=== PATIENT | female | born 1970 | race Caucasian/White ===

== ENCOUNTER 2016-08-05 21:01 | Emergency (ER) | payer OTHER ==
[~2016-08-05] VITALS: Ht 167.6 cm; Wt 123.5 kg
[~2016-08-05 21:01] MED LIST: AMLO-110 PO; ASPI81TA28 PO; HYDR-5688 PO; LEVO112T4 PO; METO50TA16 PO; SALI1SPR3 NAE; SULF800T23 PO
[2016-08-05 21:11] VITALS: TEMP 36.7; Ht 167.6 cm; Wt 123.5 kg
--- NOTE | 2016-08-05 21:43 | EMERGENCY ROOM VISIT NOTE ---
ED Visit Note First contact with patient: 21:24 CHIEF COMPLAINT: Infection of the right inguinal fold HISTORY OF PRESENT ILLNESS: This 46-year-old female patient presents to the emergency department ambulatory after they noticed a hard, red, tender area to the right inguinal fold 3 days ago. It is slowly getting larger, more painful and tender. No fever, chills, or loss of appetite. There has been drainage from the area which started approximately one hour ago. There was no injury to the area preceding the infection. They rate the pain as sharp and 7/10. They have tried nothing. The patient is non-diabetic. The patient has no history of subcutaneous abscesses. REVIEW OF SYSTEMS: A 10 system review of systems was completed with positives and pertinent negatives listed in the HPI. ALLERGIES: No known drug allergies MEDICATIONS: See nursing notes PMH: Hypothyroidism, back pain, hypertension SOCIAL HISTORY: The patient lives locally with family. She does not smoke PHYSICAL EXAM: Vital Signs: Reviewed Nurse's notes, vital signs stable. GENERAL : This is a 46-year-old female, no acute distress, non toxic in appearance, well -developed well-nourished. SKIN: There is an erythematous indurated area to the right inguinal fold which measures about 2 cm in diameter. It is open and draining. There is approximately 0.5 cm hole in the center that is nicely draining. There is a zone of inflammation around it but no lymphangitis. Capillary refill less than 2 seconds. MUSCULOSKELETAL: There is no limitation of the range of motion of the right leg. EMERGENCY DEPARTMENT COURSE: I examined the patient. The patient appears to have an open and draining abscess to the right inguinal fold. There is no significant cellulitis. She is afebrile and nontoxic in appearance. A culture was obtained. The patient will be placed on Bactrim and Keflex and given a prescription for Percocet. She should return in 24-48 hours if she does not have any significant improvement. She should return to the ER with any worsening symptoms. The patient does have a history of hypertension and was noted to be hypertensive. The patient is quite embarrassed and is having pain. She does not have any chest pain, trouble breathing, headache, numbness, tingling. She was advised to monitor her blood pressure and follow with her family doctor. The patient was discharged home in stable condition. Problem List Medical Problems: (1) Anxiety Status: Chronic (2) Cervical disc displacement Status: Resolved (3) Cervicalgia Status: Resolved (4) Depression Status: Chronic (5) HTN (hypertension) Status: Chronic (6) Hypothyroidism Status: Chronic (7) Insomnia Status: Chronic (8) Kidney disease Status: Chronic (9) Kidney stones Status: Resolved (10) Migraines Status: Chronic Surgical Problems: (1) History of renal stent Status: Chronic (2) History of tubal ligation Status: Chronic (3) Previous section Status: Chronic (4) S/P cholecystectomy Status: Chronic (5) Status post spinal disc removal Permanent Comment: arthrodesis anterior cervical spine 02/07/2008, and C5-C7 discectomy, fusion Dr. Russo 07/18/14 Status: Chronic Current/Historical Medications Scheduled Amlodipine (Norvasc), 5 MG PO DAILY Aspirin (Aspirin Ec), 81 MG PO DAILY Cephalexin Monohydrate (Keflex), 500 MG PO QID Levothyroxine Sodium (Levothyroxine Sodium), 112 MCG PO DAILY Metoprolol Tartrate (Lopressor) (Lopressor), 75 MG PO BID Sulfa/Trimethoprim (Bactrim Ds 800MG/160MG), 1 TAB PO BID Scheduled PRN Oxycodone/Acetaminophen 5MG/325MG (Percocet 5MG/325MG), 1 TAB PO Q4H PRN for Pain Saline (Saline Nasal [place]), 2 SPRAYS CATRACHITA BID PRN for PRN Allergies Coded Allergies: No Known Allergies (Verified , 09/08/15) Vital Signs Date Time Temp Pulse Resp B/P Pulse Ox O2 Delivery O2 Flow Rate FiO2 08/05/16 22:27 83 15 173/112 98 08/05/16 21:11 36.7 84 18 186/117 98 Room Air Medications Administered Medications (Trade) Dose Ordered Sig/Ernesto Route Start Time Stop Time Status Last Admin Dose Admin Oxycodone/ Acetaminophen (Percocet 5/ 325MG Home Pack) 1 homepack UD ONCE PO 08/05/16 21:45 08/05/16 21:46 DC 08/05/16 22:22 1 HOMEPACK Cephalexin Monohydrate (Keflex 500MG Home Pack) 1 homepack NOW ONCE PO 08/05/16 21:45 08/05/16 21:46 DC 08/05/16 22:22 1 HOMEPACK Trimethoprim/ Sulfamethoxazole (Sulfameth/ Trimeth Ds 800/ 160MG Home Pack) 1 homepack UD ONCE PO 08/05/16 21:45 08/05/16 21:46 DC 08/05/16 22:22 1 HOMEPACK Departure Information Impression Primary Impression: Abscess Dispostion Home / Self-Care Condition GOOD Prescriptions Oxycodone/Acetaminophen 5MG/325MG (PERCOCET 5MG/325MG) Tab 1 TAB PO Q4H Y for Pain, #18 TAB For Initial Treatment Prov: Diane Mccloud PA-C 08/05/16 Cephalexin Monohydrate (Keflex) 500 Mg Cap 500 MG PO QID for 7 Days, #28 CAP Prov: Diane Mccloud PA-C 08/05/16 Sulfa/Trimethoprim (Bactrim Ds 800MG/160MG) Tab 1 TAB PO BID for 7 Days, #14 TAB Prov: Diane Mccloud PA-C 08/05/16 Referrals Mykel Bailey M.D. (PCP) Patient Instructions Drainage Abscess, [facility] Additional Instructions Bactrim and Keflex as prescribed, until finished Ibuprofen 600 mg every 6-8 hours or moderate pain Percocet 1-2 tablet every 4-6 hours as needed for worse pain. No driving or alcohol use with Percocet and do not take with Tylenol. Keep the area clean and dry. Warm soaks. The area will continue to drain. Return with any worsening swelling, redness, fevers. Return to the emergency department in 24-48 hours for a recheck unless there is significant improvement.
[2016-08-05] MEDS ORDERED: CEPHALEXIN 500MG HOME PACK 1 EA BTL PO ONE (21:45)
[2016-08-05] MEDS ORDERED: SEPTRA DS HOME PACK 1 EA VIAL PO ONE (21:45)
[2016-08-05] MEDS ORDERED: PERCOCET HOME PACK PO ONE (21:45)
[2016-08-05] MEDS ORDERED: SULF800T23 PO (21:47)
[2016-08-05] MEDS ORDERED: OXYC-57 PO (21:47)
[2016-08-05] MEDS ORDERED: CEPH500C PO (21:47)
[2016-08-05 22:27] VITALS: BP 173/112; PULSE 83; O2SAT 98
== END 2016-08-05 22:31 | disposition home or self-care (01) ==
LOC: C.EDB 21:03 → C.EDA 22:31
DX: L02.214 Cutaneous abscess of groin (principal); I12.9 Hypertensive chronic kidney disease with stage 1 through stage 4 chronic kidney disease, or unspecified chronic kidney disease; N18.9 Chronic kidney disease, unspecified; E03.9 Hypothyroidism, unspecified; F41.9 Anxiety disorder, unspecified; F32.9 Major depressive disorder, single episode, unspecified; M50.20 Other cervical disc displacement, unspecified cervical region; Z98.51 Tubal ligation status; Z90.49 Acquired absence of other specified parts of digestive tract; Z87.442 Personal history of urinary calculi; Z79.82 Long term (current) use of aspirin; Z79.899 Other long term (current) drug therapy

== ENCOUNTER 2017-02-27 20:04 | Emergency (ER) | payer OTHER ==
[~2017-02-27] VITALS: Ht 167.6 cm; Wt 121.0 kg
[~2017-02-27 20:04] MED LIST changes: -HYDR-5688 PO; -SULF800T23 PO
[2017-02-27 20:08] VITALS: TEMP 36.9; Ht 167.6 cm; Wt 121.0 kg
[2017-02-27] MEDS ORDERED: DiphenhydrAMINE HCL 50 MG/ML VIAL IV STA (20:33)
[2017-02-27] MEDS ORDERED: SODIUM CHLORIDE 0.9% 1000ML 1,000 ML IV STA (20:33)
[2017-02-27] MEDS ORDERED: PROCHLORPERAZINE 5 MG/ML 2 ML VIAL IV STA (20:33)
[2017-02-27 20:40] VITALS: O2SAT 97
[2017-02-27 20:46] LABS: BASO % 0.4 %; BASO ABS # 0.03 K/uL (0-0.2); COMPLETE YES; EOS % 4.3 %; HEMATOCRIT 43.2 % (37-47); IG% 0.2 %; LYMPH % 26.2 %; LYMPH ABS # 2.15 K/uL (1.2-3.4); MEAN CELL VOLUME 90.4 fL (80-100); MEAN CORPUSCULAR HEMOGLOBIN 28.9 pg (25-34); MEAN CORPUSCULAR HGB CONC 31.9 g/dl (32-36); MEAN PLATELET VOLUME 10.6 fL (7.4-10.4); MONO % 11.6 %; NEUT % 57.3 %; PLATELET COUNT 306 K/uL (130-400); RED BLOOD COUNT 4.78 M/uL (4.2-5.4); WHITE BLOOD COUNT 8.21 K/uL (4.8-10.8)
[2017-02-27 20:55] LABS: BUN/CREATININE RATIO 14.9 (10-20); CALCIUM 9.5 mg/dl (8.5-10.1); CREATININE 1.5 mg/dl (0.60-1.20); POTASSIUM 3.7 mmol/L (3.5-5.1)
[2017-02-27] MEDS ORDERED: ACET-1256 PO (21:03)
[2017-02-27] MEDS ORDERED: OPTIRAY 320 IV PRN (21:45)
--- NOTE | 2017-02-27 21:54 | DIAGNOSTIC IMAGING REPORT ---
ANGIOGRAPHY HEAD COMBO CLINICAL HISTORY: 46 years-old Female presents with acute headache. Concern for intracranial hemorrhage. COMPARISON STUDY: CT head 04/10/2014 TECHNIQUE: Unenhanced axial CT scan of the brain is performed. Subsequently, following the IV administration of 93 cc of Optiray 320, CT angiogram of the brain was performed from the skull base to the vertex. Images are reviewed in the axial, sagittal, and coronal planes. 3-D MIPS images are created and assessed. IV contrast was administered without complication. A dose lowering technique was utilized adhering to the principles of ALARA. CT DOSE: 651.86 mGy.cm FINDINGS: CT BRAIN: There is no acute intracranial hemorrhage, midline shift, hydrocephalus, intracranial mass, territorial ischemia or abnormal extra-axial collections. No abnormal intra-axial or extra-axial enhancement. Mastoid air cells and middle ear cavities are clear. No calvarial fracture. Paranasal sinuses are clear. No abnormal enhancement is identified. CT ANGIOGRAM OF THE BRAIN: The imaged bilateral internal carotid arteries are patent. The bilateral anterior and middle cerebral arteries are also patent. The vertebrobasilar system and posterior cerebral arteries are widely patent. There is no aneurysm, high-grade stenosis, or proximal branch occlusion identified. Dural sinuses appear patent. IMPRESSION: 1. No acute intracranial abnormality. 2. No high-grade stenosis, dissection, aneurysm or proximal branch occlusion. The above report was generated using voice recognition software. It may contain grammatical, syntax or spelling errors. Electronically signed by: Gilberto Diallo M.D. 02/27/2017 9:52 PM Dictated Date/Time: 02/27/2017 9:45 PM
[2017-02-27 22:18] VITALS: BP 163/96; PULSE 80; O2SAT 99
--- NOTE | 2017-02-27 22:55 | EMERGENCY ROOM VISIT NOTE ---
History Report prepared by Georgie: Blayne Ray Under the Supervision of: Dr. Cristian Cortes M.D. First contact with patient: 20:25 Chief Complaint: HEADACHE Stated Complaint: VERY BAD HEAD PAIN History of Present Illness The patient is a 46 year old female who presents to the Emergency Room with complaints of a worsening constant headache for four days. She states that the pain is behind her left eye and on the left side. The patient states that she used to get migraines, however this one feels different because of the long duration. The patient denies any fever, and she states that nothing makes the pain better or worse. She did have a low-grade temp previously but was placed on antibiotics for a kidney infection. She has not had any fever since and her urinary symptoms have resolved. She states that she was nauseous today. She denies any trauma. The patient states that she has a history of hypertension, and she has a Family history of aneurysms. She additionally states that she is on antibiotics for a recent kidney infection. The patient states that she has been taking Tylenol every 4 hours. The headache was gradual in onset. Source of History: patient Onset: four days ago Position: head Timing: constant, worsening Associated Symptoms: + nausea Review of Systems See HPI for pertinent positives & negatives. A total of 10 systems reviewed and were otherwise negative. Past Medical & Surgical Medical Problems: (1) Anxiety (2) Cervical disc displacement (3) Cervicalgia (4) Depression (5) HTN (hypertension) (6) Hypothyroidism (7) Insomnia (8) Kidney disease (9) Kidney stones (10) Migraines Surgical Problems: (1) History of renal stent (2) History of tubal ligation (3) Previous section (4) S/P cholecystectomy (5) Status post spinal disc removal Family History Cancer Diabetes mellitus Gallbladder disease Heart disease Hypertension Kidney disease Social History Smoking Status: Never Smoker Alcohol Use: occasionally Drug Use: none Marital Status: Housing Status: lives with family Occupation Status: disabled Current/Historical Medications Scheduled Amlodipine (Norvasc), 5 MG PO DAILY Aspirin (Aspirin Ec), 81 MG PO DAILY Levothyroxine Sodium (Levothyroxine Sodium), 112 MCG PO DAILY Metoprolol Tartrate (Lopressor) (Lopressor), 75 MG PO BID Scheduled PRN Acetaminophen (Tylenol), 1,000 MG PO DAILY PRN for Pain or Fever Saline (Saline Nasal [place]), 2 SPRAYS CATRACHITA BID PRN for PRN Allergies Coded Allergies: No Known Allergies (Verified , 02/27/17) Physical Exam Vital Signs Date Time Temp Pulse Resp B/P (MAP) Pulse Ox O2 Delivery O2 Flow Rate FiO2 02/27/17 22:18 80 18 163/96 99 02/27/17 21:27 89 18 153/87 95 Room Air 02/27/17 20:40 97 Room Air 02/27/17 20:32 94 02/27/17 20:28 88 16 188/100 98 02/27/17 20:08 36.9 87 18 165/113 99 Room Air Physical Exam Constitutional: Vital signs reviewed. Eyes: No papilledema. Pupils are equal round reactive to light. Conjunctiva are noninjected. ENT: Pharynx is clear without erythema or exudate. Mucous membranes are moist. Neck supple without meningeal signs. Respiratory: Clear to auscultation bilaterally. Breath sounds are equal bilaterally. Cardiovascular: Regular rate and rhythm. No rubs or gallops. GI: Soft, nondistended and nontender. Bowel sounds are present. Musculoskeletal: No peripheral edema. No lower extremity tenderness. Integumentary: No cyanosis. Neurologic: The patient is awake and alert. Cranial nerves II-XII are intact. Motor is 5 out of 5 all extremities. Sensation is intact to light touch all extremities. Normal speech. No pronator drift. Psychiatric: Normal affect. Medical Decision & Procedures ER Provider Diagnostic Interpretation: Radiology results as stated below per my review and the radiologist's interpretation: ANGIOGRAPHY HEAD COMBO CLINICAL HISTORY: 46 years-old Female presents with acute headache. Concern for intracranial hemorrhage. COMPARISON STUDY: CT head 04/10/2014 TECHNIQUE: Unenhanced axial CT scan of the brain is performed. Subsequently, following the IV administration of 93 cc of Optiray 320, CT angiogram of the brain was performed from the skull base to the vertex. Images are reviewed in the axial, sagittal, and coronal planes. 3-D MIPS images are created and assessed. IV contrast was administered without complication. A dose lowering technique was utilized adhering to the principles of ALARA. CT DOSE: 651.86 mGy.cm FINDINGS: CT BRAIN: There is no acute intracranial hemorrhage, midline shift, hydrocephalus, intracranial mass, territorial ischemia or abnormal extra-axial collections. No abnormal intra-axial or extra-axial enhancement. Mastoid air cells and middle ear cavities are clear. No calvarial fracture. Paranasal sinuses are clear. No abnormal enhancement is identified. CT ANGIOGRAM OF THE BRAIN: The imaged bilateral internal carotid arteries are patent. The bilateral anterior and middle cerebral arteries are also patent. The vertebrobasilar system and posterior cerebral arteries are widely patent. There is no aneurysm, high-grade stenosis, or proximal branch occlusion identified. Dural sinuses appear patent. IMPRESSION: 1. No acute intracranial abnormality. 2. No high-grade stenosis, dissection, aneurysm or proximal branch occlusion. The above report was generated using voice recognition software. It may contain grammatical, syntax or spelling errors. Electronically signed by: Gilberto Diallo M.D. 02/27/2017 9:52 PM Dictated Date/Time: 02/27/2017 9:45 PM Laboratory Results 02/27/17 20:25 Red Blood Count 4.78, Mean Corpuscular Volume 90.4, Mean Corpuscular Hemoglobin 28.9, Mean Corpuscular Hemoglobin Concent 31.9, Mean Platelet Volume 10.6, Neutrophils (%) (Auto) 57.3, Lymphocytes (%) (Auto) 26.2, Monocytes (%) (Auto) 11.6, Eosinophils (%) (Auto) 4.3, Basophils (%) (Auto) 0.4, Neutrophils # (Auto ) 4.71, Lymphocytes # (Auto) 2.15, Monocytes # (Auto) 0.95, Eosinophils # (Auto ) 0.35, Basophils # (Auto) 0.03 02/27/17 20:25 Test 02/27/17 20:25 White Blood Count 8.21 K/uL (4.8-10.8) Red Blood Count 4.78 M/uL (4.2-5.4) Hemoglobin 13.8 g/dL (12.0-16.0) Hematocrit 43.2 % (37-47) Mean Corpuscular Volume 90.4 fL (80-100) Mean Corpuscular Hemoglobin 28.9 pg (25-34) Mean Corpuscular Hemoglobin Concent 31.9 g/dl (32-36) Platelet Count 306 K/uL (130-400) Mean Platelet Volume 10.6 fL (7.4-10.4) Neutrophils (%) (Auto) 57.3 % Lymphocytes (%) (Auto) 26.2 % Monocytes (%) (Auto) 11.6 % Eosinophils (%) (Auto) 4.3 % Basophils (%) (Auto) 0.4 % Neutrophils # (Auto) 4.71 K/uL (1.4-6.5) Lymphocytes # (Auto) 2.15 K/uL (1.2-3.4) Monocytes # (Auto) 0.95 K/uL (0.11-0.59) Eosinophils # (Auto) 0.35 K/uL (0-0.5) Basophils # (Auto) 0.03 K/uL (0-0.2) RDW Standard Deviation 46.8 fL (36.4-46.3) RDW Coefficient of Variation 14.2 % (11.5-14.5) Immature Granulocyte % (Auto) 0.2 % Immature Granulocyte # (Auto) 0.02 K/uL (0.00-0.02) Anion Gap 6.0 mmol/L (3-11) Est Creatinine Clear Calc Drug Dose 60.8 ml/min Estimated GFR () 47.3 Estimated GFR (Non- 40.8 BUN/Creatinine Ratio 14.9 (10-20) Calcium Level 9.5 mg/dl (8.5-10.1) Laboratory results as reviewed by me. Medications Administered Medications (Trade) Dose Ordered Sig/Ernesto Route Start Time Stop Time Status Last Admin Dose Admin Sodium Chloride 1,000 ml @ 999 mls/hr Q1H1M STAT IV 02/27/17 20:33 02/27/17 21:33 DC 02/27/17 20:50 999 MLS/HR Prochlorperazine Edisylate (Compazine Inj) 10 mg NOW STAT IV 02/27/17 20:33 02/27/17 20:35 DC 02/27/17 20:49 10 MG Diphenhydramine HCl (Benadryl Inj) 50 mg NOW STAT IV 02/27/17 20:33 02/27/17 20:35 DC 02/27/17 20:48 50 MG ED Course 2024: The patient was evaluated in room A12. A complete history and physical exam was performed. 2032: Benadryl Inj 50mg IV, Compazine 10mg IV, Sodium Chloride 1000 ml @ 999 mls /hr IV 2037: I discussed the limitations for a workup for a subarachnoid hemorrhage, and I discussed the risks and benefits of a lumbar puncture. 2158: I reevaluated the patient, and she was feeling better, and she does not wish to have a lumbar puncture. The patient will be discharged home. Medical Decision This is a 46-year-old female presents with a headache. Differential diagnosis includes migraine headache, tension headache, intracranial mass, intracranial hemorrhage, meningitis. I did perform a limited focused review of portions of the patient's old chart on the electronic medical record. The patient had a brain MRI in 2014 which was normal. I did evaluate the patient as noted above. The patient is presenting with a headache for the past 4 days. She does have a grandparent who had a prior history of aneurysms. Her headache was gradual in onset. She does have a prior history of migraines. IV access was established. I did treat the patient with IV Compazine, Benadryl and normal saline. I did order and review the patient's blood work as noted in the electronic medical record. Her white blood cell count is not elevated. I did order a CT of the head and CT angiogram of the brain. I did review the images myself as well as the radiology report as described above. There is no evidence of intracranial hemorrhage or cerebral aneurysm. I did reassess the patient. She states she is feeling better. I had discussed the possibility of lumbar puncture with the patient prior to her receiving medication. She decided at this point that she would not like to undergo the lumbar puncture and understands the indications of doing so. She will follow closely with her doctor. She was told to return immediately for worse symptoms or any new concerning symptoms as outlined below. She was discharged in good condition. Medication Reconcilliation Current Medication List: was personally reviewed by me Blood Pressure Screening Patient's blood pressure: Elevated blood pressure Blood pressure disposition: Referred to PCP Impression Primary Impression: Acute headache Scribe Attestation The scribe's documentation has been prepared under my direct and personally reviewed by me in its entirety. I confirm that the note above accurately reflects all work, treatment, procedures, and medical decision making performed by me. Departure Information Dispostion Home / Self-Care Referrals Mykel Bailey M.D. (PCP) Forms HOME CARE DOCUMENTATION FORM, IMPORTANT VISIT INFORMATION Patient Instructions Headache Pain, My [facility] Additional Instructions You have been examined and treated today on an emergency basis only. This is not a substitute for, or an effort to provide, complete comprehensive medical care. It is impossible to recognize and treat all injuries or illnesses in a single emergency department visit. It is therefore important that you follow up closely with your physician. Call as soon as possible for an appointment. Return for worsening symptoms or if you develop fever, numbness or weakness on one side of your body, difficulties with your speech or walking, or any other concerning symptoms. Problem Qualifiers Primary Impression: Acute headache Headache type: unspecified Intractability: not intractable Qualified Codes : R51 - Headache
== END 2017-02-27 22:19 | disposition home or self-care (01) ==
LOC: C.EDB 20:06 → C.EDA 22:19
DX: R51 Headache (principal); F41.9 Anxiety disorder, unspecified; F32.9 Major depressive disorder, single episode, unspecified; I10 Essential (primary) hypertension; E03.9 Hypothyroidism, unspecified; G47.00 Insomnia, unspecified; Z87.442 Personal history of urinary calculi; N28.9 Disorder of kidney and ureter, unspecified; Z80.9 Family history of malignant neoplasm, unspecified; Z83.3 Family history of diabetes mellitus; Z83.79 Family history of other diseases of the digestive system; Z82.49 Family history of ischemic heart disease and other diseases of the circulatory system; Z84.1 Family history of disorders of kidney and ureter; Z79.82 Long term (current) use of aspirin; Z79.899 Other long term (current) drug therapy

== ENCOUNTER 2017-09-29 09:28 | Inpatient (IN) | payer OTHER ==
[~2017-09-29] VITALS: Ht 167.6 cm; Wt 118.9 kg
[2017-09-29] VITALS (18 sets, daily range): BP systolic 140–187; BP diastolic 83–105; PULSE 60–78; TEMP 36.8–36.9; O2SAT 92–100; Ht 167.6 cm; Wt 118.9 kg
[~2017-09-29 09:28] MED LIST changes: +ACET-1256 PO; -ASPI81TA28 PO; -LEVO112T4 PO
--- NOTE | 2017-09-29 10:09 | EMERGENCY ROOM VISIT NOTE ---
History First contact with patient: 09:48 Chief Complaint: HYPERTENSION Stated Complaint: HIGH BP, DIZZINESS, BLOODY NOSE, NAUSEA History of Present Illness The patient is a 47 year old female who presents to the Emergency Room with complaints of profound dizziness with room spinning since yesterday morning, she had sat down to use the bathroom and suddenly felt as if the room tipped upside down and then back upright. She sat for several minutes to try and calm down. Her checked her BP at this time and it was 187/107. The dizziness persisted all day, and then later when she was trying to go to sleep, had to get up to got to the bathroom, she was feeling dizzy again and asked for help, felt as if the room was spinning, so after the bathroom she went to sit on the couch. Laying down makes the dizziness worse. Slept in an upright position overnight. Pt had a cough 3 weeks ago, conjunctivitis that was treated with drops last week, and has had 2 loose stools this morning but is otherwise healthy. Pt's mother states she has a h/o vertigo. Denies weakness, chest pain, difficulty breathing, slurred speech, abdominal pain, constipation. Review of Systems ROS See HPI for pertinent positives and negatives. Past Medical/Surgical History Medical Problems: (1) Anxiety (2) Cervical disc displacement (3) Cervicalgia (4) Depression (5) HTN (hypertension) (6) Hypertensive emergency (7) Hypothyroidism (8) Insomnia (9) Kidney disease (10) Kidney stones (11) Migraines Surgical Problems: (1) History of renal stent (2) History of tubal ligation (3) Previous section (4) S/P cholecystectomy (5) Status post spinal disc removal Family History Cancer Diabetes mellitus Gallbladder disease Heart disease Hypertension Kidney disease Social History Smoking Status: Never Smoker Alcohol Use: occasionally Drug Use: none Marital Status: Housing Status: lives with family Occupation Status: disabled Current/Historical Medications Scheduled Allopurinol (Zyloprim), 100 MG PO DAILY Aspirin (Aspirin Ec), 81 MG PO DAILY Cholecalciferol (Vitamin D3), 2,000 UNITS PO DAILY Fluoxetine (Prozac), 10 MG PO DAILY Hydrochlorothiazide (Hctz), 25 MG PO DAILY Levothyroxine Sodium (Levothyroxine Sodium), 112 MCG PO DAILY Lisinopril (Prinivil), 20 MG PO DAILY Metoprolol Tartrate (Lopressor) (Lopressor), 75 MG PO BID Physical Exam Vital Signs Date Time Temp Pulse Resp B/P (MAP) Pulse Ox O2 Delivery O2 Flow Rate FiO2 09/29/17 13:22 98 Room Air 09/29/17 13:12 73 09/29/17 12:53 77 18 204/127 98 Room Air 09/29/17 11:40 82 18 190/98 98 Room Air 09/29/17 10:50 61 09/29/17 09:42 36.8 69 18 220/148 97 Room Air Physical Exam GENERAL: Awake, alert, in moderate distress. Obese HENT: Normocephalic, atraumatic. Poor dentition. EYES: Normal conjunctiva. Sclera non-icteric. NECK: Supple. FROM. No JVD. RESPIRATORY: Clear to auscultation. CARDIAC: Regular rate, normal rhythm. Extremities warm and well perfused. Pulses equal. ABDOMEN: Soft, non-distended. No tenderness to palpation. No rebound or guarding. No masses. LOWER EXTREMITIES: Calves are equal size bilaterally and non-tender. No edema. No discoloration. NEURO: No motor deficits noted. +Nystagmus LT sided after maria de jesus maneuver. SKIN: No rash or jaundice noted. Medical Decision & Procedures Laboratory Results 09/29/17 10:45 Red Blood Count 4.61, Mean Corpuscular Volume 91.1, Mean Corpuscular Hemoglobin 29.9, Mean Corpuscular Hemoglobin Concent 32.9, Mean Platelet Volume 10.0, Neutrophils (%) (Auto) 72.9, Lymphocytes (%) (Auto) 16.1, Monocytes (%) (Auto) 8.4, Eosinophils (%) (Auto) 2.0, Basophils (%) (Auto) 0.3, Neutrophils # (Auto) 5.78, Lymphocytes # (Auto) 1.28, Monocytes # (Auto) 0.67, Eosinophils # (Auto) 0.16, Basophils # (Auto) 0.02 09/29/17 10:45 Test 09/29/17 10:45 White Blood Count 7.93 K/uL (4.8-10.8) Red Blood Count 4.61 M/uL (4.2-5.4) Hemoglobin 13.8 g/dL (12.0-16.0) Hematocrit 42.0 % (37-47) Mean Corpuscular Volume 91.1 fL (80-100) Mean Corpuscular Hemoglobin 29.9 pg (25-34) Mean Corpuscular Hemoglobin Concent 32.9 g/dl (32-36) Platelet Count 301 K/uL (130-400) Mean Platelet Volume 10.0 fL (7.4-10.4) Neutrophils (%) (Auto) 72.9 % Lymphocytes (%) (Auto) 16.1 % Monocytes (%) (Auto) 8.4 % Eosinophils (%) (Auto) 2.0 % Basophils (%) (Auto) 0.3 % Neutrophils # (Auto) 5.78 K/uL (1.4-6.5) Lymphocytes # (Auto) 1.28 K/uL (1.2-3.4) Monocytes # (Auto) 0.67 K/uL (0.11-0.59) Eosinophils # (Auto) 0.16 K/uL (0-0.5) Basophils # (Auto) 0.02 K/uL (0-0.2) RDW Standard Deviation 48.6 fL (36.4-46.3) RDW Coefficient of Variation 14.5 % (11.5-14.5) Immature Granulocyte % (Auto) 0.3 % Immature Granulocyte # (Auto) 0.02 K/uL (0.00-0.02) Anion Gap 3.0 mmol/L (3-11) Est Creatinine Clear Calc Drug Dose 71.0 ml/min Estimated GFR () 60.8 Estimated GFR (Non- 52.5 BUN/Creatinine Ratio 12.2 (10-20) Calcium Level 9.3 mg/dl (8.5-10.1) Medications Administered Medications (Trade) Dose Ordered Sig/Ernesto Route Start Time Stop Time Status Last Admin Dose Admin Sodium Chloride 500 ml @ 150 mls/hr Q3H20M IV 09/29/17 10:30 10/29/17 10:09/29/17 11:33 150 MLS/HR Meclizine HCl (Antivert Tab) 25 mg NOW STAT PO 09/29/17 10:18 09/29/17 10:20 DC 09/29/17 11:33 25 MG Diazepam (Valium Inj) 2.5 mg NOW STAT IV 09/29/17 10:26 09/29/17 10:27 DC 09/29/17 11:33 2.5 MG Diphenhydramine HCl (Benadryl Inj) 25 mg NOW STAT IV 09/29/17 11:55 09/29/17 11:56 DC 09/29/17 12:34 25 MG Labetalol HCl (Normodyne IV) 10 mg NOW STAT IV 09/29/17 12:51 09/29/17 12:52 DC 09/29/17 13:19 10 MG Labetalol HCl (Normodyne IV) 10 mg NOW STAT IV 09/29/17 13:25 09/29/17 13:26 DC 09/29/17 14:[address] HEAD WITHOUT CONTRAST (CT) CLINICAL HISTORY: Dizziness COMPARISON STUDY: 02/27/2017 TECHNIQUE: Axial CT of the brain is performed from the vertex to the skull base. IV contrast was not administered for this examination. A dose lowering technique was utilized adhering to the principles of ALARA. CT DOSE: 638.56 mGycm FINDINGS: No intra or extra-axial mass lesions are visualized. There is no CT evidence of acute cortical infarction. There is no evidence of midline shift. There is no acute hemorrhage. No calvarial fractures are visualized. There is no evidence of pathologic ventricular dilatation. There is no evidence of acute sinusitis IMPRESSION: No acute intracranial findings Electronically signed by: Jaxon Espinoza M.D. 09/29/2017 11:14 AM Dictated Date/Time: 09/29/2017 11:13 AM ED Course 0948 reviewed records, resident saw and assessed pt 1020 labs ordered, CT head, fluids and meclizine tab 1026 IV valium ordered [address] with pt. Pt is resting comfortably. Needs work off till tuesday 2April. 1200 pt care assumed by attending, please see attending note for further details of care. Medical Decision The patient is a 47 year old female who presents to the Emergency Room with complaints of profound dizziness with room spinning since yesterday morning, she had sat down to use the bathroom and suddenly felt as if the room tipped upside down and then back upright. She sat for several minutes to try and calm down. Her checked her BP at this time and it was 187/107. The dizziness persisted all day, and then later when she was trying to go to sleep, had to get up to got to the bathroom, she was feeling dizzy again and asked for help, felt as if the room was spinning, so after the bathroom she went to sit on the couch. Laying down makes the dizziness worse. Slept in an upright position overnight. Pt had a cough 3 weeks ago, conjunctivitis that was treated with drops last week, and has had 2 loose stools this morning but is otherwise healthy. Denies weakness, chest pain, difficulty breathing, slurred speech, abdominal pain, constipation. Diff dx: BPPV, stroke, hypertensive end organ failure, hypertensive urgency Pt came in with elevated blood pressure and severe dizziness. CT of the head shows no acute abnormality. Labs are unremarkable. Pt's exam + for teresita martínez pike maneuver left sided nystagmus. Pt has h/o vertigo. Has used Maria De Jesus maneuvers in the past, understands and agrees to use these again now. Will send home with po meclizine. However, due to SBP remaining in 200s, decision made to admit to control blood pressure. Blood Pressure Screening Patient's blood pressure: Elevated blood pressure Blood pressure disposition: Referred to PCP Impression Primary Impression: Hypertensive emergency Additional Impression: Vertigo Departure Information Dispostion Admitted as an inpatient Condition FAIR Referrals Mykel Bailey M.D. (PCP) Patient Instructions My [email or web address] Work Instructions Specific Date: October, Resident Tracking Resident Involvement: Resident Care Provided Care Provided: Adult ED Problem Qualifiers
[2017-09-29] MEDS ORDERED: ASPI81TA28 PO (10:10)
[2017-09-29] MEDS ORDERED: MECLIZINE HCL 25 MG TAB PO STA (10:18)
[2017-09-29] MEDS ORDERED: LISI20TA3 PO (10:21)
[2017-09-29] MEDS ORDERED: ALLO100T PO (10:21)
[2017-09-29] MEDS ORDERED: HYDR25TA4 PO (10:21)
[2017-09-29] MEDS ORDERED: CHOL2000 PO (10:21)
[2017-09-29] MEDS ORDERED: FLUO10CA48 PO (10:21)
[2017-09-29] MEDS ORDERED: DIAZEPAM INJ 5 MG/ML 2 ML CARP IV STA (10:26)
[2017-09-29] MEDS ORDERED: SODIUM CHLORIDE 0.9% 500ML 500 ML IV SCH (10:30)
[2017-09-29 11:06] LABS: BASO % 0.3 %; BASO ABS # 0.02 K/uL (0-0.2); EOS ABS # 0.16 K/uL (0-0.5); HEMOGLOBIN 13.8 g/dL (12.0-16.0); IG# 0.02 K/uL (0.00-0.02); LYMPH % 16.1 %; LYMPH ABS # 1.28 K/uL (1.2-3.4); MEAN CELL VOLUME 91.1 fL (80-100); MEAN CORPUSCULAR HEMOGLOBIN 29.9 pg (25-34); MEAN CORPUSCULAR HGB CONC 32.9 g/dl (32-36); MONO % 8.4 %; MONO ABS # 0.67 K/uL (0.11-0.59); NEUT % 72.9 %; NEUT ABS # 5.78 K/uL (1.4-6.5); PLATELET COUNT 301 K/uL (130-400); RED CELL DISTRIBUTION WIDTH CV 14.5 % (11.5-14.5); RED CELL DISTRIBUTION WIDTH SD 48.6 fL (36.4-46.3); WHITE BLOOD COUNT 7.93 K/uL (4.8-10.8)
--- NOTE | 2017-09-29 11:16 | DIAGNOSTIC IMAGING REPORT ---
CT HEAD WITHOUT CONTRAST (CT) CLINICAL HISTORY: Dizziness COMPARISON STUDY: 02/27/2017 TECHNIQUE: Axial CT of the brain is performed from the vertex to the skull base. IV contrast was not administered for this examination. A dose lowering technique was utilized adhering to the principles of ALARA. CT DOSE: 638.56 mGycm FINDINGS: No intra or extra-axial mass lesions are visualized. There is no CT evidence of acute cortical infarction. There is no evidence of midline shift. There is no acute hemorrhage. No calvarial fractures are visualized. There is no evidence of pathologic ventricular dilatation. There is no evidence of acute sinusitis IMPRESSION: No acute intracranial findings Electronically signed by: Jaxon Espinoza M.D. 09/29/2017 11:14 AM Dictated Date/Time: 09/29/2017 11:13 AM
[2017-09-29 11:20] LABS: CALCIUM 9.3 mg/dl (8.5-10.1); CREATININE 1.21 mg/dl (0.60-1.20); POTASSIUM 3.6 mmol/L (3.5-5.1)
[2017-09-29] MEDS ORDERED: DiphenhydrAMINE HCL 50 MG/ML VIAL IV STA (11:55)
[2017-09-29] MEDS ORDERED: LABETALOL HCL IV 5 MG/ML 20ML IV STA ×2 (12:51→13:25)
[2017-09-29] MEDS ORDERED: ICU PROTOCOL FOR HYPERGLYCEMIA PRN (13:45)
[2017-09-29] MEDS ORDERED: ONDANSETRON INJ 2 MG/ML 2 ML VIAL IV PRN (13:45)
[2017-09-29] MEDS ORDERED: AMLODIPINE BESYLATE 5 MG TAB PO ONE ×2 (13:45→14:50)
[2017-09-29] MEDS ORDERED: METOPROLOL TARTRATE 50 MG TAB PO STA (14:48)
--- NOTE | 2017-09-29 14:57 | EMERGENCY ROOM VISIT NOTE ---
History Report prepared by Georgie: Kenrick Diaz Under the Supervision of: Dr. Jay Leos D.O. First contact with patient: 09:48 Chief Complaint: HYPERTENSION Stated Complaint: HIGH BP, DIZZINESS, BLOODY NOSE, NAUSEA History of Present Illness The patient is a 47 year old female who presents to the Emergency Room with complaints of constant dizziness that began yesterday morning as she was going to the restroom. She described her dizziness as the room tipping upside down. The dizziness now feels like the room is pinning. Yesterday the dizziness was intermittent throughout the day, but is now constant. Her symptoms are worsened with changing position, and turning her head to the left. She is also complaining of nausea, and a headache with pain behind her left eye. Today she is very unsteady on her feet, and her needed to help her to the restroom to keep her from falling. She denies any weakness, vision irregularities, vomiting, fevers, chest pain, shortness of breath, diarrhea, pain with urination, and melena. Source of History: patient Onset: Yesterday morning Position: head Quality: other (Dizziness, room spinning) Timing: constant Modifying Factors (Worsening): other (change in positions) Associated Symptoms: + nausea Note: Pain behind her left eye. Review of Systems See HPI for pertinent positives & negatives. A total of 10 systems reviewed and were otherwise negative. Past Medical & Surgical Medical Problems: (1) Anxiety (2) Cervical disc displacement (3) Cervicalgia (4) Depression (5) HTN (hypertension) (6) Hypertensive emergency (7) Hypothyroidism (8) Insomnia (9) Kidney disease (10) Kidney stones (11) Migraines Surgical Problems: (1) History of renal stent (2) History of tubal ligation (3) Previous section (4) S/P cholecystectomy (5) Status post spinal disc removal Family History Cancer Diabetes mellitus Gallbladder disease Heart disease Hypertension Kidney disease Social History Smoking Status: Never Smoker Alcohol Use: occasionally Drug Use: none Marital Status: Housing Status: lives with family Occupation Status: disabled Current/Historical Medications Scheduled Allopurinol (Zyloprim), 100 MG PO DAILY Aspirin (Aspirin Ec), 81 MG PO DAILY Cholecalciferol (Vitamin D3), 2,000 UNITS PO DAILY Fluoxetine (Prozac), 10 MG PO DAILY Hydrochlorothiazide (Hctz), 25 MG PO DAILY Levothyroxine Sodium (Levothyroxine Sodium), 112 MCG PO DAILY Lisinopril (Prinivil), 20 MG PO DAILY Metoprolol Tartrate (Lopressor) (Lopressor), 75 MG PO BID Allergies Coded Allergies: No Known Allergies (Verified , 09/29/17) Physical Exam Vital Signs Date Time Temp Pulse Resp B/P (MAP) Pulse Ox O2 Delivery O2 Flow Rate FiO2 09/29/17 13:22 98 Room Air 09/29/17 13:12 73 09/29/17 12:53 77 18 204/127 98 Room Air 09/29/17 11:40 82 18 190/98 98 Room Air 09/29/17 10:50 61 09/29/17 09:42 36.8 69 18 220/148 97 Room Air Physical Exam GENERAL: Sitting up in bed, alert, disheveled and uncomfortable, non-toxic EYE EXAM: normal conjunctiva. OROPHARYNX: no exudate, no erythema, lips, buccal mucosa, and tongue normal and mucous membranes are moist NECK: supple, no nuchal rigidity, no adenopathy, non-tender LUNGS: Clear to auscultation. Normal chest wall mechanics HEART: no murmurs, S1 normal and S2 normal ABDOMEN: abdomen soft, non-tender, normo-active bowel sounds, no masses, no rebound or guarding. BACK: Back is symmetrical on inspection and there is no deformity, no midline tenderness, no CVA tenderness. SKIN: no rashes and no bruising UPPER EXTREMITIES: upper extremities are grossly normal. LOWER EXTREMITIES: No pitting edema. NEURO EXAM: Normal sensorium, cranial nerves II-XII intact, normal speech, no weakness of arms, no weakness of legs. No drift. Finger to nose intact. Gross sensation intact. Dizziness is significantly worsened with axial rotation of the head and quick movements. Also worsened with laying flat. Medical Decision & Procedures ER Provider Diagnostic Interpretation: Radiology results as stated below per my review and the radiologist's interpretation: CT HEAD WITHOUT CONTRAST (CT) CLINICAL HISTORY: Dizziness COMPARISON STUDY: 02/27/2017 TECHNIQUE: Axial CT of the brain is performed from the vertex to the skull base. IV contrast was not administered for this examination. A dose lowering technique was utilized adhering to the principles of ALARA. CT DOSE: 638.56 mGycm FINDINGS: No intra or extra-axial mass lesions are visualized. There is no CT evidence of acute cortical infarction. There is no evidence of midline shift. There is no acute hemorrhage. No calvarial fractures are visualized. There is no evidence of pathologic ventricular dilatation. There is no evidence of acute sinusitis IMPRESSION: No acute intracranial findings Electronically signed by: Jaxon Espinoza M.D. 09/29/2017 11:14 AM Dictated Date/Time: 09/29/2017 11:13 AM Laboratory Results 09/29/17 10:45 Red Blood Count 4.61, Mean Corpuscular Volume 91.1, Mean Corpuscular Hemoglobin 29.9, Mean Corpuscular Hemoglobin Concent 32.9, Mean Platelet Volume 10.0, Neutrophils (%) (Auto) 72.9, Lymphocytes (%) (Auto) 16.1, Monocytes (%) (Auto) 8.4, Eosinophils (%) (Auto) 2.0, Basophils (%) (Auto) 0.3, Neutrophils # (Auto) 5.78, Lymphocytes # (Auto) 1.28, Monocytes # (Auto) 0.67, Eosinophils # (Auto) 0.16, Basophils # (Auto) 0.02 09/29/17 10:45 Test 09/29/17 10:45 White Blood Count 7.93 K/uL (4.8-10.8) Red Blood Count 4.61 M/uL (4.2-5.4) Hemoglobin 13.8 g/dL (12.0-16.0) Hematocrit 42.0 % (37-47) Mean Corpuscular Volume 91.1 fL (80-100) Mean Corpuscular Hemoglobin 29.9 pg (25-34) Mean Corpuscular Hemoglobin Concent 32.9 g/dl (32-36) Platelet Count 301 K/uL (130-400) Mean Platelet Volume 10.0 fL (7.4-10.4) Neutrophils (%) (Auto) 72.9 % Lymphocytes (%) (Auto) 16.1 % Monocytes (%) (Auto) 8.4 % Eosinophils (%) (Auto) 2.0 % Basophils (%) (Auto) 0.3 % Neutrophils # (Auto) 5.78 K/uL (1.4-6.5) Lymphocytes # (Auto) 1.28 K/uL (1.2-3.4) Monocytes # (Auto) 0.67 K/uL (0.11-0.59) Eosinophils # (Auto) 0.16 K/uL (0-0.5) Basophils # (Auto) 0.02 K/uL (0-0.2) RDW Standard Deviation 48.6 fL (36.4-46.3) RDW Coefficient of Variation 14.5 % (11.5-14.5) Immature Granulocyte % (Auto) 0.3 % Immature Granulocyte # (Auto) 0.02 K/uL (0.00-0.02) Anion Gap 3.0 mmol/L (3-11) Est Creatinine Clear Calc Drug Dose 71.0 ml/min Estimated GFR () 60.8 Estimated GFR (Non- 52.5 BUN/Creatinine Ratio 12.2 (10-20) Calcium Level 9.3 mg/dl (8.5-10.1) Laboratory results per my review. Medications Administered Medications (Trade) Dose Ordered Sig/Ernesto Route Start Time Stop Time Status Last Admin Dose Admin Sodium Chloride 500 ml @ 150 mls/hr Q3H20M IV 09/29/17 10:30 10/29/17 10:29 09/29/17 11:33 150 MLS/HR Meclizine HCl (Antivert Tab) 25 mg NOW STAT PO 09/29/17 10:18 09/29/17 10:20 DC 09/29/17 11:33 25 MG Diazepam (Valium Inj) 2.5 mg NOW STAT IV 09/29/17 10:26 09/29/17 10:27 DC 09/29/17 11:33 2.5 MG Diphenhydramine HCl (Benadryl Inj) 25 mg NOW STAT IV 09/29/17 11:55 09/29/17 11:56 DC 09/29/17 12:34 25 MG Labetalol HCl (Normodyne IV) 10 mg NOW STAT IV 09/29/17 12:51 09/29/17 12:52 DC 09/29/17 13:19 10 MG Labetalol HCl (Normodyne IV) 10 mg NOW STAT IV 09/29/17 13:25 09/29/17 13:26 DC 09/29/17 14:04 10 MG ECG Per My Interpretation Indication: other Rate (beats per minute): 65 Rhythm: sinus rhythm Findings: other (Normal [place], No PVCs) ED Course ED COURSE: Vital signs were reviewed and showed hypertensive vitals. The patients medical record was reviewed The above diagnostic studies were performed and reviewed. ED treatments and interventions as stated above. 1018: Ordered Meclizine HCl 25 mg PO. 1020: The patient was evaluated in room B2. A complete history and physical examination was performed. 1026: Ordered Diazepam 2.5 mg IV. 1030: Ordered Sodium Chloride 500 mL @ 150 mL/hr IV. 1153: I checked on the patient she is feeling better. Her dizziness is improved. It is still present with quick movements. she is in the 190s systolically. 1155: Ordered Benadryl 25 mg IV. 1231: The patient is feeling better. 1249: I checked on the patient she is in the 200s systolically. I will call for admission 1251: Ordered Labetalol HCl 10 mg IV. 1255: Upon reevaluation, the patient is resting in bed.I discussed my findings with the patient and she understands and agrees with the treatment plan. Based on the patients age, coexisting illnesses, exam and lab findings the decision to treat as an inpatient was made. The patient remained stable while under my care. The patient appeared well at the time of discharge. 1256: I discussed the case with Madelin HEADLEY. She will evaluate the patient for further treatment. Medical Decision Differential diagnosis includes etiologies such as benign positional vertigo, dehydration, hypovolemia, anemia, tumor, infection, hypoglycemia, electrolyte abnormalities, cardiac sources, intracerebral event, toxicologic, neurologic, as well as others were entertained. Patient is a 47-year-old female who presents the ER for feeling dizzy which is been intermittent yesterday. Today has been constant. She is completely neurologically intact. Symptoms are significantly worsened with rapid movement of the head and changing of positions. CBC along with BMP were unremarkable. She denies any chest pain. EKG was unremarkable. CT head was unremarkable as well. Patient was given IV fluids, Antivert, Valium and Benadryl. Her blood pressure initially upon presentation was in the 220s. This trended down following the Valium into the 180s. Systolics did trend back up and consequently she was given 2 doses of IV labetalol. Systolics to trend down to the 180s. With her dizziness and hypertensive urgency I did elect to discuss case with internal medicine for observation overnight. She was updated at bedside. Of note she did not miss any doses of her medications. Medication Reconcilliation Current Medication List: was personally reviewed by me Blood Pressure Screening Patient's blood pressure: Elevated blood pressure Referred to Hospitalist. Consults Time Called: 1251 Consulting Physician: Madelin HEADLEY Returned Call: [phone] I discussed the case with Madelin HEADLEY. She will evaluate the patient for further treatment. Impression Primary Impression: Hypertensive urgency Additional Impression: Vertigo Scribe Attestation The scribe's documentation has been prepared under my direction and personally reviewed by me in its entirety. I confirm that the note above accurately reflects all work, treatment, procedures, and medical decision making performed by me. Departure Information Dispostion Being Evaluated By Hospitalist Mykel Carrillo M.D. (PCP) Patient Instructions My [facility] Problem Qualifiers
[2017-09-29] MEDS ORDERED: PERFLUTREN LIPID MICROSPHERE (DEFINITY) IV ONE (15:12)
[2017-09-29] MEDS ORDERED: DIAZEPAM 5MG TAB PO PRN (15:15)
[2017-09-29] MEDS ORDERED: FURO40TA3 PO (15:27)
--- NOTE | 2017-09-29 16:15 | History and Physical ---
History & Physical Date & Time of Service: Sep 29, 2017 ~ 13:00 Chief Complaint: Dizziness, high blood pressure Primary Care Physician: Mykel Bailey M.D. History of Present Illness 47-year-old female who presents to the ER with a chief complaint of dizziness and high blood pressure. Patient reports that when she woke up yesterday morning and had gone to the bathroom she reports a sudden onset of severe dizziness. She reports she was able to get back to bed and fall back to sleep. When she woke back up symptoms were gone. She reports a few other episodes of dizziness throughout the day. She had another severe episode of dizziness last evening however again was able to fall to sleep. When she woke up this morning dizziness returned again. Patient reports taking her blood pressure at home and getting readings of around 180/100. She describes the dizziness as a sensation of the room spinning around her. She also reports lightheadedness. She denies unilateral weakness, numbness, or tingling. No facial droop, drooling, or slurred speech. She denies chest pain or shortness of breath. No syncopal events. She reports mild epistaxis from both nares for the past 2 days. She has felt nauseous but denies vomiting, abdominal pain, and diarrhea. No recent illnesses, fever, or chills. She denies any urinary symptoms. On the lateral aspect of her left lower leg she had a small abscess that spontaneously drained on its own. This morning she noticed a very similar spot on her right lateral lower leg. The area is reddened and raised however has not had any drainage. Upon arrival to the ED patient's blood pressure was 220/ 148. She was treated for her vertigo with IV Valium, IV Benadryl, and Antivert. Dizziness significantly improved and blood pressure was starting to come down however spiked again. Patient received labetalol 10 mg IV and at the time of my exam patient's blood pressure was 183/103. Head CT is negative for acute findings. Past Medical/Surgical History Medical Problems: (1) Anxiety Status: Chronic (2) CKD (chronic kidney disease), stage III Status: Chronic (3) Depression Status: Chronic (4) HTN (hypertension) Status: Chronic (5) Hypothyroidism Status: Chronic (6) Migraines Status: Chronic Surgical Problems: (1) H/O cervical spine surgery Permanent Comment: x 2 Status: Chronic (2) H/O dilation and curettage Status: Chronic (3) History of tubal ligation Status: Chronic (4) S/P cholecystectomy Status: Chronic Social History Smoking Status: Never Smoker Alcohol Use: occasionally Immunizations History of Tetanus Vaccine?: Yes Tetanus Immunization Date: Apr 02, 2008 Allergies Coded Allergies: No Known Allergies (Verified , 09/29/17) Home Medications Scheduled Allopurinol (Zyloprim), 100 MG PO DAILY Aspirin (Aspirin Ec), 81 MG PO DAILY Cholecalciferol (Vitamin D3), 2,000 UNITS PO DAILY Fluoxetine (Prozac), 10 MG PO DAILY Furosemide (Lasix), 40 MG PO DAILY Hydrochlorothiazide (Hctz), 25 MG PO DAILY Levothyroxine Sodium (Levothyroxine Sodium), 112 MCG PO DAILY Lisinopril (Prinivil), 20 MG PO DAILY Metoprolol Tartrate (Lopressor) (Lopressor), 75 MG PO BID Review of Systems ROS per HPI, all other systems reviewed and negative Physical Exam Vital Signs Date Time Temp Pulse Resp B/P (MAP) Pulse Ox O2 Delivery O2 Flow Rate FiO2 09/29/17 15:15 78 23 187/105 (132) 97 09/29/17 15:00 75 22 171/105 (127) 96 09/29/17 14:45 20 185/100 (128) 97 09/29/17 14:41 36.9 77 23 183/103 (129) 100 Room Air 09/29/17 14:21 74 18 164/108 98 Room Air 09/29/17 13:22 98 Room Air 09/29/17 13:12 73 09/29/17 12:53 77 18 204/127 98 Room Air 09/29/17 11:40 82 18 190/98 98 Room Air 09/29/17 10:50 61 09/29/17 09:42 36.8 69 18 220/148 97 Room Air General Appearance: WD/WN, no apparent distress Head: normocephalic, atraumatic Eyes: normal inspection, PERRL, EOMI, sclerae normal ENT: hearing grossly normal, + pertinent finding (Mucous membranes moist) Neck: supple, no JVD, trachea midline Respiratory/Chest: lungs clear, normal breath sounds, no respiratory distress Cardiovascular: regular rate, rhythm, no edema, normal peripheral pulses Abdomen/GI: normal bowel sounds, non tender, soft, no organomegaly Extremities/Musculoskelatal: normal inspection, no calf tenderness, normal capillary refill Neurologic/Psych: alert, normal mood/affect, oriented x 3, + pertinent finding (Question right upper extremity pronator drift, however patient does have mild tremor due to being anxious; no other gross focal deficits noted) Skin: + pertinent finding (Raised area with centralized scab noted to lateral left lower extremity; similar area noted to lateral right lower extremity; no drainage noted from either site) Diagnostics Laboratory Results Results Past 24 Hours Test 09/29/17 10:45 Range/Units White Blood Count 7.93 4.8-10.8 K/uL Red Blood Count 4.61 4.2-5.4 M/uL Hemoglobin 13.8 12.0-16.0 g/dL Hematocrit 42.0 37-47 % Mean Corpuscular Volume 91.1 80-100 fL Mean Corpuscular Hemoglobin 29.9 25-34 pg Mean Corpuscular Hemoglobin Concent 32.9 32-36 g/dl Platelet Count 301 130-400 K/uL Mean Platelet Volume 10.0 7.4-10.4 fL Neutrophils (%) (Auto) 72.9 % Lymphocytes (%) (Auto) 16.1 % Monocytes (%) (Auto) 8.4 % Eosinophils (%) (Auto) 2.0 % Basophils (%) (Auto) 0.3 % Neutrophils # (Auto) 5.78 1.4-6.5 K/uL Lymphocytes # (Auto) 1.28 1.2-3.4 K/uL Monocytes # (Auto) 0.67 0.11-0.59 K/uL Eosinophils # (Auto) 0.16 0-0.5 K/uL Basophils # (Auto) 0.02 0-0.2 K/uL RDW Standard Deviation 48.6 36.4-46.3 fL RDW Coefficient of Variation 14.5 11.5-14.5 % Immature Granulocyte % (Auto) 0.3 % Immature Granulocyte # (Auto) 0.02 0.00-0.02 K/uL Sodium Level 138 136-145 mmol/L Potassium Level 3.6 3.5-5.1 mmol/L Chloride Level 103 98-107 mmol/L Carbon Dioxide Level 31 21-32 mmol/L Anion Gap 3.0 3-11 mmol/L Blood Urea Nitrogen 15 7-18 mg/dl Creatinine 1.21 0.60-1.20 mg/dl Est Creatinine Clear Calc Drug Dose 71.0 ml/min Estimated GFR () 60.8 Estimated GFR (Non- 52.5 BUN/Creatinine Ratio 12.2 10-20 Random Glucose 96 70-99 mg/dl Calcium Level 9.3 8.5-10.1 mg/dl Troponin I < 0.015 0-0.045 ng/ml Microbiology Results 09/29/17 MRSA DNA Surveillance Screen, Received Pending Diagnostic Radiology HEAD CT IMPRESSION: No acute intracranial findings Impression Assessment and Plan HYPERTENSIVE URGENCY -Admit to ICU -Patient presenting with dizziness and reported elevated blood pressures at home ; in the ED patient found to have blood pressure of 220/148, BP improved with treatment for vertigo however started to climb again -Patient with long-standing history of hypertension with several antihypertensive medication changes in the past; as per outpatient nephrology note, patient had negative secondary workup in 2007 including catecholamines, metanephrines, VMA, and renal artery ultrasound; noted negative renal ultrasound and aldosterone rennin ratio in 2016 -S/P labetalol 10 mg IV in the ED however her blood pressures continue to be elevated -Case discussed with Dr. Villagomez -Will increase metoprolol to 100 mg twice daily and add Norvasc 5 mg daily; continue HCTZ, lisinopril, and furosemide -EKG without acute changes, initial troponin negative; will continue to cycle cardiac enzymes and check resting echo -Check TSH DIZZINESS -Seems to be vertiginous in nature however given significantly elevated blood pressures and possible pronator drift on exam, will obtain further imaging -Head CT negative -We will get brain MRI and MRA, neck MRA, and MRV brain FOLLICULITIS -Will start Keflex and Bactrim CKD STAGE III -Baseline creatinine runs around 1.2 -Creatinine noted to be 1.2 today -Continue to monitor renal functions, avoid nephrotoxic agents unable HYPOTHYROIDISM -Continue levothyroxine DVT PROPHYLAXIS -SCDs due to significantly elevated blood pressure and reported epistaxis DISPOSITION -In my clinical judgment this beneficiary meets acute admission criteria, established by [facility], that includes being hospitalized through two midnights. Attending Note: Patient is a 47 yr female presents with history of Severe Dizziness, uncontrolled HTN, constant Headache which is pressure like sensation and nausea as per HPI. Patient reports being compliant to medications and low salt diet. Reports H/O vertigo may years ago. States dizziness improved slightly with leg elevation yesterday. Denies Head trauma, LOC, change in vision, weakness, fever , chills. Reports recovering from recent URI and conjunctivitis. Physical Exam: Vitals signs as noted above General Appearance:Obese, No apparent distress Head: normocephalic, Atraumatic Eyes: normal inspection, EOMI, PERRL +Nystagmus with Da Neck: supple, Trachea midline Respiratory/Chest: Normal breath sounds, CTA Cardiovascular: S1, S2, No murmur Abdomen/GI:Soft, Non tender, Bowel sounds present Extremities/Musculoskelatal:normal inspection, no edema, LLE possible folliculitis Neurologic/Psych:AAOX3, grossly no focal neurological deficits Skin:normal color,warm Assessment and Plan: Hypertensive Urgency: Dizziness likely 2/2 uncontrolled HTN Vertigo could be contributing Could have underlying sleep apnea: Needs sleep study as outpatient Check Thyroid function test Previously worked up for secondary hypertension Continue HCTZ, lisinopril, Lasix and Increased Metoprolol, added amlodipine Check ECHO Low salt diet Work up for Dizziness as above Meclizine PRN CT head: No acute intracranial findings MRI head, MRA, MRV pending I personally reviewed the record. Patient is interviewed and examined at bedside. Patient's care is coordinated with Madelin Monroe CONSIGNEE. Please refer to the documentation above for details of patient's presentation and for discussion of other issues. Advanced Directives Existing Living Will: No Existing Power of Apprentice Photographer: No Resuscitation Status VTE Prophylaxis Will order VTE Prophylaxis: Yes
[2017-09-29] MEDS: CEPHALEXIN MONOHYDRATE 500 MG CAP PO SCH ×2 (16:37→20:23)
--- NOTE | 2017-09-29 16:46 | ECHOCARDIOGRAM REPORT ---
*NOTICE TO RECEIVING [employer] This information is strictly Confidential and protected under [place] law. [place] law prohibits you from making any further disclosure of this information unless further disclosure is expressly permitted by the written consent of the person to whom it pertains or is authorized by law. A general authorization for the release of medical or other information is not sufficient for this purpose. Hospital accepts no responsibility if the information is made available to any other person, INCLUDING THE PATIENT. Interpretation Summary * Name: ALEXANDREA NIXON Study Date: 09/29/2017 02:44 PM BP: 183/103 mmHg * Patient Location: .MSICU\S\E103\S\1 HR: 77 * : 1970 (M/d/yyyy) Gender: Female Height: 66 in * Age: 47 yrs Ethnicity: CA Weight: 244 lb * Ordering Physician: Madelin Monroe * Referring Physician: Self, Referred * Performed By: Diane Zarate RDCS * * Reason For Study: MALIGNANT HTN * BSA: 2.2 m2 * -- Conclusions -- * The left ventricle is normal in size. * There is moderate concentric left ventricular hypertrophy. * The left ventricular wall motion is normal. * Ejection Fraction = 55-60%. * Grade I diastolic dysfunction, (abnormal relaxation pattern). * There is no significant valvular disease Procedure Details * A contrast injection of Definity was performed to improve assessment of LV function. * Contrast was injected into an intravenous site in the right arm. * One vial of Definity ultrasound contrast was diluted in normal saline to a total volume of 10 ml. A total of '1' ml of solution was administered during imaging. * Lot # [id number] of Definity utilized for procedure. * Expiration date OCT 20. * The attending nurse who injected the contrast agent was SUSANNAH LOAIZA. * A complete two-dimensional transthoracic echocardiogram was performed (2D, M-mode, Doppler and color flow Doppler). Left Ventricle * The left ventricle is normal in size. * There is moderate concentric left ventricular hypertrophy. * Ejection Fraction = 55-60%. * Left ventricular systolic function is normal. * The left ventricular wall motion is normal. Right Ventricle * The right ventricle is normal in size and function. Atria * The left atrial size is normal. * Right atrial size is normal. * No ASD detected; PFO is not assessed. Mitral Valve * The mitral valve anatomy is normal. * There is no mitral valve stenosis. * There is trace mitral regurgitation. Tricuspid Valve * The tricuspid valve anatomy is normal. * There is no tricuspid stenosis. * There is trace tricuspid regurgitation. Aortic Valve * The aortic valve is trileaflet. * No hemodynamically significant valvular aortic stenosis. * No aortic regurgitation is present. Pulmonic Valve * The pulmonic valve is not well visualized. Great Vessels * The aortic root is normal size. Pericardium/Pleural * There is no pericardial effusion. Great Vessels * Normal inferior vena cava diameter and respiratory variation suggests normal central venous pressure. Left Ventricular Diastolic Function * Grade I diastolic dysfunction, (abnormal relaxation pattern). MMode 2D Measurements and Calculations IVSd 1.6 cm IVSs 1.9 cm LVIDd 4.5 cm LVIDs 3.2 cm LVPWd 1.6 cm LVPWs 1.6 cm IVS/LVPW 1.0 FS 29.0 % EDV(Teich) 94.5 ml ESV(Teich) 41.7 ml EF(Teich) 55.9 % EDV(cubed) 93.7 ml ESV(cubed) 33.5 ml EF(cubed) 64.2 % % IVS thick 17.3 % % LVPW thick 2.3 % LV mass(C)d 311.6 grams LV mass(C)dI 143.2 grams/m\S\2 LV mass(C)s 230.1 grams LV mass(C)sI 105.7 grams/m\S\2 SV(Teich) 52.8 ml SI(Teich) 24.3 ml/m\S\2 SV(cubed) 60.2 ml SI(cubed) 27.7 ml/m\S\2 Ao root diam 3.1 cm Ao root area 7.3 cm\S\2 LA dimension 3.4 cm LA/Ao 1.1 LVAd ap4 31.6 cm\S\2 LVLd ap4 8.1 cm EDV(MOD-sp4) 100.4 ml EDV(sp4-el) 105.2 ml LVAs ap4 18.7 cm\S\2 LVLs ap4 7.0 cm ESV(MOD-sp4) 43.0 ml ESV(sp4-el) 42.3 ml EF(MOD-sp4) 57.2 % EF(sp4-el) 59.8 % SV(MOD-sp4) 57.5 ml SI(MOD-sp4) 26.4 ml/m\S\2 SV(sp4-el) 62.9 ml SI(sp4-el) 28.9 ml/m\S\2 Doppler Measurements and Calculations MV E max olivia 79.6 cm/sec MV A max olivia 89.1 cm/sec MV E/A 0.89 MV dec time 0.21 sec Ao V2 max 144.9 cm/sec Ao max PG 8.4 mmHg Ao max PG (full) 5.7 mmHg LV V1 max PG 2.7 mmHg LV V1 max 82.8 cm/sec
--- NOTE | 2017-09-29 17:34 | Critical Care Consultation ---
Critical Care Consultation Date of Consultation: Sep 29, 2017. Attending Physician: Evelio Crockett MD Reason for Consultation: Hypertensive emergency History of Present Illness Patient is a 47-year-old female with a long-standing history of hypertension who presented to the emergency department today after acute onset of vertigo that started with after the patient woke up and proceeded to the bathroom to urinate. She describes the vertigo as a room spinning this episode is more severe than previous episodes. She is also describing a headache 5 out of 10 in nature with pressure behind the left eye. It is not associated with any chest pain, palpitations, vomiting; there is nausea that has been resolved with medication administration in the emergency department. Patient reports that she normally has an elevated blood pressure which can be high at times into the 150 systolic. She took her blood pressure this morning which was registering systolics in the 200s which is the highest her blood pressure is ever been. In the emergency department she was given labetalol and while it did reduce her blood pressure eventually the systolic pressures crept back up into the 200 range. I was consulted for further evaluation and management of probable hypertensive emergency secondary to hypertensive end- organ ischemia manifested as vertiginous symptoms. Past Medical/Surgical History Medical Problems: (1) Anxiety (2) Cervical disc displacement (3) Cervicalgia (4) Depression (5) HTN (hypertension) (6) Hypertensive emergency (7) Hypothyroidism (8) Insomnia (9) Kidney disease (10) Kidney stones (11) Migraines Surgical Problems: (1) History of renal stent (2) History of tubal ligation (3) Previous section (4) S/P cholecystectomy (5) Status post spinal disc removal Family History Hypertension FATHER MOTHER Kidney disease FATHER Patient denies family history of brain aneurysm there is a remote history of brain cancer in her sister. 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 Social History Smoking Status: Never Smoker Alcohol Use: occasionally Housing Status: lives with family Allergies Coded Allergies: No Known Allergies (Verified , 09/29/17) Home Medications Scheduled Allopurinol (Zyloprim), 100 MG PO DAILY Aspirin (Aspirin Ec), 81 MG PO DAILY Cholecalciferol (Vitamin D3), 2,000 UNITS PO DAILY Fluoxetine (Prozac), 10 MG PO DAILY Furosemide (Lasix), 40 MG PO DAILY Hydrochlorothiazide (Hctz), 25 MG PO DAILY Levothyroxine Sodium (Levothyroxine Sodium), 112 MCG PO DAILY Lisinopril (Prinivil), 20 MG PO DAILY Metoprolol Tartrate (Lopressor) (Lopressor), 75 MG PO BID Current Inpatient Medications Current Inpatient Medications Medications (Trade) Dose Ordered Sig/Ernesto Route Start Time Stop Time Status Last Admin Dose Admin Acetaminophen (Tylenol Tab) 650 mg Q4H PRN PO 09/29/17 13:45 10/29/17 13:44 Ondansetron HCl (Zofran Inj) 4 mg Q6H PRN IV 09/29/17 13:45 10/29/17 13:44 Miscellaneous Information (Icu Protocol For Hyperglycemia) 1 ea PRN PRN N/A 09/29/17 13:45 10/01/17 13:44 Metoprolol Tartrate (Lopressor Tab) 100 mg BID PO 09/29/17 21:00 10/29/17 20:59 Amlodipine Besylate (Norvasc Tab) 5 mg QAM PO 09/30/17 09:00 10/30/17 08:59 Cephalexin Monohydrate (Keflex Cap) 500 mg QID PO 09/29/17 17:00 10/09/17 16:59 09/29/17 16:37 500 MG Trimethoprim/ Sulfamethoxazole (Septra Ds 800/ 160MG Tab) 1 tab Q12 PO 09/29/17 21:00 10/09/17 20:59 Diazepam (Valium Tab) 5 mg ONE PRN PO 09/29/17 15:15 10/29/17 15:14 09/29/17 16:37 5 MG Allopurinol (Zyloprim Tab) 100 mg DAILY PO 09/30/17 09:00 10/30/17 08:59 Aspirin (Ecotrin Tab) 81 mg DAILY PO 09/30/17 09:00 10/30/17 08:59 Fluoxetine HCl (Prozac Cap) 10 mg DAILY PO 09/30/17 09:00 10/30/17 08:59 Furosemide (Lasix Tab) 40 mg DAILY PO 09/30/17 09:00 10/30/17 08:59 Hydrochlorothiazide (Hydrochlorothiazide Tab) 25 mg DAILY PO 09/30/17 09:00 10/30/17 08:59 Levothyroxine Sodium (Synthroid Tab) 112 mcg DAILYBB PO 09/30/17 06:00 10/30/17 05:59 Lisinopril (Zestril Tab) 20 mg DAILY PO 09/30/17 09:00 10/30/17 08:59 Cholecalciferol (Vitamin D Tab) 2,000 inter.unit DAILY PO 09/30/17 09:00 10/30/17 08:59 Review of Systems As noted per the HPI A 10 point review of systems has been obtained and is otherwise negative. Eyes: + eye pain (Left eye retro-orbital), No worsening of vision ENT: No hearing loss, No tinnitus Respiratory: No shortness of breath, No hemoptysis Cardiovascular: No chest pain, No edema, No claudication, No palpitations Abdomen: + nausea, No pain, No vomiting Genitourinary - Female: No dysuria Physical Exam Date Time Temp Pulse Resp B/P (MAP) Pulse Ox O2 Delivery O2 Flow Rate FiO2 09/29/17 16:00 97 Room Air 09/29/17 15:15 78 23 187/105 (132) 97 09/29/17 15:00 75 22 171/105 (127) 96 09/29/17 14:45 20 185/100 (128) 97 09/29/17 14:41 36.9 77 23 183/103 (129) 100 Room Air 09/29/17 14:21 74 18 164/108 98 Room Air 09/29/17 13:22 98 Room Air 09/29/17 13:12 73 09/29/17 12:53 77 18 204/127 98 Room Air 09/29/17 11:40 82 18 190/98 98 Room Air 09/29/17 10:50 61 09/29/17 09:42 36.8 69 18 220/148 97 Room Air Skin: Patient has 2 areas in the bilateral lower extremities on the lateral surfaces of a what appear to be a carbuncle without lymphangitis or significant cellulitis General Appearance: well-appearing, WD/WN, no apparent distress Head: normocephalic, atraumatic Eyes: PERRLA Neck: normal range of motion, no tenderness, trachea midline, no stridor, supple, no thyromegaly Respiratory: breath sounds normal, clear to auscultation, clear to percussion, no respiratory distress Cardiovasular: regular rate/rhythm, normal S1S2, no M/G/R Abdomen: non tender, normal bowel sounds, no rebound, no masses, no guarding, no organomegaly Upper Extremities: no edema Lower Extremities: normal ROM, edema (trace) Neuro: alert, oriented x 3, normal motor exam, normal sensation, normal speech , other (Mild right-sided pronator drift) Psychiatric: normal affect Laboratory Results Last 24 Hours Test 09/29/17 10:45 09/29/17 16:24 White Blood Count 7.93 K/uL Red Blood Count 4.61 M/uL Hemoglobin 13.8 g/dL Hematocrit 42.0 % Mean Corpuscular Volume 91.1 fL Mean Corpuscular Hemoglobin 29.9 pg Mean Corpuscular Hemoglobin Concent 32.9 g/dl Platelet Count 301 K/uL Mean Platelet Volume 10.0 fL Neutrophils (%) (Auto) 72.9 % Lymphocytes (%) (Auto) 16.1 % Monocytes (%) (Auto) 8.4 % Eosinophils (%) (Auto) 2.0 % Basophils (%) (Auto) 0.3 % Neutrophils # (Auto) 5.78 K/uL Lymphocytes # (Auto) 1.28 K/uL Monocytes # (Auto) 0.67 K/uL Eosinophils # (Auto) 0.16 K/uL Basophils # (Auto) 0.02 K/uL RDW Standard Deviation 48.6 fL RDW Coefficient of Variation 14.5 % Immature Granulocyte % (Auto) 0.3 % Immature Granulocyte # (Auto) 0.02 K/uL Sodium Level 138 mmol/L Potassium Level 3.6 mmol/L Chloride Level 103 mmol/L Carbon Dioxide Level 31 mmol/L Anion Gap 3.0 mmol/L Blood Urea Nitrogen 15 mg/dl Creatinine 1.21 mg/dl Est Creatinine Clear Calc Drug Dose 71.0 ml/min Estimated GFR () 60.8 Estimated GFR (Non- 52.5 BUN/Creatinine Ratio 12.2 Random Glucose 96 mg/dl Calcium Level 9.3 mg/dl Troponin I < 0.015 ng/ml Thyroid Stimulating Hormone (TSH) 6.100 uIu/ml Free Thyroxine 1.20 ng/dl Bedside Glucose 91 mg/dl Diagnostic Results I reviewed the CT head report as well as the echocardiogram dated September 29, 2017 Assessment & Plan Reason Critically Ill: Hypertensive emergency with hypertensive endorgan ischemia manifested by vertiginous symptoms PLAN: Neuro: Report of anomalous blood vessel Mild right pronator drift Headache -Reviewed CT scan findings -MRI brain to rule out ischemic insult -MRA to rule out anomalous vasculature as well as aneurysm -MRV to rule out venous sinus thrombosis -We will give 325 aspirin today and start daily aspirin therapy -This could be discontinued if there is no evidence of brain ischemia CV: Poorly controlled hypertension -Increase metoprolol to 100 mg twice daily, added Norvasc 5 mg daily -Echocardiogram consistent with hypertension, mild to moderate concentric hypertrophy and grade 1 diastolic dysfunction Fluids/Renal: Elevated creatinine at 1.2 -Review of records patient had a history of previous LUIS ENRIQUE -Per report with [facility] hospitalist team, Madelin ch, a renal artery ultrasound had been obtained in 2007 which did not demonstrate renal artery stenosis -Also report from outpatient records that secondary causes of hypertension were also ruled out ID: Carbuncle of bilateral lower extremities -Keflex and Bactrim for coverage of MRSA as well as streptococcal infection GI/Nutrition: Low-sodium AHA diet Heme: Lovenox for DVT prophylaxis Endocrine: Hypothyroidism -Continue current levothyroxine Accu-Cheks per ICU protocol Vascular access: Peripheral IVs Code Status: Full I have personally spent 60 minutes of critical care time in the direct management of this patient. This is a life/limb threatening event. This includes time spent evaluating patient, direct bedside care, chart review, placing orders, interpretation of diagnostic studies, discussion with consultants, patient, and/or family members regarding treatment decisions, as well as other required patient management activities. This time is exclusive of all separately billable procedures, and teaching time and separate from and in addition to any other critical care service time.
--- NOTE | 2017-09-29 17:39 | DIAGNOSTIC IMAGING REPORT ---
MRV HEAD WITHOUT CONTRAST CLINICAL HISTORY: 47 years-old Female presenting with dizziness, increased blood pressure, bloody nose intermittently over 2 days. TECHNIQUE: MR venography of the head was performed without the use of intravenous contrast using 3-D [id number]-[id number] technique. 3-D volumetric and/or maximum intensity projection (MIP) images were subsequently reconstructed for review. IV contrast: None. COMPARISON: CTA head from 02/27/2017. FINDINGS: Localizer images: Unremarkable. Superior sagittal sinus patent. Inferior sagittal sinus poorly visualized. Internal cerebral veins, great vein of Sanjay, straight sinus, and bilateral transverse sinuses patent. Sigmoid sinuses and jugular bulbs patent. Cortical veins grossly patent. IMPRESSION: 1. Patent dural venous sinuses, deep cerebral veins, and cortical veins. Electronically signed by: Luis Gomes M.D. 09/29/2017 5:37 PM Dictated Date/Time: 09/29/2017 5:33 PM
--- NOTE | 2017-09-29 17:41 | DIAGNOSTIC IMAGING REPORT ---
MRA HEAD WITHOUT CONTRAST CLINICAL HISTORY: 47 years-old Female presenting with dizziness, increased blood pressure, intermittent bloody nose. TECHNIQUE: MR angiography of the head was performed without the use of intravenous contrast using 3-D [id number]-[id number] technique. 3-D volumetric and/or maximum intensity projection (MIP) images were subsequently reconstructed for review. IV contrast: None. COMPARISON: CTA head from 02/27/2017. FINDINGS: Anterior circulation: Intracranial portions of the internal carotid arteries patent to the level of the termini. Anterior and middle cerebral arteries patent. Anterior communicating artery patent. Posterior circulation: Codominant vertebral arteries. Intradural portions of the vertebral arteries patent. Posterior inferior cerebellar arteries patent. Basilar artery patent. Anterior inferior cerebellar arteries patent. Superior cerebellar and posterior cerebral arteries patent. Posterior communicating arteries hypoplastic or aplastic. IMPRESSION: 1. No significant stenosis, aneurysm, or focal vessel occlusion. Electronically signed by: Luis Gomes M.D. 09/29/2017 5:40 PM Dictated Date/Time: 09/29/2017 5:37 PM
[2017-09-29] MEDS ORDERED: ASPIRIN/ALUM/MAGNES/CAL CARB 325 MG TAB PO ONE (18:00)
[2017-09-29] MEDS ORDERED: GADAVIST IV PRN (18:00)
--- NOTE | 2017-09-29 18:04 | DIAGNOSTIC IMAGING REPORT ---
MRA NECK COMBO CLINICAL HISTORY: 47 years-old Female presenting with dizziness, increased blood pressure, bloody nose intermittently over 2 days. TECHNIQUE: MR angiography of the neck was performed before and after the administration of intravenous contrast. 3-D volumetric and/or maximum intensity projection (MIP) images were subsequently reconstructed for review. IV contrast: 11 mL of Gadavist. Stenosis measurements were based on NASCET-like criteria. COMPARISON: Carotid Doppler ultrasound from 11/08/2007. FINDINGS: Localizer images: Anterior cervical discectomy and fusion of C4-C7. Aortic arch: Atherosclerosis of the three-vessel aortic arch. Innominate artery: Patent. Right common carotid artery: Patent. Right internal and external carotid arteries: Right carotid bifurcation patent. Right internal and external carotid arteries widely patent. Left common carotid artery: Patent. Left internal and external carotid arteries: Left carotid bifurcation patent. Left internal and external carotid arteries widely patent. Left subclavian artery: Patent. Vertebral arteries: Codominant vertebral arteries. Origins and courses of the bilateral vertebral arteries patent. Other: Limited intracranial evaluation within normal limits. Soft tissues of the neck normal allowing for the phase of contrast. Hyperenhancing right thyroid lobe nodule measuring 5 mm (series 1201 image 34). IMPRESSION: 1. No dissection, significant stenosis, or focal vessel occlusion. 2. Hyperenhancing subcentimeter right thyroid lobe nodule, indeterminate. Electronically signed by: Luis Gomes M.D. 09/29/2017 6:03 PM Dictated Date/Time: 09/29/2017 6:00 PM
--- NOTE | 2017-09-29 18:08 | DIAGNOSTIC IMAGING REPORT ---
BRAIN COMBO CLINICAL HISTORY: 47 years-old Female presenting with dizziness, hypertensive urgency. TECHNIQUE: Multisequence, multiplanar MR imaging of the brain was performed before and after the administration of intravenous contrast. IV contrast: 11 mL of Gadavist. COMPARISON: CT head from earlier the same day and noncontrast MR brain from 11/04/2014. FINDINGS: Image quality is mildly degraded by motion artifact, which somewhat limits diagnostic sensitivity the exam. Ventricles and sulci normal in size. Brain parenchyma normal in appearance with preserved mariscal-white differentiation. No mass effect or midline shift. No restricted diffusion to suggest acute ischemia. No hemorrhage. No extra-axial fluid collection. T2 skull base flow voids preserved. No abnormal parenchymal enhancement. Bone marrow signal intensity within the calvarium within normal limits. IMPRESSION: 1. No acute intracranial pathology. No abnormal enhancement. Electronically signed by: Luis Gomes M.D. 09/29/2017 6:07 PM Dictated Date/Time: 09/29/2017 6:04 PM
[2017-09-29] MEDS ORDERED: LEVO112T4 PO (19:55)
[2017-09-29] MEDS: METOPROLOL TARTRATE 100 MG TAB PO SCH (20:23)
[2017-09-29] MEDS: SULFAMETHOXAZOLE/TRIMETHOPRIM DS 800/160MG TAB PO SCH (20:23)
[2017-09-30] VITALS (12 sets, daily range): BP systolic 134–162; BP diastolic 65–106; PULSE 55–72; TEMP 36.7–37; O2SAT 93–95
[2017-09-30 02:07] LABS: HEMATOCRIT 38.2 % (37-47); HEMOGLOBIN 12.6 g/dL (12.0-16.0); MEAN CELL VOLUME 90.3 fL (80-100); MEAN CORPUSCULAR HEMOGLOBIN 29.8 pg (25-34); MEAN PLATELET VOLUME 9.9 fL (7.4-10.4); PLATELET COUNT 275 K/uL (130-400); RED CELL DISTRIBUTION WIDTH CV 14.7 % (11.5-14.5); RED CELL DISTRIBUTION WIDTH SD 48.3 fL (36.4-46.3); WHITE BLOOD COUNT 6.82 K/uL (4.8-10.8)
[2017-09-30 02:26] LABS: CALCIUM 8.7 mg/dl (8.5-10.1); CREATININE 1.32 mg/dl (0.60-1.20); POTASSIUM 3.3 mmol/L (3.5-5.1)
[2017-09-30] MEDS: POTASSIUM CHLORIDE 20 MEQ TABCR PO SCH ×2 (04:47→07:23)
[2017-09-30] MEDS: ACETAMINOPHEN 325 MG TAB PO PRN ×2 (04:57→15:52)
[2017-09-30] MEDS: LEVOTHYROXINE 112 MCG TAB PO SCH (04:57)
--- NOTE | 2017-09-30 05:13 | Critical Care Progress Note ---
Critical Care Progress Note Date of Service Sep 30, 2017. ICU Day ICU Day Number: [address] Villagomez Subjective No acute events overnight. Pts SBP ranged from 130-150s. TIJERINA improvin-2 Pain Denies Vertigo Pt feels great. Objective Vital Signs - as noted Laboratory Data - as noted Physical Exam: General - NAD, Resting in bed comfortably Eyes - PERRL, EOMI No icterus, gaze conjugate ENT - Mucosa moist, no lesions or candidiasis Neck - Supple, trachea midline, no masses or lymphadenopathy, no JVD or bruits Lungs - No paradoxical chest wall movement, clear to auscultation bilaterally, no wheezes, rales, or rhonchi Heart - Sinus Eugenio rate 57, No murmur, rubs, clicks, or gallops appreciated Abdomen - BS present, no bruits noted, tympanic to percussion, soft, nontender, nondistended, no organomegaly Extremities - No edema, pedal pulses intact Neuro - A&OX4 Proprioception intact, neg pronator drift Strength extremities equal and appropriate bilaterally CN:PERRL, EOMI, no facial asymmetry, uvula/tongue midline Assessment & Plan (1) Soft tissue infection (2) Depression (3) Anxiety (4) Hypothyroidism (5) HTN (hypertension) (6) CKD (chronic kidney disease), stage III PLAN: CV: * HTN Emergency with headache and Vertigo * Pt received one time dose of labetalol in the ED which initiailly lowered pressures that later returned to SBP in the 200s * Pts metoprolol was increased to 100mg BID and Norvasc was added to regimen * Pressure currently much improved, Range overnight of 130-150s * Headache improving: now a : Will tx with Tylenol as she does at home * Continue Metoprolol 100mg PO BID, Norvasc 5mg PO qDaily * Continue home medications in addition: including, Lisinopril, HCTZ, Lasix * Continue Home ASA 81mg PO * Repeat EKG for 0800 * ECHO: mild to moderate concentric hypertrophy and grade 1 diastolic dysfunction EF 55-60% * Troponin Neg x 3 Neuro: * MRI, MRA, MRV reviewed * Will discontinue ASA 325mg per Dr. Villagomez's note as no Ischemia was noted * Subcentimeter Thyroid Nodule noted * Depression Anxiety * Continue Home: Prozac * Valium PRN Anxiety * Given once 09/29 * Pt comfortable without complaints Resp: * Supplemental oxygen as required * Pt on room air now with adequate saturations Fluids/Renal: * Cr 1.32 up from admission Cr 1.21 * Hx of LUIS ENRIQUE in the past * Pt voiding without issue * Fluid status even * Potassium 3.3: Replaced 20meq PO q4h x 2 * Monitor Electrolytes * Per report with [facility] hospitalist team, Madelin Monroe, a renal artery ultrasound had been obtained in 2007 which did not demonstrate renal artery stenosis * Also report from outpatient records that secondary causes of hypertension were also ruled out ID: * Hx of MRSA * Soft Tissue infection noted on LLE * Continue Keflex and Bactrim (hx of MRSA) for 10 days (First day of treatment 09/29) * WBCs 6.82 * Afebrile: Trend Fever Curve GI/Nutrition: * Tolerating diet: Heart Healthy low sodium diet * No BM during admission * No indication for GI Prophylaxis Heme: * H&H: 12.6/38.2 * DVT Prophylaxis: Lovenox Endocrine: * Accu-Checks per protocol, started insulin infusion for 2 blood sugars greater than 180 * No hx of DM * Thyroid disease: * Continue Synthroid * Subcentimeter Thyroid Nodule per CT: Follow up with wedding planner outpt * TSH 6.1 Free T4: 1.2 Access: PIVs in place. Maintain 2 (18g) sites Disposition: Pt stable for down grade even possible discharge if pressures remain stable. CCT: 0 Minutes; Level 3 Inpatient Billing. This time is exclusive of all separately billable procedures. Thank you for involving us in the care of this patient. Please refer to Dr. Xavier Villagomez's addendum for further recommendations. I have personally evaluated and examined this patient. I agree with assessment and plan of Tash Plata PA-C. Blood pressure significantly improved, increase amlodipine to 10 mg today. I have discussed the case with the hospitalist service, stable for downgrade today. Data Medications: Current Inpatient Medications Medications (Trade) Dose Ordered Sig/Ernesto Route Start Time Stop Time Status Last Admin Dose Admin Acetaminophen (Tylenol Tab) 650 mg Q4H PRN PO 09/29/17 13:45 10/29/17 13:44 Ondansetron HCl (Zofran Inj) 4 mg Q6H PRN IV 09/29/17 13:45 10/29/17 13:44 Miscellaneous Information (Icu Protocol For Hyperglycemia) 1 ea PRN PRN N/A 09/29/17 13:45 10/01/17 13:44 Metoprolol Tartrate (Lopressor Tab) 100 mg BID PO 09/29/17 21:00 10/29/17 20:59 09/29/17 20:23 100 MG Amlodipine Besylate (Norvasc Tab) 5 mg QAM PO 09/30/17 09:00 10/30/17 08:59 Cephalexin Monohydrate (Keflex Cap) 500 mg QID PO 09/29/17 17:00 10/09/17 16:59 09/29/17 20:23 500 MG Trimethoprim/ Sulfamethoxazole (Septra Ds 800/ 160MG Tab) 1 tab Q12 PO 09/29/17 21:00 10/09/17 20:59 09/29/17 20:23 1 TAB Diazepam (Valium Tab) 5 mg ONE PRN PO 09/29/17 15:15 10/29/17 15:14 09/29/17 16:37 5 MG Allopurinol (Zyloprim Tab) 100 mg DAILY PO 09/30/17 09:00 10/30/17 08:59 Aspirin (Ecotrin Tab) 81 mg DAILY PO 09/30/17 09:00 10/30/17 08:59 Fluoxetine HCl (Prozac Cap) 10 mg DAILY PO 09/30/17 09:00 10/30/17 08:59 Furosemide (Lasix Tab) 40 mg DAILY PO 09/30/17 09:00 10/30/17 08:59 Hydrochlorothiazide (Hydrochlorothiazide Tab) 25 mg DAILY PO 09/30/17 09:00 10/30/17 08:59 Levothyroxine Sodium (Synthroid Tab) 112 mcg DAILYBB PO 09/30/17 06:00 10/30/17 05:59 Lisinopril (Zestril Tab) 20 mg DAILY PO 09/30/17 09:00 10/30/17 08:59 Cholecalciferol (Vitamin D Tab) 2,000 inter.unit DAILY PO 09/30/17 09:00 10/30/17 08:59 Enoxaparin Sodium (Lovenox Inj) 40 mg QAM SQ 09/30/17 09:00 10/30/17 08:59 Gadobutrol (Gadavist) 11 mmol UD PRN IV 09/29/17 18:00 10/03/17 17:59 Potassium Chloride (Klor-Con Tab) 20 meq Q4H PO 09/30/17 04:00 09/30/17 08:01 Vital Signs: Date Time Temp Pulse Resp B/P (MAP) Pulse Ox O2 Delivery O2 Flow Rate FiO2 09/30/17 04:00 94 Room Air 09/30/17 04:00 36.8 56 18 134/65 (88) 94 Room Air 09/30/17 02:00 62 19 142/94 (110) 95 Room Air 09/30/17 00:01 36.7 55 22 136/86 (103) 94 Room Air 09/29/17 23:59 94 Room Air 09/29/17 22:01 60 16 140/83 (102) 95 09/29/17 21:01 36.8 64 17 157/84 (108) 95 Room Air 09/29/17 20:30 64 19 153/88 (109) 92 09/29/17 20:00 97 Room Air 09/29/17 19:30 75 18 157/98 (117) 94 09/29/17 19:01 76 18 172/97 (122) 96 09/29/17 18:30 75 20 171/105 (127) 97 09/29/17 18:07 73 18 170/100 (123) 95 09/29/17 16:30 72 19 161/94 (116) 97 09/29/17 16:15 70 21 169/93 (118) 97 09/29/17 16:01 78 18 172/93 (119) 94 09/29/17 16:00 97 Room Air 09/29/17 15:15 78 23 187/105 (132) 97 09/29/17 15:00 75 22 171/105 (127) 96 09/29/17 14:45 20 185/100 (128) 97 09/29/17 14:41 36.9 77 23 183/103 (129) 100 Room Air 09/29/17 14:21 74 18 164/108 98 Room Air 09/29/17 13:22 98 Room Air 09/29/17 13:12 73 09/29/17 12:53 77 18 204/127 98 Room Air 09/29/17 11:40 82 18 190/98 98 Room Air 09/29/17 10:50 61 09/29/17 09:42 36.8 69 18 220/148 97 Room Air Laboratory Results: Last 24 Hours Test 09/29/17 10:45 09/29/17 16:24 09/29/17 19:57 09/29/17 20:00 White Blood Count 7.93 K/uL Red Blood Count 4.61 M/uL Hemoglobin 13.8 g/dL Hematocrit 42.0 % Mean Corpuscular Volume 91.1 fL Mean Corpuscular Hemoglobin 29.9 pg Mean Corpuscular Hemoglobin Concent 32.9 g/dl Platelet Count 301 K/uL Mean Platelet Volume 10.0 fL Neutrophils (%) (Auto) 72.9 % Lymphocytes (%) (Auto) 16.1 % Monocytes (%) (Auto) 8.4 % Eosinophils (%) (Auto) 2.0 % Basophils (%) (Auto) 0.3 % Neutrophils # (Auto) 5.78 K/uL Lymphocytes # (Auto) 1.28 K/uL Monocytes # (Auto) 0.67 K/uL Eosinophils # (Auto) 0.16 K/uL Basophils # (Auto) 0.02 K/uL RDW Standard Deviation 48.6 fL RDW Coefficient of Variation 14.5 % Immature Granulocyte % (Auto) 0.3 % Immature Granulocyte # (Auto) 0.02 K/uL Sodium Level 138 mmol/L Potassium Level 3.6 mmol/L Chloride Level 103 mmol/L Carbon Dioxide Level 31 mmol/L Anion Gap 3.0 mmol/L Blood Urea Nitrogen 15 mg/dl Creatinine 1.21 mg/dl Est Creatinine Clear Calc Drug Dose 71.0 ml/min Estimated GFR () 60.8 Estimated GFR (Non- 52.5 BUN/Creatinine Ratio 12.2 Random Glucose 96 mg/dl Calcium Level 9.3 mg/dl Troponin I < 0.015 ng/ml < 0.015 ng/ml Thyroid Stimulating Hormone (TSH) 6.100 uIu/ml Free Thyroxine 1.20 ng/dl Bedside Glucose 91 mg/dl 101 mg/dl Test 09/30/17 01:58 White Blood Count 6.82 K/uL Red Blood Count 4.23 M/uL Hemoglobin 12.6 g/dL Hematocrit 38.2 % Mean Corpuscular Volume 90.3 fL Mean Corpuscular Hemoglobin 29.8 pg Mean Corpuscular Hemoglobin Concent 33.0 g/dl RDW Standard Deviation 48.3 fL RDW Coefficient of Variation 14.7 % Platelet Count 275 K/uL Mean Platelet Volume 9.9 fL Sodium Level 139 mmol/L Potassium Level 3.3 mmol/L Chloride Level 103 mmol/L Carbon Dioxide Level 29 mmol/L Anion Gap 7.0 mmol/L Blood Urea Nitrogen 18 mg/dl Creatinine 1.32 mg/dl Est Creatinine Clear Calc Drug Dose 65.1 ml/min Estimated GFR () 54.8 Estimated GFR (Non- 47.3 BUN/Creatinine Ratio 13.7 Random Glucose 94 mg/dl Calcium Level 8.7 mg/dl Magnesium Level 1.9 mg/dl Troponin I < 0.015 ng/ml
[2017-09-30] MEDS: CEPHALEXIN MONOHYDRATE 500 MG CAP PO SCH (07:24)
[2017-09-30] MEDS: FLUOXETINE HCL 10 MG CAP PO SCH (07:24)
[2017-09-30] MEDS: CHOLECALCIFEROL 1000 INTER.UNIT TAB PO SCH (07:24)
[2017-09-30] MEDS: SULFAMETHOXAZOLE/TRIMETHOPRIM DS 800/160MG TAB PO SCH ×2 (07:25→20:55)
[2017-09-30] MEDS: HYDROCHLOROTHIAZIDE 25 MG TAB PO SCH (07:25)
[2017-09-30] MEDS: ASPIRIN 81 MG ECTAB PO SCH (07:25)
[2017-09-30] MEDS: METOPROLOL TARTRATE 100 MG TAB PO SCH ×2 (07:26→20:55)
[2017-09-30] MEDS: ENOXAPARIN 40 MG/0.4 ML SYR SQ SCH (07:27)
[2017-09-30] MEDS ORDERED: POTASSIUM CHLORIDE 10 MEQ TABCR PO STA (07:53)
[2017-09-30] MEDS ORDERED: VANCOMYCIN CONSULT ACTIVE PRN (08:15)
[2017-09-30] MEDS ORDERED: FUROSEMIDE 40 MG TAB PO SCH (08:54)
[2017-09-30] MEDS ORDERED: LISINOPRIL 20 MG TAB PO SCH (08:54)
[2017-09-30] MEDS ORDERED: ALLOPURINOL 100 MG TAB PO SCH (08:54)
[2017-09-30] MEDS ORDERED: AMLODIPINE BESYLATE 5 MG TAB PO SCH ×2 (08:54→12:00)
[2017-09-30] MEDS ORDERED: ASPIRIN 81 MG ECTAB PO SCH (08:54)
[2017-09-30] MEDS ORDERED: VANCOMYCIN IV 1,000 MG in SODIUM CHLORIDE 0.9% 250ML 250 ML IV SCH (09:00)
[2017-09-30] MEDS ORDERED: VANCOMYCIN IV 2,500 MG in SODIUM CHLORIDE 0.9% 500ML 500 ML IV ONE (09:00)
--- NOTE | 2017-09-30 09:55 | CONSULTATION REPORT ---
DATE OF CONSULTATION: 09/30/2017 Consult for leg abscesses. HISTORY OF PRESENT ILLNESS: The patient was admitted to the hospital on September 29 through the Emergency Room with dizziness and hypertensive urgency. She was noted with red spots on her legs bilaterally with 2 specifically somewhat larger than the others appearing to be some type of folliculitis with some drainage from the left side. At that time, she was placed on Bactrim and then I believe this morning, she was placed on vancomycin. She said the left side is showing some improvement. She was initially in the intensive care unit and then subsequently now on the regular nursing floor. There may be some remote history of MRSA. We have no wound cultures at the present time. Other history significant for chronic renal insufficiency and hypertension. SOCIAL AND FAMILY HISTORY: Noncontributory. REVIEW OF SYSTEMS: Other than the HPI, essentially negative. ALLERGIES: Apparently, no known allergies. PHYSICAL EXAMINATION: GENERAL APPEARANCE: Well-nourished, well developed, atraumatic head. EYES: Normal sclerae. NECK: Supple. CHEST: She shows no evidence of respiratory distress. HEART: Regular rate and rhythm. ABDOMEN: Soft. EXTREMITIES: The left extremity laterally on the calf shows a 4-5 cm erythematous area with a very small opening in the central portion. There was no fluid expressed with pressure. On the right side, there is a 3-4 cm area in the similar place, which I was able to express a very small amount of seropurulent fluid, which was cultured. I do not feel on either area any significant deep induration or fluctuance. SKIN: Otherwise, relatively normal. NEUROLOGIC: She is alert and oriented. ASSESSMENT AND PLAN: A 47-year-old female with bilateral lower extremity mild cellulitis and what appears to be a folliculitis. I do not think she has large deep abscesses. I do feel this should improve with antibiotics. I have marked the sites and we will assess them daily for progress. We will check the culture to be sure it is not methicillin-resistant Staphylococcus aureus and adjust her antibiotics per the infectious disease team.
[2017-09-30] MEDS: MECLIZINE HCL 12.5 MG TAB PO PRN (10:01)
--- NOTE | 2017-09-30 11:26 | Progress Note ---
Progress Note Date of Service Sep 30, 2017. Progress Note ID Consult Dictated #[id number] A/P 1. le superficial abscess - suspect CA-MRSA -continue vanco for now, can change to po abx when culture final -would give 14 days -thank you
--- NOTE | 2017-09-30 11:35 | Pharmacy Progress Note ---
Pharmacy Antibiotic Consult Date of Service: Sep 30, 2017. Pharmacy Dosing Scope Pharmacy is consulted to initiate vancomycin IV dosing therapy, order appropriate labs and adjust drug dose/frequency. Subjective The patient is a 47 year old female admitted on Sep 29, 2017 at 13:34. Objective Height (Feet): 5 Height (Inches): 6.00 Weight (Kilograms): 118.900 Lab Results (24hrs): Test 09/29/17 19:57 09/29/17 20:00 09/30/17 01:58 09/30/17 06:52 Troponin I < 0.015 ng/ml (0-0.045) < 0.015 ng/ml (0-0.045) Bedside Glucose 101 mg/dl (70-90) 88 mg/dl (70-90) White Blood Count 6.82 K/uL (4.8-10.8) Red Blood Count 4.23 M/uL (4.2-5.4) Hemoglobin 12.6 g/dL (12.0-16.0) Hematocrit 38.2 % (37-47) Mean Corpuscular Volume 90.3 fL (80-100) Mean Corpuscular Hemoglobin 29.8 pg (25-34) Mean Corpuscular Hemoglobin Concent 33.0 g/dl (32-36) RDW Standard Deviation 48.3 fL (36.4-46.3) RDW Coefficient of Variation 14.7 % (11.5-14.5) Platelet Count 275 K/uL (130-400) Mean Platelet Volume 9.9 fL (7.4-10.4) Sodium Level 139 mmol/L (136-145) Potassium Level 3.3 mmol/L (3.5-5.1) Chloride Level 103 mmol/L (98-107) Carbon Dioxide Level 29 mmol/L (21-32) Anion Gap 7.0 mmol/L (3-11) Blood Urea Nitrogen 18 mg/dl (7-18) Creatinine 1.32 mg/dl (0.60-1.20) Est Creatinine Clear Calc Drug Dose 65.1 ml/min Estimated GFR () 54.8 Estimated GFR (Non- 47.3 BUN/Creatinine Ratio 13.7 (10-20) Random Glucose 94 mg/dl (70-99) Calcium Level 8.7 mg/dl (8.5-10.1) Magnesium Level 1.9 mg/dl (1.8-2.4) Assessment & Plan Assessment * 47 yo F admitted for hypertensive urgency * B/l LE cellulitis (mild, draining) / folliculitis also present - surgery consulted, no intervention suggested at this time * Was on cephalexin+Bactrim, but switched to vancomycin monotherapy today * Folliculitis is often caused by Staph aureus and patient has positive MRSA nasal swab - agree with MRSA coverage for now * May also be caused by Pseudomonas (if patient has recent use of hot tub / heated swimming pool) * QTc 443 on EKG obtained this AM, NKDA - fluoroquinolone use OK * Renal * Baseline SCr 1.0 mg/dL * Mild, acute elevation to 1.21 mg/dL yesterday, slightly trended up to 1.32 mg /dL today Vancomycin * Goal vancomycin trough 15-20 mcg/mL for now despite skin/skin structure indication as MRSA high in differential. May decrease to 10-15 mcg/mL depending on culture/sensitivities/IDANIA * OK to schedule vancomycin as acute elevation in SCr is mild and the trend up is slow - *however*, if SCr continues to rise tomorrow, adjustment to regimen should be considered * Anticipate accumulation in obesity - will start with lower mg/kg dose * Vancomycin 21 mg/kg IV x1 then 13 mg/kg IV q12h Plan * Would suggest addition of ciprofloxacin for Pseudomonas coverage if hot tub/ heated swimming pool use in last 48-72 hours * Vancomycin 2500 mg IV x1 then 1500 mg IV q12h * Trough 10/01 @ 2130 Pharmacy will continue to follow and will adjust dose/frequency as necessary. Thank you
--- NOTE | 2017-09-30 11:47 | INFECT. DISEASE CONSULTATION ---
DATE OF CONSULTATION: 09/30/2017 HISTORY OF PRESENT ILLNESS: This is a 47-year-old female who was admitted to the hospital yesterday with dizziness and hypertension. She states she was feeling better this morning, but after she was up and ambulating in her room, her dizziness has returned. She also has 2 small superficial abscesses on her lateral calf, which have been present for the past few days. There was some purulent drainage from the right calf abscess yesterday and a culture was obtained in the ER. Results of this are pending. She denies any previous history. She did recently have an eye infection in early August, she was seen in the Emergency Room and treated with antibiotic eyedrops. She cannot remember the name. Her culture from that time grew Strep intermedius Enterococcus faecalis which was pansensitive Klebsiella oxytoca, which was resistant to Ancef only and proteus which was pansensitive. She states that infection has resolved. She denies any fevers or chills. She has no visual complaints. She denies any chest pain, cough, shortness of breath, nausea, vomiting or diarrhea. She was placed on vancomycin and she appears to be tolerating this well. She does not have a fever or leukocytosis. Her remaining review of systems is unremarkable. PAST MEDICAL HISTORY: Significant for anxiety, chronic kidney disease, depression, hypertension, hypothyroidism and migraine headaches. PAST SURGICAL HISTORY: Significant for spinal surgery, D&C, tubal ligation and cholecystectomy. SOCIAL HISTORY: Negative for tobacco or drug use. She drinks occasionally. ALLERGIES: She has no known drug allergies. MEDICATIONS: Include Antivert, vancomycin, Norvasc, allopurinol, Ecotrin, Prozac, Lasix, hydrochlorothiazide, lisinopril, vitamin D, Lovenox, Synthroid, Lopressor, and Tylenol and Zofran. PHYSICAL EXAMINATION: VITAL SIGNS: She is currently afebrile, pulse 66, respiratory rate is 20, blood pressure 147/88, and oxygen saturation is 94-95% on room air. GENERAL: She is awake, alert and oriented x3. She is in no acute distress. HEENT: Mucous membranes are moist. Extraocular muscles are intact. HEART: Regular. LUNGS: Clear bilaterally. ABDOMEN: Soft, nontender and nondistended. EXTREMITIES: Examination of the lower extremities reveals no edema. She has 2 small superficial abscesses on her lateral calf, which currently are not draining any purulent drainage. There is no bleeding. There is no warmth. There is no extension of cellulitis beyond the line drawn in the Emergency Room. There is somewhat tender to palpation. There are superficial. LABORATORY STUDIES: CBC reveals a white blood cell count of 6.8, hemoglobin 12.6 and platelets are 275. Chemistry panel reveals a sodium of 139, potassium 3.3, chloride 103, bicarbonate 29, BUN 18, creatinine 1.3, and glucose is 88. Wound culture is pending. MRSA swab on the was positive. ASSESSMENT AND PLAN: Lower extremity superficial abscesses, bilaterally. I suspect community-acquired methicillin-resistant staphylococcus aureus. She is currently on vancomycin and can continue on this pending the results of her wound culture. Likely, she will be changed to oral antibiotics to complete a 14-day course. Thank you for this consultation.
[2017-09-30] MEDS ORDERED: RANITIDINE HCL 50 MG/100 ML D5W IV STA (12:53)
[2017-09-30] MEDS ORDERED: RANITIDINE IV 50 MG in DEXTROSE 5% 100ML 100 ML IV SCH (13:15)
--- NOTE | 2017-09-30 13:58 | NEPHROLOGY CONSULTATION ---
DATE OF CONSULTATION: 09/30/2017 REASON FOR CONSULT: Uncontrolled hypertension. HISTORY OF PRESENT ILLNESS: The patient is a 47-year-old female who presented to the Emergency Department yesterday with a chief complaint of vertigo and high blood pressure. She has been battling issues with high blood pressure for many years now. Hypertension medications are being adjusted by Dr. Bojorquez in nephrology and her PCP. Blood pressure was very high at the time of admission. Since admission, the highest blood pressure reading we have was at the time of admission when it was 220/148. Since admission, it has steadily gone down and now most recent blood pressure is 147/88. She claims she is taking all other medication as prescribed and includes hydrochlorothiazide 25 mg daily, lisinopril 20 mg daily and metoprolol 75 mg twice daily. She used to be on high dose of furosemide which was stopped in June and changed over to hydrochlorothiazide. Since admission, amlodipine has been added. She is written to get both Lasix and hydrochlorothiazide, but at home she does not take Lasix. At this time, the patient does not have any dizziness. PAST MEDICAL HISTORY: Anxiety, CKD stage III, depression, hypertension, hypothyroidism, migraine. PAST SURGICAL HISTORY: Cervical spine surgery, dilatation and curettage, history of tubal ligation, cholecystectomy. SOCIAL HISTORY: Never smoked. Occasional alcohol. IMMUNIZATION: None. ALLERGIES: No known drug allergies. HOME MEDICATIONS: Reviewed in detail and include allopurinol, aspirin, vitamin D, fluoxetine, hydrochlorothiazide 25 daily, levothyroxine, lisinopril 20 daily, metoprolol 75 twice daily. Lasix is not her current medication and was stopped in 06/2017. REVIEW OF SYSTEMS: As detailed in HPI unless stated otherwise. Twelve systems reviewed and negative. PHYSICAL EXAMINATION: GENERAL: Middle-aged white female who is not in any distress. She is awake, alert, oriented x3. HEENT: Mucous membrane moist. NECK: Supple. No jugular venous distention. CHEST: Clear. LUNGS: Bilateral breath sounds normal. CARDIOVASCULAR: Regular rate and rhythm. No edema. ABDOMEN: Soft, nontender. EXTREMITIES: Shows trace edema. No calf tenderness. NEUROLOGIC: Awake, alert, oriented x3. LABORATORY TESTS: Reviewed in detail. WBC count 6.82, hemoglobin 12.6, platelet count 275. Sodium 139, potassium 3.3, BUN 18, creatinine 1.32, yesterday it was 1.21, magnesium 1.9, calcium 8.7. ASSESSMENT AND PLAN: 1. A 47-year-old female who presented yesterday with hypertensive urgency with blood pressure reading of 220/148 as well as dizziness. At this time, dizziness is essentially resolved and there is no cause for the dizziness at this time. She has had venogram MRI, MR angiogram as well as brain MRI as well as CT scan of her head and all of them are unremarkable. So at this time, I would not pursue any further workup for vertigo/dizziness. 2. Hypertensive urgency. She has been seeing nephrology as well as her PCP for hypertension management. Previously, her blood pressure was fine, so she is very surprised why her blood pressure got so high. It appears secondary hypertension workup has already been done in the past and was negative. In any case, her blood pressure has gone down very fast from 220 to 147. According to the patient, she was not taking both Lasix and hydrochlorothiazide at this time, inadvertently she is prescribed for both. I will cancel the Lasix prescription and continue hydrochlorothiazide alone. Amlodipine has been added and this has got the blood pressure down very quickly. Most likely, she will have some lower extremity edema with amlodipine given her past history of lower extremity edema as well as her current physical profile and gender. I did explain to her that lower extremity edema will most likely happen but this is more of a cosmetic issue and will be adjusted accordingly. I would like to cut down the dose to 5 mg daily. Stop the Lasix and continue the other medication. As long as her blood pressure is up to 160, this is still acceptable and can be titrated further as an outpatient. MTDD
--- NOTE | 2017-09-30 17:07 | Progress Note ---
Internal Med Progress Note Date of Service: Sep 30, 2017. Provider Documentation: SUBJECTIVE: had an episode of dizziness today afebrile face was flushed and itch after starting iv vancomycin and improved after stopping it and with Benadryl and Zantac no chest pain or sob no cough no pain OBJECTIVE: Vital Signs-as noted below Exam: General-alert and oriented. ENT-Normal hearing Neck-no neck masses Lungs-cta b/l no wheezing no crackles present Heart-S1 and S2 heard regular rate and rhythm no murmurs Abdomen-Soft bowel sounds present non tender no distension Extremities-b/l lower extremity wound/abscess o the shins no erythema Neuro-alert and awake moves extremities Lab data as noted below. ASSESSMENT & PLAN: HYPERTENSIVE URGENCY was admitted to ICU as patient blood pressure was very high was very dizzy and having vertigio was having epistaxis workup for secondary HTN as out aptient was unremarkable patient at home on Lopressor 75mg bid lisinopril 20mg daily Lasix 40mg daily' hctz 25mg daily received iv labetalol lopressor changed to 100mg bid and amlodipine 5mg was started . Better controlled Lasix was stopped and lisinopril increased to 40mg daily by nephrology transferred to medical floor will monitor DIZZINESS On presentation to be vertiginous in nature and possible pronator drift on exam with very high BP Head CT negative MRI and MRA Brain , neck MRA, and MRV brain all unremarkable improved continue to monitor FOLLICULITIS possible absecc surgery and id on board could not tolerate vancomycin as patent developed red man syndrome currently on Keflex and Bactrim will f/u cx Sam syndrome mostly developed rash face down with itching after iv vancomycin stopped vancomycin given Benadryl and Zantac improved CKD STAGE III Baseline creatinine runs around 1.2 cr 1.3 today will f/u labs HYPOTHYROIDISM on levothyroxine DVT PROPHYLAXIS -SCDs for now DISPOSITION transfer to medical floor to be determined Vital Signs: Date Time Temp Pulse Resp B/P (MAP) Pulse Ox O2 Delivery O2 Flow Rate FiO2 09/30/17 15:30 Room Air 09/30/17 15:23 37.0 69 16 146/92 (110) 95 Room Air 09/30/17 12:10 68 20 144/87 (106) 95 Room Air 09/30/17 09:30 Room Air 09/30/17 09:30 36.7 66 20 147/88 (107) 94 09/30/17 08:14 36.8 65 16 95 09/30/17 08:01 72 20 156/78 (104) 95 Room Air 09/30/17 08:00 Room Air 09/30/17 07:50 36.8 65 16 162/95 (117) 95 Room Air 09/30/17 07:00 68 17 157/106 (123) 93 Room Air 09/30/17 06:00 57 14 155/80 (105) 93 Room Air 09/30/17 04:00 94 Room Air 09/30/17 04:00 36.8 56 18 134/65 (88) 94 Room Air 09/30/17 02:00 62 19 142/94 (110) 95 Room Air 09/30/17 00:01 36.7 55 22 136/86 (103) 94 Room Air 09/29/17 23:59 94 Room Air 09/29/17 22:01 60 16 140/83 (102) 95 09/29/17 21:01 36.8 64 17 157/84 (108) 95 Room Air 09/29/17 20:30 64 19 153/88 (109) 92 09/29/17 20:00 97 Room Air 09/29/17 19:30 75 18 157/98 (117) 94 09/29/17 19:01 76 18 172/97 (122) 96 09/29/17 18:30 75 20 171/105 (127) 97 09/29/17 18:07 73 18 170/100 (123) 95 Lab Results: Results Past 24 Hours Test 09/29/17 19:57 09/29/17 20:00 09/30/17 01:58 09/30/17 06:52 Range/Units Troponin I < 0.015 < 0.015 0-0.045 ng/ml Bedside Glucose 101 88 70-90 mg/dl White Blood Count 6.82 4.8-10.8 K/uL Red Blood Count 4.23 4.2-5.4 M/uL Hemoglobin 12.6 12.0-16.0 g/dL Hematocrit 38.2 37-47 % Mean Corpuscular Volume 90.3 80-100 fL Mean Corpuscular Hemoglobin 29.8 25-34 pg Mean Corpuscular Hemoglobin Concent 33.0 32-36 g/dl RDW Standard Deviation 48.3 36.4-46.3 fL RDW Coefficient of Variation 14.7 11.5-14.5 % Platelet Count 275 130-400 K/uL Mean Platelet Volume 9.9 7.4-10.4 fL Sodium Level 139 136-145 mmol/L Potassium Level 3.3 3.5-5.1 mmol/L Chloride Level 103 98-107 mmol/L Carbon Dioxide Level 29 21-32 mmol/L Anion Gap 7.0 3-11 mmol/L Blood Urea Nitrogen 18 7-18 mg/dl Creatinine 1.32 0.60-1.20 mg/dl Est Creatinine Clear Calc Drug Dose 65.1 ml/min Estimated GFR () 54.8 Estimated GFR (Non- 47.3 BUN/Creatinine Ratio 13.7 10-20 Random Glucose 94 70-99 mg/dl Calcium Level 8.7 8.5-10.1 mg/dl Magnesium Level 1.9 1.8-2.4 mg/dl Microbiology Results 09/30/17 Gram Stain, Received Pending 09/30/17 Wound Culture, Received Pending
[2017-09-30] MEDS ORDERED: VANCOMYCIN IV 1,500 MG in SODIUM CHLORIDE 0.9% 500ML 500 ML IV SCH (22:00)
[2017-10-01 00:01] VITALS: BP 125/86; PULSE 66; TEMP 37.1; O2SAT 93
[2017-10-01] MEDS: LEVOTHYROXINE 112 MCG TAB PO SCH (06:24)
[2017-10-01 06:32] LABS: CREATININE 2.07 mg/dl (0.60-1.20)
[2017-10-01 07:55] VITALS: BP 122/78; PULSE 64; TEMP 36.6; O2SAT 94
[2017-10-01] MEDS ORDERED: LISINOPRIL 40 MG TAB PO SCH (08:00)
[2017-10-01] MEDS: FLUOXETINE HCL 10 MG CAP PO SCH (08:45)
[2017-10-01] MEDS ORDERED: HydrALAZINE HCL 20 MG/ML VIAL IV. PRN (08:45)
[2017-10-01] MEDS: CHOLECALCIFEROL 1000 INTER.UNIT TAB PO SCH (08:45)
[2017-10-01] MEDS: SULFAMETHOXAZOLE/TRIMETHOPRIM DS 800/160MG TAB PO SCH ×2 (08:45→21:29)
[2017-10-01] MEDS: METOPROLOL TARTRATE 100 MG TAB PO SCH ×2 (08:45→21:30)
[2017-10-01] MEDS: ASPIRIN 81 MG ECTAB PO SCH (08:46)
[2017-10-01] MEDS: AMLODIPINE BESYLATE 5 MG TAB PO SCH (08:46)
[2017-10-01] MEDS: HYDROCHLOROTHIAZIDE 25 MG TAB PO SCH (08:46)
[2017-10-01] MEDS: ENOXAPARIN 40 MG/0.4 ML SYR SQ SCH (08:47)
[2017-10-01 09:17] LABS: CREATININE 2.04 mg/dl (0.60-1.20); POTASSIUM 3.5 mmol/L (3.5-5.1)
[2017-10-01] MEDS: MECLIZINE HCL 12.5 MG TAB PO PRN (11:07)
--- NOTE | 2017-10-01 12:01 | Surgery Progress Note ---
Surgery Progress Note Date of Service Oct 01, 2017. Subjective no complaints Objective Vital Signs: Date Time Temp Pulse Resp B/P (MAP) Pulse Ox O2 Delivery O2 Flow Rate FiO2 10/01/17 11:27 Room Air 10/01/17 07:55 36.6 64 20 122/78 (93) 94 Room Air 10/01/17 00:01 37.1 66 20 125/86 (99) 93 Room Air 10/01/17 00:00 Room Air 09/30/17 20:56 64 136/84 (101) 09/30/17 20:00 Room Air 09/30/17 15:30 Room Air 09/30/17 15:23 37.0 69 16 146/92 (110) 95 Room Air 09/30/17 12:10 68 20 144/87 (106) 95 Room Air General Appearance: no apparent distress Extremities: + pertinent finding (areas of erythema are decreasing) Laboratory Results: Results Past 24 Hours Test 09/30/17 16:58 09/30/17 20:02 10/01/17 05:14 10/01/17 07:34 Range/Units Bedside Glucose 94 97 79 70-90 mg/dl Sodium Level 136 136-145 mmol/L Potassium Level 3.5 3.5-5.1 mmol/L Chloride Level 102 98-107 mmol/L Carbon Dioxide Level 29 21-32 mmol/L Anion Gap 6.0 3-11 mmol/L Blood Urea Nitrogen 30 7-18 mg/dl Creatinine 2.04 0.60-1.20 mg/dl Est Creatinine Clear Calc Drug Dose 43.8 ml/min Estimated GFR () 32.4 Estimated GFR (Non- 27.9 BUN/Creatinine Ratio 14.6 10-20 Random Glucose 78 70-99 mg/dl Calcium Level 9.0 8.5-10.1 mg/dl Test 10/01/17 11:20 Range/Units Bedside Glucose 86 70-90 mg/dl Assessment & Plan 10/01/17- now on Bactrim- had rxn to [facility]- plan for d/c on Bactrim 2 week course total- show have f/u at wound clinic this week. If she would worsen at home- will need OR debridement.
[2017-10-01 12:30] VITALS: BP 134/83; PULSE 60; TEMP 37.1; O2SAT 95
[2017-10-01 15:58] VITALS: BP 114/79; PULSE 64; TEMP 36.7; O2SAT 91
--- NOTE | 2017-10-01 16:56 | Progress Note ---
Internal Med Progress Note Date of Service: Oct 01, 2017. Provider Documentation: SUBJECTIVE: had an episode of dizziness today also but resolved with antivert afebrile wounds in lower extremity healing fine eating ok no chest pain or sob family in room patient seems comfortable OBJECTIVE: Vital Signs-as noted below Exam: General-alert and oriented. ENT-Normal hearing Neck-no neck masses Lungs-cta b/l no wheezing no crackles present Heart-S1 and S2 heard regular rate and rhythm no murmurs Abdomen-Soft bowel sounds present non tender no distension Extremities-b/l lower extremity wound/abscess on the calfs-healing Neuro-alert and awake moves extremities Lab data as noted below. ASSESSMENT & PLAN: HYPERTENSIVE URGENCY was admitted to ICU as patient blood pressure was very high was very dizzy and having vertigio was having epistaxis workup for secondary HTN as out aptient was unremarkable patient at home on Lopressor 75mg bid lisinopril 20mg daily Lasix 40mg daily' hctz 25mg daily received iv labetalol lopressor changed to 100mg bid and amlodipine 5mg was started . Better controlled Lasix was stopped and lisinopril increased to 40mg daily by nephrology lisnoprl and hctz held for luis enrique hydralazine prn stable will monitor DIZZINESS On presentation to be vertiginous in nature and possible pronator drift on exam with very high BP Head CT negative MRI and MRA Brain , neck MRA, and MRV brain all unremarkable Antivert prn continue to monitor FOLLICULITIS possible abscess surgery and id on board could not tolerate vancomycin as patent developed red man syndrome currently on Bactrim will f/u cx Sam syndrome mostly developed rash face down with itching after iv vancomycin stopped vancomycin given Benadryl and Zantac improved LUIS ENRIQUE on CKD STAGE III Baseline creatinine runs around 1.2 cr 2 today from iv [facility]? avoid nephrotoxin agents will f/u labs HYPOTHYROIDISM on levothyroxine DVT PROPHYLAXIS -SCDs for now DISPOSITION Monitor in medical floor to be determined Vital Signs: Date Time Temp Pulse Resp B/P (MAP) Pulse Ox O2 Delivery O2 Flow Rate FiO2 10/01/17 15:58 36.7 64 18 114/79 (91) 91 Room Air 10/01/17 12:30 37.1 60 18 134/83 (100) 95 Room Air 10/01/17 11:27 Room Air 3/31/18 07:55 36.6 64 20 122/78 (93) 94 Room Air 10/01/17 00:01 37.1 66 20 125/86 (99) 93 Room Air 10/01/17 00:00 Room Air 09/30/17 20:56 64 136/84 (101) 09/30/17 20:00 Room Air Lab Results: Results Past 24 Hours Test 09/30/17 16:58 09/30/17 20:02 10/01/17 05:14 10/01/17 07:34 Range/Units Bedside Glucose 94 97 79 70-90 mg/dl Sodium Level 136 136-145 mmol/L Potassium Level 3.5 3.5-5.1 mmol/L Chloride Level 102 98-107 mmol/L Carbon Dioxide Level 29 21-32 mmol/L Anion Gap 6.0 3-11 mmol/L Blood Urea Nitrogen 30 7-18 mg/dl Creatinine 2.04 0.60-1.20 mg/dl Est Creatinine Clear Calc Drug Dose 43.8 ml/min Estimated GFR () 32.4 Estimated GFR (Non- 27.9 BUN/Creatinine Ratio 14.6 10-20 Random Glucose 78 70-99 mg/dl Calcium Level 9.0 8.5-10.1 mg/dl Test 10/01/17 11:20 Range/Units Bedside Glucose 86 70-90 mg/dl
[2017-10-01] MEDS ORDERED: VANCOMYCIN TROUGH ONE (21:30)
--- NOTE | 2017-10-01 23:10 | Progress Note ---
Post ICU Progress Note Date & Time Oct 01, 2017 at 23:10 Vital Signs Vital Signs Past 12 Hours Date Time Temp Pulse Resp B/P (MAP) Pulse Ox O2 Delivery O2 Flow Rate FiO2 10/01/17 18:03 Room Air 10/01/17 15:58 36.7 64 18 114/79 (91) 91 Room Air 10/01/17 12:30 37.1 60 18 134/83 (100) 95 Room Air 10/01/17 11:27 Room Air Notes Mental Status: alert / awake, participated in evaluation Nausea / Vomiting: adequately controlled Pain: adequately controlled Airway Patency, RR, SpO2: stable & adequate BP & HR: stable & adequate Sue Cisse is a 47yo female who presented to the ICU on 09/29/17 for Hypertensive Emergency with symptoms of headache and vertigo. This was similar but more severe than a prior episode of hypertension. She did not require IV drips in the ICU and was treated solely with PO medications. She did not require intubation, invasive monitoring, or central/arterial lines. She was downgraded to telemetry the following morning. Her blood pressures have remained well controlled since downgrade. The hospitalist team has keep the pt currently due to a rise in Cr (1.21 to 2.04) She does state that during her prior episode she did suffer from Acute Kidney Injury at that time as well. Pt continues to be monitored on the 4th floor at this time. Upon my visit, she is in great spirits and is happy with her care in the hospital. She has not acute complaints and no new findings on physical exam. Her SBP today has ranged from 114-134. She continues with her PO medications at this time. Her condition has stabilized. Pt is subsequently also being treated for soft tissue infection/carbuncles of the left lower extremity. I have noted during chart review that this pts abx was prescribed while her creatinine was relatively normal. Since then her CrCl has worsened to 27.9 which requires a 50% reduction in her Bactrim dosing. I have spoke to pharmacist Robert who has agreed to edit this dosing by 1/2. Consider outpatient follow up in 1 to 2 weeks with: PCP: Dr. Mykel Bailey Repeat imaging needed: NA Follow up cultures: NONE Reviewed progress notes, labs, and inpatient medication list Continue current management Additional recommendations: Monitor CrCl closing for Abx dosing to reduce further kidney injury. Pt has stabilized and Critical Care will sign off at this time. Thank you for including us in the care of this pt. Please feel free to reconsult as needed. Level 1 Inpatient Billing Consults & Procedures Consultants: Wound Care ID: Dayami Nephrology: Kevin General Surgery: Ruddy
[2017-10-02 00:02] VITALS: BP 130/82; PULSE 59; TEMP 36.8; O2SAT 95
[2017-10-02] MEDS: LEVOTHYROXINE 112 MCG TAB PO SCH (06:14)
[2017-10-02 06:30] LABS: BASO % 0.2 %; BASO ABS # 0.01 K/uL (0-0.2); EOS ABS # 0.39 K/uL (0-0.5); HEMATOCRIT 40.6 % (37-47); HEMOGLOBIN 13.4 g/dL (12.0-16.0); IG# 0.02 K/uL (0.00-0.02); LYMPH ABS # 1.76 K/uL (1.2-3.4); MEAN CELL VOLUME 90.6 fL (80-100); MEAN CORPUSCULAR HEMOGLOBIN 29.9 pg (25-34); MEAN PLATELET VOLUME 10.4 fL (7.4-10.4); MONO % 11.8 %; MONO ABS # 0.77 K/uL (0.11-0.59); NEUT % 54.7 %; NEUT ABS # 3.57 K/uL (1.4-6.5); PLATELET COUNT 314 K/uL (130-400); RED CELL DISTRIBUTION WIDTH CV 14.9 % (11.5-14.5); RED CELL DISTRIBUTION WIDTH SD 49.8 fL (36.4-46.3); WHITE BLOOD COUNT 6.52 K/uL (4.8-10.8)
[2017-10-02 07:06] LABS: CALCIUM 8.7 mg/dl (8.5-10.1); CREATININE 2.28 mg/dl (0.60-1.20); POTASSIUM 3.8 mmol/L (3.5-5.1)
[2017-10-02 07:51] VITALS: BP 121/77; PULSE 64; TEMP 36.6; O2SAT 99
[2017-10-02] MEDS: AMLODIPINE BESYLATE 5 MG TAB PO SCH (08:04)
[2017-10-02] MEDS: FLUOXETINE HCL 10 MG CAP PO SCH (08:04)
[2017-10-02] MEDS: METOPROLOL TARTRATE 100 MG TAB PO SCH ×2 (08:04→21:17)
[2017-10-02] MEDS: ASPIRIN 81 MG ECTAB PO SCH (08:04)
[2017-10-02] MEDS: CHOLECALCIFEROL 1000 INTER.UNIT TAB PO SCH (08:05)
[2017-10-02] MEDS: ENOXAPARIN 40 MG/0.4 ML SYR SQ SCH (08:05)
[2017-10-02] MEDS ORDERED: SULFAMETHOXAZOLE/TRIMETHOPRIM 400/80MG TAB PO SCH (09:00)
[2017-10-02] MEDS: MUPIROCIN 2% OINT 22 GM TUBE INTNAS SCH ×2 (09:40→21:16)
--- NOTE | 2017-10-02 12:05 | Surgery Progress Note ---
Surgery Progress Note Date of Service Oct 02, 2017. Subjective no complaints cult- staph, not MRSA Objective Vital Signs: Date Time Temp Pulse Resp B/P (MAP) Pulse Ox O2 Delivery O2 Flow Rate FiO2 10/02/17 08:58 Room Air 10/02/17 07:51 36.6 64 18 121/77 (92) 99 Room Air 10/02/17 00:02 36.8 59 18 130/82 (98) 95 Room Air 10/02/17 00:00 Room Air 10/01/17 20:00 Room Air 10/01/17 18:03 Room Air 10/01/17 15:58 36.7 64 18 114/79 (91) 91 Room Air 10/01/17 12:30 37.1 60 18 134/83 (100) 95 Room Air Extremities: + pertinent finding (slowly improving folliculitis) Laboratory Results: Results Past 24 Hours Test 10/01/17 16:35 10/01/17 19:56 10/01/17 21:18 10/02/17 05:29 Range/Units Bedside Glucose 102 93 70-90 mg/dl Vancomycin Level Trough 9.9 SEE COMMENT mcg/ml White Blood Count 6.52 4.8-10.8 K/uL Red Blood Count 4.48 4.2-5.4 M/uL Hemoglobin 13.4 12.0-16.0 g/dL Hematocrit 40.6 37-47 % Mean Corpuscular Volume 90.6 80-100 fL Mean Corpuscular Hemoglobin 29.9 25-34 pg Mean Corpuscular Hemoglobin Concent 33.0 32-36 g/dl Platelet Count 314 130-400 K/uL Mean Platelet Volume 10.4 7.4-10.4 fL Neutrophils (%) (Auto) 54.7 % Lymphocytes (%) (Auto) 27.0 % Monocytes (%) (Auto) 11.8 % Eosinophils (%) (Auto) 6.0 % Basophils (%) (Auto) 0.2 % Neutrophils # (Auto) 3.57 1.4-6.5 K/uL Lymphocytes # (Auto) 1.76 1.2-3.4 K/uL Monocytes # (Auto) 0.77 0.11-0.59 K/uL Eosinophils # (Auto) 0.39 0-0.5 K/uL Basophils # (Auto) 0.01 0-0.2 K/uL RDW Standard Deviation 49.8 36.4-46.3 fL RDW Coefficient of Variation 14.9 11.5-14.5 % Immature Granulocyte % (Auto) 0.3 % Immature Granulocyte # (Auto) 0.02 0.00-0.02 K/uL Sodium Level 136 136-145 mmol/L Potassium Level 3.8 3.5-5.1 mmol/L Chloride Level 102 98-107 mmol/L Carbon Dioxide Level 30 21-32 mmol/L Anion Gap 4.0 3-11 mmol/L Blood Urea Nitrogen 38 7-18 mg/dl Creatinine 2.28 0.60-1.20 mg/dl Est Creatinine Clear Calc Drug Dose 39.2 ml/min Estimated GFR () 28.3 Estimated GFR (Non- 24.4 BUN/Creatinine Ratio 16.7 10-20 Random Glucose 81 70-99 mg/dl Calcium Level 8.7 8.5-10.1 mg/dl Magnesium Level 2.1 1.8-2.4 mg/dl Assessment & Plan 10/02/17- Cont Atbtx 10/01/17- now on Bactrim- had rxn to [facility]- plan for d/c on Bactrim 2 week course total- show have f/u at wound clinic this week. If she would worsen at home- will need OR debridement. 10/01/17- now on Bactrim- had rxn to [facility]- plan for d/c on Bactrim 2 week course total- show have f/u at wound clinic this week. If she would worsen at home- will need OR debridement.
--- NOTE | 2017-10-02 15:00 | NEPHROLOGY PROGRESS NOTE ---
DATE: 10/02/2017 SUBJECTIVE: Overnight, blood pressure is now normal. Wound culture came back positive for staph aureus resistant type, so was started on Bactrim. Renal function has started to get worse for the last 2 days. She denies any new complaints. PHYSICAL EXAMINATION: VITAL SIGNS: Blood pressure 121/77, 99% on room air, pulse rate 64, temperature 36.6. HEENT: Mucous membrane is moist. NECK: Supple. No jugular venous distention. EXTREMITIES: Lower extremity edema has slight edema. LABORATORY TESTS: From this morning - sodium 136, potassium 3.8, BUN 38; creatinine is 2.28, just 2 days ago, creatinine was pretty much baseline at 1.32 and has gone up since then. CBC - hemoglobin 13.4, WBC 6.52, and platelet count 314. ASSESSMENT AND PLAN: 1. Hypertensive urgency that has essentially got back to normal. At this time, I would continue with hydralazine, amlodipine. Because of the rise in creatinine, both Lasix and hydrochlorothiazide has already been stopped as well as lisinopril. 2. Acute renal failure. Given that creatinine has gone up to 2.28 from a baseline of around 2 days ago. I would continue to hold the hydrochlorothiazide, Lasix and lisinopril for the time being. I would also consider changing Bactrim to doxycycline as trimethoprim can cause creatinine elevation thus confusing the picture. I do not think we need to give her IV fluid as she is eating and drinking completely fine. Continue daily labs. [facility]
[2017-10-02 15:48] VITALS: BP 129/80; PULSE 62; TEMP 36.6; O2SAT 96
--- NOTE | 2017-10-02 18:05 | Progress Note ---
Internal Med Progress Note Date of Service: Oct 02, 2017. Provider Documentation: SUBJECTIVE: no dizziness today afebrile' sitting on chair comfortably eating ok no sob or chest pain hemodynamics stable OBJECTIVE: Vital Signs-as noted below Exam: General-alert and oriented. ENT-Normal hearing Neck-no neck masses Lungs-cta b/l no wheezing no crackles present Heart-S1 and S2 heard regular rate and rhythm no murmurs Abdomen-Soft bowel sounds present non tender no distension Extremities-b/l lower extremity wound/abscess on the calfs-healing Neuro-alert and awake moves extremities Lab data as noted below. ASSESSMENT & PLAN: 47F presented with dizziness and vertigo and possible pronator drift and was admitted to ICU for hypertensive urgency. MRI/MRA/MRV head unremarkable.Secondary HTN workup as outpatient unremarkable. Also has wound on b/l calfs which wee draining. Seen by surgery and recommends abx for now and no if improvement plan for debridement. Seen by ID and recommend po abx on discharge. During first dose of iv vanco developed rash and was stopped. next day had LUIS ENRIQUE which is not improved currently. Currently on po doxy for wounds/ abscess in lower extremity to continue for total 14 days-improving.Nephrology following for HTN and LUIS ENRIQUE. f/u labs. To d/c when renal function improves. To adjust BP meds . HYPERTENSIVE URGENCY was admitted to ICU as patient blood pressure was very high was very dizzy and having vertigio was having epistaxis workup for secondary HTN as out patient was unremarkable patient at home on Lopressor 75mg bid lisinopril 20mg daily Lasix 40mg daily'( Not on Lasix at home anymore) hctz 25mg daily received iv labetalol Lopressor changed to 100mg bid and amlodipine 5mg was started . Better controlled lisinopril increased to 40mg daily by nephrology but lisnoprl and hctz held on 10/01/17 for luis enrique hydralazine prn currently stable continue to monitor will monitor DIZZINESS On presentation to be vertiginous in nature and possible pronator drift on exam with very high BP Head CT negative MRI and MRA Brain , neck MRA, and MRV brain all unremarkable Antivert prn stable continue to monitor FOLLICULITIS possible abscess surgery and id on board could not tolerate vancomycin as patent developed red man syndrome currently on Bactrim but will change to doxy as patient having LUIS ENRIQUE will f/u cx Sam syndrome mostly developed rash face down with itching after iv vancomycin stopped vancomycin given Benadryl and Zantac improved LUIS ENRIQUE on CKD STAGE III Baseline creatinine runs around 1.2 cr 2.2 today. still climbing from iv vanco? avoid nephrotoxin agents will f/u labs HYPOTHYROIDISM on levothyroxine DVT PROPHYLAXIS -SCDs for now DISPOSITION Monitor in medical floor to be determined Vital Signs: Date Time Temp Pulse Resp B/P (MAP) Pulse Ox O2 Delivery O2 Flow Rate FiO2 10/02/17 15:48 36.6 62 18 129/80 (96) 96 Room Air 10/02/17 08:58 Room Air 10/02/17 07:51 36.6 64 18 121/77 (92) 99 Room Air 10/02/17 00:02 36.8 59 18 130/82 (98) 95 Room Air 10/02/17 00:00 Room Air 10/01/17 20:00 Room Air Lab Results: Results Past 24 Hours Test 10/01/17 19:56 10/01/17 21:18 10/02/17 05:29 10/02/17 16:48 Range/Units Bedside Glucose 93 118 70-90 mg/dl Vancomycin Level Trough 9.9 SEE COMMENT mcg/ml White Blood Count 6.52 4.8-10.8 K/uL Red Blood Count 4.48 4.2-5.4 M/uL Hemoglobin 13.4 12.0-16.0 g/dL Hematocrit 40.6 37-47 % Mean Corpuscular Volume 90.6 80-100 fL Mean Corpuscular Hemoglobin 29.9 25-34 pg Mean Corpuscular Hemoglobin Concent 33.0 32-36 g/dl Platelet Count 314 130-400 K/uL Mean Platelet Volume 10.4 7.4-10.4 fL Neutrophils (%) (Auto) 54.7 % Lymphocytes (%) (Auto) 27.0 % Monocytes (%) (Auto) 11.8 % Eosinophils (%) (Auto) 6.0 % Basophils (%) (Auto) 0.2 % Neutrophils # (Auto) 3.57 1.4-6.5 K/uL Lymphocytes # (Auto) 1.76 1.2-3.4 K/uL Monocytes # (Auto) 0.77 0.11-0.59 K/uL Eosinophils # (Auto) 0.39 0-0.5 K/uL Basophils # (Auto) 0.01 0-0.2 K/uL RDW Standard Deviation 49.8 36.4-46.3 fL RDW Coefficient of Variation 14.9 11.5-14.5 % Immature Granulocyte % (Auto) 0.3 % Immature Granulocyte # (Auto) 0.02 0.00-0.02 K/uL Sodium Level 136 136-145 mmol/L Potassium Level 3.8 3.5-5.1 mmol/L Chloride Level 102 98-107 mmol/L Carbon Dioxide Level 30 21-32 mmol/L Anion Gap 4.0 3-11 mmol/L Blood Urea Nitrogen 38 7-18 mg/dl Creatinine 2.28 0.60-1.20 mg/dl Est Creatinine Clear Calc Drug Dose 39.2 ml/min Estimated GFR () 28.3 Estimated GFR (Non- 24.4 BUN/Creatinine Ratio 16.7 10-20 Random Glucose 81 70-99 mg/dl Calcium Level 8.7 8.5-10.1 mg/dl Magnesium Level 2.1 1.8-2.4 mg/dl
[2017-10-02] MEDS: DOXYCYCLINE HYCLATE 100 MG CAP PO SCH (21:16)
[2017-10-02 23:32] VITALS: BP 135/82; PULSE 63; TEMP 36.5; O2SAT 94
[2017-10-03 06:06] LABS: BASO % 0.3 %; BASO ABS # 0.02 K/uL (0-0.2); EOS % 6.9 %; EOS ABS # 0.42 K/uL (0-0.5); HEMOGLOBIN 13.4 g/dL (12.0-16.0); IG# 0.02 K/uL (0.00-0.02); LYMPH % 29.6 %; LYMPH ABS # 1.81 K/uL (1.2-3.4); MEAN CELL VOLUME 91.1 fL (80-100); MEAN CORPUSCULAR HEMOGLOBIN 29.1 pg (25-34); MEAN CORPUSCULAR HGB CONC 31.9 g/dl (32-36); MEAN PLATELET VOLUME 10.7 fL (7.4-10.4); MONO % 11.8 %; MONO ABS # 0.72 K/uL (0.11-0.59); NEUT % 51.1 %; NEUT ABS # 3.13 K/uL (1.4-6.5); PLATELET COUNT 314 K/uL (130-400); RED CELL DISTRIBUTION WIDTH CV 14.6 % (11.5-14.5); RED CELL DISTRIBUTION WIDTH SD 49.2 fL (36.4-46.3); WHITE BLOOD COUNT 6.12 K/uL (4.8-10.8)
[2017-10-03] MEDS: LEVOTHYROXINE 112 MCG TAB PO SCH (06:37)
[2017-10-03 06:43] LABS: CALCIUM 8.9 mg/dl (8.5-10.1); CREATININE 2.07 mg/dl (0.60-1.20)
[2017-10-03 08:05] VITALS: BP 162/94; PULSE 62
[2017-10-03] MEDS: MUPIROCIN 2% OINT 22 GM TUBE INTNAS SCH ×2 (08:06→21:20)
[2017-10-03] MEDS: ASPIRIN 81 MG ECTAB PO SCH (08:07)
[2017-10-03] MEDS: METOPROLOL TARTRATE 100 MG TAB PO SCH ×2 (08:07→21:19)
[2017-10-03] MEDS: FLUOXETINE HCL 10 MG CAP PO SCH (08:08)
[2017-10-03] MEDS: ENOXAPARIN 40 MG/0.4 ML SYR SQ SCH (08:08)
[2017-10-03] MEDS: DOXYCYCLINE HYCLATE 100 MG CAP PO SCH ×2 (08:08→21:20)
[2017-10-03] MEDS: CHOLECALCIFEROL 1000 INTER.UNIT TAB PO SCH (08:08)
[2017-10-03] MEDS: AMLODIPINE BESYLATE 5 MG TAB PO SCH (08:08)
[2017-10-03 08:17] VITALS: BP 125/82; PULSE 68; TEMP 36.7; O2SAT 100
[2017-10-03 09:11] VITALS: O2SAT 97
--- NOTE | 2017-10-03 09:53 | Nephrology Progress Note ---
Nephrology Progress Note Date of Service: Oct 03, 2017. Subjective 47 yo female with hypertensive urgency and lusi enrique. bp meds adjusted. currently off diuretics and off the bactrim. creatinine has peaked and trending down. pt feels good. being visited by family member. appetite is good. pt is oob to chair. Objective Date Time Temp Pulse Resp B/P (MAP) Pulse Ox O2 Delivery O2 Flow Rate FiO2 10/03/17 09:11 97 Room Air 10/03/17 08:17 36.7 68 18 125/82 (96) 100 Room Air 10/03/17 08:05 62 162/94 (116) 10/03/17 00:00 Room Air 10/02/17 23:32 36.5 63 18 135/82 (99) 94 Room Air 10/02/17 20:00 Room Air 10/02/17 15:48 36.6 62 18 129/80 (96) 96 Room Air Physical Exam: General-aaox3 Eyes-no scleral icterus ENT-mmm Neck-supple Lungs-cta Heart-rrr Abdomen-bs+ s/nt/nd Extremities-+erythema on outer both legs Neuro-nonfocal Current Inpatient Medications Medications (Trade) Dose Ordered Sig/Ernesto Route Start Time Stop Time Status Last Admin Dose Admin Acetaminophen (Tylenol Tab) 650 mg Q4H PRN PO 09/29/17 13:45 10/29/17 13:44 09/30/17 15:52 650 MG Ondansetron HCl (Zofran Inj) 4 mg Q6H PRN IV 09/29/17 13:45 10/29/17 13:44 Metoprolol Tartrate (Lopressor Tab) 100 mg BID PO 09/29/17 21:00 10/29/17 20:59 10/03/17 08:07 100 MG Allopurinol (Zyloprim Tab) 100 mg DAILY PO 09/30/17 08:54 10/30/17 08:59 Future Hold 09/30/17 07:25 100 MG Aspirin (Ecotrin Tab) 81 mg DAILY PO 09/30/17 08:54 10/30/17 08:59 10/03/17 08:07 81 MG Fluoxetine HCl (Prozac Cap) 10 mg DAILY PO 09/30/17 08:54 10/30/17 08:59 10/03/17 08:08 10 MG Hydrochlorothiazide (Hydrochlorothiazide Tab) 25 mg DAILY PO 09/30/17 08:54 10/30/17 08:59 Future Hold 09/30/17 07:25 25 MG Levothyroxine Sodium (Synthroid Tab) 112 mcg DAILYBB PO 09/30/17 06:00 10/30/17 05:59 10/03/17 06:37 112 MCG Cholecalciferol (Vitamin D Tab) 2,000 inter.unit DAILY PO 09/30/17 08:54 10/30/17 08:59 10/03/17 08:08 2,000 INTER.UNIT Enoxaparin Sodium (Lovenox Inj) 40 mg QAM SQ 09/30/17 08:54 10/30/17 08:59 10/03/17 08:08 40 MG Gadobutrol (Gadavist) 11 mmol UD PRN IV 09/29/17 18:00 10/03/17 17:59 Meclizine HCl (Antivert Tab) 12.5 mg TID PRN PO 09/30/17 09:30 10/30/17 09:29 10/01/17 11:07 12.5 MG Amlodipine Besylate (Norvasc Tab) 5 mg QAM PO 10/01/17 08:00 10/31/17 07:59 10/03/17 08:08 5 MG Lisinopril (Zestril Tab) 40 mg DAILY PO 10/01/17 08:00 10/31/17 07:59 Future Hold Hydralazine HCl (HydrALAZINE INJ) 10 mg Q6 PRN IV. 10/01/17 08:45 10/31/17 08:44 Mupirocin (Bactroban 2% Oint) 1 appln BID INTNAS 10/02/17 08:00 11/01/17 07:59 10/03/17 08:06 1 APPLN Doxycycline Hyclate (Vibramycin Cap) 100 mg BID PO 10/02/17 20:00 10/12/17 19:59 10/03/17 08:08 100 MG Last 24 Hours Test 10/02/17 16:48 10/02/17 20:27 10/03/17 05:27 10/03/17 07:45 Bedside Glucose 118 mg/dl 99 mg/dl 88 mg/dl White Blood Count 6.12 K/uL Red Blood Count 4.61 M/uL Hemoglobin 13.4 g/dL Hematocrit 42.0 % Mean Corpuscular Volume 91.1 fL Mean Corpuscular Hemoglobin 29.1 pg Mean Corpuscular Hemoglobin Concent 31.9 g/dl Platelet Count 314 K/uL Mean Platelet Volume 10.7 fL Neutrophils (%) (Auto) 51.1 % Lymphocytes (%) (Auto) 29.6 % Monocytes (%) (Auto) 11.8 % Eosinophils (%) (Auto) 6.9 % Basophils (%) (Auto) 0.3 % Neutrophils # (Auto) 3.13 K/uL Lymphocytes # (Auto) 1.81 K/uL Monocytes # (Auto) 0.72 K/uL Eosinophils # (Auto) 0.42 K/uL Basophils # (Auto) 0.02 K/uL RDW Standard Deviation 49.2 fL RDW Coefficient of Variation 14.6 % Immature Granulocyte % (Auto) 0.3 % Immature Granulocyte # (Auto) 0.02 K/uL Sodium Level 136 mmol/L Potassium Level 4.0 mmol/L Chloride Level 102 mmol/L Carbon Dioxide Level 28 mmol/L Anion Gap 6.0 mmol/L Blood Urea Nitrogen 37 mg/dl Creatinine 2.07 mg/dl Est Creatinine Clear Calc Drug Dose 43.1 ml/min Estimated GFR () 31.8 Estimated GFR (Non- 27.4 BUN/Creatinine Ratio 18.0 Random Glucose 86 mg/dl Calcium Level 8.9 mg/dl Magnesium Level 2.2 mg/dl Assessment & Plan LUIS ENRIQUE-creatinine peaked and starting to trend down. would like to see creatinine continuing to trend down tomorrow before considering going home. HTN: goal bp is under 140/90, currently bp is good. on norvasc 5mg a day, lopressor 100mg po bid, continue to hold diuretics for now. continue to hold armen.
[2017-10-03 10:31] VITALS: BP 137/86
--- NOTE | 2017-10-03 10:48 | Progress Note ---
Subjective Date of Service: Oct 03, 2017. Subjective pt oob to chair, asking to go home. afebrile. states leg pain much better. now on doxy, tolerating well. culture from wound with MSSA. nasal swab + MRSA. creat elevated over weekend, most recent vanco level only 9.9, changed to doxy, tolerating. remaining ros negative. Problem List Medical Problems: (1) Abscess Status: Acute Objective Vital Signs Date Time Temp Pulse Resp B/P (MAP) Pulse Ox O2 Delivery O2 Flow Rate FiO2 10/03/17 10:39 Room Air 10/03/17 10:31 137/86 (103) 10/03/17 09:11 97 Room Air 10/03/17 08:17 36.7 68 18 125/82 (96) 100 Room Air 10/03/17 08:05 62 162/94 (116) 10/03/17 00:00 Room Air 10/02/17 23:32 36.5 63 18 135/82 (99) 94 Room Air 10/02/17 20:00 Room Air 10/02/17 15:48 36.6 62 18 129/80 (96) 96 Room Air Physical Exam General Appearance: WD/WN Eyes: normal inspection, EOMI Neck: supple Respiratory/Chest: lungs clear, normal breath sounds, no respiratory distress Cardiovascular: regular rate, rhythm, no edema Abdomen: soft Extremities: non-tender, no pedal edema Neurologic/Psychiatric: alert, oriented x 3 Skin: normal color Comments: lateral calf wound improved, no drainage, min erythema, no warmth, non tender. Laboratory Results Item Value Date Time Gram Stain - Final Complete 09/30/17 1000 Skin Leg Last 24 Hours Test 10/02/17 16:48 10/02/17 20:27 10/03/17 05:27 10/03/17 07:45 Bedside Glucose 118 mg/dl 99 mg/dl 88 mg/dl White Blood Count 6.12 K/uL Red Blood Count 4.61 M/uL Hemoglobin 13.4 g/dL Hematocrit 42.0 % Mean Corpuscular Volume 91.1 fL Mean Corpuscular Hemoglobin 29.1 pg Mean Corpuscular Hemoglobin Concent 31.9 g/dl Platelet Count 314 K/uL Mean Platelet Volume 10.7 fL Neutrophils (%) (Auto) 51.1 % Lymphocytes (%) (Auto) 29.6 % Monocytes (%) (Auto) 11.8 % Eosinophils (%) (Auto) 6.9 % Basophils (%) (Auto) 0.3 % Neutrophils # (Auto) 3.13 K/uL Lymphocytes # (Auto) 1.81 K/uL Monocytes # (Auto) 0.72 K/uL Eosinophils # (Auto) 0.42 K/uL Basophils # (Auto) 0.02 K/uL RDW Standard Deviation 49.2 fL RDW Coefficient of Variation 14.6 % Immature Granulocyte % (Auto) 0.3 % Immature Granulocyte # (Auto) 0.02 K/uL Sodium Level 136 mmol/L Potassium Level 4.0 mmol/L Chloride Level 102 mmol/L Carbon Dioxide Level 28 mmol/L Anion Gap 6.0 mmol/L Blood Urea Nitrogen 37 mg/dl Creatinine 2.07 mg/dl Est Creatinine Clear Calc Drug Dose 43.1 ml/min Estimated GFR () 31.8 Estimated GFR (Non- 27.4 BUN/Creatinine Ratio 18.0 Random Glucose 86 mg/dl Calcium Level 8.9 mg/dl Magnesium Level 2.2 mg/dl Assessment and Plan (1) Abscess Assessment & Plan: agree with change to doxy, would give 10 days total. ok for d/c from ID standpoint when otherwise stable.
--- NOTE | 2017-10-03 16:24 | Progress Note ---
Medicine Progress Note Date & Time of Visit: Oct 03, 2017 at 16:18. Subjective Seen resting bedside chair with her at the bedside In good spirits comfortable States states she feels improved Ambulating in the halls with no problems Denies chest pain, shortness of breath, headache, dizziness No problems with voiding Objective Last 8 Hrs Date Time Temp Pulse Resp B/P (MAP) Pulse Ox O2 Delivery O2 Flow Rate FiO2 10/03/17 10:39 Room Air 10/03/17 10:31 137/86 (103) 10/03/17 09:11 97 Room Air Physical Exam: General-oriented 3 not in distress speaking in sentences Head- atraumatic Eyes- PERRL, EOMI, anicteric ENT- oropharynx clear Neck- supple, no JVD, no adenopathy, no thyromegaly; carotids +2/2 Lungs- clear to auscultation bilaterally Heart- regular rhythm; no murmur, normal rate Abdomen- normal bowel sounds, soft, nontender Extremities- no pretibial edema, no calf tenderness; peripheral pulses intact Areas of macular papular lesion-healing well Neuro- alert, oriented x 3; no gross focal motor or sensory deficits no other neuro deficits Skin- warm & dry Laboratory Results: Last 24 Hours Test 10/02/17 16:48 10/02/17 20:27 10/03/17 05:27 10/03/17 07:45 Bedside Glucose 118 mg/dl 99 mg/dl 88 mg/dl White Blood Count 6.12 K/uL Red Blood Count 4.61 M/uL Hemoglobin 13.4 g/dL Hematocrit 42.0 % Mean Corpuscular Volume 91.1 fL Mean Corpuscular Hemoglobin 29.1 pg Mean Corpuscular Hemoglobin Concent 31.9 g/dl Platelet Count 314 K/uL Mean Platelet Volume 10.7 fL Neutrophils (%) (Auto) 51.1 % Lymphocytes (%) (Auto) 29.6 % Monocytes (%) (Auto) 11.8 % Eosinophils (%) (Auto) 6.9 % Basophils (%) (Auto) 0.3 % Neutrophils # (Auto) 3.13 K/uL Lymphocytes # (Auto) 1.81 K/uL Monocytes # (Auto) 0.72 K/uL Eosinophils # (Auto) 0.42 K/uL Basophils # (Auto) 0.02 K/uL RDW Standard Deviation 49.2 fL RDW Coefficient of Variation 14.6 % Immature Granulocyte % (Auto) 0.3 % Immature Granulocyte # (Auto) 0.02 K/uL Sodium Level 136 mmol/L Potassium Level 4.0 mmol/L Chloride Level 102 mmol/L Carbon Dioxide Level 28 mmol/L Anion Gap 6.0 mmol/L Blood Urea Nitrogen 37 mg/dl Creatinine 2.07 mg/dl Est Creatinine Clear Calc Drug Dose 43.1 ml/min Estimated GFR () 31.8 Estimated GFR (Non- 27.4 BUN/Creatinine Ratio 18.0 Random Glucose 86 mg/dl Calcium Level 8.9 mg/dl Magnesium Level 2.2 mg/dl Test 10/03/17 11:35 Bedside Glucose 89 mg/dl Assessment & Plan HYPERTENSIVE URGENCY was admitted to ICU as patient blood pressure was very high was very dizzy and having vertigo, epistaxis workup for secondary HTN as out patient was unremarkable Blood pressure medications adjusted Increase labetalol Added amlodipine Lisinopril, Lasix, hydrochlorothiazide held for acute renal failure Blood pressure improving Nephrology consulted DIZZINESS On presentation to be vertiginous in nature and possible pronator drift on exam with very high BP Head CT negative MRI and MRA Brain , neck MRA, and MRV brain all unremarkable Resolved Acute renal failure on CKD stage III Baseline creatinine runs around 1.2 Creatinine improved from 2.2-2.0 Nephrology consulted FOLLICULITIS possible abscess surgery and id on board could not tolerate vancomycin as patent developed red man syndrome ID consulted Known doxycycline twice daily to complete 10 days course Improving Sam syndrome likely from vancomycin developed rash face down with itching after iv vancomycin stopped vancomycin given Benadryl and Zantac Resolved HYPOTHYROIDISM on levothyroxine DVT PROPHYLAXIS Lovenox DISPOSITION Lives with at home Anticipate discharge to home when cleared by nephrology in 1-2 days Discharged on oral doxycycline Current Inpatient Medications: Current Inpatient Medications Medications (Trade) Dose Ordered Sig/Ernesto Route Start Time Stop Time Status Last Admin Dose Admin Acetaminophen (Tylenol Tab) 650 mg Q4H PRN PO 09/29/17 13:45 10/29/17 13:44 09/30/17 15:52 650 MG Ondansetron HCl (Zofran Inj) 4 mg Q6H PRN IV 09/29/17 13:45 10/29/17 13:44 Metoprolol Tartrate (Lopressor Tab) 100 mg BID PO 09/29/17 21:00 10/29/17 20:59 10/03/17 08:07 100 MG Allopurinol (Zyloprim Tab) 100 mg DAILY PO 09/30/17 08:54 10/30/17 08:59 Future Hold 09/30/17 07:25 100 MG Aspirin (Ecotrin Tab) 81 mg DAILY PO 09/30/17 08:54 10/30/17 08:59 10/03/17 08:07 81 MG Fluoxetine HCl (Prozac Cap) 10 mg DAILY PO 09/30/17 08:54 10/30/17 08:59 10/03/17 08:08 10 MG Hydrochlorothiazide (Hydrochlorothiazide Tab) 25 mg DAILY PO 09/30/17 08:54 10/30/17 08:59 Future Hold 09/30/17 07:25 25 MG Levothyroxine Sodium (Synthroid Tab) 112 mcg DAILYBB PO 09/30/17 06:00 10/30/17 05:59 10/03/17 06:37 112 MCG Cholecalciferol (Vitamin D Tab) 2,000 inter.unit DAILY PO 09/30/17 08:54 10/30/17 08:59 10/03/17 08:08 2,000 INTER.UNIT Enoxaparin Sodium (Lovenox Inj) 40 mg QAM SQ 09/30/17 08:54 10/30/17 08:59 10/03/17 08:08 40 MG Gadobutrol (Gadavist) 11 mmol UD PRN IV 09/29/17 18:00 10/03/17 17:59 Meclizine HCl (Antivert Tab) 12.5 mg TID PRN PO 09/30/17 09:30 10/30/17 09:29 10/01/17 11:07 12.5 MG Amlodipine Besylate (Norvasc Tab) 5 mg QAM PO 10/01/17 08:00 10/31/17 07:59 10/03/17 08:08 5 MG Lisinopril (Zestril Tab) 40 mg DAILY PO 10/01/17 08:00 10/31/17 07:59 Future Hold Hydralazine HCl (HydrALAZINE INJ) 10 mg Q6 PRN IV. 10/01/17 08:45 10/31/17 08:44 Mupirocin (Bactroban 2% Oint) 1 appln BID INTNAS 10/02/17 08:00 11/01/17 07:59 10/03/17 08:06 1 APPLN Doxycycline Hyclate (Vibramycin Cap) 100 mg BID PO 10/02/17 20:00 10/12/17 19:59 10/03/17 08:08 100 MG
[2017-10-03 23:39] VITALS: BP 150/100; PULSE 61; TEMP 36.9; O2SAT 96
[2017-10-04] MEDS: LEVOTHYROXINE 112 MCG TAB PO SCH (05:29)
[2017-10-04 05:37] LABS: BASO % 0.3 %; BASO ABS # 0.02 K/uL (0-0.2); EOS % 5.9 %; EOS ABS # 0.37 K/uL (0-0.5); HEMATOCRIT 39.2 % (37-47); HEMOGLOBIN 12.9 g/dL (12.0-16.0); IG# 0.01 K/uL (0.00-0.02); LYMPH % 33.8 %; LYMPH ABS # 2.13 K/uL (1.2-3.4); MEAN CELL VOLUME 90.7 fL (80-100); MEAN CORPUSCULAR HEMOGLOBIN 29.9 pg (25-34); MEAN CORPUSCULAR HGB CONC 32.9 g/dl (32-36); MEAN PLATELET VOLUME 10.1 fL (7.4-10.4); MONO % 11.3 %; MONO ABS # 0.71 K/uL (0.11-0.59); NEUT % 48.5 %; NEUT ABS # 3.06 K/uL (1.4-6.5); PLATELET COUNT 288 K/uL (130-400); RED CELL DISTRIBUTION WIDTH CV 14.5 % (11.5-14.5)
[2017-10-04 06:13] LABS: CALCIUM 9.1 mg/dl (8.5-10.1); CREATININE 1.85 mg/dl (0.60-1.20); POTASSIUM 4.5 mmol/L (3.5-5.1)
--- NOTE | 2017-10-04 06:49 | Surgery Progress Note ---
Surgery Progress Note Date of Service Oct 04, 2017. Subjective still some soreness Lt leg wound, not much right lesions open to air, no drainage Objective Vital Signs: Date Time Temp Pulse Resp B/P (MAP) Pulse Ox O2 Delivery O2 Flow Rate FiO2 10/03/17 23:45 Room Air 10/03/17 23:39 36.9 61 18 150/100 (117) 96 Room Air 10/03/17 16:00 Room Air 10/03/17 10:39 Room Air 10/03/17 10:31 137/86 (103) 10/03/17 09:11 97 Room Air 10/03/17 08:17 36.7 68 18 125/82 (96) 100 Room Air 10/03/17 08:05 62 162/94 (116) Extremities: + pertinent finding (persistent erythema Lt leg wound with small eschar, no draiange) Laboratory Results: Results Past 24 Hours Test 10/03/17 07:45 10/03/17 11:35 10/03/17 16:28 10/03/17 19:34 Range/Units Bedside Glucose 88 89 97 114 70-90 mg/dl Test 10/04/17 05:20 Range/Units White Blood Count 6.30 4.8-10.8 K/uL Red Blood Count 4.32 4.2-5.4 M/uL Hemoglobin 12.9 12.0-16.0 g/dL Hematocrit 39.2 37-47 % Mean Corpuscular Volume 90.7 80-100 fL Mean Corpuscular Hemoglobin 29.9 25-34 pg Mean Corpuscular Hemoglobin Concent 32.9 32-36 g/dl Platelet Count 288 130-400 K/uL Mean Platelet Volume 10.1 7.4-10.4 fL Neutrophils (%) (Auto) 48.5 % Lymphocytes (%) (Auto) 33.8 % Monocytes (%) (Auto) 11.3 % Eosinophils (%) (Auto) 5.9 % Basophils (%) (Auto) 0.3 % Neutrophils # (Auto) 3.06 1.4-6.5 K/uL Lymphocytes # (Auto) 2.13 1.2-3.4 K/uL Monocytes # (Auto) 0.71 0.11-0.59 K/uL Eosinophils # (Auto) 0.37 0-0.5 K/uL Basophils # (Auto) 0.02 0-0.2 K/uL RDW Standard Deviation 49.0 36.4-46.3 fL RDW Coefficient of Variation 14.5 11.5-14.5 % Immature Granulocyte % (Auto) 0.2 % Immature Granulocyte # (Auto) 0.01 0.00-0.02 K/uL Sodium Level 138 136-145 mmol/L Potassium Level 4.5 3.5-5.1 mmol/L Chloride Level 106 98-107 mmol/L Carbon Dioxide Level 27 21-32 mmol/L Anion Gap 5.0 3-11 mmol/L Blood Urea Nitrogen 38 7-18 mg/dl Creatinine 1.85 0.60-1.20 mg/dl Est Creatinine Clear Calc Drug Dose 48.3 ml/min Estimated GFR () 36.4 Estimated GFR (Non- 31.4 BUN/Creatinine Ratio 20.7 10-20 Random Glucose 93 70-99 mg/dl Calcium Level 9.1 8.5-10.1 mg/dl Magnesium Level 2.1 1.8-2.4 mg/dl Assessment & Plan 10/04/17- Removed eschar Lt leg- no purulence, squeezed site- no drainage. Same done with Rt side- betadine applied for now. Will have wound care nurse see pt and need for wound clinic followup. 10/02/17- Cont Atbtx 10/01/17- now on Bactrim- had rxn to Vanco- plan for d/c on Bactrim 2 week course total- show have f/u at wound clinic this week. If she would worsen at home- will need OR debridement. 10/02/17- Cont Atbtx 10/01/17- now on Bactrim- had rxn to Vanco- plan for d/c on Bactrim 2 week course total- show have f/u at wound clinic this week. If she would worsen at home- will need OR debridement.
--- NOTE | 2017-10-04 07:29 | Nephrology Progress Note ---
Nephrology Progress Note Date of Service: Oct 04, 2017. Subjective 47 yo female with hypertensive urgency and luis enrique. creatinine has peaked and continues to improve. surgery removed scabs on legs and evaluated the wounds this morning. bp high this morning but improves after bp meds. Objective Date Time Temp Pulse Resp B/P (MAP) Pulse Ox O2 Delivery O2 Flow Rate FiO2 10/03/17 23:45 Room Air 10/03/17 23:39 36.9 61 18 150/100 (117) 96 Room Air 10/03/17 16:00 Room Air 10/03/17 10:39 Room Air 10/03/17 10:31 137/86 (103) 10/03/17 09:11 97 Room Air 10/03/17 08:17 36.7 68 18 125/82 (96) 100 Room Air 10/03/17 08:05 62 162/94 (116) Physical Exam: General-aaox3 Eyes-no scleral icterus ENT-mmm Neck-supple Lungs-clear Heart-regular Abdomen-bs+ s/nt/nd Extremities-+wounds on both legs-covered Neuro-nonfocal Current Inpatient Medications Medications (Trade) Dose Ordered Sig/Ernesto Route Start Time Stop Time Status Last Admin Dose Admin Acetaminophen (Tylenol Tab) 650 mg Q4H PRN PO 09/29/17 13:45 10/29/17 13:44 09/30/17 15:52 650 MG Ondansetron HCl (Zofran Inj) 4 mg Q6H PRN IV 09/29/17 13:45 10/29/17 13:44 Metoprolol Tartrate (Lopressor Tab) 100 mg BID PO 09/29/17 21:00 10/29/17 20:59 10/03/17 21:19 100 MG Allopurinol (Zyloprim Tab) 100 mg DAILY PO 09/30/17 08:54 10/30/17 08:59 Future Hold 09/30/17 07:25 100 MG Aspirin (Ecotrin Tab) 81 mg DAILY PO 09/30/17 08:54 10/30/17 08:59 10/03/17 08:07 81 MG Fluoxetine HCl (Prozac Cap) 10 mg DAILY PO 09/30/17 08:54 10/30/17 08:59 10/03/17 08:08 10 MG Hydrochlorothiazide (Hydrochlorothiazide Tab) 25 mg DAILY PO 09/30/17 08:54 10/30/17 08:59 Future Hold 09/30/17 07:25 25 MG Levothyroxine Sodium (Synthroid Tab) 112 mcg DAILYBB PO 09/30/17 06:00 10/30/17 05:59 10/04/17 05:29 112 MCG Cholecalciferol (Vitamin D Tab) 2,000 inter.unit DAILY PO 09/30/17 08:54 10/30/17 08:59 10/03/17 08:08 2,000 INTER.UNIT Enoxaparin Sodium (Lovenox Inj) 40 mg QAM SQ 09/30/17 08:54 10/30/17 08:59 10/03/17 08:08 40 MG Meclizine HCl (Antivert Tab) 12.5 mg TID PRN PO 09/30/17 09:30 10/30/17 09:29 10/01/17 11:07 12.5 MG Amlodipine Besylate (Norvasc Tab) 5 mg QAM PO 10/01/17 08:00 10/31/17 07:59 10/03/17 08:08 5 MG Lisinopril (Zestril Tab) 40 mg DAILY PO 10/01/17 08:00 10/31/17 07:59 Future Hold Hydralazine HCl (HydrALAZINE INJ) 10 mg Q6 PRN IV. 10/01/17 08:45 10/31/17 08:44 Mupirocin (Bactroban 2% Oint) 1 appln BID INTNAS 10/02/17 08:00 11/01/17 07:59 10/03/17 21:20 1 APPLN Doxycycline Hyclate (Vibramycin Cap) 100 mg BID PO 10/02/17 20:00 10/12/17 19:59 10/03/17 21:20 100 MG Last 24 Hours Test 10/03/17 07:45 10/03/17 11:35 10/03/17 16:28 10/03/17 19:34 Bedside Glucose 88 mg/dl 89 mg/dl 97 mg/dl 114 mg/dl Test 10/04/17 05:20 White Blood Count 6.30 K/uL Red Blood Count 4.32 M/uL Hemoglobin 12.9 g/dL Hematocrit 39.2 % Mean Corpuscular Volume 90.7 fL Mean Corpuscular Hemoglobin 29.9 pg Mean Corpuscular Hemoglobin Concent 32.9 g/dl Platelet Count 288 K/uL Mean Platelet Volume 10.1 fL Neutrophils (%) (Auto) 48.5 % Lymphocytes (%) (Auto) 33.8 % Monocytes (%) (Auto) 11.3 % Eosinophils (%) (Auto) 5.9 % Basophils (%) (Auto) 0.3 % Neutrophils # (Auto) 3.06 K/uL Lymphocytes # (Auto) 2.13 K/uL Monocytes # (Auto) 0.71 K/uL Eosinophils # (Auto) 0.37 K/uL Basophils # (Auto) 0.02 K/uL RDW Standard Deviation 49.0 fL RDW Coefficient of Variation 14.5 % Immature Granulocyte % (Auto) 0.2 % Immature Granulocyte # (Auto) 0.01 K/uL Sodium Level 138 mmol/L Potassium Level 4.5 mmol/L Chloride Level 106 mmol/L Carbon Dioxide Level 27 mmol/L Anion Gap 5.0 mmol/L Blood Urea Nitrogen 38 mg/dl Creatinine 1.85 mg/dl Est Creatinine Clear Calc Drug Dose 48.3 ml/min Estimated GFR () 36.4 Estimated GFR (Non- 31.4 BUN/Creatinine Ratio 20.7 Random Glucose 93 mg/dl Calcium Level 9.1 mg/dl Magnesium Level 2.1 mg/dl Assessment & Plan LUIS ENRIQUE-creatinine peaked and starting to trend down. now below 2. confident creatinine will eventually return back to baseline. HTN: goal bp is under 140/90, currently bp is good. on norvasc 5mg a day, lopressor 100mg po bid, continue to hold diuretics and armen. norvasc has replaced the armen. will eventually restart the lasix and continue to hold the hctz as an outpt. would add norvasc 2.5mg at night before bed to see if able to lower am bp readings.
[2017-10-04 07:50] VITALS: BP 149/85; PULSE 60; TEMP 36.5; O2SAT 95
[2017-10-04] MEDS: CHOLECALCIFEROL 1000 INTER.UNIT TAB PO SCH (08:49)
[2017-10-04] MEDS: FLUOXETINE HCL 10 MG CAP PO SCH (08:49)
[2017-10-04] MEDS: METOPROLOL TARTRATE 100 MG TAB PO SCH ×2 (08:50→19:43)
[2017-10-04] MEDS: ASPIRIN 81 MG ECTAB PO SCH (08:50)
[2017-10-04] MEDS: AMLODIPINE BESYLATE 5 MG TAB PO SCH (08:51)
[2017-10-04] MEDS: DOXYCYCLINE HYCLATE 100 MG CAP PO SCH ×2 (08:51→19:41)
[2017-10-04] MEDS: ENOXAPARIN 40 MG/0.4 ML SYR SQ SCH (08:52)
[2017-10-04] MEDS: MUPIROCIN 2% OINT 22 GM TUBE INTNAS SCH ×2 (08:53→19:40)
[2017-10-04 11:23] VITALS: BP 135/83; PULSE 63
[2017-10-04 15:29] VITALS: BP 136/84; PULSE 63; TEMP 36.6; O2SAT 96
--- NOTE | 2017-10-04 15:30 | Progress Note ---
Medicine Progress Note Date & Time of Visit: Oct 04, 2017 at 15:26. Subjective seen resting in bed, comfortable feels fine overall no dizziness ambulating fine leg lesions with less pain no other symptoms Objective Last 8 Hrs Date Time Temp Pulse Resp B/P (MAP) Pulse Ox O2 Delivery O2 Flow Rate FiO2 10/04/17 11:23 63 135/83 (100) 10/04/17 08:50 Room Air 10/04/17 07:50 36.5 60 16 149/85 (106) 95 Room Air Physical Exam: General-oriented 3 not in distress speaking in sentences Head- atraumatic Eyes- anicteric Neck- supple, no JVD Lungs- clear breath sounds bilaterally Heart- regular rhythm; no murmur, normal rate Abdomen- normal bowel sounds, soft, nontender Extremities- no pretibial edema, no calf tenderness; peripheral pulses intact Areas of macular papular lesion-healing well- flat, drying, no discharge Neuro- alert, oriented x 3; no gross focal neuro deficits Skin- warm & dry Laboratory Results: Last 24 Hours Test 10/03/17 16:28 10/03/17 19:34 10/04/17 05:20 10/04/17 07:46 Bedside Glucose 97 mg/dl 114 mg/dl 79 mg/dl White Blood Count 6.30 K/uL Red Blood Count 4.32 M/uL Hemoglobin 12.9 g/dL Hematocrit 39.2 % Mean Corpuscular Volume 90.7 fL Mean Corpuscular Hemoglobin 29.9 pg Mean Corpuscular Hemoglobin Concent 32.9 g/dl Platelet Count 288 K/uL Mean Platelet Volume 10.1 fL Neutrophils (%) (Auto) 48.5 % Lymphocytes (%) (Auto) 33.8 % Monocytes (%) (Auto) 11.3 % Eosinophils (%) (Auto) 5.9 % Basophils (%) (Auto) 0.3 % Neutrophils # (Auto) 3.06 K/uL Lymphocytes # (Auto) 2.13 K/uL Monocytes # (Auto) 0.71 K/uL Eosinophils # (Auto) 0.37 K/uL Basophils # (Auto) 0.02 K/uL RDW Standard Deviation 49.0 fL RDW Coefficient of Variation 14.5 % Immature Granulocyte % (Auto) 0.2 % Immature Granulocyte # (Auto) 0.01 K/uL Sodium Level 138 mmol/L Potassium Level 4.5 mmol/L Chloride Level 106 mmol/L Carbon Dioxide Level 27 mmol/L Anion Gap 5.0 mmol/L Blood Urea Nitrogen 38 mg/dl Creatinine 1.85 mg/dl Est Creatinine Clear Calc Drug Dose 48.3 ml/min Estimated GFR () 36.4 Estimated GFR (Non- 31.4 BUN/Creatinine Ratio 20.7 Random Glucose 93 mg/dl Calcium Level 9.1 mg/dl Magnesium Level 2.1 mg/dl Test 10/04/17 11:32 Bedside Glucose 87 mg/dl Assessment & Plan HYPERTENSIVE URGENCY was admitted to ICU as patient blood pressure was very high was very dizzy and having vertigo, epistaxis workup for secondary HTN as out patient was unremarkable Blood pressure medications adjusted Increased Metoprolol Added amlodipine Lisinopril, Lasix, hydrochlorothiazide held for acute renal failure Amlodipine at HS added monitor BP Nephrology consulted, appreciate the recommendations DIZZINESS likely from Hypertension Head CT negative MRI and MRA Brain , neck MRA, and MRV brain all unremarkable Resolved Acute renal failure on CKD stage III Baseline creatinine runs around 1.2 Creatinine improving from 2.2-2.0 Nephrology consulted FOLLICULITIS possible abscess surgery and id on board could not tolerate vancomycin as patent developed red man syndrome ID consulted continue doxycycline twice daily to complete 10 days course Improving Wound care consulted Sam syndrome likely from vancomycin developed rash face down with itching after iv vancomycin stopped vancomycin given Benadryl and Zantac Resolved HYPOTHYROIDISM on levothyroxine DVT PROPHYLAXIS Lovenox DISPOSITION Lives with at home Anticipate discharge to home tomorrow when BP stable Discharged on oral doxycycline Current Inpatient Medications: Current Inpatient Medications Medications (Trade) Dose Ordered Sig/Ernesto Route Start Time Stop Time Status Last Admin Dose Admin Acetaminophen (Tylenol Tab) 650 mg Q4H PRN PO 09/29/17 13:45 10/29/17 13:44 09/30/17 15:52 650 MG Ondansetron HCl (Zofran Inj) 4 mg Q6H PRN IV 09/29/17 13:45 10/29/17 13:44 Metoprolol Tartrate (Lopressor Tab) 100 mg BID PO 09/29/17 21:00 10/29/17 20:59 10/04/17 08:50 100 MG Allopurinol (Zyloprim Tab) 100 mg DAILY PO 09/30/17 08:54 10/30/17 08:59 Future Hold 09/30/17 07:25 100 MG Aspirin (Ecotrin Tab) 81 mg DAILY PO 09/30/17 08:54 10/30/17 08:59 10/04/17 08:50 81 MG Fluoxetine HCl (Prozac Cap) 10 mg DAILY PO 09/30/17 08:54 10/30/17 08:59 10/04/17 08:49 10 MG Hydrochlorothiazide (Hydrochlorothiazide Tab) 25 mg DAILY PO 09/30/17 08:54 10/30/17 08:59 Future Hold 09/30/17 07:25 25 MG Levothyroxine Sodium (Synthroid Tab) 112 mcg DAILYBB PO 09/30/17 06:00 10/30/17 05:59 10/04/17 05:29 112 MCG Cholecalciferol (Vitamin D Tab) 2,000 inter.unit DAILY PO 09/30/17 08:54 10/30/17 08:59 10/04/17 08:49 2,000 INTER.UNIT Enoxaparin Sodium (Lovenox Inj) 40 mg QAM SQ 09/30/17 08:54 10/30/17 08:59 10/04/17 08:52 40 MG Meclizine HCl (Antivert Tab) 12.5 mg TID PRN PO 09/30/17 09:30 10/30/17 09:29 10/01/17 11:07 12.5 MG Amlodipine Besylate (Norvasc Tab) 5 mg QAM PO 10/01/17 08:00 10/31/17 07:59 10/04/17 08:51 5 MG Lisinopril (Zestril Tab) 40 mg DAILY PO 10/01/17 08:00 10/31/17 07:59 Future Hold Hydralazine HCl (HydrALAZINE INJ) 10 mg Q6 PRN IV. 10/01/17 08:45 10/31/17 08:44 Mupirocin (Bactroban 2% Oint) 1 appln BID INTNAS 10/02/17 08:00 11/01/17 07:59 10/04/17 08:53 1 APPLN Doxycycline Hyclate (Vibramycin Cap) 100 mg BID PO 10/02/17 20:00 10/12/17 19:59 10/04/17 08:51 100 MG Amlodipine Besylate (Norvasc Tab) 2.5 mg HS PO 10/04/17 21:00 11/03/17 20:59
[2017-10-04] MEDS ORDERED: AMLODIPINE BESYLATE 5 MG TAB PO SCH (21:00)
[2017-10-04 23:18] VITALS: BP 133/77; PULSE 70; TEMP 36.6; O2SAT 96
[2017-10-05] MEDS: LEVOTHYROXINE 112 MCG TAB PO SCH (06:16)
[2017-10-05] MEDS: FLUOXETINE HCL 10 MG CAP PO SCH (07:59)
[2017-10-05] MEDS: DOXYCYCLINE HYCLATE 100 MG CAP PO SCH (07:59)
[2017-10-05] MEDS: CHOLECALCIFEROL 1000 INTER.UNIT TAB PO SCH (07:59)
[2017-10-05] MEDS: ASPIRIN 81 MG ECTAB PO SCH (08:00)
[2017-10-05] MEDS: METOPROLOL TARTRATE 100 MG TAB PO SCH (08:01)
[2017-10-05] MEDS: MUPIROCIN 2% OINT 22 GM TUBE INTNAS SCH (08:01)
[2017-10-05] MEDS: AMLODIPINE BESYLATE 5 MG TAB PO SCH (08:01)
[2017-10-05] MEDS: ENOXAPARIN 40 MG/0.4 ML SYR SQ SCH (08:02)
[2017-10-05 08:22] VITALS: BP 133/79; PULSE 63; TEMP 36.5; O2SAT 95
[2017-10-05 09:42] VITALS: O2SAT 95
[2017-10-05 11:53] VITALS: BP 137/85; PULSE 61; TEMP 36.7; O2SAT 98
--- NOTE | 2017-10-05 14:06 | Progress Note ---
Medicine Progress Note Date & Time of Visit: Oct 05, 2017 at 14:00. Subjective seen resting in bedside chair comfortable states she feels fine overall slight dizziness last night, resolved today ambulating with no problems no chest pain, dyspnea, palpitations no leg pain no other symptoms states she is ready and would like to be discharged today Objective Last 8 Hrs Date Time Temp Pulse Resp B/P (MAP) Pulse Ox O2 Delivery O2 Flow Rate FiO2 10/05/17 11:53 36.7 61 21 137/85 (102) 98 Room Air 10/05/17 09:42 95 Room Air 10/05/17 08:22 36.5 63 20 133/79 (97) 95 Room Air 10/05/17 08:00 Room Air Physical Exam: General-oriented 3 not in distress speaking in sentences Neck- no JVD Lungs- clear breath sounds bilaterally, no rales/wheezes Heart- regular rhythm; no murmur, normal rate Abdomen- normal bowel sounds, soft, nontender Extremities- no pretibial edema, no calf tenderness; peripheral pulses intact Areas of macular papular lesion-healing well- flat, drying, no discharge- improved Neuro- alert, oriented x 3; no gross focal neuro deficits Skin- warm & dry Laboratory Results: Last 24 Hours Test 10/04/17 16:28 10/04/17 20:08 10/05/17 07:32 10/05/17 11:17 Bedside Glucose 91 mg/dl 97 mg/dl 92 mg/dl 83 mg/dl Assessment & Plan HYPERTENSIVE URGENCY was admitted to ICU as patient blood pressure was very high was very dizzy and having vertigo, epistaxis workup for secondary HTN as out patient was unremarkable Blood pressure medications adjusted Increased Metoprolol from 75 to 100mg BID Added amlodipine 5mg in Am and 2.5mg at HS Lisinopril, Lasix, hydrochlorothiazide held for acute renal failure BP improved to systolic 130s continue to monitor as outpatient Nephrology consulted Dr. Bojorquez DIZZINESS likely from Hypertension Head CT negative MRI and MRA Brain , neck MRA, and MRV brain all unremarkable Resolved Acute renal failure on CKD stage III Baseline creatinine runs around 1.2 Creatinine improving from 2.2 to 1.[address] Bojorquez hold Lisinopril, Lasix, hydrochlorothiazide monitor as outpatient FOLLICULITIS, BILATERAL LEGS Surgery and ID, Wound Care SVC consulted could not tolerate vancomycin as patent developed red man syndrome continue doxycycline twice daily (7 more days) to complete 10 days course Improving monitor Sam syndrome likely from vancomycin developed rash face down with itching after iv vancomycin stopped vancomycin given Benadryl and Zantac Resolved HYPOTHYROIDISM on levothyroxine DVT PROPHYLAXIS Lovenox DISPOSITION d/c home today ff up with PCP in 3-5 days Current Inpatient Medications: Current Inpatient Medications Medications (Trade) Dose Ordered Sig/Ernesto Route Start Time Stop Time Status Last Admin Dose Admin Acetaminophen (Tylenol Tab) 650 mg Q4H PRN PO 09/29/17 13:45 10/29/17 13:44 09/30/17 15:52 650 MG Ondansetron HCl (Zofran Inj) 4 mg Q6H PRN IV 09/29/17 13:45 10/29/17 13:44 Metoprolol Tartrate (Lopressor Tab) 100 mg BID PO 09/29/17 21:00 10/29/17 20:59 10/05/17 08:01 100 MG Allopurinol (Zyloprim Tab) 100 mg DAILY PO 09/30/17 08:54 10/30/17 08:59 Future Hold 09/30/17 07:25 100 MG Aspirin (Ecotrin Tab) 81 mg DAILY PO 09/30/17 08:54 10/30/17 08:59 10/05/17 08:00 81 MG Fluoxetine HCl (Prozac Cap) 10 mg DAILY PO 09/30/17 08:54 10/30/17 08:59 10/05/17 07:59 10 MG Hydrochlorothiazide (Hydrochlorothiazide Tab) 25 mg DAILY PO 09/30/17 08:54 10/30/17 08:59 Future Hold 09/30/17 07:25 25 MG Levothyroxine Sodium (Synthroid Tab) 112 mcg DAILYBB PO 09/30/17 06:00 10/30/17 05:59 10/05/17 06:16 112 MCG Cholecalciferol (Vitamin D Tab) 2,000 inter.unit DAILY PO 09/30/17 08:54 10/30/17 08:59 10/05/17 07:59 2,000 INTER.UNIT Enoxaparin Sodium (Lovenox Inj) 40 mg QAM SQ 09/30/17 08:54 10/30/17 08:59 10/05/17 08:02 40 MG Meclizine HCl (Antivert Tab) 12.5 mg TID PRN PO 09/30/17 09:30 10/30/17 09:29 10/01/17 11:07 12.5 MG Amlodipine Besylate (Norvasc Tab) 5 mg QAM PO 10/01/17 08:00 10/31/17 07:59 10/05/17 08:01 5 MG Lisinopril (Zestril Tab) 40 mg DAILY PO 10/01/17 08:00 10/31/17 07:59 Future Hold Hydralazine HCl (HydrALAZINE INJ) 10 mg Q6 PRN IV. 10/01/17 08:45 10/31/17 08:44 Mupirocin (Bactroban 2% Oint) 1 appln BID INTNAS 10/02/17 08:00 11/01/17 07:59 10/05/17 08:01 1 APPLN Doxycycline Hyclate (Vibramycin Cap) 100 mg BID PO 10/02/17 20:00 10/12/17 19:59 10/05/17 07:59 100 MG Amlodipine Besylate (Norvasc Tab) 2.5 mg HS PO 10/04/17 21:00 11/03/17 20:59 10/04/17 19:41 2.5 MG
[2017-10-05 14:17] VITALS: BP 137/85; PULSE 61; TEMP 36.7; O2SAT 98
[2017-10-05] MEDS ORDERED: BCTRO INTNAS (14:26)
[2017-10-05] MEDS ORDERED: NRV5 PO ×2 (14:26)
[2017-10-05] MEDS ORDERED: LPR100 PO (14:26)
[2017-10-05] MEDS ORDERED: DXY100 PO (14:26)
--- NOTE | 2017-10-05 14:31 | Discharge Instructions ---
Discharge Instructions Date of Service Oct 05, 2017. Admission Reason for Admission: Hypertensive Urgency Discharge Discharge Diagnosis / Problem: HYPERTENSIVE URGENCY Discharge Goals Goal(s): Diagnostic testing, Therapeutic intervention Activity Recommendations Activity Limitations: as noted below (NO HEAVY EXERTION UNTIL RE-EVALUATED BY PRIMARY CARE PHYSICIAN) Lifting Limitations: until after follow-up appointment Exercise/Sports Limitations: until after follow-up appointment Driving or Machine Use: NO DRIVING UNTIL RE-EVALUATED BY PRIMARY CARE PHYSICIAN . Instructions / Follow-Up Instructions / Follow-Up PLEASE REVIEW YOUR NEW MEDICATION LIST AND FOLLOW INSTRUCTIONS CAREFULLY. DO NOT TAKE NSAIDS (EXAMPLES: IBUPROFEN, NAPROXEN, ETC). CALL PRIMARY CARE PHYSICIAN IF WITH RECURRENCE OF SYMPTOMS, DIZZINESS, WEAKNESS, CHEST PAIN, SHORTNESS OF BREATH,. DIARRHEA INCREASING REDNESS/SWELLING/DISCHARGE/PAIN OF THE WOUNDS ON YOUR LEGS. EAT YOGURT OR TAKE A PROBIOTIC DAILY WHILE TAKING ANTIBIOTICS AND AT LEAST 1 WEEK AFTER FINISHING THE COURSE OF ANTIBIOTIC. Wound Discharge Instructions * WASH HANDS TO LEFT LEG WOUND- CLEAN WITH SOAP AND WATER. PAT DRY.COVER WITH PIECE OF AQUACEL AG AND SECURE WITH BANDAID.CHANGE EVERY OTHER DAY AND NEEDED TO KEEP DRY. TO RIGHT LEG WOUND- COVER WITH BANDAID. CHANGE EVERY OTHER DAY. FOLLOW UP WITH DR. KELLEY ON Tuesday10/07/17 AT 12:45 PM. Current Hospital Diet Patient's current hospital diet: AHA Diet (Heart Healthy), Low Sodium Diet (2gm Na) Discharge Diet Recommended Diet: AHA Diet (Heart Healthy), Low Sodium Diet (2gm Na) Pending Studies Studies pending at discharge: yes List of pending studies: REPEAT BLOODWORK C/O PRIMARY CARE PHYSICIAN Medical Emergencies . Who to Call and When: Medical Emergencies: If at any time you feel your situation is an emergency, please call 911 immediately. . Non-Emergent Contact Non-Emergency issues call your: Primary Care Provider Call Non-Emergent contact if: you have a fever, your pain is not controlled, your pain is worsening, wound has increased drainage, wound has increased redness, wound has increased pain, you have any medication questions . . "Provider Documentation" section prepared by Eb Mitchell. .
--- NOTE | 2017-10-05 14:39 | Discharge Summary ---
Discharge Summary Date of Service Oct 05, 2017. Discharge Summary Admission Date: Sep 29, 2017 at 13:34 Discharge Date: Oct 05, 2017 Discharge Disposition: Home Principal Diagnosis: HYPERTENSIVE URGENCY Secondary Diagnoses/Problems: Please refer to hospital course below. Procedures: MRA NECK COMBO 1. No dissection, significant stenosis, or focal vessel occlusion. 2. Hyperenhancing subcentimeter right thyroid lobe nodule, indeterminate. HEAD MRA 1. No significant stenosis, aneurysm, or focal vessel occlusion. BRAIN COMBO CLINICAL HISTORY: 47 years-old Female presenting with dizziness, hypertensive urgency. TECHNIQUE: Multisequence, multiplanar MR imaging of the brain was performed before and after the administration of intravenous contrast. IV contrast: 11 mL of Gadavist. COMPARISON: CT head from earlier the same day and noncontrast MR brain from 11/04/2014. FINDINGS: Image quality is mildly degraded by motion artifact, which somewhat limits diagnostic sensitivity the exam. Ventricles and sulci normal in size. Brain parenchyma normal in appearance with preserved mariscal-white differentiation. No mass effect or midline shift. No restricted diffusion to suggest acute ischemia. No hemorrhage. No extra-axial fluid collection. T2 skull base flow voids preserved. No abnormal parenchymal enhancement. Bone marrow signal intensity within the calvarium within normal limits. IMPRESSION: 1. No acute intracranial pathology. No abnormal enhancement. Electronically signed by: Luis Gomes M.D. 09/29/2017 6:07 PM ECHO: * -- Conclusions -- * The left ventricle is normal in size. * There is moderate concentric left ventricular hypertrophy. * The left ventricular wall motion is normal. * Ejection Fraction = 55-60%. * Grade I diastolic dysfunction, (abnormal relaxation pattern). * There is no significant valvular disease Consultations: Nephrology Dr. Bojorquez, ID Dr. Montano, General Surgeon Dr. Fox, Salt Operator Dr. Villagomez Pending Studies/Follow-Up: Please refer to hospital course below. Medication Reconciliation New Medications: Amlodipine Besylate (Amlodipine Besylate) 5 Mg Tab 2.5 MG PO HS for 30 Days, #15 TAB 2 Refills Amlodipine Besylate (Amlodipine Besylate) 5 Mg Tab 5 MG PO QAM for 30 Days, #30 TAB 2 Refills Doxycycline Hyclate (Doxycycline Hyclate) 100 Mg Cap 100 MG PO BID for 7 Days, #14 CAP 0 Refills Metoprolol Tartrate (Metoprolol Tartrate) 100 Mg Tab 100 MG PO BID for 30 Days, #60 TAB 2 Refills Mupirocin (Mupirocin) 66 Appln/22 Gm Oint 1 APPLN INTNAS BID for 1 Day Approximately one-half of the ointment from the single-use tube should be applied into one nostril and the other half into the other nostril twice daily (morning and evening) Continued Medications: Allopurinol (Zyloprim) 100 Mg Tab 100 MG PO DAILY, TAB Aspirin (Aspirin Ec) 81 Mg Tab 81 MG PO DAILY Cholecalciferol (Vitamin D3) 2,000 Unit Cap 2000 UNITS PO DAILY for 90 Days, CAP 3 Refills Fluoxetine (Prozac) 10 Mg Cap 10 MG PO DAILY, CAP Levothyroxine Sodium (Levothyroxine Sodium) 112 Mcg Tab 112 MCG PO DAILY for 30 Days, #30 TAB 5 Refills Discontinued Medications: Furosemide (Lasix) 40 Mg Tab 40 MG PO DAILY, TAB Hydrochlorothiazide (Hctz) 25 Mg Tab 25 MG PO DAILY, TAB Lisinopril (Prinivil) 20 Mg Tab 20 MG PO DAILY, TAB Metoprolol Tartrate (Lopressor) (Lopressor) 50 Mg Tab 75 MG PO BID, 0 Refills Admission Information HPI (per Admitting provider): 47-year-old female who presents to the ER with a chief complaint of dizziness and high blood pressure. Patient reports that when she woke up yesterday morning and had gone to the bathroom she reports a sudden onset of severe dizziness. She reports she was able to get back to bed and fall back to sleep. When she woke back up symptoms were gone. She reports a few other episodes of dizziness throughout the day. She had another severe episode of dizziness last evening however again was able to fall to sleep. When she woke up this morning dizziness returned again. Patient reports taking her blood pressure at home and getting readings of around 180/100. She describes the dizziness as a sensation of the room spinning around her. She also reports lightheadedness. She denies unilateral weakness, numbness, or tingling. No facial droop, drooling, or slurred speech. She denies chest pain or shortness of breath. No syncopal events. She reports mild epistaxis from both nares for the past 2 days. She has felt nauseous but denies vomiting, abdominal pain, and diarrhea. No recent illnesses, fever, or chills. She denies any urinary symptoms. On the lateral aspect of her left lower leg she had a small abscess that spontaneously drained on its own. This morning she noticed a very similar spot on her right lateral lower leg. The area is reddened and raised however has not had any drainage. Upon arrival to the ED patient's blood pressure was 220/ 148. She was treated for her vertigo with IV Valium, IV Benadryl, and Antivert. Dizziness significantly improved and blood pressure was starting to come down however spiked again. Patient received labetalol 10 mg IV and at the time of my exam patient's blood pressure was 183/103. Head CT is negative for acute findings. Physical Exam (per Admitting): General Appearance: WD/WN, no apparent distress Head: normocephalic, atraumatic Eyes: normal inspection, PERRL, EOMI, sclerae normal ENT: hearing grossly normal, + pertinent finding (Mucous membranes moist) Neck: supple, no JVD, trachea midline Respiratory/Chest: lungs clear, normal breath sounds, no respiratory distress Cardiovascular: regular rate, rhythm, no edema, normal peripheral pulses Abdomen/GI: normal bowel sounds, non tender, soft, no organomegaly Extremities/Musculoskelatal: normal inspection, no calf tenderness, normal capillary refill Neurologic/Psych: alert, normal mood/affect, oriented x 3, + pertinent finding (Question right upper extremity pronator drift, however patient does have mild tremor due to being anxious; no other gross focal deficits noted) Skin: + pertinent finding (Raised area with centralized scab noted to lateral left lower extremity; similar area noted to lateral right lower extremity; no drainage noted from either site) Hospital Course HYPERTENSIVE URGENCY was admitted to ICU as patient blood pressure was very high was very dizzy and having vertigo, epistaxis workup for secondary HTN as out patient was unremarkable Blood pressure medications adjusted Increased Metoprolol from 75 to 100mg BID Added amlodipine 5mg in Am and 2.5mg at HS Lisinopril, Lasix, hydrochlorothiazide held for acute renal failure BP improved to systolic 130s symptoms resolved continue to monitor as outpatient DIZZINESS likely from Hypertension Head CT negative MRI and MRA Brain , neck MRA, and MRV brain all unremarkable Resolved Acute renal failure on CKD stage III Baseline creatinine runs around 1.2 held Lisinopril, Lasix, hydrochlorothiazide Creatinine improving from 2.2 to [address] Bojorquez Hold Lisinopril, Lasix, hydrochlorothiazide monitor as outpatient FOLLICULITIS, BILATERAL LEGS Surgery and ID, Wound Care SVC consulted could not tolerate vancomycin as patent developed red man syndrome continue doxycycline twice daily (7 more days) to complete 10 days course Improving monitor Sam syndrome likely from vancomycin developed rash face down with itching after iv vancomycin stopped vancomycin given Benadryl and Zantac Resolved HYPOTHYROIDISM on levothyroxine DISPOSITION d/c home today ff up with PCP on 10/07/17 Total time spent on discharge = 35 minutes This includes examination of the patient, discharge planning, medication reconciliation, and communication with other providers. Discharge Instructions Discharge Instructions Date of Service Oct 05, 2017. Admission Reason for Admission: Hypertensive Urgency Discharge Discharge Diagnosis / Problem: HYPERTENSIVE URGENCY Discharge Goals Goal(s): Diagnostic testing, Therapeutic intervention Activity Recommendations Activity Limitations: as noted below (NO HEAVY EXERTION UNTIL RE-EVALUATED BY PRIMARY CARE PHYSICIAN) Lifting Limitations: until after follow-up appointment Exercise/Sports Limitations: until after follow-up appointment Driving or Machine Use: NO DRIVING UNTIL RE-EVALUATED BY PRIMARY CARE PHYSICIAN . Instructions / Follow-Up Instructions / Follow-Up PLEASE REVIEW YOUR NEW MEDICATION LIST AND FOLLOW INSTRUCTIONS CAREFULLY. CALL PRIMARY CARE PHYSICIAN IF WITH RECURRENCE OF SYMPTOMS, DIZZINESS, WEAKNESS, CHEST PAIN, SHORTNESS OF BREATH,. DIARRHEA INCREASING REDNESS/SWELLING/DISCHARGE/PAIN OF THE WOUNDS ON YOUR LEGS. EAT YOGURT OR TAKE A PROBIOTIC DAILY WHILE TAKING ANTIBIOTICS AND AT LEAST 1 WEEK AFTER FINISHING THE COURSE OF ANTIBIOTIC. Wound Discharge Instructions * WASH HANDS TO LEFT LEG WOUND- CLEAN WITH SOAP AND WATER. PAT DRY.COVER WITH PIECE OF AQUACEL AG AND SECURE WITH BANDAID.CHANGE EVERY OTHER DAY AND NEEDED TO KEEP DRY. TO RIGHT LEG WOUND- COVER WITH BANDAID. CHANGE EVERY OTHER DAY. FOLLOW UP WITH DR. KELLEY ON Tuesday10/07/17 AT 12:45 PM. Current Hospital Diet Patient's current hospital diet: AHA Diet (Heart Healthy), Low Sodium Diet (2gm Na) Discharge Diet Recommended Diet: AHA Diet (Heart Healthy), Low Sodium Diet (2gm Na) Pending Studies Studies pending at discharge: yes List of pending studies: REPEAT BLOODWORK C/O PRIMARY CARE PHYSICIAN Medical Emergencies . Who to Call and When: Medical Emergencies: If at any time you feel your situation is an emergency, please call 911 immediately. . Non-Emergent Contact Non-Emergency issues call your: Primary Care Provider Call Non-Emergent contact if: you have a fever, your pain is not controlled, your pain is worsening, wound has increased drainage, wound has increased redness, wound has increased pain, you have any medication questions
== END 2017-10-05 15:09 | disposition home or self-care (01) | DRG 305 ==
LOC: C.EDB 09:30 → C.MSICU 13:34 → UNDOADMIN 13:34 → ENRESERV 13:58 → C.4E 09-30 08:50
PROVIDERS: ADMIT Internal Medicine; ATTEND Internal Medicine
DX: I16.0 Hypertensive urgency (principal); Q28.1 Other malformations of precerebral vessels; L02.415 Cutaneous abscess of right lower limb; L02.416 Cutaneous abscess of left lower limb; L03.115 Cellulitis of right lower limb; L03.116 Cellulitis of left lower limb; N17.9 Acute kidney failure, unspecified; R42 Dizziness and giddiness; R51 Headache; B95.61 Methicillin susceptible Staphylococcus aureus infection as the cause of diseases classified elsewhere; L27.0 Generalized skin eruption due to drugs and medicaments taken internally; T36.8X5A Adverse effect of other systemic antibiotics, initial encounter; I12.9 Hypertensive chronic kidney disease with stage 1 through stage 4 chronic kidney disease, or unspecified chronic kidney disease; N18.3 Chronic kidney disease, stage 3 (moderate); F41.9 Anxiety disorder, unspecified; F32.9 Major depressive disorder, single episode, unspecified; E03.9 Hypothyroidism, unspecified; Z86.14 Personal history of Methicillin resistant Staphylococcus aureus infection; Z90.49 Acquired absence of other specified parts of digestive tract; Z98.51 Tubal ligation status; Z98.890 Other specified postprocedural states; Z79.82 Long term (current) use of aspirin; Z79.899 Other long term (current) drug therapy; Z82.49 Family history of ischemic heart disease and other diseases of the circulatory system; Z84.1 Family history of disorders of kidney and ureter; B95.62 Methicillin resistant Staphylococcus aureus infection as the cause of diseases classified elsewhere

== ENCOUNTER 2018-09-01 09:36 | Inpatient (IN) ==
[2018-09-01] MEDS ORDERED: DiphenhydrAMINE HCL 50 MG/ML VIAL IV STA (10:12)
[2018-09-01] MEDS ORDERED: PROCHLORPERAZINE 5 MG/ML 2 ML VIAL IV STA (10:12)
[2018-09-01] MEDS ORDERED: LABETALOL HCL IV 5 MG/ML 20ML IV STA ×3 (10:12→12:45)
[2018-09-01 10:43] LABS: Basophils # (auto) 0.01 K/uL (0-0.2); Basophils % (auto) 0.1 %; Eosinophils # (auto) 0.14 K/uL (0-0.5); Eosinophils % (auto) 1.8 %; Hematocrit (blood only) 45.4 % (37-47); Hemoglobin 14.8 g/dL (12.0-16.0); Immature Granulocytes # (auto) 0.03 K/uL (0.00-0.02); Immature Granulocytes % (auto) 0.4 %; Lymphocytes # (auto) 0.89 K/uL (1.2-3.4); Lymphocytes % (auto) 11.6 %; Mean Corpuscular Hgb Conc 32.6 g/dL (32-36); Mean Corpuscular Volume 90.6 fL (80-100); Mean Platelet Volume 10.9 fL (7.4-10.4); Monocytes # (auto) 0.54 K/uL (0.11-0.59); Monocytes % (auto) 7.1 %; Neutrophils # (auto) 6.03 K/uL (1.4-6.5); Platelet Count 273 K/uL (130-400); RDW Coefficient of Variation 13.9 % (11.5-14.5); Red Blood Count 5.01 M/uL (4.2-5.4); White Blood Count 7.64 K/uL (4.8-10.8)
[2018-09-01 11:01] LABS: Alanine Aminotransferase 24 U/L (12-78); Albumin Level 3.1 gm/dl (3.4-5.0); Aspartate Aminotransferase 23 U/L (15-37); BUN Creatinine Ratio 19.4 (10-20); Blood Urea Nitrogen 24 mg/dl (7-18); Calcium 9.1 mg/dl (8.5-10.1); Carbon Dioxide 28 mmol/L (21-32); Chloride 107 mmol/L (98-107); Creatinine Clr Calc Pharmacy 70.8 ml/min; Est GFR (African American) 59.8; Est GFR (Non-African American) 51.6; Glucose 90 mg/dl (70-99); Potassium 3.9 mmol/L (3.5-5.1); Sodium 141 mmol/L (136-145)
[2018-09-01 11:05] LABS: Albumin Globulin Ratio 0.6 (0.9-2); Alkaline Phosphatase 75 U/L (45-117); Bilirubin,Total 0.3 mg/dl (0.2-1); Globulin 5.4 gm/dl (2.5-4.0); Total Protein 8.5 gm/dl (6.4-8.2); Troponin I < 0.015 ng/ml (0-0.045)
--- NOTE | 2018-09-01 11:08 | CT Scan Report ---
CT OF THE HEAD WITHOUT CONTRAST CLINICAL HISTORY: Headache. COMPARISON STUDY: Head CT and MRI of the brain September 29, 2017. CT DOSE: 537.48 mGy.cm TECHNIQUE: Helical axial images of the head were obtained without IV contrast. Automated exposure con trol was utilized for the study. A dose lowering technique was utilized adhering to the principles o f ALARA. FINDINGS: No acute intracranial hemorrhage, midline shift or mass effect is present. Brain volume is normal. Ventricular system is normal. The basilar cisterns are patent. There are no extra-axial colle ctions. Gomez-white differentiation is maintained. There are no findings to suggest acute dural sinus thrombosis or acute territorial infarct. There are no significant calvarial abnormalities. Visualized portions of the mastoid air cells are clear. Mild ethmoid sinus and frontal sinus mucosal thickening . IMPRESSION: No acute intracranial findings. Electronically signed by: Sam Rosario M.D. 09/01/2018 11:07 AM
--- NOTE | 2018-09-01 15:11 | History & Physical Report ---
Date of Service September 01, 2018 Assessment & Plan (1) Hypertensive urgency: This is a 48yo F with a PMH of HTN, CKD III, mood disorder, hypothyroidism and other medical problems listed below who presents with elevated BP x 1 week and was found to have hypertensive urgency. -BP initially 228/122, now 178/108 after IV Labetolol 10mg x 2, IV Labetolol 20mg x 1 -No evidence of end organ damage--CT head without acute abnormality, EKG without acute changes, troponin normal, kidney function at baseline -Presented with headache, nausea and vomiting x 2, now resolved after Compazine -Monitor closely on PCU with low threshold for ICU transfer if BP increases or worsening symptoms -Added PRN Hydralazine 10mg PO Q6H for SBP >160 -Continue home Lopressor 100mg BID, Lasix 20mg, Lisinopril 20mg (considering increasing dose to 40mg, although has only been on 20mg dose for 3 days) -Longstanding history of HTN with h/o negative secondary HTN work-up in 2007 per nephro note, including catecholamines, metanephrines, VMA, and renal artery ultrasound. In 2016, negative renal ultrasound and aldosterone rennin ratio. (2) CKD (chronic kidney disease), stage III: Kidney function at baseline with Cr of 1.2 (baseline Cr 1.2-1.4), GFR 51 -Continue monitoring with daily BMP (3) Sinusitis: Improving. Continue Amoxicillin TID for continued course of treatment -Is on day 5/10 (4) Diarrhea: Likely a side effect of antibiotic -Only had 2 episodes so far. Continue to monitor -C diff toxin pending (5) Mood disorder: Stable. Continue fluoxetine -IV ativan PRN (6) Hypothyroidism: Continue levothyroxine -TSH pending DVT Ppx: Ronaldo zavaleta Code status: FULL PCP: Lynn Dispo: Admitted to telemetry. Plan to return home once medically stable. Patient seen in collaboration with Dr. Gomez. Please see addendum. History of Present Illness Chief Complaint: HTN Primary Care Provider: Mykel Bailey This is a 48yo F with a PMH of HTN, CKD III, mood disorder, hypothyroidism and other medical problems listed below who presents with elevated BP x 1 week. Patient has history of uncontrolled HTN, including an admission for hypertensive emergency in September 2017. Was experiencing epistaxis and dizziness at the time and underwent stroke work up, which was negative. Patient was diagnosed with sinusitis on Tuesday and was instructed to stop taking decongestants, since her BP was high at the time. Last decongestant dose 5 days ago. When patient woke up today, she had a headache and took two tylenol with improvement of symptoms. Was able to go to work an hour before she developed dizziness and nausea. Was broug ht to ED for further evaluation and had 2 episodes of bilious vomit since arrival. BP was initially elevated at 228/122 but has decreased to 193/109 after IV Labetalol 10mg x 2. No longer experiencing dizziness or nausea. Has had two episodes of diarrhea today. Denies confusion, difficulty speaking or swallowing, chest pain, palpitations or SOB. No abdominal pain, dysuria, hematuria or lower extremity swelling. Patient endorses taking Lopressor 100mg BID, Lasix 20mg and Lisinopril 20mg this morning. Lisinopril was increased from 10mg to 20mg 3 days ago by PCP. Takes BP at home and it is normally 150s/80s. CT head without acute abnormalities. EKG with normal sinus rhythm. Troponin negative. Kidney function at baseline. BP of 193/109 when she was given additional IV Labetalol dose of 20mg. Denies fever, chills, lightheadedness, chest pain, palpitations, SOB, abdominal pain, dysuria, hematuria or lower extremity swelling. Allergies Allergy/AdvReac Type Severity Reaction Status Date / Time No Known Allergies Allergy Verified 09/01/18 10:53 Home Medications Home Medications Medication Instructions Recorded Confirmed Type acetaminophen [Tylenol Extra 1,000 mg PO Q6H PRN 09/01/18 09/01/18 History Strength] albuterol sulfate [Ventolin HFA] 2 puff INHALATION Q6H PRN 09/01/18 09/01/18 History allopurinol 100 mg PO QAM 09/01/18 09/01/18 History amoxicillin 500 mg PO TID 09/01/18 09/01/18 History aspirin 81 mg PO QAM 09/01/18 09/01/18 History cholecalciferol (vitamin D3) 2,000 unit PO QAM 09/01/18 09/01/18 History [Vitamin D3] cyclobenzaprine 10 mg PO HS PRN 09/01/18 09/01/18 History fluoxetine 10 mg PO QAM 09/01/18 09/01/18 History furosemide 20 mg PO DAILY 09/01/18 09/01/18 History levothyroxine 125 mcg PO DAILY 09/01/18 09/01/18 History lisinopril 20 mg PO DAILY 09/01/18 09/01/18 History meclizine 25 mg PO TID PRN 09/01/18 09/01/18 History metoprolol tartrate 100 mg PO BID 09/01/18 09/01/18 History Past Med/Surg History Medical History Hypothyroidism (Chronic) Migraines (Chronic) HTN (hypertension) (Chronic) CKD (chronic kidney disease), stage III (Chronic) Surgical History S/P cholecystectomy (Chronic) History of tubal ligation (Chronic) H/O dilation and curettage (Chronic) H/O cervical spine surgery (Chronic) "x 2" Family History Father Diabetes Heart disorder HTN (hypertension) Social History Preferred Language: Albanian Communication Ability: Effective Fuel Cell Battery Technician Required: No Beliefs That Will Affect Care: None Current Living Situation: Spouse Other Information That Helps Us Care for You: No Feels Safe at Home: Yes Safety Concerns: Feels Safe At This Time Smoking Status: Never smoker Hx Alcohol Use: Yes Hx Substance Use: No Review of Systems All systems reviewed & are unremarkable except as noted in HPI & below Physical Exam Vital Signs (Past 24 Hours): Last Vital Signs Temp 36.9 C 09/01/18 09:39 Pulse 90 09/01/18 14:01 Resp 20 09/01/18 14:01 BP 193/109 H 09/01/18 14:01 Pulse Ox 96 09/01/18 14:01 Physical Exam: General Appearance: WD/WN, obese, +anxious Head: normocephalic, atraumatic Eyes: normal inspection, PERRL, EOMI ENT: hearing grossly normal, pharynx normal (moist mucous membranes) Neck: supple, no JVD, no adenopathy Respiratory/Chest: lungs clear to auscultation. No wheezes, rales or rhonci. No respiratory distress or accessory muscle use Cardiovascular: regular rate, rhythm, no murmur, normal peripheral pulses Abdomen/GI: normal bowel sounds, soft, non-tender to palpation Extremities/Musculoskelatal: normal inspection, no calf tenderness, normal capillary refill, no pedal edema Neurologic/Psych: alert, normal mood/affect, oriented x 3 Skin: normal color, warm/dry Results & Data Laboratory Results Short CBC 09/01/18 Range/Units 10:20 WBC 7.64 (4.8-10.8) K/uL Hgb 14.8 (12.0-16.0) g/dL Hct 45.4 (37-47) % Plt Count 273 (130-400) K/uL BMP 09/01/18 10:20 Sodium 141 Potassium 3.9 Chloride 107 Carbon Dioxide 28 BUN 24 H Creatinine 1.22 H Glucose 90 Calcium 9.1 Cardiac Enzymes 09/01/18 09/01/18 Range/Units 10:20 10:20 Troponin I < 0.015 Cancelled (0-0.045) ng/ml Liver Function 09/01/18 Range/Units 10:20 Total Bilirubin 0.3 (0.2-1) mg/dl AST 23 (15-37) U/L ALT 24 (12-78) U/L Alkaline Phosphatase 75 (45-117) U/L Albumin 3.1 L (3.4-5.0) gm/dl Diagnostic Findings Head CT: IMPRESSION: No acute intracranial findings. ECG Rhythm: normal sinus Code Status & VTE Plan Code Status FULL Supervising Physician Co-Signing Physician Notes Attending addendum Patient was seen and examined by me in the telemetry unit He complains of headache and nonspecific body aches with fever Blood pressure noted to be around 149 systolic date of examination Denies any chest pain and/or palpitation On examination Moderate distress at rest due to X and pains and headache Chest-clear to auscultate bilaterally Heart-S1-S2 regular, no murmur Abdomen-soft, benign, bowel sounds present Extremities-trace edema bilateral Admission labs and imaging studies noted Has hypertensive urgency with possible sinusitis and/or UTI We will continue her home medications for blood pressure and add hydralazine as needed Unasyn will be added Agree with assessment and plan as outlined above by Andrea gomez
--- NOTE | 2018-09-01 16:32 | Emergency Department Note ---
Entered by Kenrick Diaz acting as a scribe for History of Present Illness General Chief complaint: Hypertension Stated complaint: HYPERTENSION FOR PAST COUPLE DAYS, 231/133 TODAY Source: patient Limitations: no limitations History of Present Illness Provider complaint: HTN/Headache/Lightheaded Onset (ago): day(s) (4) Location: head Pain Consistency: + other (persistant) Maximum Pain Intensity: 5 Quality: + aching (TIJERINA) Associated symptoms: + headaches (Dizziness) and + nausea/vomiting Treatments prior to arrival: none The patient is a 48 year old female who presents to the Emergency Room with complaints of a headache and dizziness. The patient states that her blood pressure has been unusually high for the past 4 days. She first went to see her primary care physician on Tuesday, 4 days ago as she did not feel well. At this visit her blood pressure was 189/116. Her PCP upped her Lisinopril from 10 mg daily to 20 mg daily. She is also on Metoprolol and HCTZ. The patient was also started on Amoxicillin for a sinus infection. She notes that she went back to her PCP on Tuesday and the blood pressure was trending down. This morning the patient felt generally unwell again, but went to work anyway. At work she became gradually more nauseous and lightheaded/dizzy. She took her blood pressure at work and was in the 230s systolically. The patient confirms that she took all of her blood pressure medication as prescribed this morning. She notes that she has been trying to stay away from processed foods in her diet and she denies any recent episodes of confusion or speech issues. The patient adds that she has lost 20 pounds over the past year. The patient did vomit upon arrival to the ED. Home Medications Home Medications Medication Instructions Recorded Confirmed Type acetaminophen [Tylenol Extra 1,000 mg PO Q6H PRN 09/01/18 09/01/18 History Strength] albuterol sulfate [Ventolin HFA] 2 puff INHALATION Q6H PRN 09/01/18 09/01/18 History allopurinol 100 mg PO QAM 09/01/18 09/01/18 History amoxicillin 500 mg PO TID 09/01/18 09/01/18 History aspirin 81 mg PO QAM 09/01/18 09/01/18 History cholecalciferol (vitamin D3) 2,000 unit PO QAM 09/01/18 09/01/18 History [Vitamin D3] cyclobenzaprine 10 mg PO HS PRN 09/01/18 09/01/18 History fluoxetine 10 mg PO QAM 09/01/18 09/01/18 History furosemide 20 mg PO DAILY 09/01/18 09/01/18 History levothyroxine 125 mcg PO DAILY 09/01/18 09/01/18 History lisinopril 20 mg PO DAILY 09/01/18 09/01/18 History meclizine 25 mg PO TID PRN 09/01/18 09/01/18 History metoprolol tartrate 100 mg PO BID 09/01/18 09/01/18 History Allergies Allergy/AdvReac Type Severity Reaction Status Date / Time No Known Allergies Allergy Verified 09/01/18 10:53 Past Med/Surg History Medical History Hypothyroidism (Chronic) Migraines (Chronic) HTN (hypertension) (Chronic) CKD (chronic kidney disease), stage III (Chronic) Surgical History S/P cholecystectomy (Chronic) History of tubal ligation (Chronic) H/O dilation and curettage (Chronic) H/O cervical spine surgery (Chronic) "x 2" Family History Father Diabetes Heart disorder HTN (hypertension) Social History Preferred Language: [place] Communication Ability: Effective Water Resource Agent Required: No Beliefs That Will Affect Care: None Current Living Situation: Spouse Other Information That Helps Us Care for You: No Feels Safe at Home: Yes Safety Concerns: Feels Safe At This Time Smoking Status: Never smoker Hx Alcohol Use: Yes Hx Substance Use: No Review of Systems See HPI for pertinent positives & negatives. and A total of 10 systems reviewed and were otherwise negative Physical Exam Vital Signs Vital Signs - 24 hr 09/02/18 20:00 09/03/18 00:05 09/03/18 03:55 Temperature 37.1 C 36.7 C 36.6 C Temperature Source Oral Oral Oral Pulse Rate Pulse Rate [Apical] 71 62 61 Pulse Rhythm [Apical] Pulse Strength [Apical] Respiratory Rate 18 18 20 Respiratory Effort / Characteristics Respiratory Depth Respiratory Pattern Blood Pressure [Left Arm] 157/90 H Blood Pressure [Right Arm] 161/94 H 150/80 H Blood Pressure Mean [Left Arm] 112 Blood Pressure Mean [Right Arm] 116 103 Blood Pressure Position [Left Arm] Lying Blood Pressure Position [Right Arm] Lying Lying Pulse Oximetry 96 92 95 Oxygen Delivery Method Room Air Room Air Room Air 09/03/18 08:03 09/03/18 09:07 09/03/18 09:51 Temperature 36.5 C Temperature Source Axillary Pulse Rate 58 L Pulse Rate [Apical] 71 62 Pulse Rhythm [Apical] Regular Pulse Strength [Apical] Normal Respiratory Rate 18 Respiratory Effort / Characteristics Non-Labored Spontaneous Normal for Patient Respiratory Depth Normal Respiratory Pattern Regular Blood Pressure [Left Arm] 208/119 H 198/119 H Blood Pressure [Right Arm] 183/119 H Blood Pressure Mean [Left Arm] 148 145 Blood Pressure Mean [Right Arm] 140 Blood Pressure Position [Left Arm] Sitting Blood Pressure Position [Right Arm] Sitting Pulse Oximetry 96 Oxygen Delivery Method Room Air 09/03/18 12:06 09/03/18 15:21 09/03/18 17:00 Temperature 37.1 C 36.6 C Temperature Source Oral Oral Pulse Rate 78 Pulse Rate [Apical] 66 71 Pulse Rhythm [Apical] Pulse Strength [Apical] Respiratory Rate 16 18 Respiratory Effort / Characteristics Respiratory Depth Normal Respiratory Pattern Blood Pressure [Left Arm] Blood Pressure [Right Arm] 143/86 H 178/104 H Blood Pressure Mean [Left Arm] Blood Pressure Mean [Right Arm] 105 128 Blood Pressure Position [Left Arm] Blood Pressure Position [Right Arm] Sitting Sitting Pulse Oximetry 96 99 Oxygen Delivery Method Room Air Room Air 09/03/18 17:03 09/03/18 17:56 09/03/18 18:59 Temperature 36.5 C Temperature Source Oral Pulse Rate Pulse Rate [Apical] 83 75 Pulse Rhythm [Apical] Pulse Strength [Apical] Respiratory Rate 18 18 18 Respiratory Effort / Characteristics Non-Labored Respiratory Depth Normal Normal Normal Respiratory Pattern Blood Pressure [Left Arm] 157/83 H 184/63 H Blood Pressure [Right Arm] 154/84 H Blood Pressure Mean [Left Arm] 107 103 Blood Pressure Mean [Right Arm] 107 Blood Pressure Position [Left Arm] Sitting Blood Pressure Position [Right Arm] Lying Pulse Oximetry 95 95 94 Oxygen Delivery Method Room Air Room Air Room Air Vital signs reviewed. HTN noted General: Middle-aged female, in no significant distress. HEENT: No scleral icterus, PERRLA, neck supple. Atraumatic. Cardiovascular: Regular rate and rhythm, no extra sounds. Pulmonary: Clear to auscultation bilaterally, normal work of breathing. Abdomen: Soft, nontender, nondistended, positive bowel sounds. Musculoskeletal: Atraumatic, no peripheral edema. Neurologic: Patient awake alert and oriented x 3, full strength in all 4 extremities. Cranial nerves 2 through 12 grossly intact. Skin: Warm, dry, no rash Course 1006: Past medical records reviewed. The patient was evaluated in room C1B, and a complete history and physical examination were performed. 1411: I reviewed the patient's case with [facility] Hospitalist SALVATORE Richey. She will evaluate the patient for further management. Administered Medications Acetaminophen (Tylenol) 1,000 mg PO Q8H PRN PRN Reason: Pain Stop: 10/01/18 17:05 Last Admin: 09/03/18 16:13 Dose: 1,000 mg Documented by: [id number] Admin: 09/02/18 01:03 Dose: 1,000 mg Documented by: [id number] Admin: 09/01/18 17:19 Dose: 1,000 mg Documented by: [id number] Acetaminophen/Butalbital/Caffeine (Fioricet) 1 tab PO Q4H PRN PRN Reason: Headache Stop: 10/02/18 07:29 Last Admin: 09/03/18 08:28 Dose: 1 tab Documented by: [id number] Admin: 09/02/18 16:48 Dose: 1 tab Documented by: [id number] Admin: 09/02/18 09:25 Dose: 1 tab Documented by: [id number] Allopurinol (Zyloprim) [address] [facility] Stop: 10/02/18 08:59 Last Admin: 09/03/18 07:58 Dose: 100 mg Documented by: [id number] Admin: 09/02/18 08:16 Dose: 100 mg Documented by: [id number] Aspirin (Ecotrin Ectab) [address] [facility] Stop: 10/02/18 08:59 Last Admin: 09/03/18 07:57 Dose: 81 mg Documented by: [id number] Admin: 09/02/18 08:15 Dose: 81 mg Documented by: [id number] Fluoxetine HCl (Prozac) [address] [facility] Stop: 10/02/18 08:59 Last Admin: 09/03/18 07:58 Dose: 10 mg Documented by: [id number] Admin: 09/02/18 08:15 Dose: 10 mg Documented by: [id number] Furosemide (Lasix) 20 mg PO DAILY [facility] Stop: 10/02/18 08:59 Last Admin: 09/03/18 07:57 Dose: 20 mg Documented by: [id number] Admin: 09/02/18 08:16 Dose: 20 mg Documented by: [id number] Hydralazine HCl (Hydralazine Hcl) 5 mg IV Q6H PRN PRN Reason: Hypertension Stop: 10/03/18 09:59 Last Admin: 09/03/18 16:30 Dose: 5 mg Documented by: [id number] Admin: 09/03/18 10:14 Dose: 5 mg Documented by: [id number] Lactobacillus Acidophilus (Floranex) 4 tab PO QIDM [facility] Stop: 10/01/18 20:59 Last Admin: 09/03/18 16:15 Dose: 4 tab Documented by: [id number] Admin: 09/03/18 11:07 Dose: 4 tab Documented by: [id number] Admin: 09/03/18 07:57 Dose: 4 tab Documented by: [id number] Admin: 09/02/18 20:18 Dose: 4 tab Documented by: [id number] Admin: 09/02/18 16:48 Dose: 4 tab Documented by: [id number] Admin: 09/02/18 10:55 Dose: 4 tab Documented by: [id number] Admin: 09/02/18 08:15 Dose: 4 tab Documented by: [id number] Admin: 09/01/18 21:01 Dose: 4 tab Documented by: [id number] Levofloxacin (Levaquin) 750 mg PO DAILY@1100 [facility] Stop: 09/08/18 10:59 Last Admin: 09/03/18 11:07 Dose: 750 mg Documented by: [id number] Levothyroxine Sodium (Synthroid) 125 mcg PO DAILYBB [facility] Stop: 10/02/18 06:29 Last Admin: 09/03/18 06:36 Dose: 125 mcg Documented by: [id number] Admin: 09/02/18 06:30 Dose: 125 mcg Documented by: [id number] Lisinopril (Zestril) 20 mg PO DAILY [facility] Stop: 10/02/18 08:59 Last Admin: 09/03/18 07:58 Dose: 20 mg Documented by: [id number] Admin: 09/02/18 08:15 Dose: 20 mg Documented by: [id number] Lorazepam (Ativan) 0.5 mg PO Q8H PRN PRN Reason: Anxiety Stop: 10/01/18 16:06 Last Admin: 09/03/18 17:54 Dose: 0.5 mg Documented by: [id number] Admin: 09/01/18 17:18 Dose: 0.5 mg Documented by: [id number] Metoprolol Tartrate (Lopressor) 100 mg PO BID [facility] Stop: 10/01/18 20:59 Last Admin: 09/03/18 07:57 Dose: 100 mg Documented by: [id number] Admin: 09/02/18 20:18 Dose: 100 mg Documented by: [id number] Admin: 09/02/18 08:16 Dose: 100 mg Documented by: [id number] Admin: 09/01/18 20:30 Dose: 100 mg Documented by: [id number] Ondansetron HCl (Zofran) 4 mg IV Q6H PRN PRN Reason: Nausea Stop: 10/01/18 17:05 Last Admin: 09/01/18 17:23 Dose: 4 mg Documented by: [id number] Vitamin D (Vitamin D3) 2,000 units PO DAILY [facility] Stop: 10/02/18 08:59 Last Admin: 09/03/18 07:58 Dose: 2,000 units Documented by: [id number] Admin: 09/02/18 08:15 Dose: 2,000 units Documented by: [id number] Discontinued Medications Amlodipine Besylate (Norvasc) 5 mg PO QAM [facility] Stop: 10/03/18 08:59 Last Admin: 09/03/18 08:28 Dose: 5 mg Documented by: [id number] Amlodipine Besylate (Norvasc) 5 mg PO NOW ONE Stop: 09/03/18 10:00 Last Admin: 09/03/18 10:17 Dose: 5 mg Documented by: [id number] Amoxicillin (Amoxil) 500 mg PO TID [facility]; Protocol Stop: 09/06/18 20:59 Last Admin: 09/01/18 20:30 Dose: 500 mg Documented by: [id number] Diphenhydramine HCl (Benadryl) 25 mg IV NOW STA Stop: 09/01/18 10:13 Last Admin: 09/01/18 10:37 Dose: 25 mg Documented by: [id number] Hydralazine HCl (Hydralazine Hcl) Confirm Administered Dose 20 mg .ROUTE .STK- MED ONE Stop: 09/01/18 17:23 Last Admin: 09/01/18 17:23 Dose: Not Given Documented by: [id number] Hydralazine HCl (Hydralazine Hcl) 10 mg IV Q6H PRN PRN Reason: SBP >160 Stop: 10/01/18 17:59 Last Admin: 09/01/18 18:01 Dose: 10 mg Documented by: [id number] Ampicillin Sodium/Sulbactam Sodium 3,000 mg/ Sodium Chloride 108 mls @ 216 mls/hr IV Q6H [facility]; Protocol Stop: 09/11/18 18:59 Last Infusion: 09/03/18 07:10 Dose: 200 mls/hr Documented by: [id number] Admin: 09/03/18 06:36 Dose: 216 mls/hr Documented by: [id number] Infusion: 09/03/18 01:11 Dose: 0 mls/hr Documented by: [id number] Admin: 09/03/18 00:41 Dose: 216 mls/hr Documented by: [id number] Infusion: 09/02/18 20:00 Dose: 0 mls/hr Documented by: [id number] Admin: 09/02/18 19:30 Dose: 216 mls/hr Documented by: [id number] Infusion: 09/02/18 14:03 Dose: 0 mls/hr Documented by: [id number] Admin: 09/02/18 13:19 Dose: 216 mls/hr Documented by: [id number] Infusion: 09/02/18 07:40 Dose: 0 mls/hr Documented by: [id number] Admin: 09/02/18 06:30 Dose: 216 mls/hr Documented by: [id number] Infusion: 09/02/18 01:35 Dose: 0 mls/hr Documented by: [id number] Admin: 09/02/18 01:04 Dose: 216 mls/hr Documented by: [id number] Infusion: 09/01/18 19:50 Dose: 0 mls/hr Documented by: [id number] Admin: 09/01/18 19:20 Dose: 216 mls/hr Documented by: [id number] Potassium Chloride/Sodium Chloride (Normal Saline W/20 Meq Kcl) 20 meq in 1,000 mls @ 80 mls/hr IV .[id number] ONE Stop: 09/02/18 22:14 Last Infusion: 09/02/18 23:25 Dose: 0 mls/hr Documented by: [id number] Admin: 09/02/18 10:54 Dose: 80 mls/hr Documented by: [id number] Labetalol HCl (Normodyne) 10 mg IV NOW STA Stop: 09/01/18 10:13 Last Admin: 09/01/18 10:35 Dose: 10 mg Documented by: [id number] Cosigned by: [id number] Labetalol HCl (Normodyne) 10 mg IV NOW STA Stop: 09/01/18 11:29 Last Admin: 09/01/18 12:20 Dose: 10 mg Documented by: [id number] Cosigned by: [id number] Labetalol HCl (Normodyne) 20 mg IV NOW STA Stop: 09/01/18 12:46 Last Admin: 09/01/18 14:02 Dose: 20 mg Documented by: [id number] Cosigned by: [id number] Morphine Sulfate (Morphine Sulfate) 2 mg IV NOW STA Stop: 09/03/18 18:02 Last Admin: 09/03/18 18:13 Dose: 2 mg Documented by: [id number] Perflutren Lipid Microsphere (Definity) 2 ml IV ONCE ONE Stop: 09/02/18 08:44 Last Admin: 09/02/18 08:44 Dose: 2 ml Documented by: [id number] Prochlorperazine (Compazine) 10 mg IV NOW STA Stop: 09/01/18 10:13 Last Admin: 09/01/18 10:37 Dose: 10 mg Documented by: [id number] Medical Decision Making Differential Diagnosis DDX: Intracranial hemorrhage, intracranial mass, migraine headache, tension headache, sinusitis, meningitis, HTN urgency, metabolic abnl Medical Records Attestation: I reviewed the patient's medical records. Home Medications Current Medication List: was personally reviewed by me Laboratory Data Attestation: I reviewed the patient's lab results. Result diagrams: 09/03/18 07:13 09/03/18 07:13 Lab Results 09/01/18 09/01/18 09/01/18 Range/Units 10:20 10:20 10:20 WBC 7.64 (4.8-10.8) K/uL RBC 5.01 (4.2-5.4) M/uL Hgb 14.8 (12.0-16.0) g/dL Hct 45.4 (37-47) % MCV 90.6 (80-100) fL MCH 29.5 (25-34) pg MCHC 32.6 (32-36) g/dL RDW Std Deviation 46.0 (36.4-46.3) fL RDW Coeff of Chasity 13.9 (11.5-14.5) % Plt Count 273 (130-400) K/uL MPV 10.9 H (7.4-10.4) fL Immature Gran % (Auto) 0.4 % Neut % (Auto) 79.0 % Lymph % (Auto) 11.6 % Scurry % (Auto) 7.1 % Eos % (Auto) 1.8 % Baso % (Auto) 0.1 % Immature Gran # (Auto) 0.03 H (0.00-0.02) K/uL Neut # (Auto) 6.03 (1.4-6.5) K/uL Lymph # (Auto) 0.89 L (1.2-3.4) K/uL Scurry # (Auto) 0.54 (0.11-0.59) K/uL Eos # (Auto) 0.14 (0-0.5) K/uL Baso # (Auto) 0.01 (0-0.2) K/uL Sodium 141 (136-145) mmol/L Potassium 3.9 (3.5-5.1) mmol/L Chloride 107 (98-107) mmol/L Carbon Dioxide 28 (21-32) mmol/L Anion Gap 6.0 (3-11) BUN 24 H (7-18) mg/dl Creatinine 1.22 H (0.6-1.2) mg/dl Est Cr Clr Drug Dosing 70.8 ml/min Est GFR ( Amer) 59.8 Est GFR (Non-Af Amer) 51.6 BUN/Creatinine Ratio 19.4 (10-20) Glucose 90 (70-99) mg/dl Calcium 9.1 (8.5-10.1) mg/dl Magnesium (1.8-2.4) mg/dl Total Bilirubin 0.3 (0.2-1) mg/dl AST 23 (15-37) U/L ALT 24 (12-78) U/L Alkaline Phosphatase 75 (45-117) U/L Troponin I < 0.015 Cancelled (0-0.045) ng/ml Total Protein 8.5 H (6.4-8.2) gm/dl Albumin 3.1 L (3.4-5.0) gm/dl Globulin 5.4 H (2.5-4.0) gm/dl Albumin/Globulin Ratio 0.6 L (0.9-2) TSH 11.100 H (0.300-4.500) uIu/ml Free T4 (0.8-1.6) ng/dl Nasal Screen MRSA (PCR) (Negative) Stl C. diff Tox B Gene (Neg) Influenza Type A (PCR) (Neg) Influenza Type B (PCR) (Neg) 09/01/18 09/01/18 09/01/18 Range/Units 10:20 17:15 18:30 WBC (4.8-10.8) K/uL RBC (4.2-5.4) M/uL Hgb (12.0-16.0) g/dL Hct (37-47) % MCV (80-100) fL MCH (25-34) pg MCHC (32-36) g/dL RDW Std Deviation (36.4-46.3) fL RDW Coeff of Chasity (11.5-14.5) % Plt Count (130-400) K/uL MPV (7.4-10.4) fL Immature Gran % (Auto) % Neut % (Auto) % Lymph % (Auto) % Scurry % (Auto) % Eos % (Auto) % Baso % (Auto) % Immature Gran # (Auto) (0.00-0.02) K/uL Neut # (Auto) (1.4-6.5) K/uL Lymph # (Auto) (1.2-3.4) K/uL Scurry # (Auto) (0.11-0.59) K/uL Eos # (Auto) (0-0.5) K/uL Baso # (Auto) (0-0.2) K/uL Sodium (136-145) mmol/L Potassium (3.5-5.1) mmol/L Chloride (98-107) mmol/L Carbon Dioxide (21-32) mmol/L Anion Gap (3-11) BUN (7-18) mg/dl Creatinine (0.6-1.2) mg/dl Est Cr Clr Drug Dosing ml/min Est GFR ( Amer) Est GFR (Non-Af Amer) BUN/Creatinine Ratio (10-20) Glucose (70-99) mg/dl Calcium (8.5-10.1) mg/dl Magnesium (1.8-2.4) mg/dl Total Bilirubin (0.2-1) mg/dl AST (15-37) U/L ALT (12-78) U/L Alkaline Phosphatase (45-117) U/L Troponin I (0-0.045) ng/ml Total Protein (6.4-8.2) gm/dl Albumin (3.4-5.0) gm/dl Globulin (2.5-4.0) gm/dl Albumin/Globulin Ratio (0.9-2) TSH Cancelled (0.300-4.500) uIu/ml Free T4 (0.8-1.6) ng/dl Nasal Screen MRSA (PCR) Negative (Negative) Stl C. diff Tox B Gene (Neg) Influenza Type A (PCR) Neg for Influ A (Neg) Influenza Type B (PCR) Neg for Influ B (Neg) 09/01/18 09/02/18 09/02/18 Range/Units 21:00 06:59 06:59 WBC 7.04 (4.8-10.8) K/uL RBC 4.46 (4.2-5.4) M/uL Hgb 13.2 (12.0-16.0) g/dL Hct 40.6 (37-47) % MCV 91.0 (80-100) fL MCH 29.6 (25-34) pg MCHC 32.5 (32-36) g/dL RDW Std Deviation 47.8 H (36.4-46.3) fL RDW Coeff of Chasity 14.2 (11.5-14.5) % Plt Count 234 (130-400) K/uL MPV 10.4 (7.4-10.4) fL Immature Gran % (Auto) % Neut % (Auto) % Lymph % (Auto) % Scurry % (Auto) % Eos % (Auto) % Baso % (Auto) % Immature Gran # (Auto) (0.00-0.02) K/uL Neut # (Auto) (1.4-6.5) K/uL Lymph # (Auto) (1.2-3.4) K/uL Scurry # (Auto) (0.11-0.59) K/uL Eos # (Auto) (0-0.5) K/uL Baso # (Auto) (0-0.2) K/uL Sodium 142 (136-145) mmol/L Potassium 3.5 (3.5-5.1) mmol/L Chloride 111 H (98-107) mmol/L Carbon Dioxide 24 (21-32) mmol/L Anion Gap 7.0 (3-11) BUN 21 H (7-18) mg/dl Creatinine 1.27 H (0.6-1.2) mg/dl Est Cr Clr Drug Dosing 67.3 ml/min Est GFR ( Amer) 57.0 Est GFR (Non-Af Amer) 49.2 BUN/Creatinine Ratio 16.9 (10-20) Glucose 94 (70-99) mg/dl Calcium 7.6 L D (8.5-10.1) mg/dl Magnesium (1.8-2.4) mg/dl Total Bilirubin (0.2-1) mg/dl AST (15-37) U/L ALT (12-78) U/L Alkaline Phosphatase (45-117) U/L Troponin I (0-0.045) ng/ml Total Protein (6.4-8.2) gm/dl Albumin (3.4-5.0) gm/dl Globulin (2.5-4.0) gm/dl Albumin/Globulin Ratio (0.9-2) TSH (0.300-4.500) uIu/ml Free T4 (0.8-1.6) ng/dl Nasal Screen MRSA (PCR) (Negative) Stl C. diff Tox B Gene Neg C.diff Toxin B (Neg) Influenza Type A (PCR) (Neg) Influenza Type B (PCR) (Neg) 09/03/18 09/03/18 Range/Units 07:13 07:13 WBC 5.19 (4.8-10.8) K/uL RBC 4.44 (4.2-5.4) M/uL Hgb 12.9 (12.0-16.0) g/dL Hct 40.6 (37-47) % MCV 91.4 (80-100) fL MCH 29.1 (25-34) pg MCHC 31.8 L (32-36) g/dL RDW Std Deviation 48.3 H (36.4-46.3) fL RDW Coeff of Chasity 14.3 (11.5-14.5) % Plt Count 252 (130-400) K/uL MPV 10.7 H (7.4-10.4) fL Immature Gran % (Auto) % Neut % (Auto) % Lymph % (Auto) % Scurry % (Auto) % Eos % (Auto) % Baso % (Auto) % Immature Gran # (Auto) (0.00-0.02) K/uL Neut # (Auto) (1.4-6.5) K/uL Lymph # (Auto) (1.2-3.4) K/uL Scurry # (Auto) (0.11-0.59) K/uL Eos # (Auto) (0-0.5) K/uL Baso # (Auto) (0-0.2) K/uL Sodium 140 (136-145) mmol/L Potassium 3.7 (3.5-5.1) mmol/L Chloride 111 H (98-107) mmol/L Carbon Dioxide 26 (21-32) mmol/L Anion Gap 4.0 (3-11) BUN 16 (7-18) mg/dl Creatinine 1.21 H (0.6-1.2) mg/dl Est Cr Clr Drug Dosing 70.9 ml/min Est GFR ( Amer) 60.4 Est GFR (Non-Af Amer) 52.1 BUN/Creatinine Ratio 13.2 (10-20) Glucose 84 (70-99) mg/dl Calcium 8.5 (8.5-10.1) mg/dl Magnesium 1.9 (1.8-2.4) mg/dl Total Bilirubin (0.2-1) mg/dl AST (15-37) U/L ALT (12-78) U/L Alkaline Phosphatase (45-117) U/L Troponin I (0-0.045) ng/ml Total Protein (6.4-8.2) gm/dl Albumin (3.4-5.0) gm/dl Globulin (2.5-4.0) gm/dl Albumin/Globulin Ratio (0.9-2) TSH 8.440 H (0.300-4.500) uIu/ml Free T4 1.08 (0.8-1.6) ng/dl Nasal Screen MRSA (PCR) (Negative) Stl C. diff Tox B Gene (Neg) Influenza Type A (PCR) (Neg) Influenza Type B (PCR) (Neg) Imaging Data Attestation: I personally reviewed and interpreted this imaging study as follows: Radiologist's Impression: CT OF THE HEAD WITHOUT CONTRAST CLINICAL HISTORY: Headache. COMPARISON STUDY: Head CT and MRI of the brain September 29, 2017. CT DOSE: 537.48 mGy.cm TECHNIQUE: Helical axial images of the head were obtained without IV contrast. Automated exposure control was utilized for the study. A dose lowering technique was utilized adhering to the principles of ALARA. FINDINGS: No acute intracranial hemorrhage, midline shift or mass effect is present. Brain volume is normal. Ventricular system is normal. The basilar cisterns are patent. There are no extra-axial collections. Gomez-white differentiation is maintained. There are no findings to suggest acute dural sinus thrombosis or acute territorial infarct. There are no significant calvarial abnormalities. Visualized portions of the mastoid air cells are clear. Mild ethmoid sinus and frontal sinus mucosal thickening. IMPRESSION: No acute intracranial findings. Electronically signed by: Sam Rosario M.D. 09/01/2018 11:07 AM ECG Data Attestation: I personally reviewed and interpreted this ECG as follows: Indication: nausea, vomiting and other (Hypertensive, headache) Rate (beats per minute): 80 Rhythm: normal sinus Findings: + other (QTC 452); no acute ischemic change and no ectopy Blood Pressure Blood Pressure Findings: Elevated blood pressure Blood Pressure Disposition: further management by hospitalist RAMANA Narrative This pt was evaluated and appeared to be in no distress. IV access was obtained and lab work was drawn. Pt was placed on the cardiac cath lab manager. She is noted to be markedly hypertensive. Pt was given IV compazine, benadryl. labetalol 10 mg x 2 doses with minimal benefit. 20 mg labetalol was then given. Pt head CT is negative. EKG reveals a NSR without ischemia or ectopy. Pt was reevaluated and felt improved but remained hypertensive. Given the constellation of symptoms and findings, pt was d/w the hospitalist service for further management. She was aware of the findings and agrees. Impression & Plan Hypertensive urgency, Headache, Vomiting Critical Care Time The high probability of a clinically significant, sudden or life threatening deterioration of the CV, neurologic system(s) required my full and direct attention, intervention and personal management. The aggregate critical care time was 30 minutes. This time is in addition to time spent performing reported procedures but includes the following: [x] Data Review and interpretation [x] Patient assessment and monitoring of vital signs [x] Documentation [x] Medication orders and management Critical Care Time: Yes Total Critical Care Time: 30 Discharge Plan Visit Data *Final* Discharge Date/Time: 09/01/18 16:16 Chief Complaint: Hypertension Stated Complaint: HYPERTENSION FOR PAST COUPLE DAYS, 231/133 TODAY ED Provider: Ashley Tucker Discharge Problem: Hypertensive urgency, Headache, Vomiting Patient Disposition: Admitted As Inpatient Discharge Instructions Interventions: ED Discharge Assessment Last Done: 09/01/18 16:16 Discharge Problem: Headache Qualifiers: Headache type: unspecified Headache chronicity pattern: acute headache Intractability: not intractable Qualified Code(s): R51 - Headache Vomiting Qualifiers: Vomiting type: unspecified Vomiting Intractability: non-intractable Nausea presence: with nausea Qualified Code(s): R11.2 - Nausea with vomiting, unspecified The scribe's documentation has been prepared under my direction and personally reviewed by me in its entirety. I confirm that the note above accurately reflects all work, treatment, procedures, and medical decision making performed by me.
[2018-09-01] MEDS ORDERED: CYCLOBENZAPRINE HCL 10 MG TAB PO PRN (17:06)
[2018-09-01] MEDS ORDERED: ALBUTEROL HFA 8 GM INHALER INH PRN (17:06)
[2018-09-01] MEDS ORDERED: ONDANSETRON INJ 2 MG/ML 2 ML VIAL IV PRN (17:06)
[2018-09-01] MEDS ORDERED: MECLIZINE HCL 25 MG TAB PO PRN (17:06)
[2018-09-01] MEDS ORDERED: HydrALAZINE 10 MG TAB PO PRN (17:06)
[2018-09-01] MEDS: LORazepam 0.5 MG TAB PO PRN (17:18)
[2018-09-01] MEDS: ACETAMINOPHEN 500 MG TAB PO PRN (17:19)
[2018-09-01] MEDS ORDERED: HydrALAZINE HCL 20 MG/ML VIAL ONE (17:22)
[2018-09-01] MEDS ORDERED: HydrALAZINE HCL 20 MG/ML VIAL IV PRN (17:54)
[2018-09-01] MEDS ORDERED: AMPICILLIN/SULBACTAM CONSULT ACTIVE PRN (18:06)
[2018-09-01 19:14] LABS: Influenza A virus by PCR Neg for Influ A (Neg); Influenza B virus by PCR Neg for Influ B (Neg)
[2018-09-01] MEDS: AMPICILLIN/SULBACTAM SOD 3,000 MG in 0.9 % SODIUM CHLORIDE 100 ML IV SCH (19:20)
[2018-09-01] MEDS: METOPROLOL TARTRATE 100 MG TAB PO SCH (20:30)
[2018-09-01] MEDS ORDERED: AMOXICILLIN 500 MG CAP PO SCH (21:00)
[2018-09-01] MEDS: LACTOBACILLUS ACIDOPHILUS (FLORANEX) TAB PO SCH (21:01)
[2018-09-02] MEDS: ACETAMINOPHEN 500 MG TAB PO PRN (01:03)
[2018-09-02] MEDS: AMPICILLIN/SULBACTAM SOD 3,000 MG in 0.9 % SODIUM CHLORIDE 100 ML IV SCH ×4 (01:04→19:30)
[2018-09-02] MEDS: LEVOTHYROXINE SODIUM 125 MCG TABLET PO SCH (06:30)
[2018-09-02 07:15] LABS: Hematocrit (blood only) 40.6 % (37-47); Hemoglobin 13.2 g/dL (12.0-16.0); Mean Corpuscular Hgb Conc 32.5 g/dL (32-36); Mean Platelet Volume 10.4 fL (7.4-10.4); Platelet Count 234 K/uL (130-400); RDW Coefficient of Variation 14.2 % (11.5-14.5); RDW Standard Deviation 47.8 fL (36.4-46.3); Red Blood Count 4.46 M/uL (4.2-5.4); White Blood Count 7.04 K/uL (4.8-10.8)
[2018-09-02] MEDS: ASPIRIN 81 MG ECTAB PO SCH (08:15)
[2018-09-02] MEDS: LISINOPRIL 20 MG TAB PO SCH (08:15)
[2018-09-02] MEDS: LACTOBACILLUS ACIDOPHILUS (FLORANEX) TAB PO SCH ×4 (08:15→20:18)
[2018-09-02] MEDS: FLUOXETINE HCL 10 MG CAP PO SCH (08:15)
[2018-09-02] MEDS: CHOLECALCIFEROL 1,000 UNITS TAB PO SCH (08:15)
[2018-09-02] MEDS: ALLOPURINOL 100 MG TAB PO SCH (08:16)
[2018-09-02] MEDS: FUROSEMIDE 20 MG TAB PO SCH (08:16)
[2018-09-02] MEDS: METOPROLOL TARTRATE 100 MG TAB PO SCH ×2 (08:16→20:18)
[2018-09-02 08:20] LABS: BUN Creatinine Ratio 16.9 (10-20); Calcium 7.6 mg/dl (8.5-10.1); Creatinine Clr Calc Pharmacy 67.3 ml/min; Est GFR (Non-African American) 49.2; Potassium 3.5 mmol/L (3.5-5.1)
[2018-09-02] MEDS ORDERED: PERFLUTREN LIPID MICROSPHERE (DEFINITY) IV ONE (08:43)
[2018-09-02] MEDS: BUTALBITAL/ACETAMIN/CAFFEINE TAB PO PRN ×2 (09:25→16:48)
[2018-09-02] MEDS ORDERED: NSS + 20MEQ KCL 20 MEQ/1,000 ML BAG IV ONE (09:45)
--- NOTE | 2018-09-02 16:44 | Hospitalist Progress Note ---
Date of Service September 02, 2018 Assessment & Plan (1) Hypertensive urgency: Patient is a 48 yr female with H/O HTN, CKD III, mood disorder, hypothyroidism presents with elevated BP x 1 week and was found to have hypertensive urgency. Hypertensive Urgency: CT head: No acute intracranial findings. Troponin Negative ECHO: no significant valvular pathology/wall motion abnormalities Had Negative work up for secondary HTN previously Continue metoprolol 100mg BID Continue Lisinopril 20mg daily--increased from 10mg 3 days ago Add Amlodipine 5mg daily Hydralazine PRN (2) CKD (chronic kidney disease), stage III: Baseline Cr: 1.2-1.4 Monitor renal function (3) Sinusitis: Hold Amoxicillin Continue Unasyn Day 12/11 (4) Diarrhea: Likely secondary to antibiotics Stool: Negative for C diff IV fluids UTI: Urine Culture:Gram Negative Bacilli Blood Culture: Pending FU final Cx and adjust Abx accordingly (5) Mood disorder: Stable Continue fluoxetine (6) Hypothyroidism: Continue levothyroxine TSH elevated Recheck in AM DVT Px: Teds Code status: FULL Subjective Patient is seen and examined at bedside States feeling better today Headache improving Mild Facial tenderness Has diarrhea as well Denies chest pain, SOB, nausea, abd pain, change in vision No other complaints Physical Exam Vital Signs (Past 24 Hours): Last Vital Signs Temp 37.1 C 09/02/18 15:56 Pulse 67 09/02/18 15:56 Resp 18 09/02/18 15:56 BP 164/79 H 09/02/18 15:56 Pulse Ox 97 09/02/18 15:56 Physical Exam: Physical Exam: Vitals signs as noted above General Appearance:Obese, no apparent distress Head: normocephalic, Atraumatic, + frontal sinus tenderness Eyes: normal inspection, EOMI Neck: supple, Trachea midline Respiratory/Chest: Normal breath sounds, CTA Cardiovascular: S1, S2, No murmur Abdomen/GI:Soft, Non tender, Bowel sounds present Extremities/Musculoskelatal:normal inspection, no edema Neurologic/Psych:AAOX3, grossly no focal neurological deficits Skin: normal color, warm Results & Data Laboratory Results Short CBC 09/02/18 Range/Units 06:59 WBC 7.04 (4.8-10.8) K/uL Hgb 13.2 (12.0-16.0) g/dL Hct 40.6 (37-47) % Plt Count 234 (130-400) K/uL BMP 09/02/18 06:59 Sodium 142 Potassium 3.5 Chloride 111 H Carbon Dioxide 24 BUN 21 H Creatinine 1.27 H Glucose 94 Calcium 7.6 L D
[2018-09-03] MEDS: AMPICILLIN/SULBACTAM SOD 3,000 MG in 0.9 % SODIUM CHLORIDE 100 ML IV SCH ×2 (00:41→06:36)
[2018-09-03] MEDS: LEVOTHYROXINE SODIUM 125 MCG TABLET PO SCH (06:36)
[2018-09-03 07:47] LABS: Hematocrit (blood only) 40.6 % (37-47); Hemoglobin 12.9 g/dL (12.0-16.0); Mean Corpuscular Hgb Conc 31.8 g/dL (32-36); Mean Corpuscular Volume 91.4 fL (80-100); Mean Platelet Volume 10.7 fL (7.4-10.4); Platelet Count 252 K/uL (130-400); RDW Coefficient of Variation 14.3 % (11.5-14.5); RDW Standard Deviation 48.3 fL (36.4-46.3); Red Blood Count 4.44 M/uL (4.2-5.4); White Blood Count 5.19 K/uL (4.8-10.8)
[2018-09-03] MEDS: FUROSEMIDE 20 MG TAB PO SCH (07:57)
[2018-09-03] MEDS: METOPROLOL TARTRATE 100 MG TAB PO SCH ×2 (07:57→20:30)
[2018-09-03] MEDS: ASPIRIN 81 MG ECTAB PO SCH (07:57)
[2018-09-03] MEDS: LACTOBACILLUS ACIDOPHILUS (FLORANEX) TAB PO SCH ×4 (07:57→20:30)
[2018-09-03] MEDS: ALLOPURINOL 100 MG TAB PO SCH (07:58)
[2018-09-03] MEDS: CHOLECALCIFEROL 1,000 UNITS TAB PO SCH (07:58)
[2018-09-03] MEDS: FLUOXETINE HCL 10 MG CAP PO SCH (07:58)
[2018-09-03] MEDS: LISINOPRIL 20 MG TAB PO SCH (07:58)
[2018-09-03 08:22] LABS: Calcium 8.5 mg/dl (8.5-10.1); Creatinine Clr Calc Pharmacy 70.9 ml/min; Est GFR (African American) 60.4; Est GFR (Non-African American) 52.1; Magnesium 1.9 mg/dl (1.8-2.4); Potassium 3.7 mmol/L (3.5-5.1)
[2018-09-03] MEDS: BUTALBITAL/ACETAMIN/CAFFEINE TAB PO PRN ×2 (08:28→22:02)
[2018-09-03] MEDS ORDERED: AMLODIPINE BESYLATE 5 MG TAB PO SCH (09:00)
[2018-09-03 09:07] LABS: T4 Free Thyroxine 1.08 ng/dl (0.8-1.6)
[2018-09-03 09:13] LABS: BUN Creatinine Ratio 13.2 (10-20)
[2018-09-03] MEDS ORDERED: AMLODIPINE BESYLATE 5 MG TAB PO ONE (09:59)
[2018-09-03] MEDS: HydrALAZINE HCL 20 MG/ML VIAL IV PRN ×2 (10:14→16:30)
[2018-09-03] MEDS: levoFLOXacin 750 MG TAB PO SCH (11:07)
--- NOTE | 2018-09-03 14:52 | Hospitalist Progress Note ---
Date of Service September 03, 2018 Assessment & Plan (1) Hypertensive urgency: Patient is a 48 yr female with H/O HTN, CKD III, mood disorder, hypothyroidism presents with elevated BP x 1 week and was found to have hypertensive urgency. Hypertensive Urgency: CT head: No acute intracranial findings. Troponin Negative ECHO: no significant valvular pathology/wall motion abnormalities Had Negative work up for secondary HTN previously Continue metoprolol 100mg BID Continue Lisinopril 20mg daily--increased from 10mg 3 days ago Increase Amlodipine to 10 mg daily Hydralazine PRN (2) CKD (chronic kidney disease), stage III: Baseline Cr: 1.2-1.4 Monitor renal function (3) Sinusitis: Hold Amoxicillin Received 6 days of therapy Started on Levaquin Day #1 (4) Diarrhea: Likely secondary to antibiotics Stool: Negative for C diff Received IV fluids UTI: Urine Culture:E.Coli Blood Culture: No growth to date Levaquin Day #1/3 (5) Mood disorder: Stable Continue fluoxetine (6) Hypothyroidism: Continue levothyroxine TSH elevated free T4: Normal DVT Px: Teds Code status: FULL Subjective Patient is seen and examined at bedside States feeling better today BP still elevated diarrhea, headache, facial tenderness improved Denies chest pain, SOB, nausea, abd pain No other complaints Physical Exam Vital Signs (Past 24 Hours): Last Vital Signs Temp 37.1 C 09/03/18 12:06 Pulse 66 09/03/18 12:06 Resp 16 09/03/18 12:06 BP 143/86 H 09/03/18 12:06 Pulse Ox 96 09/03/18 12:06 Physical Exam: Physical Exam: Vitals signs as noted above General Appearance:Obese, no apparent distress Head: normocephalic, Atraumatic, + frontal sinus tenderness Eyes: normal inspection, EOMI Neck: supple, Trachea midline Respiratory/Chest: Normal breath sounds, CTA Cardiovascular: S1, S2, No murmur Abdomen/GI:Soft, Non tender, Bowel sounds present Extremities/Musculoskelatal:normal inspection, no edema Neurologic/Psych:AAOX3, grossly no focal neurological deficits Skin: normal color, warm Results & Data Laboratory Results Short CBC 09/03/18 Range/Units 07:13 WBC 5.19 (4.8-10.8) K/uL Hgb 12.9 (12.0-16.0) g/dL Hct 40.6 (37-47) % Plt Count 252 (130-400) K/uL BMP 09/03/18 07:13 Sodium 140 Potassium 3.7 Chloride 111 H Carbon Dioxide 26 BUN 16 Creatinine 1.21 H Glucose 84 Calcium 8.5
[2018-09-03] MEDS: ACETAMINOPHEN 500 MG TAB PO PRN (16:13)
[2018-09-03] MEDS: LORazepam 0.5 MG TAB PO PRN (17:54)
[2018-09-03] MEDS ORDERED: MoRPHine SULFATE 4 MG/ML 1 ML CARP\\VIAL IV STA (18:01)
[2018-09-04] MEDS: LEVOTHYROXINE SODIUM 125 MCG TABLET PO SCH (05:38)
[2018-09-04 06:15] LABS: BUN Creatinine Ratio 10.5 (10-20); Calcium 8.3 mg/dl (8.5-10.1); Creatinine Clr Calc Pharmacy 69.3 ml/min; Est GFR (African American) 58.7; Est GFR (Non-African American) 50.6; Potassium 3.7 mmol/L (3.5-5.1)
[2018-09-04] MEDS: ASPIRIN 81 MG ECTAB PO SCH (07:41)
[2018-09-04] MEDS: LISINOPRIL 20 MG TAB PO SCH (07:41)
[2018-09-04] MEDS: FLUOXETINE HCL 10 MG CAP PO SCH (07:42)
[2018-09-04] MEDS: FUROSEMIDE 20 MG TAB PO SCH (07:42)
[2018-09-04] MEDS: METOPROLOL TARTRATE 100 MG TAB PO SCH (07:42)
[2018-09-04] MEDS: ALLOPURINOL 100 MG TAB PO SCH (07:43)
[2018-09-04] MEDS: CHOLECALCIFEROL 1,000 UNITS TAB PO SCH (07:43)
[2018-09-04] MEDS: LACTOBACILLUS ACIDOPHILUS (FLORANEX) TAB PO SCH ×2 (07:43→12:12)
[2018-09-04] MEDS ORDERED: AMLODIPINE BESYLATE 5 MG TAB PO SCH (09:00)
[2018-09-04] MEDS: ACETAMINOPHEN 500 MG TAB PO PRN (09:55)
[2018-09-04] MEDS: levoFLOXacin 750 MG TAB PO SCH (09:55)
--- NOTE | 2018-09-04 11:51 | Hospitalist Progress Note ---
Date of Service September 04, 2018 Assessment & Plan (1) Hypertensive urgency: Patient is a 48 yr female with H/O HTN, CKD III, mood disorder, hypothyroidism presents with elevated BP x 1 week and was found to have hypertensive urgency. Hypertensive Urgency: CT head: No acute intracranial findings. Troponin Negative ECHO: no significant valvular pathology/wall motion abnormalities Had Negative work up for secondary HTN previously Continue metoprolol 100mg BID Continue Lisinopril 20mg daily--increased from 10mg 3 days ago Increase Amlodipine to 10 mg daily Hydralazine PRN BP improved (2) CKD (chronic kidney disease), stage III: Baseline Cr: 1.2-1.4 Monitor renal function (3) Sinusitis: Hold Amoxicillin Received 6 days of therapy Continue Levaquin Day #2 (4) Diarrhea: Likely secondary to antibiotics Stool: Negative for C diff Received IV fluids UTI: Urine Culture:E.Coli Blood Culture: No growth to date Continue Levaquin (5) Mood disorder: Stable Continue fluoxetine (6) Hypothyroidism: Continue levothyroxine TSH elevated free T4: Normal DVT Px: Teds Code status: FULL Subjective Patient is seen and examined at bedside BP improved today Still has mild headache and frontal sinus tenderness Denies chest pain, SOB, nausea, abd pain No other complaints Physical Exam Vital Signs (Past 24 Hours): Last Vital Signs Temp 37.1 C 09/04/18 11:17 Pulse 70 09/04/18 11:17 Resp 16 09/04/18 11:17 BP 149/79 H 09/04/18 11:17 Pulse Ox 96 09/04/18 11:17 Physical Exam: Physical Exam: Vitals signs as noted above General Appearance:Obese, no apparent distress Head: normocephalic, Atraumatic, + frontal sinus tenderness Eyes: normal inspection, EOMI Neck: supple, Trachea midline Respiratory/Chest: Normal breath sounds, CTA Cardiovascular: S1, S2, No murmur Abdomen/GI:Soft, Non tender, Bowel sounds present Extremities/Musculoskelatal:normal inspection, no edema Neurologic/Psych:AAOX3, grossly no focal neurological deficits Skin: normal color, warm Results & Data Laboratory Results [facility] 09/04/18 05:16 Sodium 139 Potassium 3.7 Chloride 105 Carbon Dioxide 28 BUN 13 Creatinine 1.24 H Glucose 84 Calcium 8.3 L
--- NOTE | 2018-09-04 11:58 | Discharge Summary ---
Date of Service September 04, 2018 Admission HPI Per Admitting Provider This is a 48yo F with a PMH of HTN, CKD III, mood disorder, hypothyroidism and other medical problems listed below who presents with elevated BP x 1 week. Patient has history of uncontrolled HTN, including an admission for hypertensive emergency in September 2017. Was experiencing epistaxis and dizziness at the time and underwent stroke work up, which was negative. Patient was diagnosed with sinusitis on Tuesday and was instructed to stop taking decongestants, since her BP was high at the time. Last decongestant dose 5 days ago. When patient woke up today, she had a headache and took two tylenol with improvement of symptoms. Was able to go to work an hour before she developed dizziness and nausea. Was brought to ED for further evaluation and had 2 episodes of bilious vomit since arrival. BP was initially elevated at 228/122 but has decreased to 193/109 after IV Labetalol 10mg x 2. No longer experiencing dizziness or nausea. Has had two episodes of diarrhea today. Denies confusion, difficulty speaking or swallowing, chest pain, palpitations or SOB. No abdominal pain, dysuria, hematuria or lower extremity swelling. Patient endorses taking Lopressor 100mg BID, Lasix 20mg and Lisinopril 20mg this morning. Lisinopril was increased from 10mg to 20mg 3 days ago by PCP. Takes BP at home and it is normally 150s/80s. CT head without acute abnormalities. EKG with normal sinus rhythm. Troponin negative. Kidney function at baseline. BP of 193/109 when she was given additional IV Labetalol dose of 20mg. Denies fever, chills, lightheadedness, chest pain, palpitations, SOB, abdominal pain, dysuria, hematuria or lower extremity swelling. Admission Exam Per Admitting Provider General Appearance: WD/WN, obese, +anxious Head: normocephalic, atraumatic Eyes: normal inspection, PERRL, EOMI ENT: hearing grossly normal, pharynx normal (moist mucous membranes) Neck: supple, no JVD, no adenopathy Respiratory/Chest: lungs clear to auscultation. No wheezes, rales or rhonci. No respiratory distress or accessory muscle use Cardiovascular: regular rate, rhythm, no murmur, normal peripheral pulses Abdomen/GI: normal bowel sounds, soft, non-tender to palpation Extremities/Musculoskelatal: normal inspection, no calf tenderness, normal capillary refill, no pedal edema Neurologic/Psych: alert, normal mood/affect, oriented x 3 Skin: normal color, warm/dry Principal Diagnosis Discharge Information Discharge Diagnosis Hypertensive Urgency Sinusitis UTI Discharge Goals Decrease discomfort,Improve disease control, Improve function Discharge Activity Limitations Resume your previous activity Discharge Data Allergies Allergy/AdvReac Type Severity Reaction Status Date / Time No Known Allergies Allergy Verified 09/01/18 10:53 Consultations 09/01/18 13:35 ED Decision to Admit Stat Procedures Performed CT head: No acute intracranial findings. Ordered Studies 09/01/18 10:12 CT head/brain wo con Stat Hospital Course (1) Hypertensive urgency: Patient is a 48 yr female with H/O HTN, CKD III, mood disorder, hypothyroidism presents with elevated BP x 1 week and was found to have hypertensive urgency. Hypertensive Urgency: CT head: No acute intracranial findings. Troponin Negative ECHO: no significant valvular pathology/wall motion abnormalities Had Negative work up for secondary HTN previously Continue metoprolol 100mg BID Continue Lisinopril 20mg daily--increased from 10mg 3 days ago Increase Amlodipine to 10 mg daily Hydralazine PRN BP improved (2) CKD (chronic kidney disease), stage III: Baseline Cr: 1.2-1.4 Monitor renal function (3) Sinusitis: Hold Amoxicillin Received 6 days of therapy Continue Levaquin Day #2 (4) Diarrhea: Likely secondary to antibiotics Stool: Negative for C diff Received IV fluids UTI: Urine Culture:E.Coli Blood Culture: No growth to date Continue Levaquin (5) Mood disorder: Stable Continue fluoxetine (6) Hypothyroidism: Continue levothyroxine TSH elevated free T4: Normal DVT Px: Teds Code status: FULL Total Time Total Time Spent Total Time Spent (In Minutes): 36 minutes Total Time Includes: Examination of the Patient, Discharge Planning, Medication Reconciliation and Other Discharge Plan Discharge Items Patient Disposition: Home - Self-Care Reason For Visit: HYPERTENSIVE URGENCY Discharge Diagnosis: Hypertensive Urgency Sinusitis UTI Discharge Goals: Decrease discomfort, Improve disease control and Improve function Activity: Resume your previous activity Exercise/Sports: Gradually increase as tolerated Non-emergency contact: Primary Care Provider Call non-emergency contact if: you have any medication questions, your symptoms worsen, your pain is not controlled, your pain is worsening, your pain is unusual for you and you have a fever Follow-up/Referrals: Mykel Bailey [Primary Care Provider] - Diet: Heart Healthy and Low Sodium (2gm) Addtl Provider Instructions: Follow up with your PCP on 09/08/18 at 12:45pm Consider following with your ENT surgeon for Sinusitis if symptoms do not resolve Consider following with your Composite Engineer if your Blood pressure remains uncontrolled Check your Blood pressure regularly and follow up with your Physician Prescriptions: New levofloxacin 750 mg Tablet 750 mg PO DAILY@1100 3 Days Qty: 3 RF: 0 amlodipine 10 mg tablet 10 mg PO DAILY Qty: 30 RF: 1 Continued metoprolol tartrate 100 mg tablet 100 mg PO BID RF: 0 fluoxetine 10 mg Tablet 10 mg PO QAM RF: 0 allopurinol 100 mg Tablet 100 mg PO QAM RF: 0 aspirin 81 mg Tablet,Delayed Release (Dr/Ec) 81 mg PO QAM RF: 0 acetaminophen [Tylenol Extra Strength] 500 mg Tablet 1,000 mg PO Q6H PRN (Reason: Pain) RF: 0 albuterol sulfate [Ventolin HFA] 90 mcg/actuation Hfa Aerosol Inhaler 2 puff INHALATION Q6H PRN (Reason: Shortness Of Breath Or Wheezing) RF: 0 cholecalciferol (vitamin D3) [Vitamin D3] 2,000 unit Tablet 2,000 unit PO QAM RF: 0 cyclobenzaprine 10 mg Tablet 10 mg PO HS PRN (Reason: Muscle Spasm) RF: 0 lisinopril 20 mg Tablet 20 mg PO DAILY RF: 0 meclizine 25 mg Tablet 25 mg PO TID PRN (Reason: Muscle Spasm) RF: 0 furosemide 20 mg Tablet 20 mg PO DAILY RF: 0 levothyroxine 125 mcg Capsule 125 mcg PO DAILY RF: 0 Discontinued amoxicillin 500 mg Tablet 500 mg PO TID RF: 0 Stand-Alone Forms: Blurr/Other Patient Handouts: Hypertension Control Discharge Orders: Discharge Order (Routine); Ordered 09/04/18 Ordered By: Misha Beckman Admission Data Admit Date/Time: 09/03/18 15:21 Attending Provider: Misha Beckman Admit Provider: Izzy Gomez Primary Care Provider: Mykel Bailey Other Providers: Izzy Gomez Service: Telemetry Other Interventions: Discharge Summary Assessment (RN) Last Done: 09/04/18 12:46 Pending Studies at Discharge: No DC Date/Time DO NOT enter until pt leaves facility: 09/04/18 14:53
== END 2018-09-04 14:53 | disposition home or self-care (01) | DRG 305 ==
LOC: 2S 09:36 → ED 09:36 → 2S 16:16

== ENCOUNTER 2019-12-17 16:34 | Inpatient (IN) ==
[2019-12-17] MEDS ORDERED: MoRPHine SULFATE 4 MG/ML 1 ML CARP\\VIAL IV STA (19:39)
[2019-12-17] MEDS ORDERED: ONDANSETRON INJ 2 MG/ML 2 ML VIAL IV STA (19:39)
--- NOTE | 2019-12-17 19:54 | Emergency Department Note ---
History of Present Illness General Chief complaint: Referred by Doctor Stated complaint: NEEDS ULTRASOUND, POSSIBLE BLOOD CLOT IN LEG Time Seen by Provider: 12/17/19 19:34 Source: patient Mode of arrival: ambulatory Limitations: no limitations History of Present Illness Provider complaint: Right leg pain Onset (ago): week(s) Location: lower extremity and right Radiation: non-radiation Severity: moderate Pain Consistency: + constant Maximum Pain Intensity: 6 Quality: + aching and + dull Relieved By: + none Associated symptoms: no chest pain, no cough, no fever/chills, no nausea/vomiting and no shortness of breath This is a 49-year-old female sent in by her PCP for evaluation of right leg pain. The patient has pain in her right upper leg extending behind her knee starting about a week ago. She describes it as an aching sensation. It is constant. No alleviating factors. It is associated with leg swelling. She denies any back pain, chest pain, shortness of breath, fever, cough or cold symptoms or abdominal pain. She denies hormone therapy or recent immobilization. She denies any history of DVT or PE. She does have hypertension and takes her medications regularly. Home Medications Home Medications Medication Instructions Recorded Confirmed Type acetaminophen [Tylenol Extra 1,000 mg PO UD PRN 09/01/18 12/18/19 History Strength] allopurinol 100 mg PO QAM 09/01/18 12/18/19 History aspirin 81 mg PO QAM 09/01/18 12/18/19 History cholecalciferol (vitamin D3) 2,000 unit PO QAM 09/01/18 12/18/19 History [Vitamin D3] furosemide 20 mg PO QAM 09/01/18 12/18/19 History metoprolol tartrate 100 mg PO BID 09/01/18 12/18/19 History fluoxetine 10 mg capsule 10 mg PO QAM 07/19/19 12/18/19 History albuterol sulfate 2 puffs INH UD PRN 07/24/19 12/18/19 History rosuvastatin [Crestor] 20 mg PO QAM 07/24/19 12/18/19 History tramadol 50 mg tablet 50 mg PO Q4H PRN #18 tab 08/03/19 12/18/19 Rx fluticasone propionate 110 2 puffs INH BID #12 gm 08/13/19 12/18/19 Rx mcg/actuation HFA aerosol inhaler sulfamethoxazole 400 1 tab PO .As directed #30 tab 09/14/19 12/18/19 Rx mg-trimethoprim 80 mg tablet codeine 10 mg-guaifenesin 100 mg/5 5 ml PO Q6H PRN #60 ml MDD 20mL 09/20/19 12/18/19 Rx mL oral liquid amlodipine 5 mg PO DAILY 12/18/19 12/18/19 History levothyroxine 125 mcg PO DAILY 12/18/19 12/18/19 History prednisone 10 mg PO DAILY 12/18/19 12/18/19 History Allergies Allergy/AdvReac Type Severity Reaction Status Date / Time vancomycin AdvReac Intermediate Flushing Verified 12/18/19 00:32 Past Med/Surg History Medical History Anxiety CKD (chronic kidney disease), stage III (Chronic) History of pneumonia APR 2019...RESOLVED HTN (hypertension) (Chronic) Hypothyroidism (Chronic) NO MEDS Kidney stone CURRENT/NO PROBLEMS WITH Migraines (Chronic) 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 and A total of 10 systems reviewed and were otherwise negative Physical Exam Vital Signs Vital Signs - 24 hr 12/17/19 17:29 12/17/19 19:35 12/17/19 20:21 Temperature 37.0 C Temperature Source Oral Pulse Rate 100 H 115 H 100 H Pulse Rate [Apical] 101 H Respiratory Rate 20 17 20 Respiratory Effort / Characteristics Non-Labored Spontaneous Respiratory Depth Normal Respiratory Pattern Regular Blood Pressure 244/144 H 259/137 H 220/128 H Blood Pressure [Right Arm] 259/137 H Blood Pressure Mean 177 187 174 Blood Pressure Mean [Right Arm] 177 Pulse Oximetry 98 98 96 Oxygen Delivery Method Room Air Room Air Sepsis Recent Fever Within 48 Hours No Sepsis New/Unexplained Change in Mental Status No Sepsis Action Taken by Nursing No Action Required 12/17/19 20:30 12/17/19 21:26 12/17/19 22:00 Temperature Temperature Source Pulse Rate 90 101 H 91 H Pulse Rate [Apical] Respiratory Rate 15 19 19 Respiratory Effort / Characteristics Respiratory Depth Respiratory Pattern Blood Pressure 222/125 H 240/129 H 207/126 H Blood Pressure [Right Arm] Blood Pressure Mean 165 145 171 Blood Pressure Mean [Right Arm] Pulse Oximetry 95 98 95 Oxygen Delivery Method Sepsis Recent Fever Within 48 Hours Sepsis New/Unexplained Change in Mental Status Sepsis Action Taken by Nursing 12/17/19 22:30 12/17/19 23:00 12/17/19 23:31 Temperature Temperature Source Pulse Rate 93 H 82 Pulse Rate [Apical] 83 Respiratory Rate 18 16 19 Respiratory Effort / Characteristics Respiratory Depth Respiratory Pattern Blood Pressure 193/114 H 160/111 H Blood Pressure [Right Arm] 186/114 H Blood Pressure Mean 134 129 Blood Pressure Mean [Right Arm] 138 Pulse Oximetry 94 93 97 Oxygen Delivery Method Sepsis Recent Fever Within 48 Hours Sepsis New/Unexplained Change in Mental Status Sepsis Action Taken by Nursing 12/17/19 23:48 12/18/19 00:00 Temperature Temperature Source Pulse Rate 77 Pulse Rate [Apical] 84 Respiratory Rate 16 17 Respiratory Effort / Characteristics Respiratory Depth Respiratory Pattern Blood Pressure 199/109 H Blood Pressure [Right Arm] Blood Pressure Mean 130 Blood Pressure Mean [Right Arm] Pulse Oximetry 97 96 Oxygen Delivery Method Room Air Sepsis Recent Fever Within 48 Hours Sepsis New/Unexplained Change in Mental Status Sepsis Action Taken by Nursing Constitutional: Vital signs reviewed. Eyes: Pupils are equal round reactive to light. Conjunctiva are noninjected. ENT: Pharynx is clear without erythema or exudate. Mucous membranes are moist. Neck supple without meningeal signs. Respiratory: Clear to auscultation bilaterally. Breath sounds are equal bilat erally. Cardiovascular: Tachycardic. Heart rate 103. GI: Soft, nondistended and nontender. Bowel sounds are present. Musculoskeletal: Mild swelling to the right lower extremity compared to the left . Normal distal pulse. Tenderness behind the right knee. Integumentary: No cyanosis. or jaundice. Neurological: The patient is awake and alert. No focal deficits. Psychiatric: Normal affect. Not anxious appearing. Course Administered Medications Ioversol (Optiray 320 125ml) 119 ml IV ONCE PRN PRN Reason: Interaction Checking Stop: 12/21/19 21:16 Last Admin: 12/17/19 21:17 Dose: 119 ml Documented by: [id number] Discontinued Medications Labetalol HCl (Normodyne) 10 mg IV NOW STA Stop: 12/17/19 21:50 Last Admin: 12/17/19 21:55 Dose: 10 mg Documented by: [id number] Cosigned by: [id number] Labetalol HCl (Normodyne) 10 mg IV NOW STA Stop: 12/17/19 22:38 Last Admin: 12/17/19 22:49 Dose: 10 mg Documented by: [id number] Cosigned by: [id number] Morphine Sulfate (Morphine Sulfate) 4 mg IV NOW STA Stop: 12/17/19 19:40 Last Admin: 12/17/19 20:07 Dose: 4 mg Documented by: [id number] Morphine Sulfate (Morphine Sulfate) 2 mg IV NOW STA Stop: 12/17/19 21:49 Last Admin: 12/17/19 21:56 Dose: 2 mg Documented by: [id number] Ondansetron HCl (Zofran) 4 mg IV NOW STA Stop: 12/17/19 19:40 Last Admin: 12/17/19 20:07 Dose: 4 mg Documented by: [id number] Critical Care Time Critical Care Time: Yes Total Critical Care Time: 33 I have personally spent approximately 33 minutes of critical care time in the direct management of this patient. This includes bedside care, interpretation of diagnostic studies, and testing, discussion with consultants, patient, and family members, and other required patient management activities. These minutes are in excess of all separately billable procedures. Medical Decision Making Differential Diagnosis DVT, PE, hypertensive emergency, dysrhythmia, metabolic derangement, strain Medical Records Attestation: I reviewed the patient's medical records. The patient was seen by pulmonology in September for hemoptysis. A CT of the chest was scheduled. She did have a CT of the chest last year which showed no evidence of pulmonary embolism. She did have a pulmonary nodule at that time. Home Medications Current Medication List: was personally reviewed by me Laboratory Data Attestation: I reviewed the patient's lab results. Result diagrams: 12/17/19 19:56 12/17/19 19:56 Lab Results 12/17/19 12/17/19 12/17/19 Range/Units 19:56 19:56 19:56 WBC 7.20 (4.8-10.8) K/uL RBC 4.86 (4.2-5.4) M/uL Hgb 14.0 (12.0-16.0) g/dL Hct 43.0 (37-47) % MCV 88.5 (80-100) fL MCH 28.8 (25-34) pg MCHC 32.6 (32-36) g/dL RDW Std Deviation 48.4 H (36.4-46.3) fL RDW Coeff of Chasity 15.1 H (11.5-14.5) % Plt Count 309 (130-400) K/uL MPV 10.6 H (7.4-10.4) fL Immature Gran % (Auto) 0.1 % Neut % (Auto) 54.8 % Lymph % (Auto) 31.9 % Fisher % (Auto) 8.2 % Eos % (Auto) 4.7 % Baso % (Auto) 0.3 % Immature Gran # (Auto) 0.01 (0.00-0.02) K/uL Neut # (Auto) 3.94 (1.4-6.5) K/uL Lymph # (Auto) 2.30 (1.2-3.4) K/uL Fisher # (Auto) 0.59 (0.11-0.59) K/uL Eos # (Auto) 0.34 (0-0.5) K/uL Baso # (Auto) 0.02 (0-0.2) K/uL PT 10.5 (9.0-12.0) Seconds INR 1.0 (0.9-1.1) APTT 30.0 (21.0-31.0) Seconds PTT Ratio 1.1 Sodium 138 (136-145) mmol/L Potassium 3.9 (3.5-5.1) mmol/L Chloride 104 (98-107) mmol/L Carbon Dioxide 27 (21-32) mmol/L Anion Gap 7.0 (3-11) BUN 24 H (7-18) mg/dl Creatinine 1.35 H (0.6-1.2) mg/dl Est Cr Clr Drug Dosing 64.1 ml/min Est GFR ( Amer) 52.6 Est GFR (Non-Af Amer) 45.3 BUN/Creatinine Ratio 17.6 (10-20) Glucose 93 (70-99) mg/dl Calcium 9.6 (8.5-10.1) mg/dl Total Bilirubin 0.5 (0.2-1) mg/dl AST 25 (15-37) U/L ALT 24 (12-78) U/L Alkaline Phosphatase 90 (45-117) U/L Troponin I < 0.015 (0-0.045) ng/ml Total Protein 9.3 H (6.4-8.2) gm/dl Albumin 3.7 (3.4-5.0) gm/dl Globulin 5.6 H (2.5-4.0) gm/dl Albumin/Globulin Ratio 0.7 L (0.9-2) Specimen Hemolysis Imaging Data Radiologist's Impression: CTA CHEST: The pulmonary arterial tree is well-opacified with contrast. No pulmonary emboli are identified. The aorta is nondilated. No aneurysm or dissection. There is mild cardiomegaly and coronary calcification. No pericardial effusion is seen. No mediastinal or axillary lymph fat of the or mass is present. The lungs are well inflated. There is a 7 mm pulmonary nodule in the right lower lobe immediately lateral to the hilum, series 4 image #65. Fleischner Society Guidelines for low-risk patients recommend follow-up chest CT at 6-12 months. If unchanged consider an additional follow-up CT at 18-24 months. For high-risk patients (smoking history or other known risk factors) initial follow-up chest CT at 6-12 months and if unchanged, 18-24 months. There is a trace amount of atelectasis in the medial right lower lobe. No acute appearing airspace infiltrate is identified. Mild to moderate multilevel osteophytosis throughout the thoracic spine. No acute fracture or bone lesion is identified. Previous cholecystectomy is incidentally noted. Radiologist: Adrian Londono MD Study ready at 21:48 and initial results transmitted at 22:08 US VENOUS RIGHT LOWER EXTREMITY: Negative right lower extremity venous duplex ultrasound. No evidence of DVT. Radiologist: Adrian Londono MD Study ready at 21:15 and initial results transmitted at 21:22 ECG Data Attestation: I personally reviewed and interpreted this ECG as follows: Indication: + tachycardia Rate (beats per minute): 103 Rhythm: + sinus tachycardia ECG Intervals/blocks: no Complete heart block and no Left bundle branch block ECG ST segments: no ST elevation ECG Findings: no PVCs Blood Pressure Blood Pressure Findings: Elevated blood pressure Blood Pressure Disposition: further management by hospitalist RAMANA Kevin I did evaluate the patient as noted above. The patient is presenting with right leg pain and swelling. On initial evaluation the patient is tachycardic and severely hypertensive. She did take her blood pressure medications today. I was concerned about DVT/PE. I did recommend CT scanning of her chest and Doppler ultrasound of lower extremities. She was in agreement. IV access was established. I did place an order for continuous cardiac monitoring. The monitor showed sinus tachycardia with a rate of 106. I did order and personally review the patient's 12-lead EKG as described above. She has sinus tachycardia without acute ischemia. I did order and review the patient's blood work as noted in the electronic medical record. CBC is unremarkable without leukocytosis or anemia. Electrolytes are unremarkable. Creatinine is at baseline at 1.35. I did order an ultrasound of the right lower extremity which showed no evidence of DVT. I did order a CT angiogram of the chest. I did review the images myself as well as the radiology report as described above. There is no evidence of PE. She does have a known pulmonary nodule. I did reassess the patient. She is still severely hypertensive. I did give her labetalol IV. On reexamination she remains hypertensive and so she was given additional labetalol IV. I did recommend she be hospitalized for close monitoring of her blood pressure and further care. I did discuss the case with the hospitalist and ed case manager. Impression & Plan Severe hypertension, Leg pain, right, Tachycardia Discharge Plan Visit Data Chief Complaint: Referred by Doctor Stated Complaint: NEEDS ULTRASOUND, POSSIBLE BLOOD CLOT IN LEG ED Provider: Cristian Cortes Discharge Problem: Severe hypertension, Leg pain, right, Tachycardia Forms Stand Alone Forms: [facility] Prescriptions Prescriptions: No Action tramadol [Ultram] 50 mg tablet 50 mg PO Q4H PRN (Reason: pain) Qty: 18 RF: 0 codeine-guaifenesin 10-100 mg/5 mL liquid 5 ml PO Q6H MDD 20mL PRN (Reason: cough) Qty: 60 RF: 0 fluoxetine [Prozac] 10 mg capsule 10 mg PO QAM RF: 0 sulfamethoxazole-trimethoprim 400-80 mg tablet 1 tab PO .As directed Qty: 30 RF: 3 Flovent HFA 110 mcg/actuation HFA aerosol inhaler 2 puffs INH BID Qty: 12 RF: 2 metoprolol tartrate 100 mg tablet 100 mg PO BID RF: 0 allopurinol 100 mg Tablet 100 mg PO QAM RF: 0 aspirin 81 mg Tablet,Delayed Release (Dr/Ec) 81 mg PO QAM RF: 0 acetaminophen [Tylenol Extra Strength] 500 mg Tablet 1,000 mg PO UD PRN (Reason: Pain) RF: 0 cholecalciferol (vitamin D3) [Vitamin D3] 2,000 unit Tablet 2,000 unit PO QAM RF: 0 furosemide 20 mg Tablet 20 mg PO QAM RF: 0 rosuvastatin [Crestor] 20 mg Tablet 20 mg PO QAM RF: 0 albuterol sulfate 90 mcg/actuation HFA aerosol inhaler 2 puffs INH UD PRN (Reason: shortness of breath or wheezing) RF: 0 amlodipine 5 mg Tablet 5 mg PO DAILY RF: 0 levothyroxine 125 mcg Tablet 125 mcg PO DAILY RF: 0 prednisone 5 mg Tablet 10 mg PO DAILY RF: 0
[2019-12-17 20:05] LABS: Basophils # (auto) 0.02 K/uL (0-0.2); Basophils % (auto) 0.3 %; Eosinophils # (auto) 0.34 K/uL (0-0.5); Eosinophils % (auto) 4.7 %; Immature Granulocytes # (auto) 0.01 K/uL (0.00-0.02); Immature Granulocytes % (auto) 0.1 %; Lymphocytes % (auto) 31.9 %; Mean Corpuscular Hemoglobin 28.8 pg (25-34); Mean Corpuscular Hgb Conc 32.6 g/dL (32-36); Mean Corpuscular Volume 88.5 fL (80-100); Mean Platelet Volume 10.6 fL (7.4-10.4); Monocytes # (auto) 0.59 K/uL (0.11-0.59); Monocytes % (auto) 8.2 %; Neutrophils # (auto) 3.94 K/uL (1.4-6.5); Neutrophils % (auto) 54.8 %; Platelet Count 309 K/uL (130-400); RDW Coefficient of Variation 15.1 % (11.5-14.5); RDW Standard Deviation 48.4 fL (36.4-46.3); Red Blood Count 4.86 M/uL (4.2-5.4)
[2019-12-17 20:24] LABS: Partial Thromboplastin Ratio 1.1; Prothrombin Time 10.5 Seconds (9.0-12.0)
[2019-12-17 20:29] LABS: Alanine Aminotransferase 24 U/L (12-78); Albumin Level 3.7 gm/dl (3.4-5.0); Aspartate Aminotransferase 25 U/L (15-37); BUN Creatinine Ratio 17.6 (10-20); Blood Urea Nitrogen 24 mg/dl (7-18); Calcium 9.6 mg/dl (8.5-10.1); Carbon Dioxide 27 mmol/L (21-32); Chloride 104 mmol/L (98-107); Creatinine Clr Calc Pharmacy 64.1 ml/min; Est GFR (African American) 52.6; Est GFR (Non-African American) 45.3; Glucose 93 mg/dl (70-99); Potassium 3.9 mmol/L (3.5-5.1); Sodium 138 mmol/L (136-145)
[2019-12-17 20:33] LABS: Albumin Globulin Ratio 0.7 (0.9-2); Alkaline Phosphatase 90 U/L (45-117); Bilirubin,Total 0.5 mg/dl (0.2-1); Globulin 5.6 gm/dl (2.5-4.0); Total Protein 9.3 gm/dl (6.4-8.2); Troponin I < 0.015 ng/ml (0-0.045)
[2019-12-17] MEDS ORDERED: OPTIRAY 320 125ml IV PRN (21:17)
--- NOTE | 2019-12-17 21:40 | Ultrasound Report ---
ULTRASOUND RIGHT LOWER EXTREMITY VENOUS CLINICAL HISTORY: Right leg pain. COMPARISON STUDY: No priors. TECHNIQUE: Real-time, grayscale, and color Doppler sonography of the deep veins of the right lower ex tremity was performed from the inguinal crease to the calf. Compression and augmentation were utilize d. FINDINGS: There is no sonographic evidence of deep venous thrombosis identified in the right lower ex tremity. The common femoral, superficial femoral, and popliteal veins are patent and normally calista sible. The greater saphenous vein and the profunda femoris vein at the junction with the common femor al vein are clear. The visualized calf veins are patent. IMPRESSION: There is no sonographic evidence of deep venous thrombosis identified in the right lower extremity. ACT 112: Negative or not required by law. Electronically signed by: Luis Balderas M.D. 12/17/2019 9:39 PM
[2019-12-17] MEDS ORDERED: MoRPHine SULFATE 2 MG/ML CARP IV STA (21:48)
[2019-12-17] MEDS ORDERED: LABETALOL HCL IV 5 MG/ML 20ML IV STA ×2 (21:49→22:37)
[2019-12-18] MEDS ORDERED: TRAMADOL HCL 50 MG TABLET PO PRN (02:08)
[2019-12-18] MEDS ORDERED: ONDANSETRON INJ 2 MG/ML 2 ML VIAL IV PRN (02:08)
[2019-12-18] MEDS ORDERED: GUAIFENESIN/CODEINE 200MG/20MG 10ML UDC PO PRN (02:08)
[2019-12-18] MEDS ORDERED: ALBUTEROL HFA 8 GM INHALER INH PRN (02:08)
[2019-12-18] MEDS ORDERED: NITROGLYCERIN SL 0.4 MG/TAB TAB SL PRN (02:08)
[2019-12-18] MEDS ORDERED: HydrALAZINE HCL 20 MG/ML VIAL IV PRN (02:08)
[2019-12-18] MEDS ORDERED: ACETAMINOPHEN 325 MG TAB PO PRN (02:08)
[2019-12-18] MEDS ORDERED: POLYETHYLENE (MIRALAX) 17 GM PACK PO PRN (02:08)
[2019-12-18] MEDS ORDERED: OXYCODONE HCL IR 5 MG TAB (IMMEDIATE RELEASE) PO PRN (02:08)
[2019-12-18] MEDS ORDERED: LABETALOL HCL IV 5 MG/ML 20ML IV PRN (02:08)
--- NOTE | 2019-12-18 02:22 | History and Physical Report ---
DATE OF ADMISSION: 12/18/2019 CHIEF COMPLAINT: Right lower extremity pain. HISTORY OF PRESENT ILLNESS: A 49-year-old female with past medical history significant for hypothyroidism, chronic rhinitis, chronic kidney disease stage III, hypertension, morbid obesity, history of right kidney stone, history of displacement of cervical disc, plantar fascitis, fusion of spine in the cervical region, migraine, anterior cervical lymphadenopathy, depression, anxiety state. Presents with right lower extremity pain. Dictation Ends Here
--- NOTE | 2019-12-18 03:06 | History and Physical Report ---
DATE OF ADMISSION: 12/18/2019 CHIEF COMPLAINT: Right lower extremity pain. HISTORY OF PRESENT ILLNESS: This is a 49-year-old female with past medical history significant for hypothyroidism, chronic rhinitis, chronic kidney disease stage III, hypertension, morbid obesity, history of right kidney stone, history of fusion of cervical spine, plantar fascitis, migraine, anterior cervical lymphadenopathy, depression, anxiety state presents with right lower extremity pain, is worried about deep venous thrombosis, but lower extremity Doppler and CTA of the chest were unremarkable in the ER, but she was found to have blood pressures running high requiring a couple of doses of IV labetalol and still it is in 190s so we were called for admission. The patient denies any chest pain, no shortness of breath, no cough, no nausea, no abdominal pain, no headache, no blurred visions, no earache, no runny nose, no sore throat, no difficulty swallowing. No loss of sense of smell or taste. No abdominal pain. Normal bowel and bladder movements. No swelling in the lower extremities, no rash. Ambulates okay. The patient is also having issues with her lungs, following with pulmonary. 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 Rigid bronchoscopy with biopsy demonstrated loosely formed granuloma. She improved with prednisone, but as soon as prednisone stopped, her symptoms have returned of cough and hemoptysis. Serology is negative and as per pulmonary, biopsy did not appear consistent with relapsing polychondritis. There is question of sarcoid or other infiltrative and inflammatory disorders, but it was thought isolated sarcoid could be unusual. There is a plan for repeat CT chest with contrast to evaluate trachea and if lesion persists, there is plan to refer to tertiary care center, but as per the patient, then she went to a different pulmonary at [facility] and currently she is still on prednisone since last 2 months and also Bactrim to prevent any infection while on prednisone. She is taking 10 mg of prednisone daily currently since last 1 week. ALLERGIES: VANCOMYCIN. PAST MEDICAL HISTORY: As mentioned above. PAST SURGICAL HISTORY: , dilatation and curettage, injection of the cervical spine, ligation of oviduct, cholecystectomy. MEDICATIONS: The patient is currently on Tylenol 1000 mg p.o. p.r.n., albuterol 2 puffs inhalation p.r.n., allopurinol 100 mg p.o. a.m., amlodipine 5 mg p.o. daily, aspirin 81 mg p.o. daily, vitamin D 2000 units p.o. a.m., codeine plus guaifenesin 5 mg p.o. q. 6 hours p.r.n., fluoxetine 10 mg p.o. daily, fluticasone propionate 110 mcg 2 puffs inhalation b.i.d., Lasix 20 mg p.o. daily a.m., levothyroxine 125 mcg p.o. daily, metoprolol 100 mg p.o. b.i.d. Currently, prednisone on tapering dose on 10 mg daily, Crestor 20 mg p.o. daily, Bactrim 1 tablet 3 times a week, tramadol 50 mg p.o. q. 4 hours p.r.n. FAMILY HISTORY: Significant for brother has diabetes; father has diabetes, heart disorder, hypertension, he is on dialysis. SOCIAL HISTORY: . No smoking. Alcohol rarely. No drug use. REVIEW OF SYSTEMS: As per HPI. Rest of the review of systems negative. PHYSICAL EXAMINATION: GENERAL: The patient is morbidly obese, not in acute distress. VITAL SIGNS: Temperature 37, pulse 77, respiratory rate 17, blood pressure 199/109, oxygen 96% on room air. HEENT: No pallor, no icterus. Pupils equal, round, and reactive to light. NECK: No JVD, no neck masses seen. CARDIOVASCULAR: S1, S2 heard, regular rate and rhythm, no murmur, no gallop. RESPIRATORY SYSTEM: Normal AP diameter. No accessory muscle use. No wheezing, no crackles. ABDOMEN: Soft, bowel sounds present, nontender. No distention. CENTRAL NERVOUS SYSTEM: Cranial nerves II-XII grossly intact, nonfocal. EXTREMITIES: No edema, no erythema. MUSCULOSKELETAL: Bilateral straight leg test is negative. LABORATORY DATA: WBC 7.2, hemoglobin 14, hematocrit 43, platelets 309. PT 10.5, INR 1, APTT 30. Sodium 138, potassium 3.9, chloride 104, bicarbonate 27, BUN 24, creatinine 1.35. Serum glucose 93, calcium 9.6, total bilirubin 0.5, AST 25, ALT 24, alkaline phosphatase 90. Troponin I less than 0.015. IMAGING DATA: Venous Doppler today, no DVT. CT of the chest, preliminary report, no PE. ASSESSMENT AND PLAN: This is a 49-year-old female who presents with right lower extremity pain. 1. Right lower extremity pain. Looks like the pain is in her thigh, sometimes shooting down on the legs. It could be sciatica type of pain. We will get a lumbar spinal CT scan. Pain control, PT/OT. Monitor in the hospital. 2. Hypertensive urgency. Blood pressure is running high. The patient says blood pressure high at home today morning, but usually runs okay. At home, she is on amlodipine, Lasix, and metoprolol. She has been on prednisone for the last two months, it could be contributing to her hypertension. The patient received few doses of labetalol, l in the ER, but still systolic blood pressure is greater than 190. We will keep the patient in the med/surg tele. We will place on IV labetalol p.r.n., IV hydralazine p.r.n. If it is not getting controlled, we will get an echocardiogram and also a nocturnal pulse ox study. The patient is obese and may need a sleep study. Could be resistant hypertension. We may consider getting Cardiology's help. 3. Morbid obesity, need counseling, needs sleep study as outpatient. 4. Chronic kidney disease stage III, baseline creatinine around 1.3 current creatinine 1.35. We will follow the labs. 5. Depression. Continue fluoxetine. 6. Hypothyroidism. Continue Synthroid. 7. Hyperlipidemia. Continue statin. 8. abnormal trachea and cough with hemoptysis. Currently on prednisone taper and Bactrim to prevent any infection while on prednisone. Follows with pulmonary. 9. Deep venous thrombosis prophylaxis, sequential compression devices for now. 10. Disposition: Admit to observe in med/surg tele. Level 1 full code. Expect to discharge home and follow with the family doctor. AUSTEND
[2019-12-18] MEDS ORDERED: LEVOTHYROXINE SODIUM 125 MCG TABLET PO SCH (06:30)
--- NOTE | 2019-12-18 06:54 | CT Scan Report ---
CT angio chest PE protocol CT DOSE: 911.82 mGy.cm HISTORY: Chest pain. Dyspnea. tachy eval for PE TECHNIQUE: Multiaxial CT images of the chest were performed following the intravenous administration of contrast to evaluate the pulmonary arteries. Maximal intensity projection images were also obtaine d. A dose lowering technique was utilized adhering to the principles of ALARA. COMPARISON STUDY: 04/04/2019 FINDINGS: There is a normal caliber thoracic aorta with no evidence for dissection. There is no evide nce for pulmonary embolus. No pleural effusions. No pneumothorax. The liver and spleen are unremarkab le. No mediastinal or hilar lymphadenopathy. The central airways are patent. The lungs are clear. Sta ble scattered parenchymal nodularity IMPRESSION: No evidence for pulmonary embolus. No focal infiltrate. Stable scattered parenchymal nodularity. ACT 112: Negative or not required by law. The above report was generated using voice recognition software. It may contain grammatical, syntax or spelling errors. Electronically signed by: Rodney Kearney M.D. 12/18/2019 6:53 AM
--- NOTE | 2019-12-18 07:14 | Electrocardiogram Report ---
Test Reason : Blood Pressure : / mmHG Vent. Rate : 103 BPM Atrial Rate : 103 BPM P-R Int : 158 ms QRS Dur : 096 ms QT Int : 368 ms P-R-T Axes : 055 052 035 degrees QTc Int : 482 ms Sinus tachycardia Otherwise normal ECG Confirmed by Andrea Robledo ([id number]) on 12/18/2019 7:14:02 AM Referred By: Mykel Bailey Confirmed By:Gagan Robledo
[2019-12-18 08:14] LABS: Basophils # (auto) 0.02 K/uL (0-0.2); Basophils % (auto) 0.4 %; Eosinophils # (auto) 0.29 K/uL (0-0.5); Eosinophils % (auto) 5.3 %; Hematocrit (blood only) 43.6 % (37-47); Hemoglobin 13.1 g/dL (12.0-16.0); Immature Granulocytes # (auto) 0.01 K/uL (0.00-0.02); Immature Granulocytes % (auto) 0.2 %; Lymphocytes # (auto) 1.31 K/uL (1.2-3.4); Lymphocytes % (auto) 23.7 %; Mean Corpuscular Hemoglobin 27.7 pg (25-34); Mean Corpuscular Volume 92.2 fL (80-100); Mean Platelet Volume 10.4 fL (7.4-10.4); Monocytes # (auto) 0.58 K/uL (0.11-0.59); Monocytes % (auto) 10.5 %; Neutrophils # (auto) 3.31 K/uL (1.4-6.5); Neutrophils % (auto) 59.9 %; Platelet Count 285 K/uL (130-400); RDW Coefficient of Variation 15.3 % (11.5-14.5); RDW Standard Deviation 51.2 fL (36.4-46.3); Red Blood Count 4.73 M/uL (4.2-5.4); White Blood Count 5.52 K/uL (4.8-10.8)
[2019-12-18 08:50] LABS: BUN Creatinine Ratio 16.9 (10-20); Calcium 9.3 mg/dl (8.5-10.1); Creatinine Clr Calc Pharmacy 59.1 ml/min; Est GFR (African American) 48.2; Est GFR (Non-African American) 41.6; Magnesium 2.1 mg/dl (1.8-2.4); Potassium 3.9 mmol/L (3.5-5.1)
[2019-12-18] MEDS ORDERED: METOPROLOL TARTRATE 100 MG TAB PO SCH (09:00)
[2019-12-18] MEDS ORDERED: CHOLECALCIFEROL 1,000 UNITS 25 MCG TAB PO SCH (09:00)
[2019-12-18] MEDS ORDERED: ROSUVASTATIN CALCIUM 20 MG TAB PO SCH (09:00)
[2019-12-18] MEDS ORDERED: allopurinoL 100 MG TAB PO SCH (09:00)
[2019-12-18] MEDS ORDERED: AMLODIPINE BESYLATE 5 MG TAB PO SCH (09:00)
[2019-12-18] MEDS ORDERED: ASPIRIN 81 MG ECTAB PO SCH (09:00)
[2019-12-18] MEDS ORDERED: FUROSEMIDE 20 MG TAB PO SCH (09:00)
[2019-12-18] MEDS ORDERED: predniSONE 10 MG TABLET PO SCH (09:00)
[2019-12-18] MEDS ORDERED: FLUOXETINE HCL 10 MG CAP PO SCH (09:00)
[2019-12-18] MEDS ORDERED: FLUTICASONE FUROATE 200MCG 14 PUFFS/INHALER INH SCH (09:00)
--- NOTE | 2019-12-18 11:33 | CT Scan Report ---
CT lumbar spine wo con HISTORY: 49 years-old Female sciatica? right leg pain acute low back pain with radiation into the [facility] lower extremity. COMPARISON: CT abdomen and pelvis 09/08/2015 TECHNIQUE: Multiple axial CT images of the lumbar spine were obtained without the use of IV contrast. A dose lowering technique was used consistent with the principals of ANTON. FINDINGS: Tv Technician localizer images demonstrate surgical clips of the abdominal right upper quadrant compatible wi th cholecystectomy. No aortic aneurysm. Contrast is noted within the collecting systems. No adenopath y. No acute fracture or subluxation. Moderate disc space narrowing with vacuum disc at L5-S1. Mild di sc space narrowing at T11-T12 and T12-L1. Moderate anterior endplate spondylitic spurring is also not ed at these levels. There is moderate to severe multilevel facet arthrosis. The imaged ribs appear in tact while as the imaged sacrum and the iliac bones. Evaluation of the central canal and neuroforamin a is better assessed by MRI. T12-L1: Moderate facet arthrosis. Small posterior disc osteophyte complex. No central canal or forami nal narrowing. L1-L2: Mild spondylitic spurring with moderate facet arthrosis. No central canal or foraminal narrowi ng. L2-L3: Small posterior annular disc bulge with mild spondylitic spurring. Moderate facet arthrosis. N o central canal or foraminal narrowing. L3-L4: Mild spondylitic spurring with posterior annular disc bulge. Ligamentum flavum thickening with moderate to severe facet arthrosis. Mild central canal stenosis, AP dimension of the thecal sac eugenia uring 9 mm. Mild bilateral foraminal narrowing. L4-L5: Mild spondylitic spurring with small posterior annular disc bulge. Ligamentum flavum thickenin g with moderate to severe facet arthrosis. No central canal or foraminal narrowing. L5-S1: Moderate disc space narrowing. Moderate sized posterior disc osteophyte complex is noted favor ing the left paracentral distribution and left lateral recess. Ligamentum flavum thickening with raghav re facet arthrosis. Flattening of the ventral thecal sac without significant central canal stenosis. There is at least mild right and moderate to severe left lateral recess narrowing with moderate bilat eral foraminal stenosis. IMPRESSION: 1. No acute fracture or subluxation. 2. Posterior disc osteophyte complex at L3-L4 contributes to mild central canal stenosis with mild bi lateral foraminal narrowing. 3. At L5-S1 there is a moderate sized posterior disc osteophyte complex within the left paracentral d istribution and left lateral recess which contributes to mild right and moderate to severe left later al recess with moderate bilateral foraminal narrowing. 4. No high-grade central canal stenosis. ACT 112: Positive. There are findings on this exam that require communication between the performing entity and the patient following Patient Test Result Information Act ([place] Act 112) guidelines. The above report was generated using voice recognition software. It may contain grammatical, syntax o r spelling errors. Dictated: 12/18/2019 10:26 AM Transcribed: 12/18/2019 10:56 AM [facility] [id number] [email or web address] Electronically signed by: Gilberto Diallo M.D. 12/18/2019 11:31 AM
--- NOTE | 2019-12-18 13:27 | Hospitalist Progress Note ---
Date of Service December 18, 2019 Assessment & Plan (1) Leg pain, right: Admitted with right upper thigh pain mostly in the inner area; suspected to be secondary to meralgia paresthetica. No DVT and/or pulmonary embolism CT scan of the lumbar spine did not show any significant nerve compression Pain seems to be improved Advised to use topical NSAID use (2) Hypertensive urgency: Has history of hypertension Blood pressure noted to be very high in the emergency room at around 200 systolic Noted to be normal this morning and again up to 173/99 Wants to go home and will be discharged home this afternoon (3) CKD (chronic kidney disease), stage III: CKD Creatinine is slightly up likely secondary to use of contrast We will advised to drink more fluids Her other medical conditions remain stable We will continue all of her other outpatient medications She will be discharged this afternoon Admission and Anticipated Discharge Date Admission Date: December 18, 2019 Subjective The patient was seen and examined in medical floor She was admitted with right upper thigh pain mostly in the inner area for the last 2 weeks She feels better since admission She denies any back pain, any weakness involving the right lower extremity, any pain in the right hip joint or knee joint And she has been ambulating well Review of Systems Review of Systems: All systems reviewed and are unremarkable except as noted below Physical Exam Physical Exam: Lying in bed comfortably Constitutional: well developed, well nourished and + morbidly obese; no acute distress and not ill appearing Eyes: PERRL, conjunctivae normal, anicteric sclerae ENMT: external ear and nose normal, oropharynx normal Neck: trachea midline, no thyromegaly Respiratory: normal respiratory effort; no respiratory distress Auscultation: lungs clear to auscultation bilaterally Cardiovascular: Rate/Rhythm: regular rate and regular rhythm Heart Sounds: no murmur Gastrointestinal (Abdomen): Inspection/Auscultation: abdomen normal to inspection, + abdomen distended and normal bowel sounds Percussion/Palpation: abdomen soft; abdomen nontender Musculoskeletal: No acute arthritis involving the hip or knee joints. No spinal tenderness and no back pain. Nothing to suggest radiculopathy Neurologic: patellar DTR's 2+ bilat, sensation intact moves all extremities; no focal motor deficits Lymphatic: no cervical or axillary lymphadenopathy Results & Data Results & Data ([facility]) Vital Signs (Past 12 Hours) Vital Signs Temp Pulse Pulse Resp BP BP Pulse Ox 12/18/19 11:25 36.8 C 69 18 173/99 H 95 12/18/19 07:23 36.7 C 85 18 153/91 H 99 12/18/19 04:50 84 12/18/19 04:15 85 137/83 12/18/19 04:00 36.4 C L 87 18 136/76 96 12/18/19 02:22 36.4 C L 80 16 186/118 H 97 12/18/19 01:30 71 13 166/97 H 96 Laboratory Results Short CBC 12/17/19 12/18/19 Range/Units 19:56 07:59 WBC 7.20 5.52 (4.8-10.8) K/uL Hgb 14.0 13.1 (12.0-16.0) g/dL Hct 43.0 43.6 (37-47) % Plt Count 309 285 (130-400) K/uL BMP 12/17/19 12/18/19 19:56 07:59 Sodium 138 140 Potassium 3.9 3.9 Chloride 104 106 Carbon Dioxide 27 28 BUN 24 H 25 H Creatinine 1.35 H 1.45 H Glucose 93 93 Calcium 9.6 9.3 Cardiac Enzymes 12/17/19 Range/Units 19:56 Troponin I < 0.015 (0-0.045) ng/ml Liver Function 12/17/19 Range/Units 19:56 Total Bilirubin 0.5 (0.2-1) mg/dl AST 25 (15-37) U/L ALT 24 (12-78) U/L Alkaline Phosphatase 90 (45-117) U/L Albumin 3.7 (3.4-5.0) gm/dl Medications Administered Current Inpatient Medications Acetaminophen (Tylenol) 650 mg PO Q4H PRN PRN Reason: Pain or Fever Stop: 01/17/20 02:07 Albuterol (Ventolin Hfa) 2 puffs INH Q6H PRN; Protocol PRN Reason: shortness of breath or wheezin Stop: 01/17/20 02:07 Allopurinol (Zyloprim) 100 mg PO QAM FELICITAS Stop: 01/17/20 08:59 Last Admin: 12/18/19 08:51 Dose: 100 mg Documented by: Amlodipine Besylate (Norvasc) 5 mg PO DAILY [facility] Stop: 01/17/20 08:59 Last Admin: 12/18/19 08:51 Dose: 5 mg Documented by: Aspirin (Ecotrin Ectab) 81 mg PO QAM [facility] Stop: 01/17/20 08:59 Last Admin: 12/18/19 08:51 Dose: 81 mg Documented by: Fluoxetine HCl (Prozac) 10 mg PO QAM [facility] Stop: 01/17/20 08:59 Last Admin: 12/18/19 08:51 Dose: 10 mg Documented by: Fluticasone Furoate (Arnuity Ellipta 200mcg) 1 puffs INH DAILY [facility] Stop: 01/17/20 08:59 Last Admin: 12/18/19 08:50 Dose: 1 puffs Documented by: Furosemide (Lasix) 20 mg PO QAM [facility] Stop: 01/17/20 08:59 Last Admin: 12/18/19 08:51 Dose: 20 mg Documented by: Guaifenesin/Codeine Phosphate (Robitussin-Ac Sugar Free) 5 ml PO Q6H PRN PRN Reason: cough Stop: 01/17/20 02:07 Hydralazine HCl (Hydralazine Hcl) 7.5 mg IV Q6H PRN PRN Reason: Hypertension Stop: 01/17/20 02:07 Last Admin: 12/18/19 02:29 Dose: 7.5 mg Documented by: Labetalol HCl (Normodyne) 10 mg IV Q4H PRN PRN Reason: Hypertension Stop: 01/17/20 02:07 Levothyroxine Sodium (Synthroid) 125 mcg PO DAILYBB [facility] Stop: 01/17/20 06:29 Last Admin: 12/18/19 05:59 Dose: 125 mcg Documented by: Metoprolol Tartrate (Lopressor) 100 mg PO BID [facility] Stop: 01/17/20 08:59 Last Admin: 12/18/19 08:51 Dose: 100 mg Documented by: Nitroglycerin (Nitrostat) 0.4 mg SL UD PRN PRN Reason: Chest Pain Stop: 01/17/20 02:07 Ondansetron HCl (Zofran) 4 mg IV Q6H PRN PRN Reason: Nausea Stop: 01/17/20 02:07 Oxycodone HCl (Roxicodone Immediate Rel) 5 mg PO Q4H PRN PRN Reason: Pain Stop: 01/01/20 02:07 Polyethylene Glycol (Miralax Powder Packet) 17 gm PO DAILY PRN PRN Reason: Constipation Stop: 01/17/20 02:07 Prednisone (Prednisone) 10 mg PO DAILY [facility] Stop: 01/17/20 08:59 Last Admin: 12/18/19 08:51 Dose: 10 mg Documented by: Rosuvastatin Calcium (Crestor) 20 mg PO QAM [facility] Stop: 01/17/20 08:59 Last Admin: 12/18/19 08:51 Dose: 20 mg Documented by: Tramadol HCl (Ultram) 50 mg PO Q4H PRN PRN Reason: pain Stop: 01/17/20 02:07 Trimethoprim/Sulfamethoxazole (Septra 400/80mg Tab) 1 tab PO MoWeFr@0900 [facility] Stop: 01/18/20 08:59 Vitamin D (Vitamin D3) 2,000 units PO [place] Stop: 01/17/20 08:59 Last Admin: 12/18/19 08:51 Dose: 2,000 units Documented by:
--- NOTE | 2019-12-18 17:18 | Discharge Summary ---
Date of Service December 18, 2019 Admission HPI Per Admitting Provider DICTATED BY: Evelio Crockett MD DATE OF ADMISSION: 12/18/2019 CHIEF COMPLAINT: Right lower extremity pain. HISTORY OF PRESENT ILLNESS: This is a 49-year-old female with past medical history significant for hypothyroidism, chronic rhinitis, chronic kidney disease stage III, hypertension, morbid obesity, history of right kidney stone, history of fusion of cervical spine, plantar fascitis, migraine, anterior cervical lymphadenopathy, depression, anxiety state presents with right lower extremity pain, is worried about deep venous thrombosis, but lower extremity Doppler and CTA of the chest were unremarkable in the ER, but she was found to have blood pressures running high requiring a couple of doses of IV labetalol and still it is in 190s so we were called for admission. The patient denies any chest pain, no shortness of breath, no cough, no nausea, no abdominal pain, no headache, no blurred visions, no earache, no runny nose, no sore throat, no difficulty swallowing. No loss of sense of smell or taste. No abdominal pain. Normal bowel and bladder movements. No swelling in the lower extremities, no rash. Ambulates okay. The patient is also having issues with her lungs, following with pulmonary. 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 Rigid bronchoscopy with biopsy demonstrated loosely formed granuloma. She improved with prednisone, but as soon as prednisone stopped, her symptoms have returned of cough and hemoptysis. Serology is negative and as per pulmonary, biopsy did not appear consistent with relapsing polychondritis. There is question of sarcoid or other infiltrative and inflammatory disorders, but it was thought isolated sarcoid could be unusual. There is a plan for repeat CT chest with contrast to evaluate trachea and if lesion persists, there is plan to refer to tertiary care center, but as per the patient, then she went to a different pulmonary at [facility] and currently she is still on prednisone since last 2 months and also Bactrim to prevent any infection while on prednisone. She is taking 10 mg of prednisone daily currently since last 1 week. Admission Exam Per Admitting Provider GENERAL: The patient is morbidly obese, not in acute distress. VITAL SIGNS: Temperature 37, pulse 77, respiratory rate 17, blood pressure 199/109, oxygen 96% on room air. HEENT: No pallor, no icterus. Pupils equal, round, and reactive to light. NECK: No JVD, no neck masses seen. CARDIOVASCULAR: S1, S2 heard, regular rate and rhythm, no murmur, no gallop. RESPIRATORY SYSTEM: Normal AP diameter. No accessory muscle use. No wheezing, no crackles. ABDOMEN: Soft, bowel sounds present, nontender. No distention. CENTRAL NERVOUS SYSTEM: Cranial nerves II-XII grossly intact, nonfocal. EXTREMITIES: No edema, no erythema. MUSCULOSKELETAL: Bilateral straight leg test is negative. Principal Diagnosis Right upper thigh pain could be secondary to meralgia paresthetica, unremarkable MRI of the back, hypertensive urgency Discharge Exam Constitutional well developed, well nourished and + morbidly obese; no acute distress and not ill appearing Eyes PERRL, conjunctivae normal, anicteric sclerae ENMT external ear and nose normal, oropharynx normal Neck trachea midline, no thyromegaly Respiratory normal respiratory effort; no respiratory distress Auscultation: lungs clear to auscultation bilaterally Cardiovascular Rate/Rhythm: regular rate and regular rhythm Heart Sounds: no murmur Gastrointestinal (Abdomen) Inspection/Auscultation: abdomen normal to inspection, + abdomen distended and normal bowel sounds Percussion/Palpation: abdomen soft; abdomen nontender Neurologic patellar DTR's 2+ bilat, sensation intact moves all extremities; no focal motor deficits Lymphatic no cervical or axillary lymphadenopathy Discharge Data Allergies Allergy/AdvReac Type Severity Reaction Status Date / Time vancomycin AdvReac Intermediate Flushing Verified 12/18/19 00:32 Consultations 12/17/19 23:29 ED Decision to Admit Stat 12/18/19 02:08 Consult Case Management - Discharge Planning Routine Ordered Studies 12/17/19 19:39 CT angio chest PE protocol Urgent US venous doppler LE RT Urgent 12/18/19 02:08 CT lumbar spine wo con Routine Hospital Course (1) Leg pain, right: Admitted with right upper thigh pain mostly in the inner area; suspected to be secondary to meralgia paresthetica. No DVT and/or pulmonary embolism CT scan of the lumbar spine did not show any significant nerve compression Pain seems to be improved Advised to use topical NSAID use (2) Hypertensive urgency: Has history of hypertension Blood pressure noted to be very high in the emergency room at around 200 systolic Noted to be normal this morning and again up to 173/99 Wants to go home and will be discharged home this afternoon (3) CKD (chronic kidney disease), stage III: CKD Creatinine is slightly up likely secondary to use of contrast We will advised to drink more fluids Her other medical conditions remain stable We will continue all of her other outpatient medications She will be discharged this afternoon Total Time Total Time Spent Total Time Spent (In Minutes): 35 minutes Total Time Includes: Examination of the Patient, Discharge Planning, Medication Reconciliation and Communication With Other Providers Discharge Plan Discharge Items Patient Disposition: Home - Self-Care Reason For Visit: right leg pain Discharge Diagnosis: Right upper thigh pain could be secondary to meralgia paresthetica, unremarkable MRI of the back, hypertensive urgency Condition on Discharge: Fair Activity: Resume your previous activity Non-emergency contact: Primary Care Provider Call non-emergency contact if: you have any medication questions Follow-up/Referrals: Mykel Bailey MD [Primary Care Provider] - 12/24/19 10:40 am (12/24/2019 10:40 AM Provider Lydia Salas Department [facility] ) Diet: Heart Healthy Addtl Attending Provider Instructions: Please take precaution to avoid fall Try to reduce your weight which will improve the pain Pending Studies at Discharge: No Stand-Alone Forms: My Sno[employer], Smoking Cessation Medications and DC Order Prescriptions: New diclofenac sodium 3 % gel 0.1 gm TOP BID Qty: 100 RF: 0 Continued tramadol [Ultram] 50 mg tablet 50 mg PO Q4H PRN (Reason: pain) Qty: 18 RF: 0 codeine-guaifenesin 10-100 mg/5 mL liquid 5 ml PO Q6H MDD 20mL PRN (Reason: cough) Qty: 60 RF: 0 fluoxetine [Prozac] 10 mg capsule 10 mg PO QAM RF: 0 sulfamethoxazole-trimethoprim 400-80 mg tablet 1 tab PO .As directed Qty: 30 RF: 3 Flovent HFA 110 mcg/actuation HFA aerosol inhaler 2 puffs INH BID Qty: 12 RF: 2 metoprolol tartrate 100 mg tablet 100 mg PO BID RF: 0 allopurinol 100 mg Tablet 100 mg PO QAM RF: 0 aspirin 81 mg Tablet,Delayed Release (Dr/Ec) 81 mg PO QAM RF: 0 acetaminophen [Tylenol Extra Strength] 500 mg Tablet 1,000 mg PO UD PRN (Reason: Pain) RF: 0 cholecalciferol (vitamin D3) [Vitamin D3] 2,000 unit Tablet 2,000 unit PO QAM RF: 0 furosemide 20 mg Tablet 20 mg PO QAM RF: 0 rosuvastatin [Crestor] 20 mg Tablet 20 mg PO QAM RF: 0 albuterol sulfate 90 mcg/actuation HFA aerosol inhaler 2 puffs INH UD PRN (Reason: shortness of breath or wheezing) RF: 0 amlodipine 5 mg Tablet 5 mg PO DAILY RF: 0 levothyroxine 125 mcg Tablet 125 mcg PO DAILY RF: 0 prednisone 5 mg Tablet 10 mg PO DAILY RF: 0 Discharge Orders: Discharge Order (Routine); Ordered 12/18/19 Ordered By: Izzy Gomez Admission Data Admit Date/Time: 12/18/19 00:21 Attending Provider: Izzy Gomez Admit Provider: Evelio Crockett Primary Care Provider: Mykel Bailey Other Providers: Evelio Crockett Other Interventions: Discharge Summary Assessment (RN) Last Done: 12/18/19 14:01 DC Date/Time DO NOT enter until pt leaves facility: 12/18/19 14:35
[2019-12-19] MEDS ORDERED: SULFA/TRIMETH 400/80MG TAB PO SCH (09:00)
== END 2019-12-18 14:35 | disposition home or self-care (01) | DRG 74 ==
LOC: ED 16:34 → 2W 12-18 00:21

== ENCOUNTER 2020-10-06 15:20 | Inpatient (IN) ==
[2020-10-06 16:06] LABS: Basophils # (auto) 0.01 K/uL (0-0.2); Basophils % (auto) 0.1 %; Eosinophils # (auto) 0.27 K/uL (0-0.5); Eosinophils % (auto) 3.8 %; Hematocrit (blood only) 43.5 % (37-47); Hemoglobin 14.1 g/dL (12.0-16.0); Immature Granulocytes # (auto) 0.01 K/uL (0.00-0.02); Immature Granulocytes % (auto) 0.1 %; Lymphocytes # (auto) 2.01 K/uL (1.2-3.4); Mean Corpuscular Hemoglobin 29.6 pg (25-34); Mean Corpuscular Hgb Conc 32.4 g/dL (32-36); Mean Corpuscular Volume 91.2 fL (80-100); Mean Platelet Volume 10.7 fL (7.4-10.4); Monocytes # (auto) 0.57 K/uL (0.11-0.59); Monocytes % (auto) 7.9 %; Neutrophils % (auto) 60.1 %; Platelet Count 308 K/uL (130-400); RDW Coefficient of Variation 13.8 % (11.5-14.5); RDW Standard Deviation 45.6 fL (36.4-46.3); Red Blood Count 4.77 M/uL (4.2-5.4); White Blood Count 7.17 K/uL (4.8-10.8)
[2020-10-06] MEDS ORDERED: SODIUM CHLORIDE 0.9% 500 ML IV ONE (16:29)
[2020-10-06] MEDS ORDERED: PROCHLORPERAZINE 1 ML IV ONE (16:30)
[2020-10-06] MEDS ORDERED: diphenhydrAMINE 50 MG/ML VIAL IV STA (16:30)
[2020-10-06] MEDS ORDERED: ACETAMINOPHEN 1,000 MG/100 ML VIAL IV STA (16:30)
[2020-10-06 16:52] LABS: Alanine Aminotransferase 22 U/L (12-78); Albumin Globulin Ratio 0.6 (0.9-2); Albumin Level 3.4 gm/dl (3.4-5.0); Alkaline Phosphatase 104 U/L (45-117); BUN Creatinine Ratio 14.6 (10-20); Bilirubin,Total 0.5 mg/dl (0.2-1); Blood Urea Nitrogen 23 mg/dl (7-18); Calcium 9.4 mg/dl (8.5-10.1); Carbon Dioxide 28 mmol/L (21-32); Chloride 106 mmol/L (98-107); Creatinine Clr Calc Pharmacy 54.6 ml/min; Est GFR (African American) 42.8; Est GFR (Non-African American) 36.9; Globulin 5.7 gm/dl (2.5-4.0); Glucose 100 mg/dl (70-99); Sodium 138 mmol/L (136-145); Total Protein 9.1 gm/dl (6.4-8.2); Troponin I < 0.015 ng/ml (0-0.045)
--- NOTE | 2020-10-06 16:54 | XRay Report ---
SINGLE VIEW CHEST CLINICAL HISTORY: Dizziness. FINDINGS: An AP, portable, upright chest radiograph is compared to study dated 08/03/2019 and correlat ed with chest CT dated 12/17/2019. The cardiomediastinal silhouette is unremarkable. The lungs and ple ural spaces are clear. No pneumothorax is seen. The bony thorax is grossly intact. Fusion hardware is noted in the lower cervical spine. IMPRESSION: No active disease in the chest. ACT 112: Negative or not required by law. Electronically signed by: Luis Balderas M.D. 10/06/2020 4:52 PM
--- NOTE | 2020-10-06 17:32 | CT Scan Report ---
CT OF THE HEAD WITHOUT CONTRAST CLINICAL HISTORY: left sided TIJERINA, HTN COMPARISON STUDY: MRI of the brain September 29, 2017. Head CT September 01, 2018. CT DOSE: 614.27 mGy.cm TECHNIQUE: Helical axial images of the head were obtained without IV contrast. Automated exposure con trol was utilized for the study. A dose lowering technique was utilized adhering to the principles o f ALARA. FINDINGS: No acute intracranial hemorrhage, midline shift or mass effect is present. The ventricular system is unremarkable. The basal cisterns are patent. No extra-axial collections are present. There are no findings to suggest acute dural sinus thrombosis or acute territorial infarct. No significant calvarial abnormalities are present. Visualized portions of the sinuses and mastoid air cells are franches[place] ar. IMPRESSION: No acute intracranial findings. ACT 112: Negative or not required by law. Electronically signed by: Sam Rosario M.D. 10/06/2020 5:31 PM
[2020-10-06 17:47] LABS: Potassium 4.1 mmol/L (3.5-5.1)
[2020-10-06 17:59] LABS: Influenza A virus by PCR Negative (Neg); Influenza B virus by PCR Negative (Neg); RSV by PCR Negative (Neg); SARS CoV2 RNA(COVID-19) InHosp NEGATIVE (Negative)
[2020-10-06 18:02] LABS: Bilirubin Direct 0.1 mg/dl (0-0.2); Phosphorus 3.3 mg/dl (2.5-4.9); Thyroid Stimulating Hormone 15.9 uIu/ml (0.300-4.500)
[2020-10-06 18:18] LABS: T4 Free Thyroxine 0.97 ng/dl (0.8-1.6)
[2020-10-06 19:49] LABS: Appearance Urine Clear (Clear); Bacteria Urine Automated Negative (Negative); Bilirubin Urine Negative (Negative); Blood Urine Trace (Negative); Color Urine Orange; Glucose Urine UA Negative (Negative); Ketones Urine Negative (Negative); Leukocyte Esterase Urine Negative (Negative); Nitrite Urine Negative (Negative); Protein Urine 3+ (Negative); RBC Urine Automated 0-4 /hpf (0-4); Specific Gravity Urine 1.015 (1.000-1.030); Urobilinogen Urine Negative (Negative)
[2020-10-06] MEDS ORDERED: LABETALOL HCL IV 5 MG/ML 20ML IV STA ×2 (21:30→21:35)
[2020-10-06] MEDS ORDERED: lisinopril 10 MG TAB PO STA (21:37)
--- NOTE | 2020-10-06 22:35 | Emergency Department Note ---
Impression & Plan Hypertensive urgency, CKD (chronic kidney disease), stage III, Headache ED Provider Note NAME: ALEXANDREA NIXON AGE: 50 SEX: F ARRIVES VIA: Walk-In INFORMANT: Patient, ED PROVIDER(S): Tuan Quach MD CHIEF COMPLAINT: hypertension PLAN: Disposition: Admit MEDICAL DECISION MAKING: The patient is a pleasant 50-year-old woman with a past medical history of CKD, hypertension, hypothyroidism, hyperlipidemia who presents to the emergency department with symptoms of left-sided headache that began proximately 2 days ago and progressively worsened with associated elevated blood pressure which she noticed today when she decided to check. She denies any dizziness, changes in vision or hearing. She denies difficulty walking or any extremity weakness. Prior to the onset of the symptoms she denies any fevers, chills, cough, congest ion, GI or symptoms. On arrival the patient is fatigued appearing but no acute distress, afebrile stable vital signs. She appears clinically dry. She has no focal neurologic deficits. EKG without overt acute ischemia. Chest x-ray negative for acute cardiopulmonary process. WBC, H/H and platelets within normal limits. Chemistry without metabolic acidosis. Creatinine 1.59, within prior range of values. Electrolytes LFTs without significant abnormalities. UA without evidence of infection. COVID-19 PCR negative. Influenza and RSV PCR also negative. CT of the head negative for acute process. Upon reevaluation the patient did feel improved after IV fluid hydration, APAP, Compazine and diphenhydramine. She rated her headache down to a 1/10. However, her blood pressure did persist with significant elevation in the 200s/100s. Therefore, she was agreeable with plan to be admitted for tighter blood pressure control. She was ordered initial treatment with labetalol. Case was discussed with Dr. Crockett, [facility] hospitalist, who will evaluate the patient for admission. Triage Nursing notes reviewed and agree them. Prior medical records reviewed Vital Signs: reviewed and remarkable for hypertension. Differential diagnosis: Migraine headache, meningitis, sinusitis, CO exposure, ICH, SAH, infection, tumor, headache, sinus thrombosis, arterial dissection, as well as other pathologies. ER treatment provided: See below. Diagnostics interpreted by me: ECG: Normal sinus rhythm, 75 bpm, no ectopy, no overt ST elevation or depression, QTC 453, QRS 94. Cardiac Monitoring: An order for continuous cardiac monitoring was placed and demonstrated Normal sinus rhythm, 75 bpm, no ectopy. Laboratory studies: See below Imaging studies: See below Consultation(s): Case was discussed with Dr. Crockett, [facility] hospitalist, who will evaluate the patient for admission. HPI: The patient is a pleasant 50-year-old woman with a past medical history of CKD, hypertension, hypothyroidism, hyperlipidemia who presents to the emergency department with symptoms of left-sided headache that began proximately 2 days ago and progressively worsened with associated elevated blood pressure which she noticed today when she decided to check. She denies any dizziness, changes in vision or hearing. She denies difficulty walking or any extremity weakness. Prior to the onset of the symptoms she denies any fevers, chills, cough, congestion, GI or symptoms. ROS: See above HPI for pertinent positives & negatives. A total of 10 systems reviewed and were otherwise negative. PAST MEDICAL HISTORY:See Below PAST SURGICAL HISTORY:See Below FAMILY HISTORY:See Below SOCIAL HISTORY:See Below HOME MEDICATIONS:See Below ALLERGIES:See Below VITALS:See Below PHYSICAL EXAMINATION: GENERAL: Awake, alert, fatigued-appearing, in no distress HENT: Normocephalic, atraumatic. Oropharynx with dry mucous membranes and otherwise unremarkable. EYES: Normal conjunctiva. Sclera non-icteric. EOMI. No nystamgus. PEARRL. NECK: Supple. No nuchal rigidity. FROM. No JVD. RESPIRATORY: Clear to auscultation. CARDIAC: Regular rate, normal rhythm. Extremities warm and well perfused. Pulses equal. ABDOMEN: Soft, non-distended. No tenderness to palpation. No rebound or guarding. No masses. RECTAL: Deferred. MUSCULOSKELETAL: Chest examination reveals no tenderness. The back is symmetrical on inspection without obvious abnormality. There is no CVA tenderness to palpation. No joint edema. LOWER EXTREMITIES: Calves are equal size bilaterally and non-tender. No edema. No discoloration. NEURO: Normal sensorium. No sensory or motor deficits noted. 5/5 strength and SILT x 4 extremities. Cerebellar function intact including [id number], alternating palms, [id number]. SKIN: No rash or jaundice noted. 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 Yadav 08-03-19 Family History Father Diabetes Heart disease Hypertension Mother Cancer Social History Smoking Status: Never smoker Second Hand Exposure: Yes (MULTIPLE FAMILY MEMBERS, ); Hx Alcohol Use: Yes Alcohol type: wine Hx Substance Use: No Preferred Language: Hungarian Communication Ability: Effective Builder Operator Required: No Beliefs That Will Affect Care: None marital status: Current Living Situation: Spouse current occupational status: employed Feels Safe at Home: Yes Safety Concerns: Feels Safe At This Time Assistive Devices: Glasses Allergies Allergies Allergy/AdvReac Type Severity Reaction Status Date / Time vancomycin AdvReac Intermediate Flushing Verified 10/06/20 18:32 Home Meds Home Medications Medication Instructions Recorded Confirmed acetaminophen [Tylenol Extra 1,000 mg PO UD PRN 09/01/18 10/06/20 Strength] allopurinol 100 mg PO QAM 09/01/18 10/06/20 aspirin 81 mg PO QAM 09/01/18 10/06/20 cholecalciferol (vitamin D3) 2,000 unit PO QAM 09/01/18 10/06/20 [Vitamin D3] furosemide 20 mg PO QAM 09/01/18 10/06/20 metoprolol tartrate 100 mg PO BID 09/01/18 10/06/20 fluoxetine 10 mg capsule 10 mg PO QAM 07/19/19 10/06/20 albuterol sulfate 2 puffs INH UD PRN 07/24/19 10/06/20 rosuvastatin [Crestor] 20 mg PO QAM 07/24/19 10/06/20 levothyroxine 125 mcg PO DAILY 12/18/19 10/06/20 amlodipine 10 mg PO DAILY 10/06/20 10/06/20 Previous Rx's Medication Instructions Recorded fluticasone propionate 110 2 puffs INH BID #12 gm 08/13/19 mcg/actuation HFA aerosol inhaler Results & Data (ED) Vital Signs Vital Signs - 24 hr 10/06/20 15:21 10/06/20 15:57 10/06/20 15:59 Temperature 36.6 C Temperature Source Oral Pulse Rate 82 71 76 Pulse Rate [Right Finger] Pulse Rate from SpO2 Sensor 72 75 Pulse Rhythm Regular Pulse Strength Normal Respiratory Rate 20 20 20 Respiratory Effort / Characteristics Non-Labored Spontaneous Respiratory Depth Normal Respiratory Pattern Regular Blood Pressure 242/129 H 234/127 H Blood Pressure [Right Arm] Blood Pressure Mean 166 162 Blood Pressure Mean [Right Arm] Blood Pressure Position Sitting Pulse Oximetry 96 96 97 Oxygen Delivery Method Room Air Sepsis Recent Fever Within 48 Hours No Sepsis New/Unexplained Change in Mental Status No Sepsis Action Taken by Nursing No Action Required 10/06/20 16:00 10/06/20 16:10 10/06/20 16:11 Temperature Temperature Source Pulse Rate 73 66 Pulse Rate [Right Finger] 67 Pulse Rate from SpO2 Sensor 73 68 Pulse Rhythm Pulse Strength Respiratory Rate 17 16 19 Respiratory Effort / Characteristics Respiratory Depth Respiratory Pattern Blood Pressure Blood Pressure [Right Arm] 234/127 H Blood Pressure Mean Blood Pressure Mean [Right Arm] 162 Blood Pressure Position Pulse Oximetry 97 96 98 Oxygen Delivery Method Sepsis Recent Fever Within 48 Hours Sepsis New/Unexplained Change in Mental Status Sepsis Action Taken by Nursing 10/06/20 16:20 10/06/20 16:30 10/06/20 16:40 Temperature Temperature Source Pulse Rate 71 79 75 Pulse Rate [Right Finger] Pulse Rate from SpO2 Sensor 69 78 75 Pulse Rhythm Pulse Strength Respiratory Rate 17 22 20 Respiratory Effort / Characteristics Respiratory Depth Respiratory Pattern Blood Pressure Blood Pressure [Right Arm] Blood Pressure Mean Blood Pressure Mean [Right Arm] Blood Pressure Position Pulse Oximetry 96 97 96 Oxygen Delivery Method Sepsis Recent Fever Within 48 Hours Sepsis New/Unexplained Change in Mental Status Sepsis Action Taken by Nursing 10/06/20 16:50 10/06/20 17:00 10/06/20 17:10 Temperature Temperature Source Pulse Rate 90 73 66 Pulse Rate [Right Finger] Pulse Rate from SpO2 Sensor Pulse Rhythm Pulse Strength Respiratory Rate 20 17 17 Respiratory Effort / Characteristics Respiratory Depth Respiratory Pattern Blood Pressure Blood Pressure [Right Arm] Blood Pressure Mean Blood Pressure Mean [Right Arm] Blood Pressure Position Pulse Oximetry Oxygen Delivery Method Sepsis Recent Fever Within 48 Hours Sepsis New/Unexplained Change in Mental Status Sepsis Action Taken by Nursing 10/06/20 17:19 10/06/20 17:23 10/06/20 18:22 Temperature Temperature Source Pulse Rate 77 Pulse Rate [Right Finger] 65 80 Pulse Rate from SpO2 Sensor Pulse Rhythm Pulse Strength Respiratory Rate 19 15 Respiratory Effort / Characteristics Respiratory Depth Respiratory Pattern Blood Pressure 217/144 H Blood Pressure [Right Arm] 217/144 H 222/129 H Blood Pressure Mean 168 Blood Pressure Mean [Right Arm] 168 160 Blood Pressure Position Pulse Oximetry 97 97 Oxygen Delivery Method Room Air Room Air Sepsis Recent Fever Within 48 Hours Sepsis New/Unexplained Change in Mental Status Sepsis Action Taken by Nursing 10/06/20 18:23 10/06/20 18:30 10/06/20 18:40 Temperature Temperature Source Pulse Rate 75 57 L 59 L Pulse Rate [Right Finger] Pulse Rate from SpO2 Sensor 75 57 L 58 L Pulse Rhythm Pulse Strength Respiratory Rate 21 14 15 Respiratory Effort / Characteristics Respiratory Depth Respiratory Pattern Blood Pressure 222/129 H Blood Pressure [Right Arm] Blood Pressure Mean 160 Blood Pressure Mean [Right Arm] Blood Pressure Position Pulse Oximetry 96 98 96 Oxygen Delivery Method Sepsis Recent Fever Within 48 Hours Sepsis New/Unexplained Change in Mental Status Sepsis Action Taken by Nursing 10/06/20 18:50 10/06/20 19:00 10/06/20 19:10 Temperature Temperature Source Pulse Rate 66 64 65 Pulse Rate [Right Finger] Pulse Rate from SpO2 Sensor 64 64 63 Pulse Rhythm Pulse Strength Respiratory Rate 14 16 16 Respiratory Effort / Characteristics Respiratory Depth Respiratory Pattern Blood Pressure Blood Pressure [Right Arm] Blood Pressure Mean Blood Pressure Mean [Right Arm] Blood Pressure Position Pulse Oximetry 97 98 98 Oxygen Delivery Method Sepsis Recent Fever Within 48 Hours Sepsis New/Unexplained Change in Mental Status Sepsis Action Taken by Nursing 10/06/20 19:20 10/06/20 19:30 10/06/20 19:31 Temperature Temperature Source Pulse Rate 68 71 68 Pulse Rate [Right Finger] Pulse Rate from SpO2 Sensor 67 72 Pulse Rhythm Pulse Strength Respiratory Rate 16 18 19 Respiratory Effort / Characteristics Respiratory Depth Respiratory Pattern Blood Pressure 222/125 H Blood Pressure [Right Arm] Blood Pressure Mean 157 Blood Pressure Mean [Right Arm] Blood Pressure Position Pulse Oximetry 96 96 Oxygen Delivery Method Sepsis Recent Fever Within 48 Hours Sepsis New/Unexplained Change in Mental Status Sepsis Action Taken by Nursing 10/06/20 19:33 10/06/20 19:50 10/06/20 20:00 Temperature Temperature Source Pulse Rate 71 64 66 Pulse Rate [Right Finger] Pulse Rate from SpO2 Sensor 70 67 64 Pulse Rhythm Pulse Strength Respiratory Rate 18 17 14 Respiratory Effort / Characteristics Respiratory Depth Respiratory Pattern Blood Pressure 229/130 H 204/124 H Blood Pressure [Right Arm] Blood Pressure Mean 163 150 Blood Pressure Mean [Right Arm] Blood Pressure Position Pulse Oximetry 98 97 97 Oxygen Delivery Method Sepsis Recent Fever Within 48 Hours Sepsis New/Unexplained Change in Mental Status Sepsis Action Taken by Nursing 10/06/20 20:01 10/06/20 20:10 10/06/20 20:20 Temperature Temperature Source Pulse Rate 70 64 67 Pulse Rate [Right Finger] Pulse Rate from SpO2 Sensor 70 64 67 Pulse Rhythm Pulse Strength Respiratory Rate 18 17 16 Respiratory Effort / Characteristics Respiratory Depth Respiratory Pattern Blood Pressure Blood Pressure [Right Arm] Blood Pressure Mean Blood Pressure Mean [Right Arm] Blood Pressure Position Pulse Oximetry 96 97 97 Oxygen Delivery Method Sepsis Recent Fever Within 48 Hours Sepsis New/Unexplained Change in Mental Status Sepsis Action Taken by Nursing 10/06/20 20:27 10/06/20 20:28 10/06/20 20:30 Temperature Temperature Source Pulse Rate 79 87 75 Pulse Rate [Right Finger] Pulse Rate from SpO2 Sensor 80 85 Pulse Rhythm Pulse Strength Respiratory Rate 19 22 17 Respiratory Effort / Characteristics Respiratory Depth Respiratory Pattern Blood Pressure 251/146 H 209/128 H Blood Pressure [Right Arm] Blood Pressure Mean 181 155 Blood Pressure Mean [Right Arm] Blood Pressure Position Pulse Oximetry 98 96 Oxygen Delivery Method Sepsis Recent Fever Within 48 Hours Sepsis New/Unexplained Change in Mental Status Sepsis Action Taken by Nursing 10/06/20 20:31 10/06/20 20:40 10/06/20 20:50 Temperature Temperature Source Pulse Rate 81 70 68 Pulse Rate [Right Finger] Pulse Rate from SpO2 Sensor 79 71 68 Pulse Rhythm Pulse Strength Respiratory Rate 18 21 22 Respiratory Effort / Characteristics Respiratory Depth Respiratory Pattern Blood Pressure Blood Pressure [Right Arm] Blood Pressure Mean Blood Pressure Mean [Right Arm] Blood Pressure Position Pulse Oximetry 97 95 97 Oxygen Delivery Method Sepsis Recent Fever Within 48 Hours Sepsis New/Unexplained Change in Mental Status Sepsis Action Taken by Nursing 10/06/20 21:00 10/06/20 21:01 10/06/20 21:10 Temperature Temperature Source Pulse Rate 67 74 76 Pulse Rate [Right Finger] Pulse Rate from SpO2 Sensor 70 76 Pulse Rhythm Pulse Strength Respiratory Rate 16 16 18 Respiratory Effort / Characteristics Respiratory Depth Respiratory Pattern Blood Pressure 233/136 H Blood Pressure [Right Arm] Blood Pressure Mean 168 Blood Pressure Mean [Right Arm] Blood Pressure Position Pulse Oximetry 97 96 Oxygen Delivery Method Sepsis Recent Fever Within 48 Hours Sepsis New/Unexplained Change in Mental Status Sepsis Action Taken by Nursing 10/06/20 21:18 10/06/20 21:20 10/06/20 21:21 Temperature Temperature Source Pulse Rate 72 70 68 Pulse Rate [Right Finger] Pulse Rate from SpO2 Sensor 71 70 68 Pulse Rhythm Pulse Strength Respiratory Rate 19 18 21 Respiratory Effort / Characteristics Respiratory Depth Respiratory Pattern Blood Pressure 204/131 H 221/121 H Blood Pressure [Right Arm] Blood Pressure Mean 155 154 Blood Pressure Mean [Right Arm] Blood Pressure Position Pulse Oximetry 96 95 96 Oxygen Delivery Method Sepsis Recent Fever Within 48 Hours Sepsis New/Unexplained Change in Mental Status Sepsis Action Taken by Nursing 10/06/20 21:30 Temperature Temperature Source Pulse Rate 68 Pulse Rate [Right Finger] Pulse Rate from SpO2 Sensor 68 Pulse Rhythm Pulse Strength Respiratory Rate 17 Respiratory Effort / Characteristics Respiratory Depth Respiratory Pattern Blood Pressure 206/114 H Blood Pressure [Right Arm] Blood Pressure Mean 144 Blood Pressure Mean [Right Arm] Blood Pressure Position Pulse Oximetry 96 Oxygen Delivery Method Sepsis Recent Fever Within 48 Hours Sepsis New/Unexplained Change in Mental Status Sepsis Action Taken by Nursing Laboratory Data Attestation: I reviewed the patient's lab results. Result diagrams: 10/06/20 15:56 10/06/20 17:13 Lab Results 10/06/20 10/06/20 10/06/20 Range/Units 15:56 15:56 15:56 WBC 7.17 (4.8-10.8) K/uL RBC 4.77 (4.2-5.4) M/uL Hgb 14.1 (12.0-16.0) g/dL Hct 43.5 (37-47) % MCV 91.2 (80-100) fL MCH 29.6 (25-34) pg MCHC 32.4 (32-36) g/dL RDW Std Deviation 45.6 (36.4-46.3) fL RDW Coeff of Chasity 13.8 (11.5-14.5) % Plt Count 308 (130-400) K/uL MPV 10.7 H (7.4-10.4) fL Immature Gran % (Auto) 0.1 % Neut % (Auto) 60.1 % Lymph % (Auto) 28.0 % [place] % (Auto) 7.9 % Eos % (Auto) 3.8 % Baso % (Auto) 0.1 % Neut # (Auto) 4.30 (1.4-6.5) K/uL Lymph # (Auto) 2.01 (1.2-3.4) K/uL [place] # (Auto) 0.57 (0.11-0.59) K/uL Eos # (Auto) 0.27 (0-0.5) K/uL Baso # (Auto) 0.01 (0-0.2) K/uL Immature Gran # (Auto) 0.01 (0.00-0.02) K/uL PT Cancelled INR Cancelled APTT Cancelled PTT Ratio Cancelled Sodium 138 (136-145) mmol/L Potassium (3.5-5.1) mmol/L Chloride 106 (98-107) mmol/L Carbon Dioxide 28 (21-32) mmol/L Anion Gap 3.0 (3-11) BUN 23 H (7-18) mg/dl Creatinine 1.59 H (0.6-1.2) mg/dl Est Cr Clr Drug Dosing 54.6 ml/min Est GFR ( Amer) 42.8 Est GFR (Non-Af Amer) 36.9 BUN/Creatinine Ratio 14.6 (10-20) Glucose 100 H (70-99) mg/dl Calcium 9.4 (8.5-10.1) mg/dl Phosphorus (2.5-4.9) mg/dl Magnesium (1.8-2.4) mg/dl Total Bilirubin 0.5 (0.2-1) mg/dl Direct Bilirubin (0-0.2) mg/dl AST (15-37) U/L ALT 22 (12-78) U/L Alkaline Phosphatase 104 (45-117) U/L Troponin I < 0.015 (0-0.045) ng/ml Total Protein 9.1 H (6.4-8.2) gm/dl Albumin 3.4 (3.4-5.0) gm/dl Globulin 5.7 H (2.5-4.0) gm/dl Albumin/Globulin Ratio 0.6 L (0.9-2) TSH (0.300-4.500) uIu/ml Free T4 (0.8-1.6) ng/dl Urine Color Urine Appearance (Clear) Urine pH (4.5-7.5) Ur Specific [place] (1.000-1.030) Urine Protein (Negative) Urine Glucose (UA) (Negative) Urine Ketones (Negative) Urine Blood (Negative) Urine Nitrite (Negative) Urine Bilirubin (Negative) Urine Urobilinogen (Negative) Ur Leukocyte Esterase (Negative) Urine WBC (Auto) (0-5) /hpf Urine RBC (Auto) (0-4) /hpf U Hyaline Cast (Auto) (0-5) /lpf U Epithel Cells (Auto) (0-5) /lpf Urine Bacteria (Auto) (Negative) COVID-19 Eval Order SARS-CoV-2 (PCR) (Negative) Influenza Type A (PCR) (Neg) Influenza Type B (PCR) (Neg) RSV (RT-PCR) (Neg) 10/06/20 10/06/20 10/06/20 Range/Units 16:47 16:47 17:13 WBC (4.8-10.8) K/uL RBC (4.2-5.4) M/uL Hgb (12.0-16.0) g/dL Hct (37-47) % MCV (80-100) fL MCH (25-34) pg MCHC (32-36) g/dL RDW Std Deviation (36.4-46.3) fL RDW Coeff of Chasity (11.5-14.5) % Plt Count (130-400) K/uL MPV (7.4-10.4) fL Immature Gran % (Auto) % Neut % (Auto) % Lymph % (Auto) % [place] % (Auto) % Eos % (Auto) % Baso % (Auto) % Neut # (Auto) (1.4-6.5) K/uL Lymph # (Auto) (1.2-3.4) K/uL [place] # (Auto) (0.11-0.59) K/uL Eos # (Auto) (0-0.5) K/uL Baso # (Auto) (0-0.2) K/uL Immature Gran # (Auto) (0.00-0.02) K/uL PT INR APTT PTT Ratio Sodium (136-145) mmol/L Potassium 4.1 (3.5-5.1) mmol/L Chloride (98-107) mmol/L Carbon Dioxide (21-32) mmol/L Anion Gap (3-11) BUN (7-18) mg/dl Creatinine (0.6-1.2) mg/dl Est Cr Clr Drug Dosing ml/min Est GFR ( Amer) Est GFR (Non-Af Amer) BUN/Creatinine Ratio (10-20) Glucose (70-99) mg/dl Calcium (8.5-10.1) mg/dl Phosphorus 3.3 (2.5-4.9) mg/dl Magnesium 2.0 (1.8-2.4) mg/dl Total Bilirubin (0.2-1) mg/dl Direct Bilirubin 0.1 (0-0.2) mg/dl AST 20 (15-37) U/L ALT (12-78) U/L Alkaline Phosphatase (45-117) U/L Troponin I (0-0.045) ng/ml Total Protein (6.4-8.2) gm/dl Albumin (3.4-5.0) gm/dl Globulin (2.5-4.0) gm/dl Albumin/Globulin Ratio (0.9-2) TSH 15.900 H (0.300-4.500) uIu/ml Free T4 0.97 (0.8-1.6) ng/dl Urine Color Urine Appearance (Clear) Urine pH (4.5-7.5) Ur Specific [place] (1.000-1.030) Urine Protein (Negative) Urine Glucose (UA) (Negative) Urine Ketones (Negative) Urine Blood (Negative) Urine Nitrite (Negative) Urine Bilirubin (Negative) Urine Urobilinogen (Negative) Ur Leukocyte Esterase (Negative) Urine WBC (Auto) (0-5) /hpf Urine RBC (Auto) (0-4) /hpf U Hyaline Cast (Auto) (0-5) /lpf U Epithel Cells (Auto) (0-5) /lpf Urine Bacteria (Auto) (Negative) COVID-19 Eval Order [facility] at [facility] SARS-CoV-2 (PCR) NEGATIVE (Negative) Influenza Type A (PCR) Negative (Neg) Influenza Type B (PCR) Negative (Neg) RSV (RT-PCR) Negative (Neg) 10/06/20 Range/Units 19:30 WBC (4.8-10.8) K/uL RBC (4.2-5.4) M/uL Hgb (12.0-16.0) g/dL Hct (37-47) % MCV (80-100) fL MCH (25-34) pg MCHC (32-36) g/dL RDW Std Deviation (36.4-46.3) fL RDW Coeff of Chasity (11.5-14.5) % Plt Count (130-400) K/uL MPV (7.4-10.4) fL Immature Gran % (Auto) % Neut % (Auto) % Lymph % (Auto) % [place] % (Auto) % Eos % (Auto) % Baso % (Auto) % Neut # (Auto) (1.4-6.5) K/uL Lymph # (Auto) (1.2-3.4) K/uL [place] # (Auto) (0.11-0.59) K/uL Eos # (Auto) (0-0.5) K/uL Baso # (Auto) (0-0.2) K/uL Immature Gran # (Auto) (0.00-0.02) K/uL PT INR APTT PTT Ratio Sodium (136-145) mmol/L Potassium (3.5-5.1) mmol/L Chloride (98-107) mmol/L Carbon Dioxide (21-32) mmol/L Anion Gap (3-11) BUN (7-18) mg/dl Creatinine (0.6-1.2) mg/dl Est Cr Clr Drug Dosing ml/min Est GFR ( Amer) Est GFR (Non-Af Amer) BUN/Creatinine Ratio (10-20) Glucose (70-99) mg/dl Calcium (8.5-10.1) mg/dl Phosphorus (2.5-4.9) mg/dl Magnesium (1.8-2.4) mg/dl Total Bilirubin (0.2-1) mg/dl Direct Bilirubin (0-0.2) mg/dl AST (15-37) U/L ALT (12-78) U/L Alkaline Phosphatase (45-117) U/L Troponin I (0-0.045) ng/ml Total Protein (6.4-8.2) gm/dl Albumin (3.4-5.0) gm/dl Globulin (2.5-4.0) gm/dl Albumin/Globulin Ratio (0.9-2) TSH (0.300-4.500) uIu/ml Free T4 (0.8-1.6) ng/dl Urine Color [place] Urine Appearance Clear (Clear) Urine pH 7.0 (4.5-7.5) Ur Specific [place] 1.015 (1.000-1.030) Urine Protein 3+ H (Negative) Urine Glucose (UA) Negative (Negative) Urine Ketones Negative (Negative) Urine Blood Trace H (Negative) Urine Nitrite Negative (Negative) Urine Bilirubin Negative (Negative) Urine Urobilinogen Negative (Negative) Ur Leukocyte Esterase Negative (Negative) Urine WBC (Auto) 1-5 (0-5) /hpf Urine RBC (Auto) 0-4 (0-4) /hpf U Hyaline Cast (Auto) 1-5 (0-5) /lpf U Epithel Cells (Auto) 5-10 H (0-5) /lpf Urine Bacteria (Auto) Negative (Negative) COVID-19 Eval Order SARS-CoV-2 (PCR) (Negative) Influenza Type A (PCR) (Neg) Influenza Type B (PCR) (Neg) RSV (RT-PCR) (Neg) Administered Medications Enoxaparin Sodium (Enoxaparin Inj 40 Mg/0.4 Ml Syr) 40 mg SQ BID FELICITAS Stop: 11/06/20 00:14 Last Admin: 10/07/20 00:41 Dose: 40 mg Documented by: [id number] Metoprolol Tartrate (Metoprolol Tartrate 100 Mg Tab) 100 mg PO BID FELICITAS Stop: 11/05/20 23:41 Last Admin: 10/07/20 00:40 Dose: 100 mg Documented by: [id number] Discontinued Medications Diphenhydramine HCl (Diphenhydramine 50 Mg/Ml Vial) 25 mg IV NOW STA Stop: 10/06/20 16:31 Last Admin: 10/06/20 16:50 Dose: 25 mg Documented by: [id number] Sodium Chloride (Nss) 500 mls @ 999 mls/hr IV .Q31M ONE Stop: 10/06/20 16:59 Last Infusion: 10/06/20 17:17 Dose: 0 mls/hr Documented by: [id number] Admin: 10/06/20 16:50 Dose: 999 mls/hr Documented by: [id number] Acetaminophen (Ofirmev) 1,000 mg in 100 mls @ 400 mls/hr IV NOW STA Stop: 10/06/20 16:44 Last Infusion: 10/06/20 17:16 Dose: 0 mls/hr Documented by: [id number] Admin: 10/06/20 16:50 Dose: 400 mls/hr Documented by: [id number] Prochlorperazine (Compazine) 1 mls @ 1 mls/min IV ONE ONE Stop: 10/06/20 16:31 Last Admin: 10/06/20 16:50 Dose: 1 mls/min Documented by: [id number] Labetalol HCl (Labetalol Hcl Iv 5 Mg/Ml 20ml) 10 mg IV NOW STA Stop: 10/06/20 21:31 Last Admin: 10/06/20 21:36 Dose: 10 mg Documented by: [id number] Cosigned by: [id number] Labetalol HCl (Labetalol Hcl Iv 5 Mg/Ml 20ml) 10 mg IV NOW STA Stop: 10/06/20 21:36 Last Admin: 10/06/20 21:36 Dose: Not Given Documented by: [id number] Lisinopril (Lisinopril 10 Mg Tab) 10 mg PO NOW STA Stop: 10/06/20 21:38 Last Admin: 10/06/20 22:02 Dose: 10 mg Documented by: [id number] Imaging Data Radiologist's Impression: Head CT 10/06/20 16:29 CT OF THE HEAD WITHOUT CONTRAST CLINICAL HISTORY: left sided TIJERINA, HTN COMPARISON STUDY: MRI of the brain September 29, 2017. Head CT September 01, 2018. CT DOSE: 614.27 mGy.cm TECHNIQUE: Helical axial images of the head were obtained without IV contrast. Automated exposure control was utilized for the study. A dose lowering technique was utilized adhering to the principles of ALARA. FINDINGS: No acute intracranial hemorrhage, midline shift or mass effect is present. The ventricular system is unremarkable. The basal cisterns are patent. No extra-axial collections are present. There are no findings to suggest acute dural sinus thrombosis or acute territorial infarct. No significant calvarial abnormalities are present. Visualized portions of the sinuses and mastoid air cells are clear. IMPRESSION: No acute intracranial findings. ACT 112: Negative or not required by law. Electronically signed by: Sam Rosario M.D. 10/06/2020 5:31 PM Chest X-Ray 10/06/20 16:32 SINGLE VIEW CHEST CLINICAL HISTORY: Dizziness. FINDINGS: An AP, portable, upright chest radiograph is compared to study dated and correlated with chest CT dated 12/17/2019. The cardiomediastinal silhouette is unremarkable. The lungs and pleural spaces are clear. No pneumothorax is seen. The bony thorax is grossly intact. Fusion hardware is noted in the lower cervical spine. IMPRESSION: No active disease in the chest. ACT 112: Negative or not required by law. Electronically signed by: Luis Balderas M.D. 10/06/2020 4:52 PM Discharge Plan Visit Data Chief Complaint: Hypertension Stated Complaint: HEADACHE LAST 2 DAY'S ED Provider: Tuan Quach Discharge Problem: Hypertensive urgency, CKD (chronic kidney disease), stage III, Headache Patient Disposition: Admitted As Inpatient Discharge Instructions Interventions: ED Discharge Assessment Last Done: 10/06/20 22:41 Discharge Problem: CKD (chronic kidney disease), stage III Qualifiers: Chronic kidney disease stage 3 subtype: unspecified whether 3a or 3b Qualified Code(s): N18.30 - Chronic kidney disease, stage 3 unspecified Headache Qualifiers: Headache type: unspecified Headache chronicity pattern: unspecified pattern Intractability: not intractable Qualified Code(s): R51.9 - Headache, unspecified
--- NOTE | 2020-10-06 23:26 | History and Physical Report ---
DATE OF ADMISSION: 10/06/2020 CHIEF COMPLAINT: Headache and elevated blood pressure. HISTORY OF PRESENT ILLNESS: This is a 50-year-old female with past medical history significant for hypothyroidism, chronic rhinitis, mild persistent asthma, tracheitis, hypertension, chronic kidney disease stage III, obesity, history of right kidney stone, history of plantar fascitis, fusion of spinal cervical region, migraines, anterior cervical lymphadenopathy, depression and anxiety state, who presents with severe headache and elevated blood pressure. The patient states last Tuesday she was having severe headaches, no blurred visions or double vision, and today her blood pressure was in the 200 range, so they decided to come to the hospital. Here after receiving IV Tylenol and Compazine and Benadryl, her headache has improved, but still systolic blood pressure in the 200s and diastolic in the 120's.. Denies any chest pain. No shortness of breath, no cough, no loss of sense of smell or taste. No earache, no runny nose, no sore throat, no nausea, no abdominal pain. Was dizzy earlier, but it has improved. No diarrhea or constipation, no blood in stool or black stools. Normal bladder movements. No hematuria or burning micturition. No swelling in the legs, no rash. Ambulates okay, sleeping okay. She was supposed to get sleep study, but that was canceled and she never had it again. ALLERGIES: VANCOMYCIN. PAST MEDICAL HISTORY: As mentioned above. PAST SURGICAL HISTORY: , D and C, injection of cervical spine, ligation of oviduct, anterior cervical spine fusion, cholecystectomy. MEDICATIONS: The patient is on Tylenol 1000 mg p.o. p.r.n., albuterol 2 puffs inhalation p.r.n., allopurinol 100 mg p.o. a.m., amlodipine 10 mg p.o. daily, aspirin 81 mg p.o. daily, vitamin D 2000 units p.o. a.m., fluoxetine 10 mg p.o. a.m., fluticasone HFA 2 puffs inhalation b.i.d., Lasix 20 mg p.o. a.m., levothyroxine 125 mcg p.o. daily, metoprolol tartrate 100 mg p.o. b.i.d., Crestor 20 mg p.o. a.m. FAMILY HISTORY: Significant for brother has diabetes; father has diabetes, heart rate disorder, hypertension, dialysis. SOCIAL HISTORY: . No smoking. Alcohol rarely. No drug use. REVIEW OF SYSTEMS: As per HPI. Rest of the review of systems negative. PHYSICAL EXAMINATION: GENERAL: The patient is morbidly obese, not in acute distress. VITAL SIGNS: Temperature 36.6, pulse 81, respiratory rate 18, blood pressure 209/128, oxygen 97% on room air. HEENT: Pupils equal, round, reactive to light. Oral mucosa moist. NECK: No JVD, no neck masses. CARDIOVASCULAR: S1, S2 heard. Regular rate and rhythm. No murmur, no gallop. RESPIRATORY SYSTEM: Normal AP diameter. No accessory muscle use. No wheezing, no crackles. ABDOMEN: Soft, bowel sounds present, nontender. No distention. CENTRAL NERVOUS SYSTEM: Cranial nerves II-XII grossly intact, nonfocal. EXTREMITIES: No edema, no erythema. LABORATORY DATA: WBC 7.1, hemoglobin 14.1, hematocrit 43.5, platelets 308. Sodium 138, potassium 4.1, chloride 106, bicarbonate 28, BUN 23, creatinine 1.5, serum glucose 100, calcium 9.4, phosphorus 3.3, magnesium 2, total bilirubin 0.5, direct bilirubin 0.1, AST 20, ALT 22, alkaline phosphatase 104. Troponin I less than 0.015. TSH 15.9, free T4 of 0.9. Urinalysis, +3 protein. SARS-CoV-2 PCR negative. Influenza A and B PCR negative. RSV PCR negative. IMAGING DATA: Chest x-ray, no acute findings. CT of the head, no acute findings. EKG: Normal sinus rhythm at a rate of 75, no significant change was found. ASSESSMENT AND PLAN: This is a 50-year-old female who presents with headache and found to have hypertensive urgency. 1. Hypertensive urgency: The patient is on amlodipine and Lopressor at home. Blood pressure in 200s. We will give a dose of labetalol, placed on labetalol p.r.n. and started on lisinopril. Will follow in tele floor. Will get echocardiogram and consult cardiology for further recommendations. If blood pressure continues to be elevated, we will have her start on nitro paste and monitor. The patient may need sleep study. 2. Headaches: Improved. The patient has hx of migraines. Could be related to her uncontrolled blood pressure. We will monitor. 3. History of chronic kidney disease stage III: Baseline creatinine 1.5, presently with creatinine 1.5. We will follow the labs. 4. Morbid obesity: Needs counseling, needs sleep study. May need nocturnal pulse ox while she is in the hospital. 5. Hyperlipidemia: Continue Crestor. 6. Hypothyroidism: Continue Synthroid. 7. Mild persistent asthma: Continue her home inhalers. 8. Depression and anxiety: Continue fluoxetine. 9. Deep venous thrombosis prophylaxis: Lovenox. DISPOSITION: Closely monitor in the tele floor. Level 1 full code. Expect to discharge home and follow with family doctor. OSMIN
[2020-10-06] MEDS ORDERED: ACETAMINOPHEN 325 MG TAB PO PRN (23:42)
[2020-10-06] MEDS ORDERED: ACETAMINOPHEN HOME PACK 500 MG TABLET PO PRN (23:42)
[2020-10-06] MEDS ORDERED: ALBUTEROL HFA 8 GM INHALER INH PRN (23:42)
[2020-10-06] MEDS ORDERED: NITROGLYCERIN SL 0.4 MG/TAB TAB SL PRN (23:42)
[2020-10-06] MEDS ORDERED: ONDANSETRON INJ 2 MG/ML 2 ML VIAL IV PRN (23:42)
[2020-10-06] MEDS ORDERED: LABETALOL HCL IV 5 MG/ML 20ML IV PRN (23:42)
[2020-10-06] MEDS ORDERED: POLYETHYLENE (MIRALAX) 17 GM PACK PO PRN (23:42)
[2020-10-07] MEDS: METOPROLOL TARTRATE 100 MG TAB PO SCH ×2 (00:40→08:54)
[2020-10-07] MEDS: ENOXAPARIN INJ 40 MG/0.4 ML SYR SQ SCH ×3 (00:41→20:45)
[2020-10-07] MEDS: LEVOTHYROXINE SODIUM 125 MCG TABLET PO SCH (06:09)
[2020-10-07 06:10] LABS: Basophils # (auto) 0.02 K/uL (0-0.2); Basophils % (auto) 0.4 %; Eosinophils # (auto) 0.16 K/uL (0-0.5); Eosinophils % (auto) 2.8 %; Hematocrit (blood only) 39.7 % (37-47); Hemoglobin 12.9 g/dL (12.0-16.0); Immature Granulocytes # (auto) 0.01 K/uL (0.00-0.02); Immature Granulocytes % (auto) 0.2 %; Lymphocytes # (auto) 1.59 K/uL (1.2-3.4); Lymphocytes % (auto) 27.9 %; Mean Corpuscular Hemoglobin 29.7 pg (25-34); Mean Corpuscular Hgb Conc 32.5 g/dL (32-36); Mean Corpuscular Volume 91.3 fL (80-100); Mean Platelet Volume 10.5 fL (7.4-10.4); Monocytes # (auto) 0.66 K/uL (0.11-0.59); Monocytes % (auto) 11.6 %; Neutrophils # (auto) 3.26 K/uL (1.4-6.5); Neutrophils % (auto) 57.1 %; Platelet Count 277 K/uL (130-400); RDW Standard Deviation 47.1 fL (36.4-46.3); Red Blood Count 4.35 M/uL (4.2-5.4)
[2020-10-07 06:42] LABS: BUN Creatinine Ratio 14.8 (10-20); Blood Urea Nitrogen 22 mg/dl (7-18); Carbon Dioxide 30 mmol/L (21-32); Chloride 108 mmol/L (98-107); Creatinine Clr Calc Pharmacy 58.3 ml/min; Est GFR (African American) 46.7; Est GFR (Non-African American) 40.3; Glucose 88 mg/dl (70-99); Magnesium 2.2 mg/dl (1.8-2.4); Potassium 3.9 mmol/L (3.5-5.1); Sodium 140 mmol/L (136-145)
[2020-10-07 06:47] LABS: Troponin I < 0.015 ng/ml (0-0.045)
[2020-10-07] MEDS: ROSUVASTATIN CALCIUM 20 MG TAB PO SCH (08:54)
[2020-10-07] MEDS: CHOLECALCIFEROL 1,000 UNITS 25 MCG TAB PO SCH (08:54)
[2020-10-07] MEDS: FLUoxetine HCL 10 MG CAP PO SCH (08:54)
[2020-10-07] MEDS: FLUTICASONE FUROATE 200MCG 14 PUFFS/INHALER INH SCH (08:54)
[2020-10-07] MEDS: FUROSEMIDE 20 MG TAB PO SCH (08:54)
[2020-10-07] MEDS: amLODIPine BESYLATE 5 MG TAB PO SCH (08:55)
[2020-10-07] MEDS: ASPIRIN 81 MG ECTAB PO SCH (08:55)
[2020-10-07] MEDS: allopurinoL 100 MG TAB PO SCH (08:55)
[2020-10-07] MEDS ORDERED: lisinopril 10 MG TAB PO SCH (09:00)
--- NOTE | 2020-10-07 12:35 | Electrocardiogram Report ---
Test Reason : Blood Pressure : / mmHG Vent. Rate : 075 BPM Atrial Rate : 075 BPM P-R Int : 180 ms QRS Dur : 094 ms QT Int : 406 ms P-R-T Axes : 046 058 051 degrees QTc Int : 453 ms Normal sinus rhythm Normal ECG When compared with ECG of 17-DEC-2019 20:03, No significant change was found Confirmed by Luis Angel Carrizales ([id number]) on 10/07/2020 12:34:57 PM Referred By: REFERRED SELF Confirmed By:Luis Angel Carrizales
--- NOTE | 2020-10-07 15:24 | Hospitalist Progress Note ---
Date of Service October 07, 2020 Assessment & Plan (1) Hypertensive urgency: presented with hypertensive urgency , with chest heaviness, headache BP improved after adjustments of meds appreciate input from cardiology , ECHO shows chronic diastolic heart failure ( grade 1 diastolic dysfunction ) with out any all motion abnormality beta junaid changed to Coreg in setting of diastolic CHF ACEI changed to ARB ( dry non productive cough with lisinopril ) con Norvasc , Lasix , added Doxazosin 2 mg HS Chronic diastolic heart failure : noted in ECHO stable vol status hypertensive heart disease management of HTN as per cardiology cont to monitor in tele Full code status Admission and Anticipated Discharge Date Admission Date: October 06, 2020 Subjective follow up visit for symptomatic hypertensive urgency /headache : pt is very pleasant, no complain of headache , no chest pain or SOB BP much improved now no cough , no fever or chills Review of Systems Review of Systems: All systems reviewed & are unremarkable except as noted in Subjective Physical Exam Physical Exam: Physical exam: General: No acute distress, alert awake oriented x3 HEENT: PERRLA, EOMI, Heart: Regular S1-S2, no carotid bruit, no JVD, no lower extremity edema Lungs: Clear to auscultate, no wheeze or rales Abdomen: Soft nontender, no organomegaly Extremity: No cyanosis, no deformity, normal strength 5 out of 5 with upper and lower Neuro: No focal neurological deficit normal speech, normal visual field, Motor strength : normal both upper and lower extremity, sensation intact Psych: Alert awake oriented x3, normal affect Results & Data Results & Data ([facility]) Vital Signs (Past 12 Hours) Vital Signs Temp Pulse Resp BP Pulse Ox 10/07/20 11:00 36.9 C 88 16 146/82 H 95 10/07/20 07:00 36.8 C 76 16 171/84 H 99 10/07/20 04:00 36.4 C L 73 18 138/80 94
[2020-10-07] MEDS ORDERED: carvediloL 12.5 MG TAB PO ONE (15:58)
[2020-10-07] MEDS ORDERED: hydroCHLOROthiazide 25 MG TAB PO STA (16:00)
--- NOTE | 2020-10-07 18:27 | Cardiology Consultation ---
Date of Consultation October 07, 2020 Assessment & Plan (1) Hypertensive urgency: (2) CKD (chronic kidney disease), stage III: EKG performed on arrival yesterday revealed sinus rhythm at 75 bpm, normal EKG. Echocardiogram reviewed independently revealed moderate concentric left ventricular hypertrophy, normal LVEF, no regional wall motion abnormalities, grade 1 diastolic dysfunction. Systolic blood pressures initially in the 200s, with recent readings in the range of 140-165 mmHg. . As an outpatient she typically takes metoprolol tartrate 100 mg twice daily, amlodipine 10 mg daily, and furosemide 20 mg daily in the morning. She was previously on lisinopril, but this was discontinued due to concerns of cough in 2019. -At present, recommend transitioning from metoprolol to carvedilol as it has better blood pressure control properties. Lisinopril 10 mg daily was started this morning, I am going to transition this to losartan due to past concerns of cough. Continue amlodipine 10 mg daily, furosemide 20 mg daily. Add Doxazosin 2 mg at bedtime tonight. History of Present Illness Attending Physician: Sushma Harris MD History of Present Illness Sue Ivan is a 50-year-old female seen in cardiology consultation per the request of Dr Crockett for the evaluation of hypertensive urgency. The patient does not typically follow with cardiology. 2 days prior to hospitalization she started experiencing headache. Headache symptoms waxed and waned throughout Tuesday and Tuesday, and on Tuesday, yesterday she took her blood pressure at home with a systolic reading in excess of 200 mmHg. Presenting blood pressure in the emergency room was 242/129. She received IV labetalol 10 mg x 2 doses with interval improvement. She was placed on her home home medications this morning and lisinopril was added. Per review of her record, she has a longstanding history of stage III chronic kidney disease. She has been on beta-junaid therapy including atenolol metoprolol for many years for the treatment of hypertension. Per review of her outpatient chart, a few years ago metoprolol had been increased from 50 mg twice daily to 100 mg twice daily. She has been on amlodipine 10 mg daily. Previous treatment included lisinopril which was discontinued in 2019 due to concerns of a cough. Allergies Allergy/AdvReac Type Severity Reaction Status Date / Time vancomycin AdvReac Intermediate Flushing Verified 10/06/20 18:32 Home Medications Medication Instructions Recorded Confirmed Type acetaminophen [Tylenol Extra 1,000 mg PO UD PRN 09/01/18 10/06/20 History Strength] allopurinol 100 mg PO QAM 09/01/18 10/06/20 History aspirin 81 mg PO QAM 09/01/18 10/06/20 History cholecalciferol (vitamin D3) 2,000 unit PO QAM 09/01/18 10/06/20 History [Vitamin D3] furosemide 20 mg PO QAM 09/01/18 10/06/20 History metoprolol tartrate 100 mg PO BID 09/01/18 10/06/20 History fluoxetine 10 mg capsule 10 mg PO QAM 07/19/19 10/06/20 History albuterol sulfate 2 puffs INH UD PRN 07/24/19 10/06/20 History rosuvastatin [Crestor] 20 mg PO QAM 07/24/19 10/06/20 History fluticasone propionate 110 2 puffs INH BID #12 gm 08/13/19 10/06/20 Rx mcg/actuation HFA aerosol inhaler levothyroxine 125 mcg PO DAILY 12/18/19 10/06/20 History amlodipine 10 mg PO DAILY 10/06/20 10/06/20 History Patient History Medical History Anxiety CKD (chronic kidney disease), stage III History of pneumonia APR 2019...RESOLVED HTN (hypertension) Hypothyroidism NO MEDS Kidney stone CURRENT/NO PROBLEMS WITH Migraines 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 Yadav 08-03-19 Family History Father Diabetes Heart disease Hypertension Mother Cancer Social History Smoking Status: Never smoker Second Hand Exposure: Yes (MULTIPLE FAMILY MEMBERS, ); Hx Alcohol Use: Yes Alcohol type: wine Hx Substance Use: No Preferred Language: Turkish Communication Ability: Effective [employer] Required: No Beliefs That Will Affect Care: None marital status: Current Living Situation: Spouse current occupational status: employed Feels Safe at Home: Yes Safety Concerns: Feels Safe At This Time Assistive Devices: Glasses Review of Systems Review of Systems: All systems reviewed & are unremarkable except as noted in HPI & below Physical Exam Physical Exam: Temp Pulse Resp BP Pulse Ox 36.8 C 64 20 165/91 H 94 10/07/20 15:38 10/07/20 15:38 10/07/20 15:38 10/07/20 15:38 10/07/20 15:38 Constitutional: WD/WN, vitals as above Respiratory: normal respiratory effort, lungs clear to auscultation Cardiovascular: RRR, no murmur, no edema Gastrointestinal (Abdomen): normal bowel sounds, soft, nontender, no hepatosplenomegaly Neurologic: PERRL, EOMI, accommodation nl, no face palsy, no dysarthria Results & Data ([facility]) Vital Signs (Past 12 Hours) Vital Signs Temp Pulse Resp BP Pulse Ox 10/07/20 15:38 36.8 C 64 20 165/91 H 94 10/07/20 11:00 36.9 C 88 16 146/82 H 95 10/07/20 07:00 36.8 C 76 16 171/84 H 99 Laboratory Results Cardiac Enzymes 10/06/20 10/07/20 Range/Units 15:56 05:44 AST (15-37) U/L Troponin I < 0.015 (0-0.045) ng/ml CBC 10/07/20 Range/Units 05:44 WBC 5.70 (4.8-10.8) K/uL RBC 4.35 (4.2-5.4) M/uL Hgb 12.9 (12.0-16.0) g/dL Hct 39.7 (37-47) % Plt Count 277 (130-400) K/uL Neut # (Auto) 3.26 (1.4-6.5) K/uL Lymph # (Auto) 1.59 (1.2-3.4) K/uL [place] # (Auto) 0.66 H (0.11-0.59) K/uL Eos # (Auto) 0.16 (0-0.5) K/uL Baso # (Auto) 0.02 (0-0.2) K/uL Comprehensive Metabolic Panel 10/06/20 10/07/20 Range/Units 15:56 05:44 Sodium 140 (136-145) mmol/L Potassium 3.9 (3.5-5.1) mmol/L Chloride 108 H (98-107) mmol/L Carbon Dioxide 30 (21-32) mmol/L BUN 22 H (7-18) mg/dl Creatinine 1.48 H (0.6-1.2) mg/dl Glucose 88 (70-99) mg/dl Calcium 9.0 (8.5-10.1) mg/dl AST (15-37) U/L Intake and Output 10/07/20 10/07/20 10/07/20 06:59 14:59 22:59 Intake Total 240 / 840 Output Total 600 / 600 Balance -360 / 240 Intake: Oral 240 / 240 Output: Urine 600 / 600 Other: Weight 118.8 kg Weight Measurement Method Standing Scale (1) CKD (chronic kidney disease), stage III Chronic kidney disease stage 3 subtype: unspecified whether 3a or 3b Qualified Code(s): N18.30 - Chronic kidney disease, stage 3 unspecified
[2020-10-07] MEDS ORDERED: DOXAZosin MESYLATE TAB 2 MG TAB PO SCH (21:00)
[2020-10-07] MEDS ORDERED: carvediloL 12.5 MG TAB PO SCH (21:00)
[2020-10-08] MEDS: LEVOTHYROXINE SODIUM 125 MCG TABLET PO SCH (05:39)
[2020-10-08] MEDS ORDERED: LOSARTAN POTASSIUM 25 MG TAB PO SCH (09:00)
[2020-10-08] MEDS ORDERED: hydroCHLOROthiazide 25 MG TAB PO SCH (09:00)
[2020-10-08] MEDS ORDERED: carvediloL 12.5 MG TAB PO SCH (09:00)
[2020-10-08] MEDS: allopurinoL 100 MG TAB PO SCH (09:08)
[2020-10-08] MEDS: CHOLECALCIFEROL 1,000 UNITS 25 MCG TAB PO SCH (09:08)
[2020-10-08] MEDS: amLODIPine BESYLATE 5 MG TAB PO SCH (09:08)
[2020-10-08] MEDS: FUROSEMIDE 20 MG TAB PO SCH (09:08)
[2020-10-08] MEDS: ASPIRIN 81 MG ECTAB PO SCH (09:09)
[2020-10-08] MEDS: ROSUVASTATIN CALCIUM 20 MG TAB PO SCH (09:09)
[2020-10-08] MEDS: ENOXAPARIN INJ 40 MG/0.4 ML SYR SQ SCH (09:09)
[2020-10-08] MEDS: FLUoxetine HCL 10 MG CAP PO SCH (09:09)
[2020-10-08] MEDS: FLUTICASONE FUROATE 200MCG 14 PUFFS/INHALER INH SCH (09:10)
--- NOTE | 2020-10-08 11:32 | Discharge Summary ---
Date of Service October 08, 2020 Admission HPI Per Admitting Provider HISTORY OF PRESENT ILLNESS: This is a 50-year-old female with past medical history significant for hypothyroidism, chronic rhinitis, mild persistent asthma, tracheitis, hypertension, chronic kidney disease stage III, obesity, history of right kidney stone, history of plantar fascitis, fusion of spinal cervical region, migraines, anterior cervical lymphadenopathy, depression and anxiety state, who presents with severe headache and elevated blood pressure. The patient states last Tuesday she was having severe headaches, no blurred visions or double vision, and today her blood pressure was in the 200 range, so they decided to come to the hospital. Here after receiving IV Tylenol and Compazine and Benadryl, her headache has improved, but still systolic blood pressure in the 200s and diastolic in the 120's.. Denies any chest pain. No shortness of breath, no cough, no loss of sense of smell or taste. No earache, no runny nose, no sore throat, no nausea, no abdominal pain. Was dizzy earlier, but it has improved. No diarrhea or constipation, no blood in stool or black stools. Normal bladder movements. No hematuria or burning micturition. No swelling in the legs, no rash. Ambulates okay, sleeping okay. She was supposed to get sleep study, but that was canceled and she never had it again. Admission Exam Per Admitting Provider PHYSICAL EXAMINATION: GENERAL: The patient is morbidly obese, not in acute distress. VITAL SIGNS: Temperature 36.6, pulse 81, respiratory rate 18, blood pressure 209/128, oxygen 97% on room air. HEENT: Pupils equal, round, reactive to light. Oral mucosa moist. NECK: No JVD, no neck masses. CARDIOVASCULAR: S1, S2 heard. Regular rate and rhythm. No murmur, no gallop. RESPIRATORY SYSTEM: Normal AP diameter. No accessory muscle use. No wheezing, no crackles. ABDOMEN: Soft, bowel sounds present, nontender. No distention. CENTRAL NERVOUS SYSTEM: Cranial nerves II-XII grossly intact, nonfocal. EXTREMITIES: No edema, no erythema. Principal Diagnosis Hypertensive Urgency Discharge Exam CONSTITUTIONAL: obese, vitals as above, generally well-appearing EYES: normal conjunctivae, no scleral icterus ENT: external ear and nose normal, MMM RESPIRATORY: clear to auscultation bilaterally, no crackles, rales or wheezes, normal respiratory effort CARDIOVASCULAR: regular rate and rhythm, S1 and 2 heard without murmurs, gallops or rubs, no JVD, no peripheral edema GASTROINTESTINAL: soft, nontender, nondistended, no guarding MUSCULOSKELETAL: strength 5/5 throughout, head is normocephalic and atraumatic SKIN: warm and dry NEUROLOGIC: No facial palsy, no dysarthria. CN 2-12 grossly intact, no sensory deficit, normal cognition, normal speech, no tremor. No gross focal deficits. PSYCHIATRIC: alert cooperative and oriented to person, place and time. Discharge Data Allergies Allergy/AdvReac Type Severity Reaction Status Date / Time lisinopril AdvReac Intermediate Cough Verified 10/07/20 20:13 vancomycin AdvReac Intermediate Flushing Verified 10/06/20 18:32 Consultations 10/06/20 20:46 ED Decision to Admit Stat 10/07/20 08:00 Consult Cardiology Routine Ordered Studies Laboratory Results WBC 5.70 K/uL (4.8-10.8) 10/07/20 05:44 RBC 4.35 M/uL (4.2-5.4) 10/07/20 05:44 Hgb 12.9 g/dL (12.0-16.0) 10/07/20 05:44 Hct 39.7 % (37-47) 10/07/20 05:44 MCV 91.3 fL (80-100) 10/07/20 05:44 MCH 29.7 pg (25-34) 10/07/20 05:44 MCHC 32.5 g/dL (32-36) 10/07/20 05:44 RDW Std Deviation 47.1 fL (36.4-46.3) H 10/07/20 05:44 RDW Coeff of Chasity 14.0 % (11.5-14.5) 10/07/20 05:44 Plt Count 277 K/uL (130-400) 10/07/20 05:44 MPV 10.5 fL (7.4-10.4) H 10/07/20 05:44 Immature Gran % (Auto) 0.2 % 10/07/20 05:44 Neut % (Auto) 57.1 % 10/07/20 05:44 Lymph % (Auto) 27.9 % 10/07/20 05:44 [place] % (Auto) 11.6 % 10/07/20 05:44 Eos % (Auto) 2.8 % 10/07/20 05:44 Baso % (Auto) 0.4 % 10/07/20 05:44 Neut # (Auto) 3.26 K/uL (1.4-6.5) 10/07/20 05:44 Lymph # (Auto) 1.59 K/uL (1.2-3.4) 10/07/20 05:44 [place] # (Auto) 0.66 K/uL (0.11-0.59) H 10/07/20 05:44 Eos # (Auto) 0.16 K/uL (0-0.5) 10/07/20 05:44 Baso # (Auto) 0.02 K/uL (0-0.2) 10/07/20 05:44 Immature Gran # (Auto) 0.01 K/uL (0.00-0.02) 10/07/20 05:44 PT Cancelled 10/06/20 15:56 INR Cancelled 10/06/20 15:56 APTT Cancelled 10/06/20 15:56 PTT Ratio Cancelled 10/06/20 15:56 Sodium 140 mmol/L (136-145) 10/07/20 05:44 Potassium 3.9 mmol/L (3.5-5.1) 10/07/20 05:44 Chloride 108 mmol/L (98-107) H 10/07/20 05:44 Carbon Dioxide 30 mmol/L (21-32) 10/07/20 05:44 Anion Gap 2.0 (3-11) L 10/07/20 05:44 BUN 22 mg/dl (7-18) H 10/07/20 05:44 Creatinine 1.48 mg/dl (0.6-1.2) H 10/07/20 05:44 Est Cr Clr Drug Dosing 58.3 ml/min 10/07/20 05:44 Est GFR ( Amer) 46.7 10/07/20 05:44 Est GFR (Non-Af Amer) 40.3 10/07/20 05:44 BUN/Creatinine Ratio 14.8 (10-20) 10/07/20 05:44 Glucose 88 mg/dl (70-99) 10/07/20 05:44 Calcium 9.0 mg/dl (8.5-10.1) 10/07/20 05:44 Phosphorus 3.3 mg/dl (2.5-4.9) 10/06/20 17:13 Magnesium 2.2 mg/dl (1.8-2.4) 10/07/20 05:44 Total Bilirubin 0.5 mg/dl (0.2-1) 10/06/20 15:56 Direct Bilirubin 0.1 mg/dl (0-0.2) 10/06/20 17:13 AST 20 U/L (15-37) 10/06/20 17:13 ALT 22 U/L (12-78) 10/06/20 15:56 Alkaline Phosphatase 104 U/L (45-117) 10/06/20 15:56 Troponin I < 0.015 ng/ml (0-0.045) 10/07/20 05:44 Total Protein 9.1 gm/dl (6.4-8.2) H 10/06/20 15:56 Albumin 3.4 gm/dl (3.4-5.0) 10/06/20 15:56 Globulin 5.7 gm/dl (2.5-4.0) H 10/06/20 15:56 Albumin/Globulin Ratio 0.6 (0.9-2) L 10/06/20 15:56 TSH 15.900 uIu/ml (0.300-4.500) H 10/06/20 17:13 Free T4 0.97 ng/dl (0.8-1.6) 10/06/20 17:13 Urine Color [place] 10/06/20 19:30 Urine Appearance Clear (Clear) 10/06/20 19:30 Urine pH 7.0 (4.5-7.5) 10/06/20 19:30 Ur Specific [place] 1.015 (1.000-1.030) 10/06/20 19:30 Urine Protein 3+ (Negative) H 10/06/20 19:30 Urine Glucose (UA) Negative (Negative) 10/06/20 19:30 Urine Ketones Negative (Negative) 10/06/20 19:30 Urine Blood Trace (Negative) H 10/06/20 19:30 Urine Nitrite Negative (Negative) 10/06/20 19:30 Urine Bilirubin Negative (Negative) 10/06/20 19:30 Urine Urobilinogen Negative (Negative) 10/06/20 19:30 Ur Leukocyte Esterase Negative (Negative) 10/06/20 19:30 Urine WBC (Auto) 1-5 /hpf (0-5) 10/06/20 19:30 Urine RBC (Auto) 0-4 /hpf (0-4) 10/06/20 19:30 U Hyaline Cast (Auto) 1-5 /lpf (0-5) 10/06/20 19:30 U Epithel Cells (Auto) 5-10 /lpf (0-5) H 10/06/20 19:30 Urine Bacteria (Auto) Negative (Negative) 10/06/20 19:30 COVID-19 Eval Order [facility] at [facility] 10/06/20 16:47 SARS-CoV-2 (PCR) NEGATIVE (Negative) 10/06/20 16:47 Influenza Type A (PCR) Negative (Neg) 10/06/20 16:47 Influenza Type B (PCR) Negative (Neg) 10/06/20 16:47 RSV (RT-PCR) Negative (Neg) 10/06/20 16:[address] 10/06/20 16:29 CT OF THE HEAD WITHOUT CONTRAST CLINICAL HISTORY: left sided TIJERINA, HTN COMPARISON STUDY: MRI of the brain September 29, 2017. Head CT September 01, 2018. CT DOSE: 614.27 mGy.cm TECHNIQUE: Helical axial images of the head were obtained without IV contrast. Automated exposure control was utilized for the study. A dose lowering technique was utilized adhering to the principles of ALARA. FINDINGS: No acute intracranial hemorrhage, midline shift or mass effect is present. The ventricular system is unremarkable. The basal cisterns are patent. No extra-axial collections are present. There are no findings to suggest acute dural sinus thrombosis or acute territorial infarct. No significant calvarial abnormalities are present. Visualized portions of the sinuses and mastoid air cells are clear. IMPRESSION: No acute intracranial findings. ACT 112: Negative or not required by law. Electronically signed by: Sam Rosario M.D. 10/06/2020 5:31 PM Chest X-Ray 10/06/20 16:32 SINGLE VIEW CHEST CLINICAL HISTORY: Dizziness. FINDINGS: An AP, portable, upright chest radiograph is compared to study dated 08/03/2019 and correlated with chest CT dated 12/17/2019. The cardiomediastinal silhouette is unremarkable. The lungs and pleural spaces are clear. No pneumothorax is seen. The bony thorax is grossly intact. Fusion hardware is noted in the lower cervical spine. IMPRESSION: No active disease in the chest. ACT 112: Negative or not required by law. Electronically signed by: Luis Balderas M.D. 10/06/2020 4:52 PM Hospital Course (1) Hypertensive urgency: The patient is a 50-year-old woman with a history of hypertension who presented to the ER with a left-sided headache that was associated with elevated blood pressure. She had no evidence of endorgan damage on work-up. She denied any strokelike symptoms. Initial blood pressure was 242/129. A CT of the head was performed revealing no acute intracranial findings. Chest x-ray was performed revealing no active disease in the chest. An EKG revealed no evidence of active ischemia. She was initially treated for headache with IV fluid hydration Tylenol Compazine and diphenhydramine. Although her headache came down to 1 out of 10 pain her blood pressure elevation persisted in the 200s over 100s. She was given a dose of labetalol admitted to the hospitalist team. She was initially started on lisinopril although this was later changed to losartan with a history of cough in response to JEANNINE inhibitor administration previously. An echocardiogram was performed revealing moderate concentric left ventricular hypertrophy with an ejection fraction of 55 to 60%. There was normal left ventricular wall motion seen. Grade 1 diastolic dysfunction was also seen. Cardiology was consulted and made additional changes to her antihypertensive regimen including transitioning metoprolol to carvedilol as it has better blood pressure control properties. Amlodipine 10 mg daily and furosemide 20 mg daily were continued from her home regimen. Lisinopril was again transitioned to losartan and doxazosin 2 mg was added at bedtime. The following day her blood pressure had improved into the normal range and by time of discharge her blood pressure was 128/85 and she was asymptomatic. At time of discharge she was hemodynamically stable and afebrile and tolerating p.o. She was mentating and ambulating at baseline and discharged in stable condition with close primary care follow-up recommended. Repeat nonfasting labs are recommended in at least 2 weeks to check renal function and electrolytes after multiple medication changes. Also of note the patient is noted to be on levothyroxine 125 mcg p.o. daily however, she did have an elevated TSH to 15 on admission. This should be followed up with primary care physician as outpatient. Total Time Total Time Spent Total Time Spent (In Minutes): 60 Total Time Includes: Examination of the Patient, Discharge Planning, Medication Reconciliation and Communication With Other Providers Discharge Plan Discharge Items Patient Disposition: Home - Self-Care Reason For Visit: Headache, HTN Discharge Diagnosis: Hypertensive Urgency Condition on Discharge: Good Activity: Resume your previous activity Non-emergency contact: Primary Care Provider Call non-emergency contact if: you have any medication questions, your symptoms worsen, your pain is not controlled, your pain is unusual for you and your pain is concerning for you Follow-up/Referrals: Mykel Bailey MD [Primary Care Provider] - (Date & Time 10/13/2020 9:40 AM Provider Mykel Bailey MD [facility] ) Diet: Low Sodium (2gm) Addtl Attending Provider Instructions: Please take all medications as instructed on discharge list below. It is recommended that you follow-up with your primary care physician at the date/time above to check your blood pressure and consider repeat non-fasting labwork after multiple medication changes to your antihypertensive regimen. It is recommended that you stick to a low sodium diet which will naturally help to reduce your blood pressure. It was a pleasure taking care of you! Please call if you have any questions or problems. You can reach a [facility] hospitalist on duty at [facility] 24 hours a day by calling [phone]. Take care of yourself. Radha Jiang DO [facility] Hospitalist Pending Studies at Discharge: No Stand-Alone Forms: [facility] Medications and DC Order Prescriptions: New carvedilol 12.5 mg Tablet 12.5 mg PO BID Qty: 60 RF: 0 doxazosin 2 mg Tablet 2 mg PO HS Qty: 30 RF: 0 losartan 25 mg Tablet 25 mg PO QAM Qty: 30 RF: 0 Continued fluoxetine [Prozac] 10 mg capsule 10 mg PO QAM RF: 0 Flovent HFA 110 mcg/actuation HFA aerosol inhaler 2 puffs INH BID Qty: 12 RF: 2 allopurinol 100 mg Tablet 100 mg PO QAM RF: 0 aspirin 81 mg Tablet,Delayed Release (Dr/Ec) 81 mg PO QAM RF: 0 acetaminophen [Tylenol Extra Strength] 500 mg Tablet 1,000 mg PO UD PRN (Reason: Pain) RF: 0 cholecalciferol (vitamin D3) [Vitamin D3] 2,000 unit Tablet 2,000 unit PO QAM RF: 0 furosemide 20 mg Tablet 20 mg PO QAM RF: 0 rosuvastatin [Crestor] 20 mg Tablet 20 mg PO QAM RF: 0 albuterol sulfate 90 mcg/actuation HFA aerosol inhaler 2 puffs INH UD PRN (Reason: shortness of breath or wheezing) RF: 0 levothyroxine 125 mcg Tablet 125 mcg PO DAILY RF: 0 amlodipine 10 mg Tablet 10 mg PO DAILY RF: 0 Discontinued metoprolol tartrate 100 mg tablet 100 mg PO BID RF: 0 Discharge Orders: Discharge Order (Routine); Ordered 10/08/20 Ordered By: Radha Jiang Admission Data Admit Date/Time: 10/06/20 21:36 Attending Provider: Radha Jiang Admit Provider: Evelio Crockett Primary Care Provider: Mykel Bailey Other Providers: Evelio Crockett ; Chandler Mcdermott ; Andrea Heredia ; Frank Garcia ; Cristian Cabrera ; Harman Bose ; Rodney Obrien ; Elvira Reyes ; Eulalia Connolly ; Baudilio Valdez
== END 2020-10-08 14:20 | disposition home or self-care (01) | DRG 305 ==
LOC: ED 15:20 → 2S 21:36 → SUATTDRO 21:36 → 2S 22:41

== ENCOUNTER 2022-04-29 15:57 | Inpatient (IN) ==
--- NOTE | 2022-04-29 16:10 | ED Triage Note ---
Date of Service April 29, 2022 History of Present Illness This patient was briefly evaluated while in triage. An abbreviated physical exam was performed. This patient is a 51-year-old Female with past medical history of CKD Stage III, HTN, hemoptysis, who presents to the ED for evaluation of "i was at my doctor's Tuesday and I've been having problems with my kidneys. My blood pressure was 169/120 and he doubled my blood pressure medications. I've been checking my blood pressure and it keeps increasing to 200's. Today, I took my blood pressure at work and it was 227/138. I called my doctor and they wanted me to go to the hospital." Pt. is c/o headache, which is not unusual for when her blood pressure is elevated. Does have nephrology appointment tomorrow. Physical Exam VITALS: Vitals are noted on the nurse's note and reviewed by myself. GENERAL: This is a 51 year old white female, in no acute distress, nondiaphoretic, well-developed well-nourished. SKIN: No obvious rashes, edema, erythema HEAD: Normocephalic atraumatic. EYES: Conjunctivae without injection, sclerae without icterus. NECK: No JVD. LUNGS: No retractions or accessory muscle use. MUSCULOSKELETAL: Normal gait. NEURO: Patient was alert and oriented to person place and time. No focal neurological deficits. Initial orders for labs and / or imaging were placed and patient was placed in the waiting area until a bed is available. Please see further documentation for the full ED course.
--- NOTE | 2022-04-29 17:48 | XRay Report ---
XR chest 1V portable HISTORY: 51 years-old Female Hypertension acute hypertension COMPARISON: Chest radiograph 10/06/2020 TECHNIQUE: AP view of the chest FINDINGS: Cardiomediastinal and hilar silhouettes are within normal limits. No pneumothorax, pleural effusion, airspace consolidation or overt pulmonary edema. Bones of the chest appear grossly intact. IMPRESSION: No acute process. ACT 112: Negative or not required by law. The above report was generated using voice recognition software. It may contain grammatical, syntax o r spelling errors. Electronically signed by: Bunny Diallo M.D. 04/29/2022 5:47 PM
[2022-04-29 17:53] LABS: Basophils # (auto) 0.03 K/uL (0-0.2); Basophils % (auto) 0.5 %; Eosinophils # (auto) 0.27 K/uL (0-0.50); Eosinophils % (auto) 4.2 %; Hemoglobin 12.4 g/dl (12.0-16.0); Immature Granulocytes # (auto) 0.03 K/uL (0.00-0.02); Immature Granulocytes % (auto) 0.5 %; Lymphocytes % (auto) 24.9 %; Mean Corpuscular Hemoglobin 29.5 pg (25.0-34.0); Mean Corpuscular Hgb Conc 31.8 g/dL (32.0-36.0); Mean Corpuscular Volume 92.6 fL (80.0-100.0); Mean Platelet Volume 11.1 fL (9.4-12.3); Monocytes # (auto) 0.65 K/uL (0.24-0.82); Monocytes % (auto) 10.1 %; Neutrophils # (auto) 3.85 K/uL (1.4-6.5); Neutrophils % (auto) 59.8 %; Platelet Count 304 K/uL (130-400); RDW Coefficient of Variation 14.3 % (11.5-14.5); RDW Standard Deviation 47.8 fL (36.4-46.3); Red Blood Count 4.21 M/uL (3.93-5.22); White Blood Count 6.43 K/ul (4.8-10.8)
[2022-04-29 18:07] LABS: Partial Thromboplastin Time 28.4 Seconds (21.0-31.0); Prothrombin Time 10.8 Seconds (9.0-12.0)
--- NOTE | 2022-04-29 18:10 | Emergency Department Note ---
Impression & Plan HTN (hypertension), CKD (chronic kidney disease), stage III ED Provider Note NAME: ALEXANDREA NIXON AGE: 51 SEX: F : 1970 ARRIVES VIA: Walk-In INFORMANT: Patient, ED PROVIDER(S): Kenny Garcia MD Chief Complaint: HPI: Patient presents due to concern for hypertension. The patient was seen by her primary care doctor on Tuesday with Dr. Kelsey Mederos and reportedly did have hypertension at that time wa presented here as the patient had increasing blood pressure at home and stated that her systolic was well above 200. Patient denies any chest pains or shortness of breath. The patient has had mild dull frontal headache but no numbness tingling or focal weakness. Patient denies any leg swelling or calf pain. Patient does drink 2 to 3 cups of caffeinated coffee in the morning but denies any alcohol tobacco supplements or stimulants. Patient states that she has been compliant with her medications. When she was seen on Tuesday Dr. Cummings's office patient was increased on her losartan from 25mg to 50 mg and the patient's doxazosin was increased from 2 mg to 4 mg. I did suggest to the patient that she increase her amlodipine. ROS: See HPI for pertinent positives and negatives. A total of 10 systems were reviewed and otherwise negative. Past medical history: See below Surgical history: See below Social history: See below Physical Exam: GENERAL: NAD, wearing a mask, non-toxic. EYE EXAM: Normal conjunctiva. PERRL, no anisocoria and EOM's grossly intact w/o pain. NECK: Supple, no nuchal rigidity, no adenopathy, non-tender. No signs of meningismus. FROM of the neck with good chin to chest and neck extension. No stridor. LUNGS: Clear to auscultation. Normal chest wall mechanics. HEART: NSR, no MRG. ABDOMEN: Abdomen soft, non-tender, normo-active bowel sounds, no masses, no rebound or guarding. BACK: No CVA TTP. SKIN: No rashes and no bruising. UPPER EXTREMITIES: Upper extremities are grossly normal. LOWER EXTREMITIES: Grossly normal, no edema. NEURO EXAM: A&O x3, cranial nerves II-XII grossly intact, normal speech, moves all 4 extremities. Differential diagnoses: Benign hypertension, hypertensive emergency, cardiovascular pathology, toxicologic, pheochromocytoma, electrolyte abnormality, renal disease, endorgan damage, as well as other pathologies. Course: Patient was seen and evaluated the bedside. Full history physical exam was performed. EKG interpreted by me Normal sinus rhythm rate of 95, normal intervals and axis. No ST elevations. No significant change from comparison completed October 06, 2020. Imaging Studies: See Below Cardiac monitoring: An order was placed for continuous cardiac monitoring. The monitor shows a rate of 95 with sinus rhythm. MDM: Patient was seen due to concern for hypertension. Patient did have blood work completed. The patient does have mild headache but no numbness tingling or focal weakness and is not meningitic or encephalopathic. No confused and the patient denies any chest pains or shortness of breath. Blood work was obtained which showed a normal white count H&H and platelet count kidney function was unchanged. Patient's creat was 1.6 and the patient's creat has run anywhere from 1.6-1.3 in the past 3 years. Chest x-ray negative. The patient's blood pressure did not much improve and after further discussion the patient was ordered an IV dose of hydralazine. This somewhat improved some of her symptoms but after further discussion patient is agreeable to inpatient treatment at this time to more aggressively get her blood pressure under better control as opposed to outpatient follow-up. I did speak with the on-call hospitalist Dr. Crockett and the patient was admitted to the medicine service. 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 Beliefs That Will Affect Care: None marital status: Current Living Situation: Spouse current occupational status: employed Feels Safe at Home: Yes Assistive Devices: Glasses Allergies Allergies Allergy/AdvReac Type Severity Reaction Status Date / Time lisinopril AdvReac Intermediate Cough Verified 04/29/22 20:51 vancomycin AdvReac Intermediate Flushing Verified 04/29/22 20:51 Home Meds Home Medications Medication Instructions Recorded Confirmed acetaminophen 500 mg tablet 1,000 mg PO Q4 PRN Pain 09/01/18 04/29/22 (Tylenol Extra Strength) allopurinol 100 mg tablet 100 mg PO QAM 09/01/18 04/29/22 aspirin 81 mg tablet,delayed 81 mg PO QAM 09/01/18 04/29/22 release cholecalciferol (vitamin D3) 50 2,000 unit PO QAM 09/01/18 04/29/22 mcg (2,000 unit) tablet (Vitamin D3) furosemide 20 mg tablet 20 mg PO QAM 09/01/18 04/29/22 albuterol sulfate 90 mcg/actuation 2 puffs inhalation Q6 PRN Wheezing 07/24/19 04/29/22 aerosol inhaler rosuvastatin 20 mg tablet (Crestor) 20 mg PO QAM 07/24/19 04/29/22 levothyroxine 125 mcg tablet 125 mcg PO DAILY 12/18/19 04/29/22 amlodipine 10 mg tablet 10 mg PO QAM 10/06/20 04/29/22 carvedilol 25 mg tablet 25 mg PO AMHS 04/29/22 04/29/22 doxazosin 4 mg tablet 4 mg PO HS 04/29/22 04/29/22 fluoxetine 20 mg capsule 20 mg PO QAM 04/29/22 04/29/22 losartan 50 mg tablet 50 mg PO QAM 04/29/22 04/29/22 meclizine 25 mg tablet 25 mg PO TID PRN Dizziness 04/29/22 04/29/22 mometasone-formoterol HFA 200 2 puff inhalation AMHS 04/29/22 04/29/22 mcg-5 mcg/actuation aerosol inhaler (Dulera) montelukast 10 mg tablet 10 mg PO QAM 04/29/22 04/29/22 omeprazole 20 mg capsule,delayed 20 mg PO QAM 04/29/22 04/29/22 release Results & Data (ED) Vital Signs Vital Signs - 24 hr 04/29/22 16:07 04/29/22 17:41 04/29/22 19:00 Temperature 36.6 C Temperature Source Temporal Artery Scan Pulse Rate 103 H Pulse Rate [Apical] 87 Pulse Rhythm [Apical] Regular Pulse Strength [Apical] Normal Respiratory Rate 18 18 Respiratory Effort / Characteristics Non-Labored Spontaneous Non-Labored Respiratory Depth Normal Normal Respiratory Pattern Regular Regular Blood Pressure 237/143 H Blood Pressure [Right Arm] 240/134 H Blood Pressure Mean 174 Blood Pressure Mean [Right Arm] 169 Blood Pressure Position Sitting Blood Pressure Position [Right Arm] Lying Pulse Oximetry 100 95 Oxygen Delivery Method Room Air Room Air Room Air Sepsis Recent Fever Within 48 Hours No Sepsis New/Unexplained Change in Mental Status N/A Sepsis Action Taken by Nursing No Action Required 04/29/22 19:56 Temperature Temperature Source Pulse Rate Pulse Rate [Apical] 112 H Pulse Rhythm [Apical] Regular Pulse Strength [Apical] Normal Respiratory Rate 20 Respiratory Effort / Characteristics Non-Labored Respiratory Depth Normal Respiratory Pattern Regular Blood Pressure Blood Pressure [Right Arm] 237/118 H Blood Pressure Mean Blood Pressure Mean [Right Arm] 157 Blood Pressure Position Blood Pressure Position [Right Arm] Lying Pulse Oximetry 98 Oxygen Delivery Method Room Air Sepsis Recent Fever Within 48 Hours Sepsis New/Unexplained Change in Mental Status Sepsis Action Taken by Care Home Medications Current Medication List: was personally reviewed by me Laboratory Data Attestation: I reviewed the patient's lab results. Result diagrams: 04/29/22 16:54 04/29/22 16:54 Lab Results 04/29/22 04/29/22 04/29/22 Range/Units 16:54 16:54 16:54 WBC 6.43 (4.8-10.8) K/ul RBC 4.21 (3.93-5.22) M/uL Hgb 12.4 (12.0-16.0) g/dl Hct 39.0 (34.1-44.9) % MCV 92.6 (80.0-100.0) fL MCH 29.5 (25.0-34.0) pg MCHC 31.8 L (32.0-36.0) g/dL RDW Std Deviation 47.8 H (36.4-46.3) fL RDW Coeff of Chasity 14.3 (11.5-14.5) % Plt Count 304 (130-400) K/uL MPV 11.1 (9.4-12.3) fL Immature Gran % (Auto) 0.5 % Neut % (Auto) 59.8 % Lymph % (Auto) 24.9 % [place] % (Auto) 10.1 % Eos % (Auto) 4.2 % Baso % (Auto) 0.5 % Neut # (Auto) 3.85 (1.4-6.5) K/uL Lymph # (Auto) 1.60 (1.2-3.4) K/uL [place] # (Auto) 0.65 (0.24-0.82) K/uL Eos # (Auto) 0.27 (0-0.50) K/uL Baso # (Auto) 0.03 (0-0.2) K/uL Immature Gran # (Auto) 0.03 H (0.00-0.02) K/uL PT 10.8 (9.0-12.0) Seconds INR 1.0 (0.9-1.1) APTT 28.4 (21.0-31.0) Seconds PTT Ratio 1.0 Sodium 141 (136-145) mmol/L Potassium 3.8 (3.5-5.1) mmol/L Chloride 106 (98-107) mmol/L Carbon Dioxide 29 (21-32) mmol/L Anion Gap 6 (3-11) BUN 29 H (6-23) mg/dl Creatinine 1.66 H (0.6-1.2) mg/dl Est Cr Clr Drug Dosing 51.2 ml/min Est GFR ( Amer) 40.4 ml/min Est GFR (Non-Af Amer) 34.8 ml/min BUN/Creatinine Ratio 17.5 (10-20) Glucose 127 H (70-99(Fasting)) mg/dl Calcium 9.6 (8.5-10.1) mg/dl Total Bilirubin 0.4 (0.2-1.0) mg/dl AST 18 (13-39) U/L ALT 11 (7-52) U/L Alkaline Phosphatase 80 (34-104) U/L Troponin I High Sens 8.9 (0-14) pg/ml Total Protein 8.4 H (6.0-8.3) gm/dl Albumin 3.8 (3.4-5.0) gm/dl Globulin 4.6 H (2.5-4.0) gm/dl Albumin/Globulin Ratio 0.8 L (0.9-2) SARS-CoV-2, RNA, NAAT (NEGATIVE) 04/29/22 Range/Units 20:40 WBC (4.8-10.8) K/ul RBC (3.93-5.22) M/uL Hgb (12.0-16.0) g/dl Hct (34.1-44.9) % MCV (80.0-100.0) fL MCH (25.0-34.0) pg MCHC (32.0-36.0) g/dL RDW Std Deviation (36.4-46.3) fL RDW Coeff of Chasity (11.5-14.5) % Plt Count (130-400) K/uL MPV (9.4-12.3) fL Immature Gran % (Auto) % Neut % (Auto) % Lymph % (Auto) % [place] % (Auto) % Eos % (Auto) % Baso % (Auto) % Neut # (Auto) (1.4-6.5) K/uL Lymph # (Auto) (1.2-3.4) K/uL [place] # (Auto) (0.24-0.82) K/uL Eos # (Auto) (0-0.50) K/uL Baso # (Auto) (0-0.2) K/uL Immature Gran # (Auto) (0.00-0.02) K/uL PT (9.0-12.0) Seconds INR (0.9-1.1) APTT (21.0-31.0) Seconds PTT Ratio Sodium (136-145) mmol/L Potassium (3.5-5.1) mmol/L Chloride (98-107) mmol/L Carbon Dioxide (21-32) mmol/L Anion Gap (3-11) BUN (6-23) mg/dl Creatinine (0.6-1.2) mg/dl Est Cr Clr Drug Dosing ml/min Est GFR ( Amer) ml/min Est GFR (Non-Af Amer) ml/min BUN/Creatinine Ratio (10-20) Glucose (70-99(Fasting)) mg/dl Calcium (8.5-10.1) mg/dl Total Bilirubin (0.2-1.0) mg/dl AST (13-39) U/L ALT (7-52) U/L Alkaline Phosphatase (34-104) U/L Troponin I High Sens (0-14) pg/ml Total Protein (6.0-8.3) gm/dl Albumin (3.4-5.0) gm/dl Globulin (2.5-4.0) gm/dl Albumin/Globulin Ratio (0.9-2) SARS-CoV-2, RNA, NAAT NEGATIVE (NEGATIVE) Administered Medications Acetaminophen (Acetaminophen 325 Mg Tab) 650 mg PO Q4H PRN PRN Reason: Pain or Fever Stop: 05/29/22 23:24 Last Admin: 04/30/22 00:31 Dose: 650 mg Documented By: MARISSA Labetalol HCl (Labetalol Hcl Iv 5 Mg/Ml 20ml) 10 mg IV Q4H PRN PRN Reason: Hypertension Stop: 05/29/22 23:24 Last Admin: 04/30/22 00:31 Dose: 10 mg Documented By: MARISSA Co-signed By: AMP Discontinued Medications Carvedilol (Carvedilol 25 Mg Tab) 25 mg PO NOW ONE Stop: 04/29/22 21:46 Last Admin: 04/29/22 22:38 Dose: 25 mg Documented By: GLENDA Doxazosin Mesylate (Doxazosin Mesylate 4 Mg Tab) 4 mg PO NOW ONE Stop: 04/29/22 21:46 Last Admin: 04/29/22 22:38 Dose: 4 mg Documented By: GLENDA Hydralazine HCl (Hydralazine Hcl 20 Mg/Ml Vial) 10 mg IV NOW STA Stop: 04/29/22 18:58 Last Admin: 04/29/22 19:09 Dose: 10 mg Documented By: GLENDA Imaging Data Radiologist's Impression: Chest X-Ray 04/29/22 16:10 XR chest 1V portable HISTORY: 51 years-old Female Hypertension acute hypertension COMPARISON: Chest radiograph 10/06/2020 TECHNIQUE: AP view of the chest FINDINGS: Cardiomediastinal and hilar silhouettes are within normal limits. No pneumothorax, pleural effusion, airspace consolidation or overt pulmonary edema. Bones of the chest appear grossly intact. IMPRESSION: No acute process. ACT 112: Negative or not required by law. The above report was generated using voice recognition software. It may contain grammatical, syntax or spelling errors. Electronically signed by: Bunny Diallo M.D. 04/29/2022 5:47 PM Discharge Plan Visit Data Chief Complaint: Hypertension Stated Complaint: REF BY , HIGH BP ED Provider: Kenny Garcia Discharge Problem: HTN (hypertension), CKD (chronic kidney disease), stage III Patient Disposition: Admitted As Inpatient Discharge Instructions Interventions: ED Discharge Assessment Last Done: 04/29/22 23:00
[2022-04-29 18:26] LABS: Troponin I High Sensitivity 8.9 pg/ml (0-14)
[2022-04-29 18:30] LABS: Albumin Globulin Ratio 0.8 (0.9-2); Albumin Level 3.8 gm/dl (3.4-5.0); BUN Creatinine Ratio 17.5 (10-20); Bilirubin,Total 0.4 mg/dl (0.2-1.0); Calcium 9.6 mg/dl (8.5-10.1); Creatinine Clr Calc Pharmacy 51.2 ml/min; Est GFR (African American) 40.4 ml/min; Est GFR (Non-African American) 34.8 ml/min; Globulin 4.6 gm/dl (2.5-4.0); Potassium 3.8 mmol/L (3.5-5.1); Total Protein 8.4 gm/dl (6.0-8.3)
[2022-04-29] MEDS ORDERED: hydrALAZINE HCL 20 MG/ML VIAL IV STA (18:57)
[2022-04-29] MEDS ORDERED: DOXAZosin MESYLATE 4 MG TAB PO ONE (21:45)
[2022-04-29] MEDS ORDERED: carvediloL 25 MG TAB PO ONE (21:45)
--- NOTE | 2022-04-29 22:48 | History and Physical Report ---
DATE OF ADMISSION: 04/29/2022. CHIEF COMPLAINT: Elevated blood pressure. 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 The patient's blood pressures have been recently elevated, not getting under control at home, was advised to come to the ER by the PCP. She says she is feeling tired and having headaches. Denies any chest pain, no shortness of breath, no dizziness, no blurred visions, no earache, no runny nose, no sore throat, no cough, no difficulty swallowing. She says she does not eat much salt. No nausea, no abdominal pain. Normal bowel and bladder movements. She does not micturate much in the day, but she micturates a lot in the night. Has chronic lower extremity edema. ALLERGIES: LISINOPRIL, VANCOMYCIN. PAST MEDICAL HISTORY: As mentioned above. PAST SURGICAL HISTORY: , colonoscopy, injection of lumbar /cervical spine, D and C for miscarriage, ligation of oviducts, cervical spine fusion surgery, cholecystectomy. MEDICATIONS: The patient is on Extra Strength Tylenol 1000 mg p.o. q.4 hours p.r.n., albuterol 2 puffs inhalation q.6 hours p.r.n., allopurinol 100 mg p.o. a.m., amlodipine 10 mg p.o. a.m., aspirin 81 mg p.o. a.m., Coreg 25 mg p.o. b.i.d., vitamin D 2000 units p.o. a.m., doxazosin 4 mg p.o. at bedtime, fluoxetine 20 mg p.o. a.m., Lasix 20 mg p.o. a.m., levothyroxine 125 mcg p.o. daily, losartan 50 mg p.o. daily, meclizine 25 mg p.o. t.i.d. p.r.n., Dulera 2 puffs inhalation b.i.d., montelukast 10 mg p.o. daily, omeprazole 20 mg p.o. daily, Crestor 20 mg p.o. daily. FAMILY HISTORY: Significant for father has diabetes, heart disorder, hypertension, on dialysis; brother has diabetes. SOCIAL HISTORY: , no smoking. Alcohol, rarely. No drug use. REVIEW OF SYSTEMS: As per HPI. Rest of the review of systems is negative. PHYSICAL EXAMINATION: GENERAL: The patient is morbidly obese, not in acute distress. VITAL SIGNS: Temperature 36.6, pulse 112, respiratory rate 20, blood pressure 237/118, oxygen 98% on room air. HEENT: Pupils equal, round and reactive to light. Oral mucosa moist. NECK: No JVD, no neck masses. CARDIOVASCULAR: S1 and S2 heard. Tachycardia. No murmurs. RESPIRATORY SYSTEM: Normal AP diameter. No accessory muscle use. No wheezing, no crackles. ABDOMEN: Soft, bowel sounds present, nontender, no distention. CENTRAL NERVOUS SYSTEM: Cranial nerves II-XII grossly intact, nonfocal. EXTREMITIES: Lower extremity edema present, no erythema seen. LABORATORY DATA: WBC 6.4, hemoglobin 12.4, hematocrit 39, platelets 304. PT 10.8, INR 1, APTT 28.4. Sodium 141, potassium 3.8, chloride 106, bicarbonate 29, BUN 29, creatinine 1.6, serum glucose 127, calcium 9.6, total bilirubin 0.4, AST 18, ALT 11, alkaline phosphatase 80. Troponin I high sensitivity 8.9. SARS-CoV-2 rapid test negative. Chest x-ray: No acute process. EKG: Normal sinus rhythm at a rate of 95, no significant change was found. ASSESSMENT AND PLAN: This 51-year-old female presents with hypertensive urgency. 1. Hypertensive urgency. The patient is already on doxazosin, Coreg, losartan and amlodipine. It seems to be resistant hypertension. May need sleep study. Currently, we will place her on IV labetalol p.r.n. If it is not getting under control, we will add nitroglycerin paste. Monitor in telemetry floor. Consult cardiology in the a.m. for further recommendations. 2. Chronic kidney disease stage III, creatinine 1.6, seems to be at her baseline. We will follow the laboratories. 3. Morbid obesity. She needs counseling, needs sleep study. 4. Lower extremity edema, On Lasix, which we will continue. We will follow the echocardiogram. 5. Hypothyroidism, on Synthroid. We will follow the thyroid profile. 6. History of mild persistent asthma, continue home inhalers. 7. Hyperlipidemia, on statin. 8. Gastroesophageal reflux disease, on omeprazole. 9. Deep venous thrombosis prophylaxis, Lovenox. DISPOSITION: Closely monitor in the tele floor. Level 1, full code. Expect to discharge home and follow with family doctor. Job ID: [id number] [facility]
[2022-04-29] MEDS ORDERED: LABETALOL HCL IV 5 MG/ML 20ML IV PRN (23:25)
[2022-04-29] MEDS ORDERED: ALBUTEROL HFA 8 GM INHALER INH PRN (23:25)
[2022-04-29] MEDS ORDERED: MECLIZINE HCL 25 MG TAB PO PRN (23:25)
[2022-04-29] MEDS ORDERED: ACETAMINOPHEN 325 MG TAB PO PRN (23:25)
[2022-04-29] MEDS ORDERED: NITROGLYCERIN SL 0.4 MG/TAB TAB SL PRN (23:25)
[2022-04-29] MEDS ORDERED: POLYETHYLENE (MIRALAX) 17 GM PACK PO PRN (23:25)
[2022-04-30] MEDS: ENOXAPARIN INJ 40 MG/0.4 ML SYR SQ SCH ×2 (05:31→11:45)
[2022-04-30] MEDS ORDERED: LEVOTHYROXINE SODIUM 125 MCG TABLET PO SCH (06:30)
[2022-04-30 06:39] LABS: Basophils # (auto) 0.03 K/uL (0-0.2); Basophils % (auto) 0.5 %; Eosinophils # (auto) 0.06 K/uL (0-0.50); Hematocrit (blood only) 36.1 % (34.1-44.9); Hemoglobin 11.6 g/dl (12.0-16.0); Immature Granulocytes # (auto) 0.01 K/uL (0.00-0.02); Immature Granulocytes % (auto) 0.2 %; Lymphocytes # (auto) 1.02 K/uL (1.2-3.4); Lymphocytes % (auto) 17.6 %; Mean Corpuscular Hemoglobin 29.3 pg (25.0-34.0); Mean Corpuscular Hgb Conc 32.1 g/dL (32.0-36.0); Mean Corpuscular Volume 91.2 fL (80.0-100.0); Mean Platelet Volume 10.5 fL (9.4-12.3); Monocytes % (auto) 8.6 %; Neutrophils # (auto) 4.19 K/uL (1.4-6.5); Neutrophils % (auto) 72.1 %; Platelet Count 275 K/uL (130-400); RDW Coefficient of Variation 14.4 % (11.5-14.5); RDW Standard Deviation 47.8 fL (36.4-46.3); Red Blood Count 3.96 M/uL (3.93-5.22); White Blood Count 5.81 K/ul (4.8-10.8)
[2022-04-30 07:05] LABS: BUN Creatinine Ratio 18.9 (10-20); Calcium 8.9 mg/dl (8.5-10.1); Est GFR (African American) 46.4 ml/min; Potassium 4.1 mmol/L (3.5-5.1)
[2022-04-30 07:14] LABS: Thyroid Stimulating Hormone 7.092 uIu/ml (0.300-4.500)
[2022-04-30 07:55] LABS: T4 Free Thyroxine 0.74 ng/dl (0.61-1.60)
[2022-04-30] MEDS ORDERED: amLODIPine BESYLATE 5 MG TAB PO SCH (09:00)
[2022-04-30] MEDS ORDERED: FUROSEMIDE 20 MG TAB PO SCH (09:00)
[2022-04-30] MEDS ORDERED: CHOLECALCIFEROL 1,000 UNITS 25 MCG TAB PO SCH (09:00)
[2022-04-30] MEDS ORDERED: FLUoxetine HCL 20 MG CAP PO SCH (09:00)
[2022-04-30] MEDS ORDERED: MONTELUKAST SODIUM 10 MG TABLET PO SCH (09:00)
[2022-04-30] MEDS ORDERED: FLUTICASONE/VILANTEROL 200/25MCG 14 PUFFS/INHALER INH SCH (09:00)
[2022-04-30] MEDS ORDERED: ASPIRIN 81 MG ECTAB PO SCH (09:00)
[2022-04-30] MEDS ORDERED: allopurinoL 100 MG TAB PO SCH (09:00)
[2022-04-30] MEDS ORDERED: carvediloL 25 MG TAB PO SCH (09:00)
[2022-04-30] MEDS ORDERED: PANTOprazole 40 MG TAB PO SCH (09:00)
[2022-04-30] MEDS ORDERED: LOSARTAN POTASSIUM 50 MG TAB PO SCH (09:00)
[2022-04-30] MEDS ORDERED: ROSUVASTATIN CALCIUM 20 MG TAB PO SCH (09:00)
--- NOTE | 2022-04-30 11:44 | Cardiology Consultation ---
Date of Consultation April 30, 2022 Assessment & Plan (1) Hypertensive urgency: (2) Hypertensive heart and chronic kidney disease: (3) Headache: (4) CKD (chronic kidney disease), stage III: (5) Sinus tachycardia: Plan Increase Carvedilol to 37.5 mg twice a day Add chlorthalidone 25 mg/day Change furosemide to only as needed. Continue Losartan 100 mg/day, amlodipine 10 mg/day, doxazosin 4 mg/day Outpatient sleep study Continue statin, risk factor, and lifestyle modification Supervising Physician Co-Signing Physician Notes Patient was seen and examined personally. Recent significant difficulties of persistent elevation of blood pressure superimposed on longstanding hypertension. Medications increased on 04/27/2022 with increase in doxazosin and losartan as outpatient. Symptoms and hypertensio n remain persistent and patient sought ER evaluation as above. Echocardiogram without wall motion abnormality EKG without acute changes. Will need aggressive management of hypertension and risk factor Plan as above increase antihypertensives including increase in carvedilol to 37.5 mg twice per day, losartan to 100 mg/day Change in diuretic as above If blood pressure remains persistently elevated or edema worsens would discontinue doxazosin and add hydralazine Patient stable for discharge home with close clinical follow-up post History of Present Illness Reason for Consultation: Hypertensive urgency Requesting Physician: Keira Attending Physician: Elizabeth History of Present Illness Ms. Sue Cisse is a very pleasant 51-year-old female who presented to the [facility] ER on April 29, 2022 with uncontrolled hypertension, headaches, fatigue. Initial blood pressure was 237/143. Second blood pressure recorded was 240/134. BP has remained elevated throughout admission albeit mildly improved. Patient received 10 mg of IV hydralazine in the ER. As needed IV labetalol prescribed on admission. EKG on presentation revealed normal sinus rhythm at 95 bpm with possible left atrial enlargement. High-sensitivity troponin I negative. Chest x-ray showed no acute process. Creatinine 1.66 mg/dL on presentation. No recent hypokalemia noted on chart review. Continuous telemetry monitoring reveals sinus rhythm at 80 bpm at present, initially sinus tachycardia up to the 120 bpm. No atrial fibrillation/flutter. No ventricular arrhythmias. No pauses. Resting echocardiography in October 2020 notable for moderate concentric LVH, grade 1 diastolic dysfunction. LV systolic function was normal, ejection fraction 55 to 60%. No chest pain, palpitations, or unusual shortness of breath. No syncope. No fevers. No chills. No melena, hematochezia, or gross hematuria. Past Medical and Surgical History Longstanding hypertension, hypertensive heart disease Stage III chronic kidney disease Morbid obesity Hypothyroidism Migraine headaches Asthma Kidney stones Anxiety Chronic rhinitis Cervical disc disease, status post fusion D&C 2 C-sections Status postcholecystectomy Family History: Father was a diabetic with CKD requiring dialysis and had a history of CAD Social History: Non-smoker. No significant alcohol. No illegal drug use. Born in [place] [facility], resides in [place]. Works at [employer] in [place] Complete Review of Systems: Outpatient sleep study was canceled last month. Scheduled to see nephrology as an outpatient today. Intermittent lower extremity peripheral edema. Occasional orthostasis. Sinus issues. ? Asthma. Occasional GERD. History of plantar fasciitis. No excessive sodium intake. No NSAIDs'. PRN Tylenol. Allergies Allergy/AdvReac Type Severity Reaction Status Date / Time lisinopril AdvReac Intermediate Cough Verified 04/29/22 20:51 vancomycin AdvReac Intermediate Flushing Verified 04/29/22 20:51 Home Medications Medication Instructions Recorded Confirmed Type acetaminophen 500 mg tablet 1,000 mg PO Q4 PRN Pain 09/01/18 04/29/22 History (Tylenol Extra Strength) allopurinol 100 mg tablet 100 mg PO QAM 09/01/18 04/29/22 History aspirin 81 mg tablet,delayed 81 mg PO QAM 09/01/18 04/29/22 History release cholecalciferol (vitamin D3) 50 2,000 unit PO QAM 09/01/18 04/29/22 History mcg (2,000 unit) tablet (Vitamin D3) furosemide 20 mg tablet 20 mg PO QAM 09/01/18 04/29/22 History albuterol sulfate 90 mcg/actuation 2 puffs inhalation Q6 PRN Wheezing 07/24/19 04/29/22 History aerosol inhaler rosuvastatin 20 mg tablet (Crestor) 20 mg PO QAM 07/24/19 04/29/22 History levothyroxine 125 mcg tablet 125 mcg PO DAILY 12/18/19 04/29/22 History amlodipine 10 mg tablet 10 mg PO QAM 10/06/20 04/29/22 History carvedilol 25 mg tablet 25 mg PO AMHS 04/29/22 04/29/22 History doxazosin 4 mg tablet 4 mg PO HS 04/29/22 04/29/22 History fluoxetine 20 mg capsule 20 mg PO QAM 04/29/22 04/29/22 History losartan 50 mg tablet 50 mg PO QAM 04/29/22 04/29/22 History meclizine 25 mg tablet 25 mg PO TID PRN Dizziness 04/29/22 04/29/22 History mometasone-formoterol HFA 200 2 puff inhalation AMHS 04/29/22 04/29/22 History mcg-5 mcg/actuation aerosol inhaler (Dulera) montelukast 10 mg tablet 10 mg PO QAM 04/29/22 04/29/22 History omeprazole 20 mg capsule,delayed 20 mg PO QAM 04/29/22 04/29/22 History release Patient History Medical History (Updated 04/30/22 @ 11:52 by Rodney Obrien) Anxiety CKD (chronic kidney disease), stage III History of pneumonia APR 2019...RESOLVED HTN (hypertension) Hypothyroidism NO MEDS Kidney stone CURRENT/NO PROBLEMS WITH Migraines 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 Yadav 08-03-19 Family History Father Diabetes Heart disease Hypertension Mother Cancer Social History Smoking Status: Never smoker Second Hand Exposure: Yes (MULTIPLE FAMILY MEMBERS, ); Hx Alcohol Use: Yes Alcohol type: wine Hx Substance Use: No Preferred Language: Serbian Communication Ability: Effective Obstetrics And Gynecology Professor Required: No Beliefs That Will Affect Care: None marital status: Current Living Situation: Spouse current occupational status: employed Feels Safe at Home: Yes Assistive Devices: None Review of Systems Review of Systems: Complete Review of Systems is as stated above, negative, or noncontributory. Physical Exam Physical Exam: General: Very pleasant A&Ox3. NAD. HENT: Normocephalic. Atraumatic. Eyes: PER. Conjunctiva pink, sclera clear. Neck: No carotid bruits. No JVD. No HJR. Heart: RRR, 76 bpm. No murmur. No rub. No gallop. PMI is nondisplaced. Lungs: Diminished. Clear to auscultation. Abdomen: +BS. Soft. Nontender. No masses or organomegaly. Extremities: No clubbing. No cyanosis. No significant edema. Limited neurological examination is without focal deficits. Pulses: radial=2/4, posterior tibial=2/4. Results & Data ([facility]) Vital Signs (Past 12 Hours) Vital Signs Temp Pulse Pulse Resp BP Pulse Ox O2 Del Method 04/30/22 11:03 36.7 C 74 18 171/95 H 94 04/30/22 10:48 87 04/30/22 08:13 36.7 C 84 18 167/88 H 94 Room Air 04/30/22 03:44 36.6 C 83 20 120/74 94 Room Air 04/30/22 00:00 114 H Laboratory Results Cardiac Enzymes 04/29/22 Range/Units 16:54 AST 18 (13-39) U/L Troponin I High Sens 8.9 (0-14) pg/ml Coagulation 04/29/22 Range/Units 16:54 PT 10.8 (9.0-12.0) Seconds APTT 28.4 (21.0-31.0) Seconds CBC 04/29/22 04/30/22 Range/Units 16:54 06:03 WBC 6.43 5.81 (4.8-10.8) K/ul RBC 4.21 3.96 (3.93-5.22) M/uL Hgb 12.4 11.6 L (12.0-16.0) g/dl Hct 39.0 36.1 (34.1-44.9) % Plt Count 304 275 (130-400) K/uL Neut # (Auto) 3.85 4.19 (1.4-6.5) K/uL Lymph # (Auto) 1.60 1.02 L (1.2-3.4) K/uL [place] # (Auto) 0.65 0.50 (0.24-0.82) K/uL Eos # (Auto) 0.27 0.06 (0-0.50) K/uL Baso # (Auto) 0.03 0.03 (0-0.2) K/uL Comprehensive Metabolic Panel 04/29/22 04/30/22 Range/Units 16:54 06:03 Sodium 141 140 (136-145) mmol/L Potassium 3.8 4.1 (3.5-5.1) mmol/L Chloride 106 107 (98-107) mmol/L Carbon Dioxide 29 27 (21-32) mmol/L BUN 29 H 28 H (6-23) mg/dl Creatinine 1.66 H 1.48 H (0.6-1.2) mg/dl Glucose 127 H 101 H (70-99(Fasting)) mg/dl Calcium 9.6 8.9 (8.5-10.1) mg/dl AST 18 (13-39) U/L ALT 11 (7-52) U/L Alkaline Phosphatase 80 (34-104) U/L Total Protein 8.4 H (6.0-8.3) gm/dl Albumin 3.8 (3.4-5.0) gm/dl Intake and Output 04/29/22 04/30/22 04/30/22 22:59 06:59 14:59 Intake Total 200 / 200 Balance 200 / 200 Intake: Oral 200 / 200 Other: # Unmeasured Voids 1 Weight 118 kg 116.3 kg Weight Measurement Method Chair Scale Built in [facility] (1) CKD (chronic kidney disease), stage III Chronic kidney disease stage 3 subtype: unspecified whether 3a or 3b Qualified Code(s): N18.30 - Chronic kidney disease, stage 3 unspecified (2) Headache Headache chronicity pattern: unspecified pattern Headache type: unspecified Intractability: not intractable Qualified Code(s): R51.9 - Headache, unspecified
[2022-04-30] MEDS ORDERED: CHLORTHALIDONE 25 MG TAB PO SCH (12:15)
--- NOTE | 2022-04-30 14:13 | Discharge Summary ---
Date of Service April 30, 2022 Admission HPI Per Admitting Provider This 51-year-old female with past medical history significant for hypothyroidism, mild persistent asthma, chronic rhinitis,tracheitis, history of chronic kidney disease stage III, hypertension, morbid obesity, history of kidney stones, history of displacement of cervical intervertebral disk without myelopathy, plantar fasciitis, migraines, anterior cervical lymphadenopathy, anxiety state, depression, comes in with elevated blood pressure. The patient's blood pressures have been recently elevated, not getting under control at home, was advised to come to the ER by the PCP. She says she is feeling tired and having headaches. Denies any chest pain, no shortness of breath, no dizziness, no blurred visions, no earache, no runny nose, no sore throat, no cough, no difficulty swallowing. She says she does not eat much salt. No nausea, no abdominal pain. Normal bowel and bladder movements. She does not micturate much in the day, but she micturates a lot in the night. Has chronic lower extremity edema. Admission Exam Per Admitting Provider GENERAL: The patient is morbidly obese, not in acute distress. VITAL SIGNS: Temperature 36.6, pulse 112, respiratory rate 20, blood pressure 237/118, oxygen 98% on room air. HEENT: Pupils equal, round and reactive to light. Oral mucosa moist. NECK: No JVD, no neck masses. CARDIOVASCULAR: S1 and S2 heard. Tachycardia. No murmurs. RESPIRATORY SYSTEM: Normal AP diameter. No accessory muscle use. No wheezing, no crackles. ABDOMEN: Soft, bowel sounds present, nontender, no distention. CENTRAL NERVOUS SYSTEM: Cranial nerves II-XII grossly intact, nonfocal. EXTREMITIES: Lower extremity edema present, no erythema seen. Principal Diagnosis Hypertensive crisis Discharge Exam Constitutional: WD/WN, vitals as above, NAD, sitting up in bed, pleasant, conversing easily Neck: trachea midline, no thyromegaly normal visual inspection Respiratory: normal respiratory effort, lungs clear to auscultation, no wheeze, rales, rhonchi. Normal insp/exp effort, no accessory muscle use Cardiovascular: RRR, no murmur, no edema Vessels: no JVD or carotid bruit Chest: normal inspection of chest Abdomen: normal bowel sounds, soft, nontender, no hepatosplenomegaly Musculoskeletal: no cyanosis or clubbing, extremities motor strength 5/5 Skin: no rashes, warm and dry normal turgor Neurologic: PERRL, EOMI, accommodation nl, no face palsy, no dysarthria CN's II- XI intact bilaterally and moves all extremities Psychiatric: A+Ox3, euthymic affect Lymphatic: no cervical or axillary lymphadenopathy : deferred Discharge Data Allergies Allergy/AdvReac Type Severity Reaction Status Date / Time lisinopril AdvReac Intermediate Cough Verified 04/29/22 20:51 vancomycin AdvReac Intermediate Flushing Verified 04/29/22 20:51 Consultations 04/29/22 20:17 ED Decision to Admit Stat 04/30/22 08:00 Consult Cardiology Routine Hospital Course (1) Hypertensive urgency: Plan Patient is a 51-year-old female with past medical history of hypothyroidism, asthma, CKD stage III, hypertension, obesity presented to the ED with elevated blood pressure. She was advised by her primary care doctor to come to the ED. She complained of headache; no complaint of chest pain, shortness of breath, blurry vision or dizziness. On presentation to the hospital, she was found to be hypertensive with blood pressure of 240/140. She was admitted to telemetry floor for further monitoring and antihypertensive management. Cardiology was consulted. Cardiology recommended increasing Coreg to 37.5 mg twice daily and losartan to 100 mg twice daily. She was asked to continue on amlodipine 10 mg once daily. Her Lasix was discontinued and she was prescribed chlorthalidone 25 mg twice daily. Patient was instructed to continue blood pressure monitoring at home twice daily. She will have follow-up with primary care doctor and nephrology as outpatient. Of note, patient TSH was found to be elevated(7.092) with normal free T4( 0.74). Patient to follow-up with her primary care doctor for adjustment of the dose of levothyroxine. Total Time Total Time Spent Total Time Spent (In Minutes): 35 Total Time Includes: Examination of the Patient, Discharge Planning, Medication Reconciliation, Communication With Other Providers and Other Discharge Plan Discharge Items Patient Disposition: Home - Self-Care Reason For Visit: HTN URGENCY Discharge Diagnosis: Hypertensive urgency Activity: Resume your previous activity Non-emergency contact: Primary Care Provider Call non-emergency contact if: you have any medication questions and your symptoms worsen Follow-up/Referrals: Sharlene Barfield MD, PhD [Physician] - (Date & Time 05/05/2022 10:00 AM Provider Sharlene Barfield MD Department Nephrology, [facility] ) Mykel Bailey MD [Primary Care Provider] - (Date & Time 05/05/2022 11:20 AM Provider Mykel Bailey MD Department [facility] ) Diet: Regular Addtl Attending Provider Instructions: You were admitted to the hospital with high blood pressure. Medication changes have been made to your antihypertensive regimen. The medications are as follows 1) Take Coreg 37.5 mg( 1 and 1/2 tablets ) twice daily. The dose has been increased from 25 mg twice daily. 2) Take losartan 100 mg once a day. The dose has been increased from 50 mg once a day 3) Take amlodipine 10 mg once a day. Continue take Doxazosin 4mg once daily 4) Stop taking Lasix. You are started on chlorthalidone 25 mg once daily. Please measure your blood pressure twice daily in the morning and evening at the same time. Please sit comfortably with both feet on the ground when measuring the blood pressure. You will need outpatient sleep study. The lab work done during hospitalization showed TSH of 7.092 and free T4 of 0.74. You may need adjustment to her levothyroxine dose. Please discuss this with your primary care doctor. Please follow-up with nephrology. Pending Studies at Discharge: No Stand-Alone Forms: My [facility] [employer], Smoking Cessation Medications and DC Order Prescriptions: New chlorthalidone 25 mg Tablet 25 mg PO QAM Qty: 30 0RF Continued allopurinol 100 mg Tablet 100 mg PO QAM aspirin 81 mg Tablet,Delayed Release (Dr/Ec) 81 mg PO QAM acetaminophen [Tylenol Extra Strength] 500 mg Tablet 1,000 mg PO Q4 PRN (Reason: Pain) cholecalciferol (vitamin D3) [Vitamin D3] 2,000 unit Tablet 2,000 unit PO QAM rosuvastatin [Crestor] 20 mg Tablet 20 mg PO QAM albuterol sulfate 90 mcg/actuation HFA aerosol inhaler 2 puffs INH Q6 PRN (Reason: Wheezing) levothyroxine 125 mcg Tablet 125 mcg PO DAILY doxazosin 4 mg tablet 4 mg PO HS montelukast 10 mg tablet 10 mg PO QAM Dulera 200-5 mcg/actuation HFA aerosol inhaler 2 puff INHALATION AMHS omeprazole 20 mg capsule,delayed release(DR/EC) 20 mg PO QAM fluoxetine 20 mg capsule 20 mg PO QAM meclizine 25 mg tablet 25 mg PO TID PRN (Reason: Dizziness) amlodipine 10 mg Tablet 10 mg PO QAM Changed losartan 50 mg tablet 100 mg PO QAM Qty: 60 0RF carvedilol 25 mg tablet 37.5 mg PO AMHS Qty: 60 0RF Discontinued furosemide 20 mg Tablet 20 mg PO QAM Discharge Orders: Discharge Order (Routine); Ordered 04/30/22 Ordered By: Mark Johnson Admission Data Admit Date/Time: 04/29/22 21:44 Attending Provider: Mark Johnson Admit Provider: Evelio Crockett Primary Care Provider: Mykel Bailey Other Providers: Evelio Crockett ; Chandler Mcdermott ; Andrea Heredia ; Frank Garcia ; Cristian Cabrera ; Harman Bose ; Rodney Obrien ; Elvira Reyes ; Eulalia Connolly ; Nubia Demarco ; Baudilio Valdez
[2022-04-30] MEDS ORDERED: DOXAZosin MESYLATE 4 MG TAB PO SCH (21:00)
[2022-04-30] MEDS ORDERED: carvediloL 12.5 MG TAB PO SCH (21:00)
--- NOTE | 2022-05-01 22:13 | Electrocardiogram Report ---
Test Reason : Blood Pressure : / mmHG Vent. Rate : 095 BPM Atrial Rate : 095 BPM P-R Int : 158 ms QRS Dur : 096 ms QT Int : 360 ms P-R-T Axes : 059 066 049 degrees QTc Int : 452 ms Normal sinus rhythm Possible Left atrial enlargement Borderline ECG When compared with ECG of 06-OCT-2020 16:41, No significant change was found Confirmed by Abraham Farris ([id number]) on 05/01/2022 10:13:25 PM Referred By: Mykel Bailey Confirmed By:Abraham Farris
== END 2022-04-30 16:46 | disposition home or self-care (01) | DRG 305 ==
LOC: ED 15:57 → 2S 21:44

== ENCOUNTER 2022-05-05 13:09 | Observation (INO) ==
[2022-05-05 13:55] LABS: Basophils # (auto) 0.04 K/uL (0-0.2); Basophils % (auto) 0.6 %; Eosinophils % (auto) 4.3 %; Hematocrit (blood only) 40.1 % (34.1-44.9); Immature Granulocytes # (auto) 0.02 K/uL (0.00-0.02); Immature Granulocytes % (auto) 0.3 %; Lymphocytes % (auto) 27.5 %; Mean Corpuscular Hemoglobin 29.1 pg (25.0-34.0); Mean Corpuscular Hgb Conc 32.4 g/dL (32.0-36.0); Mean Corpuscular Volume 89.9 fL (80.0-100.0); Mean Platelet Volume 10.7 fL (9.4-12.3); Monocytes % (auto) 11.6 %; Neutrophils # (auto) 3.86 K/uL (1.4-6.5); Neutrophils % (auto) 55.7 %; Platelet Count 299 K/uL (130-400); RDW Coefficient of Variation 13.9 % (11.5-14.5); RDW Standard Deviation 45.8 fL (36.4-46.3); Red Blood Count 4.46 M/uL (3.93-5.22); White Blood Count 6.92 K/ul (4.8-10.8)
[2022-05-05 14:06] LABS: Partial Thromboplastin Ratio 1.1; Partial Thromboplastin Time 29.8 Seconds (21.0-31.0); Prothrombin Time 10.8 Seconds (9.0-12.0)
--- NOTE | 2022-05-05 14:15 | Electrocardiogram Report ---
Test Reason : Blood Pressure : / mmHG Vent. Rate : 088 BPM Atrial Rate : 088 BPM P-R Int : 176 ms QRS Dur : 096 ms QT Int : 384 ms P-R-T Axes : 039 049 031 degrees QTc Int : 464 ms Normal sinus rhythm Possible Left atrial enlargement Borderline ECG When compared with ECG of 29-APR-2022 16:49, No significant change was found Confirmed by Andrea Robledo ([id number]) on 05/05/2022 2:14:55 PM Referred By: Confirmed By:Gagan Robledo
[2022-05-05 14:20] LABS: Troponin I High Sensitivity 8.9 pg/ml (0-14)
[2022-05-05 14:24] LABS: Albumin Globulin Ratio 0.9 (0.9-2); BUN Creatinine Ratio 18.6 (10-20); Bilirubin,Total 0.5 mg/dl (0.2-1.0); Calcium 9.7 mg/dl (8.5-10.1); Creatinine Clr Calc Pharmacy 58.6 ml/min; Est GFR (African American) 47.5 ml/min; Globulin 4.6 gm/dl (2.5-4.0); Potassium 4.2 mmol/L (3.5-5.1); Total Protein 8.6 gm/dl (6.0-8.3)
[2022-05-05] MEDS ORDERED: LABETALOL HCL IV 5 MG/ML 20ML IV STA (14:32)
--- NOTE | 2022-05-05 14:59 | Emergency Department Note ---
Impression & Plan Hypertensive urgency, Headache, Failure of outpatient treatment ED Provider Note NAME: ALEXANDREA NIXON AGE: 51 SEX: F : 1970 ARRIVES VIA: Walk-In INFORMANT: [Patient] ED PROVIDER(S): [Luis Monson MD] CHIEF COMPLAINT: Hypertension HISTORY OF PRESENT ILLNESS: The patient is a 51-year-old female who complains of a high blood pressure. The patient states that she has a headache and this is a sign that her blood pressure is high. The patient had medications adjusted last week by her outpatient doctor and then as an inpatient. Her pressure still remains high. The patient saw nephrology today and was sent to the ED for hospitalization and medication adjustment. There is no chest pain or shortness of breath. No cough or cold or congestion. She is taking her medications as prescribed. REVIEW OF SYSTEMS: See HPI for pertinent positives and negatives. A total of ten systems were reviewed and were otherwise negative. PMHx/PSHx: See Below SOCIAL HISTORY: See Below. PHYSICAL EXAM: GENERAL: Patient is in no acute distress. HEENT: No acute trauma, normocephalic atraumatic, mucous membranes moist, no nasal congestion, no scleral icterus. NECK: No stridor, no adenopathy, no meningismus, trachea is midline. LUNGS: Clear to auscultation bilaterally, no wheeze, no rhonchi, breath sounds equal. HEART: Without murmurs gallops or rubs, regular rate and rhythm. ABDOMEN: Soft, nontender, bowel sounds positive, no peritonitis. EXTREMITIES: No cyanosis or edema, full range of motion of all the joints without pain or difficulty, no signs for acute trauma. NEUROLOGIC: Oriented x 3, no acute motor or sensory deficits, no focal weakness. SKIN: No rash, no jaundice, no diaphoresis. DIFFERENTIAL DIAGNOSIS: Essential hypertension, medication noncompliance, renal failure, electrolyte imbalance, anemia, cardiac ischemia, infection, among others. EMERGENCY DEPARTMENT COURSE/PROCEDURES: ECG: Indication was hypertension. The ECG shows a normal sinus rhythm with a rate of 88. There is no ST elevation, no PVCs. The QTc is 464. Continuous Cardiac Monitoring: An order was placed for continuous cardiac monitoring. The monitor shows a rate of 92 with normal sinus rhythm. MEDICAL DECISION MAKING: There is no leukocytosis or concerning anemia. There is a normal platelet count. No coagulopathy. Creatinine is slightly elevated but this is baseline when looking back at previous testing. No concerning liver enzyme elevation. ECG showed a normal sinus rhythm, no ischemia. Cardiac enzyme testing x1 is not suggestive with acute cardiac injury. COVID test returned negative. The patient presents with a headache and a very high blood pressure. Adjustments have been made on the inpatient setting and on the outpatient setting. Her pressure still remains high. She was referred to the ER by nephrology. The patient received IV hydralazine and IV labetalol, this did not really do much to help her blood pressure. Given the persistently high blood pressure, given the failure of outpatient treatment, I do think a hospital stay is warranted. I did speak with the patient and case management, the on-call hospitalist was consulted. 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 Yadav 08-03-19 Family History Father Diabetes Heart disease Hypertension Mother Cancer Social History Smoking Status: Never smoker Second Hand Exposure: Yes (MULTIPLE FAMILY MEMBERS, ); Hx Alcohol Use: Yes Alcohol type: wine Hx Substance Use: No Preferred Language: Kyrgyz Communication Ability: Effective Photographer Helper Required: No Beliefs That Will Affect Care: None marital status: Current Living Situation: Spouse current occupational status: employed Other Information That Helps Us Care for You: No Feels Safe at Home: Yes Safety Concerns: Feels Safe At This Time Assistive Devices: Glasses Allergies Allergies Allergy/AdvReac Type Severity Reaction Status Date / Time lisinopril AdvReac Intermediate Cough Verified 05/05/22 15:03 vancomycin AdvReac Intermediate Flushing Verified 05/05/22 15:03 Home Meds Home Medications Medication Instructions Recorded Confirmed acetaminophen 500 mg tablet 1,000 mg PO Q4 PRN Pain 09/01/18 05/05/22 (Tylenol Extra Strength) allopurinol 100 mg tablet 100 mg PO QAM 09/01/18 05/05/22 aspirin 81 mg tablet,delayed 81 mg PO QAM 09/01/18 05/05/22 release cholecalciferol (vitamin D3) 50 2,000 unit PO QAM 09/01/18 05/05/22 mcg (2,000 unit) tablet (Vitamin D3) albuterol sulfate 90 mcg/actuation 2 puffs inhalation Q6 PRN Wheezing 07/24/19 05/05/22 aerosol inhaler rosuvastatin 20 mg tablet (Crestor) 20 mg PO QAM 07/24/19 05/05/22 levothyroxine 125 mcg tablet 125 mcg PO DAILY 12/18/19 05/05/22 amlodipine 10 mg tablet 10 mg PO QAM 10/06/20 05/05/22 doxazosin 4 mg tablet 4 mg PO HS 04/29/22 05/05/22 fluoxetine 20 mg capsule 20 mg PO QAM 04/29/22 05/05/22 meclizine 25 mg tablet 25 mg PO TID PRN Dizziness 04/29/22 05/05/22 mometasone-formoterol HFA 200 2 puff inhalation AMHS 04/29/22 05/05/22 mcg-5 mcg/actuation aerosol inhaler (Dulera) montelukast 10 mg tablet 10 mg PO QAM 04/29/22 05/05/22 omeprazole 20 mg capsule,delayed 20 mg PO QAM 04/29/22 05/05/22 release Previous Rx's Medication Instructions Recorded carvedilol 25 mg tablet 37.5 mg PO AMHS #60 tabs 04/30/22 chlorthalidone 25 mg tablet 25 mg PO QAM #30 tabs 04/30/22 losartan 50 mg tablet 100 mg PO QAM #60 tabs 04/30/22 Results & Data (ED) Vital Signs Vital Signs - 24 hr 05/05/22 13:17 05/05/22 14:26 05/05/22 14:26 Temperature 36.5 C Temperature Source Temporal Artery Scan Pulse Rate 91 H Pulse Rate [Finger] 92 H Pulse Rhythm Regular Pulse Strength Normal Respiratory Rate 20 16 Respiratory Effort / Characteristics Non-Labored Spontaneous Respiratory Depth Normal Respiratory Pattern Regular Blood Pressure 232/143 H Blood Pressure Mean 172 Pulse Oximetry 97 96 96 Oxygen Delivery Method Room Air Room Air Room Air Sepsis Recent Fever Within 48 Hours No Sepsis New/Unexplained Change in Mental Status N/A Sepsis Action Taken by Nursing No Action Required Home Medications Current Medication List: was personally reviewed by me Laboratory Data Attestation: I reviewed the patient's lab results. Result diagrams: 05/05/22 13:43 05/05/22 13:43 Lab Results 05/05/22 05/05/22 05/05/22 Range/Units 13:43 13:43 13:43 WBC 6.92 (4.8-10.8) K/ul RBC 4.46 (3.93-5.22) M/uL Hgb 13.0 (12.0-16.0) g/dl Hct 40.1 (34.1-44.9) % MCV 89.9 (80.0-100.0) fL MCH 29.1 (25.0-34.0) pg MCHC 32.4 (32.0-36.0) g/dL RDW Std Deviation 45.8 (36.4-46.3) fL RDW Coeff of Chasity 13.9 (11.5-14.5) % Plt Count 299 (130-400) K/uL MPV 10.7 (9.4-12.3) fL Immature Gran % (Auto) 0.3 % Neut % (Auto) 55.7 % Lymph % (Auto) 27.5 % [place] % (Auto) 11.6 % Eos % (Auto) 4.3 % Baso % (Auto) 0.6 % Neut # (Auto) 3.86 (1.4-6.5) K/uL Lymph # (Auto) 1.90 (1.2-3.4) K/uL [place] # (Auto) 0.80 (0.24-0.82) K/uL Eos # (Auto) 0.30 (0-0.50) K/uL Baso # (Auto) 0.04 (0-0.2) K/uL Immature Gran # (Auto) 0.02 (0.00-0.02) K/uL PT 10.8 (9.0-12.0) Seconds INR 1.0 (0.9-1.1) APTT 29.8 (21.0-31.0) Seconds PTT Ratio 1.1 Sodium 140 (136-145) mmol/L Potassium 4.2 (3.5-5.1) mmol/L Chloride 104 (98-107) mmol/L Carbon Dioxide 31 (21-32) mmol/L Anion Gap 5 (3-11) BUN 27 H (6-23) mg/dl Creatinine 1.45 H (0.6-1.2) mg/dl Est Cr Clr Drug Dosing 58.6 ml/min Est GFR ( Amer) 47.5 ml/min Est GFR (Non-Af Amer) 41.0 ml/min BUN/Creatinine Ratio 18.6 (10-20) Glucose 96 (70-99(Fasting)) mg/dl Calcium 9.7 (8.5-10.1) mg/dl Total Bilirubin 0.5 (0.2-1.0) mg/dl AST 16 (13-39) U/L ALT 11 (7-52) U/L Alkaline Phosphatase 87 (34-104) U/L Troponin I High Sens 8.9 (0-14) pg/ml Total Protein 8.6 H (6.0-8.3) gm/dl Albumin 4.0 (3.4-5.0) gm/dl Globulin 4.6 H (2.5-4.0) gm/dl Albumin/Globulin Ratio 0.9 (0.9-2) Administered Medications Promethazine HCl 12.5 mg/ (Sodium Chloride) 50.5 mls @ 202 mls/hr IV Q6H PRN PRN Reason: Nausea And Vomiting Stop: 06/04/22 22:07 Last Admin: 05/05/22 22:32 Dose: 202 mls/hr Documented By: ELICEO Sodium Chloride (Nss 1000ml) 1,000 mls @ 60 mls/hr IV .[id number] ONE Stop: 05/06/22 14:48 Last Admin: 05/05/22 22:32 Dose: 60 mls/hr Documented By: ELICEO Discontinued Medications Carvedilol (Carvedilol 12.5 Mg Tab) 37.5 mg PO NOW STA Stop: 05/05/22 19:38 Last Admin: 05/05/22 20:21 Dose: 37.5 mg Documented By: ELICEO Hydralazine HCl (Hydralazine Hcl 20 Mg/Ml Vial) 10 mg IV NOW STA Stop: 05/05/22 16:33 Last Admin: 05/05/22 16:45 Dose: 10 mg Documented By: MATT Hydralazine HCl (Hydralazine Tab 50 Mg Tab) 50 mg PO NOW STA Stop: 05/05/22 19:39 Last Admin: 05/05/22 20:21 Dose: 50 mg Documented By: ELICEO Labetalol HCl (Labetalol Hcl Iv 5 Mg/Ml 20ml) 10 mg IV NOW STA Stop: 05/05/22 14:33 Last Admin: 05/05/22 15:09 Dose: 10 mg Documented By: JOHN Co-signed By: VALE Discharge Plan Visit Data Chief Complaint: Hypertension Stated Complaint: HIGH BLOOD PRESSURE ED Provider: Luis Monson Discharge Problem: Hypertensive urgency, Headache, Failure of outpatient treatment Patient Disposition: Admitted As Inpatient Condition: Good Discharge Instructions Interventions: ED Discharge Assessment Last Done: 05/05/22 18:40
--- NOTE | 2022-05-05 15:44 | History & Physical Report ---
Date of Service May 05, 2022 Assessment & Plan (1) Hypertensive crisis: (2) Resistant hypertension: Plan: History of resistant hypertension despite multiple medication. Medication were uptitrated during the admission; Coreg was changed from 25 twice daily to 37.5 twice daily, losartan increased from 50mg to 100 mg, chlorthalidone 25mg added. Recently, patient's amlodipine was also increased from 5mg to 10 mg as well as doxazosin was increased from 2 mg to 4 mg prior to her last admission. Plan: -Patient already on beta-junaid, ARB, diuretics, calcium channel junaid but continues to have resistant hypertension. Will start her on hydralazine 50 mg 3 times daily; stop doxazosin to see if its helps. -Might benefit from aldosterone antagonist likely spironolactone; nephrology is consulted; will follow-up on recommendation. -Allow gradual lowering of the blood pressure; 25 to 30% for for several hours. on labetolol 10mg q4 hours for BP > 180/110; hold if HR less than 60 bpm. -She will need sleep study as outpatient as she has several risk factor and it could be likely cause for her resistant hypertension. (3) CKD (chronic kidney disease): Plan: Creatinine on admission; at baseline. Continue to monitor (4) Hypothyroidism: Plan: TSH elevated with normal free T4. Continue on levothyroxine. Outpatient follow-up with her primary care to adjust levothyroxine dose. (5) Hyperlipidemia: Plan: Continue rosuvastatin Plan DVT lovenox Code status full History of Present Illness Chief Complaint: Hypertensive crisis Primary Care Provider: Mykel Bailey MD History of resistant hypertension (on Coreg, amlodipine, chlorthalidone, losartan, doxazosin.), Hypothyroidism, hyperlipidemia, depression, GERD Recent admission from 04/29-04/30 for similar reason. Her medication were uptitrated during the admission; Coreg was changed from 25 twice daily to 37.5 twice daily, losartan increased from 50mg to 100 mg, chlorthalidone added. Recently, patient's amlodipine was also increased from 5mg to 10 mg as well as doxazosin was increased from 2 mg to 4 mg prior to her last admission. After the discharge, patient started on the new regimen. Her blood pressure was continuously in the range of 190-200/100-110 mmHg at home. She complains of intermittent headache; denies vision changes, chest pain or abdominal pain. She went to see nephrology today for outpatient follow-up and to establish care. Dr. Brown saw her in the clinic; recommended her to go to the ED for blood pressure control. Patient reports that she has taken all her morning medication for hypertension. In the ED, patient was afebrile, hypertensive to 230/140; was given 1 dose of labetalol 10 mg IV. Allergies Allergy/AdvReac Type Severity Reaction Status Date / Time lisinopril AdvReac Intermediate Cough Verified 05/05/22 15:03 vancomycin AdvReac Intermediate Flushing Verified 05/05/22 15:03 Home Medications Medication Instructions Recorded Confirmed Type acetaminophen 500 mg tablet 1,000 mg PO Q4 PRN Pain 09/01/18 05/05/22 History (Tylenol Extra Strength) allopurinol 100 mg tablet 100 mg PO QAM 09/01/18 05/05/22 History aspirin 81 mg tablet,delayed 81 mg PO QAM 09/01/18 05/05/22 History release cholecalciferol (vitamin D3) 50 2,000 unit PO QAM 09/01/18 05/05/22 History mcg (2,000 unit) tablet (Vitamin D3) albuterol sulfate 90 mcg/actuation 2 puffs inhalation Q6 PRN Wheezing 07/24/19 05/05/22 History aerosol inhaler rosuvastatin 20 mg tablet (Crestor) 20 mg PO QAM 07/24/19 05/05/22 History levothyroxine 125 mcg tablet 125 mcg PO DAILY 12/18/19 05/05/22 History amlodipine 10 mg tablet 10 mg PO QAM 10/06/20 05/05/22 History doxazosin 4 mg tablet 4 mg PO HS 04/29/22 05/05/22 History fluoxetine 20 mg capsule 20 mg PO QAM 04/29/22 05/05/22 History meclizine 25 mg tablet 25 mg PO TID PRN Dizziness 04/29/22 05/05/22 History mometasone-formoterol HFA 200 2 puff inhalation AMHS 04/29/22 05/05/22 History mcg-5 mcg/actuation aerosol inhaler (Dulera) montelukast 10 mg tablet 10 mg PO QAM 04/29/22 05/05/22 History omeprazole 20 mg capsule,delayed 20 mg PO QAM 04/29/22 05/05/22 History release carvedilol 25 mg tablet 37.5 mg PO AMHS #60 tabs 04/30/22 05/05/22 Rx chlorthalidone 25 mg tablet 25 mg PO QAM #30 tabs 04/30/22 05/05/22 Rx losartan 50 mg tablet 100 mg PO QAM #60 tabs 04/30/22 05/05/22 Rx Past Med/Surg History Medical History (Updated 05/05/22 @ 15:51 by Mark Johnson MD) Anxiety CKD (chronic kidney disease), stage III History of pneumonia APR 2019...RESOLVED HTN (hypertension) Hypothyroidism NO MEDS Kidney stone CURRENT/NO PROBLEMS WITH Migraines 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 Yadav 08-03-19 Family History Father Diabetes Heart disease Hypertension Mother Cancer Social History Smoking Status: Never smoker Second Hand Exposure: Yes (MULTIPLE FAMILY MEMBERS, ); Hx Alcohol Use: Yes Alcohol type: wine Hx Substance Use: No Preferred Language: Ethiopian Communication Ability: Effective Towel Stretcher Required: No Beliefs That Will Affect Care: None marital status: Current Living Situation: Spouse current occupational status: employed Feels Safe at Home: Yes Assistive Devices: None Review of Systems Review of Systems: All systems reviewed & are unremarkable except as noted in Subjective Physical Exam Physical Exam: Constitutional: WD/WN, vitals as above, NAD, sitting up in bed, pleasant, conversing easily. Morbidly obese Respiratory: normal respiratory effort, lungs clear to auscultation, no wheeze, rales, rhonchi. Normal insp/exp effort, no accessory muscle use Cardiovascular: RRR, no murmur, no edema Vessels: no JVD or carotid bruit Chest: normal inspection of chest Abdomen: normal bowel sounds, soft, nontender, no hepatosplenomegaly Musculoskeletal: no cyanosis or clubbing, extremities motor strength 5/5 Skin: no rashes, warm and dry normal turgor Neurologic: PERRL, EOMI, accommodation nl, no face palsy, no dysarthria CN's II- XI intact bilaterally and moves all extremities Psychiatric: A+Ox3, euthymic affect Lymphatic: no cervical or axillary lymphadenopathy : deferred Results & Data Results & Data ([facility]) Vital Signs (Past 12 Hours) Vital Signs Temp Pulse Pulse Resp BP Pulse Ox O2 Del Method 05/05/22 14:26 96 Room Air 05/05/22 14:26 92 H 16 96 Room Air 05/05/22 13:17 36.5 C 91 H 20 232/143 H 97 Room Air Laboratory Results Laboratory Results WBC 6.92 K/ul (4.8-10.8) 05/05/22 13:43 RBC 4.46 M/uL (3.93-5.22) 05/05/22 13:43 Hgb 13.0 g/dl (12.0-16.0) 05/05/22 13:43 Hct 40.1 % (34.1-44.9) 05/05/22 13:43 MCV 89.9 fL (80.0-100.0) 05/05/22 13:43 MCH 29.1 pg (25.0-34.0) 05/05/22 13:43 MCHC 32.4 g/dL (32.0-36.0) 05/05/22 13:43 RDW Std Deviation 45.8 fL (36.4-46.3) 05/05/22 13:43 RDW Coeff of Chasity 13.9 % (11.5-14.5) 05/05/22 13:43 Plt Count 299 K/uL (130-400) 05/05/22 13:43 MPV 10.7 fL (9.4-12.3) 05/05/22 13:43 Immature Gran % (Auto) 0.3 % 05/05/22 13:43 Neut % (Auto) 55.7 % 05/05/22 13:43 Lymph % (Auto) 27.5 % 05/05/22 13:43 [place] % (Auto) 11.6 % 05/05/22 13:43 Eos % (Auto) 4.3 % 05/05/22 13:43 Baso % (Auto) 0.6 % 05/05/22 13:43 Neut # (Auto) 3.86 K/uL (1.4-6.5) 05/05/22 13:43 Lymph # (Auto) 1.90 K/uL (1.2-3.4) 05/05/22 13:43 [place] # (Auto) 0.80 K/uL (0.24-0.82) 05/05/22 13:43 Eos # (Auto) 0.30 K/uL (0-0.50) 05/05/22 13:43 Baso # (Auto) 0.04 K/uL (0-0.2) 05/05/22 13:43 Immature Gran # (Auto) 0.02 K/uL (0.00-0.02) 05/05/22 13:43 PT 10.8 Seconds (9.0-12.0) 05/05/22 13:43 INR 1.0 (0.9-1.1) 05/05/22 13:43 APTT 29.8 Seconds (21.0-31.0) 05/05/22 13:43 PTT Ratio 1.1 05/05/22 13:43 Sodium 140 mmol/L (136-145) 05/05/22 13:43 Potassium 4.2 mmol/L (3.5-5.1) 05/05/22 13:43 Chloride 104 mmol/L (98-107) 05/05/22 13:43 Carbon Dioxide 31 mmol/L (21-32) 05/05/22 13:43 Anion Gap 5 (3-11) 05/05/22 13:43 BUN 27 mg/dl (6-23) H 05/05/22 13:43 Creatinine 1.45 mg/dl (0.6-1.2) H 05/05/22 13:43 Est Cr Clr Drug Dosing 58.6 ml/min 05/05/22 13:43 Est GFR ( Amer) 47.5 ml/min 05/05/22 13:43 Est GFR (Non-Af Amer) 41.0 ml/min 05/05/22 13:43 BUN/Creatinine Ratio 18.6 (10-20) 05/05/22 13:43 Glucose 96 mg/dl (70-99(Fasting)) 05/05/22 13:43 Calcium 9.7 mg/dl (8.5-10.1) 05/05/22 13:43 Total Bilirubin 0.5 mg/dl (0.2-1.0) 05/05/22 13:43 AST 16 U/L (13-39) 05/05/22 13:43 ALT 11 U/L (7-52) 05/05/22 13:43 Alkaline Phosphatase 87 U/L (34-104) 05/05/22 13:43 Troponin I High Sens 8.9 pg/ml (0-14) 05/05/22 13:43 Total Protein 8.6 gm/dl (6.0-8.3) H 05/05/22 13:43 Albumin 4.0 gm/dl (3.4-5.0) 05/05/22 13:43 Globulin 4.6 gm/dl (2.5-4.0) H 05/05/22 13:43 Albumin/Globulin Ratio 0.9 (0.9-2) 05/05/22 13:43 Code Status & VTE Plan VTE Prophylaxis Plan VTE Prophylaxis will be ordered: Yes
[2022-05-05] MEDS ORDERED: hydrALAZINE HCL 20 MG/ML VIAL IV STA (16:32)
[2022-05-05] MEDS ORDERED: ALBUTEROL HFA 8 GM INHALER INH PRN (19:22)
[2022-05-05] MEDS ORDERED: POLYETHYLENE (MIRALAX) 17 GM PACK PO PRN (19:22)
[2022-05-05] MEDS ORDERED: NITROGLYCERIN SL 0.4 MG/TAB TAB SL PRN (19:22)
[2022-05-05] MEDS ORDERED: LABETALOL HCL IV 5 MG/ML 20ML IV PRN (19:22)
[2022-05-05] MEDS ORDERED: ACETAMINOPHEN 325 MG TAB PO PRN (19:22)
[2022-05-05] MEDS ORDERED: carvediloL 12.5 MG TAB PO STA (19:37)
[2022-05-05] MEDS ORDERED: hydrALAZINE TAB 50 MG TAB PO STA (19:38)
[2022-05-05] MEDS ORDERED: PROMETHAZINE HCL 12.5 MG in SODIUM CHLORIDE 0.9% 50 ML IV PRN (22:08)
[2022-05-05] MEDS ORDERED: SODIUM CHLORIDE 0.9% 1000ML 1,000 ML IV ONE (22:09)
[2022-05-06] MEDS: hydrALAZINE TAB 50 MG TAB PO SCH ×2 (05:58→13:20)
[2022-05-06] MEDS: LEVOTHYROXINE SODIUM 125 MCG TABLET PO SCH (05:58)
[2022-05-06] MEDS: ASPIRIN 81 MG ECTAB PO SCH (08:11)
[2022-05-06] MEDS: CHOLECALCIFEROL 1,000 UNITS 25 MCG TAB PO SCH (08:11)
[2022-05-06] MEDS: FLUoxetine HCL 20 MG CAP PO SCH (08:11)
[2022-05-06] MEDS: MONTELUKAST SODIUM 10 MG TABLET PO SCH (08:11)
[2022-05-06] MEDS: amLODIPine BESYLATE 5 MG TAB PO SCH (08:11)
[2022-05-06] MEDS: LOSARTAN POTASSIUM 50 MG TAB PO SCH (08:11)
[2022-05-06] MEDS: carvediloL 12.5 MG TAB PO SCH ×2 (08:11→20:20)
[2022-05-06] MEDS: ENOXAPARIN INJ 40 MG/0.4 ML SYR SQ SCH (08:11)
[2022-05-06] MEDS: CHLORTHALIDONE 25 MG TAB PO SCH (08:11)
[2022-05-06] MEDS: PANTOprazole 40 MG TAB PO SCH (08:11)
[2022-05-06] MEDS: allopurinoL 100 MG TAB PO SCH (08:11)
[2022-05-06] MEDS: ROSUVASTATIN CALCIUM 20 MG TAB PO SCH (08:11)
--- NOTE | 2022-05-06 12:04 | Electrocardiogram Report ---
Test Reason : Blood Pressure : / mmHG Vent. Rate : 080 BPM Atrial Rate : 080 BPM P-R Int : 180 ms QRS Dur : 096 ms QT Int : 454 ms P-R-T Axes : 043 056 064 degrees QTc Int : 523 ms Normal sinus rhythm Possible Left atrial enlargement Prolonged QT Abnormal ECG When compared with ECG of 05-MAY-2022 13:45, QT has lengthened Confirmed by Andrea Robledo ([id number]) on 05/06/2022 12:04:07 PM Referred By: REFERRED SELF Confirmed By:Gagan Robledo
--- NOTE | 2022-05-06 15:02 | Discharge Summary ---
Date of Service May 06, 2022 Admission HPI Per Admitting Provider History of resistant hypertension (on Coreg, amlodipine, chlorthalidone, losartan, doxazosin.), Hypothyroidism, hyperlipidemia, depression, GERD Recent admission from 04/29-04/30 for similar reason. Her medication were uptitrated during the admission; Coreg was changed from 25 twice daily to 37.5 twice daily, losartan increased from 50mg to 100 mg, chlorthalidone added. Recently, patient's amlodipine was also increased from 5mg to 10 mg as well as doxazosin was increased from 2 mg to 4 mg prior to her last admission. After the discharge, patient started on the new regimen. Her blood pressure was continuously in the range of 190-200/100-110 mmHg at home. She complains of intermittent headache; denies vision changes, chest pain or abdominal pain. She went to see nephrology today for outpatient follow-up and to establish care. Dr. Brown saw her in the clinic; recommended her to go to the ED for blood pressure control. Patient reports that she has taken all her morning medication for hypertension. In the ED, patient was afebrile, hypertensive to 230/140; was given 1 dose of labetalol 10 mg IV. Admission Exam Per Admitting Provider Constitutional: WD/WN, vitals as above, NAD, sitting up in bed, pleasant, conversing easily. Morbidly obese Respiratory: normal respiratory effort, lungs clear to auscultation, no wheeze, rales, rhonchi. Normal insp/exp effort, no accessory muscle use Cardiovascular: RRR, no murmur, no edema Vessels: no JVD or carotid bruit Chest: normal inspection of chest Abdomen: normal bowel sounds, soft, nontender, no hepatosplenomegaly Musculoskeletal: no cyanosis or clubbing, extremities motor strength 5/5 Skin: no rashes, warm and dry normal turgor Neurologic: PERRL, EOMI, accommodation nl, no face palsy, no dysarthria CN's II- XI intact bilaterally and moves all extremities Psychiatric: A+Ox3, euthymic affect Lymphatic: no cervical or axillary lymphadenopathy : deferred Principal Diagnosis Hypertensive crisis Resistant hypertension Discharge Exam GENERAL: Alert and oriented x3. NAD, on RA. Class II obese. HEENT: No pallor, no icterus. Pupils equal, round and reactive to light. Oral mucosa moist. NECK: No JVD, no neck masses. HEART: S1 and S2 heard. Regular rate and rhythm. No murmur, no gallop. RESPIRATORY SYSTEM: Normal AP diameter. No accessory muscle use. No wheezing, no crackles. ABDOMEN: Soft, bowel sounds present, nontender, no distention. CENTRAL NERVOUS SYSTEM: No facial droop. Speech is clear. Obeys simple commands. Moves extremities. EXTREMITIES: No edema, no erythema seen. Discharge Data Allergies Allergy/AdvReac Type Severity Reaction Status Date / Time lisinopril AdvReac Intermediate Cough Verified 05/05/22 15:03 vancomycin AdvReac Intermediate Flushing Verified 05/05/22 15:03 Consultations 05/05/22 15:08 ED Decision to Admit Stat 05/05/22 19:22 Consult Nephrology Routine Hospital Course (1) Resistant hypertension: Plan 51-year-old lady was admitted with very high blood pressure, which nicely came down with one-time IV dose of hydralazine and one-time p.o. dose of hydralazine in addition with other p.o. medications. Discussed with nephrology. Nephrology evaluated and made recommendation of clonidine 0.1 Mg twice a day with additional 0.1 mg as needed for high blood pressure greater than 160 mmHg SBP. Also added Aldactone 50 Mg daily. Doxazosin discontinued, hydralazine started while in hospital was also discontinued. Patient blood pressure has been better and well controlled. Patient would like to go home. Patient might benefit from sleep study as an outpatient, patient made aware. Patient might benefit from losing weight, patient counseled. For other chronic medical conditions, home medications for resumed as appropriate. Patient being discharged home with following instruction at the point of discharge: Follow-up with primary care physician within a week time and likely you will need blood test CBC/CMP/magnesium level. Follow-up with nephrology in 1 to 2 weeks time. You were admitted for very high blood pressure, your blood pressure improved nicely while in hospital with medications. Nephrology evaluated you and made following recommendations regarding your blood pressure medication: You will be started on clonidine 0.1 mg twice a day, also you can use clonidine 0.1 mg as needed for high blood pressure with SBP greater than 160 mmHg. Use it upto 2 additional times a day. You will be started on Aldactone 50 Mg daily. Your doxazosin will be stopped. Continue to measure your blood pressure twice a day and maintain a blood pressure measurement log to take to your primary care physician/environmental compliance technician so that they can assist with proper adjustment of your blood pressure medication. You will need sleep study as outpatient as it could be likely cause of your resistant hypertension. Coordinate with your PCP for setting up the test. Take your medications as prescribed. Please make sure that you are able to get your medications today by calling your pharmacy before you leave the hospital so that your treatment continuity is not broken. Home Health Attestation I certify that this patient is under my care and that I, or a physicians chemist assistant working with me, had a face to-face encounter that meets the home health [id number] encounter requirements with this patient. The encounter with the patient was in whole, or in part, for the following medical condition, which is the primary reason for home health care (list medical condition): I certify that, based on my findings, the following services are medically necessary home health services: My clinical findings support the need for the above services because: Further, I certify that my clinical findings support that this patient is homebound (i.e. absences from home require considerable and taxing effort and are for medical reasons or [employer] services or infrequently or of short duration when for other reasons) because: Certification for Home Health Services: Based on the above findings, I certify that this patient is confined to the home and needs intermittent fdc care, physical therapy and/or speech therapy or continues to need occupational therapy. The patient is under my care, and I have initiated the establishment of the plan of care. This patient will be followed by a physician who will periodically review the plan of care. Total Time Total Time Spent Total Time Spent (In Minutes): 45 Discharge Plan Discharge Items Patient Disposition: Home - Self-Care Reason For Visit: HYPERTENSIVE CRISIS Discharge Diagnosis: Hypertensive crisis Resistant hypertension Condition on Discharge: Good Activity: Resume your previous activity Non-emergency contact: Primary Care Provider Call non-emergency contact if: you have any medication questions Follow-up/Referrals: Mykel Bailey MD [Primary Care Provider] - Diet: Heart Healthy and Low Sodium (2gm) Addtl Attending Provider Instructions: Follow-up with primary care physician within a week time and likely you will need blood test CBC/CMP/magnesium level. Follow-up with nephrology in 1 to 2 weeks time. You were admitted for very high blood pressure, your blood pressure improved nicely while in hospital with medications. Nephrology evaluated you and made following recommendations regarding your blood pressure medication: You will be started on clonidine 0.1 mg twice a day, also you can use clonidine 0.1 mg as needed for high blood pressure with SBP greater than 160 mm Hg. Use it upto 2 additional times a day. You will be started on Aldactone 50 Mg daily. Your doxazosin will be stopped. Continue to measure your blood pressure twice a day and maintain a blood pre ssure measurement log to take to your primary care physician/environmental compliance technician so that they can assist with proper adjustment of your blood pressure medication. You will need sleep study as outpatient as it could be likely cause of your resistant hypertension. Coordinate with your PCP for setting up the test. Take your medications as prescribed. Please make sure that you are able to get your medications today by calling your pharmacy before you leave the hospital so that your treatment continuity is not broken. Pending Studies at Discharge: No Stand-Alone Forms: My [facility] [employer], Smoking Cessation Medications and DC Order Prescriptions: New spironolactone [Aldactone] 50 mg tablet 50 mg PO DAILY Qty: 30 0RF clonidine HCl 0.1 mg tablet 0.1 mg PO DIRECTED Qty: 60 0RF Rx Instructions: take 0.1 mg twice a day. Take additional 0.1 mg (for SBP >160 mmHg) upto 2 additional times per day. Continued allopurinol 100 mg Tablet 100 mg PO QAM aspirin 81 mg Tablet,Delayed Release (Dr/Ec) 81 mg PO QAM acetaminophen [Tylenol Extra Strength] 500 mg Tablet 1,000 mg PO Q4 PRN (Reason: Pain) cholecalciferol (vitamin D3) [Vitamin D3] 2,000 unit Tablet 2,000 unit PO QAM rosuvastatin [Crestor] 20 mg Tablet 20 mg PO QAM albuterol sulfate 90 mcg/actuation HFA aerosol inhaler 2 puffs INH Q6 PRN (Reason: Wheezing) levothyroxine 125 mcg Tablet 125 mcg PO DAILY montelukast 10 mg tablet 10 mg PO QAM Dulera 200-5 mcg/actuation HFA aerosol inhaler 2 puff INHALATION AMHS omeprazole 20 mg capsule,delayed release(DR/EC) 20 mg PO QAM fluoxetine 20 mg capsule 20 mg PO QAM meclizine 25 mg tablet 25 mg PO TID PRN (Reason: Dizziness) chlorthalidone 25 mg Tablet 25 mg PO QAM Qty: 30 0RF losartan 50 mg tablet 100 mg PO QAM Qty: 60 0RF carvedilol 25 mg tablet 37.5 mg PO AMHS Qty: 60 0RF amlodipine 10 mg Tablet 10 mg PO QAM Discontinued doxazosin 4 mg tablet 4 mg PO HS Discharge Orders: Discharge Order (Routine); Ordered 05/06/22 Ordered By: Nilson Man Admission Data Admit Date/Time: 05/05/22 15:32 Attending Provider: Nilson Man Admit Provider: Mark Johnson Primary Care Provider: Mykel Bailey Other Providers: Mark Johnson ; Mayo Aragon
--- NOTE | 2022-05-06 15:52 | Hospitalist Progress Note ---
Date of Service May 06, 2022 Assessment & Plan (1) Resistant hypertension: Plan 51-year-old lady was admitted with very high blood pressure, which nicely came down with one-time IV dose of hydralazine and one-time p.o. dose of hydralazine in addition with other p.o. medications. Discussed with nephrology. Nephrology evaluated and made recommendation of clonidine 0.1 Mg twice a day with additional 0.1 mg as needed for high blood pressure greater than 160 mmHg SBP. Also added Aldactone 50 Mg daily. Doxazosin discontinued, hydralazine started while in hospital was also discontinued. Patient blood pressure has been better and well controlled. Patient might benefit from sleep study as an outpatient, patient made aware. Patient might benefit from losing weight, patient counseled. Patient blood pressure was elevated prior to leaving hospital, hence we will observe her overnight. Will get renovascular scan. Nephrology updated. Will evaluate her tomorrow for possible discharge. Other chronic medical conditions: Continue/resume home meds as and when appropriate. Admission and Anticipated Discharge Date Admission Date: May 05, 2022 Subjective Patient was seen and examined at bedside as a follow-up of resistant hypertension. Patient blood pressure has been better, patient was sitting up in chair, on room air, NAD, denies any new acute event overnight, denies headache or dizziness or chest pain or palpitation, denies any fever or chills, reports eating okay and moving bowels okay. Patient reports feeling better. Patient was earlier discharged but then again her blood pressure elevated just prior to leaving, hence will observe her overnight with new medication changes per nephrology. We will get renovascular scan tomorrow. Physical Exam Physical Exam: GENERAL: Alert and oriented x3. NAD, on RA. Class II obese. HEENT: No pallor, no icterus. Pupils equal, round and reactive to light. Oral mucosa moist. NECK: No JVD, no neck masses. HEART: S1 and S2 heard. Regular rate and rhythm. No murmur, no gallop. RESPIRATORY SYSTEM: Normal AP diameter. No accessory muscle use. No wheezing, no crackles. ABDOMEN: Soft, bowel sounds present, nontender, no distention. CENTRAL NERVOUS SYSTEM: No facial droop. Speech is clear. Obeys simple commands. Moves extremities. EXTREMITIES: No edema, no erythema seen. Results & Data Results & Data ([facility]) Vital Signs (Past 12 Hours) Vital Signs Temp Pulse Pulse Resp BP BP Pulse Ox 05/06/22 15:27 36.7 C 80 18 177/101 H 184/109 H 97 05/06/22 15:11 36.9 C 73 18 153/89 H 119/77 95 05/06/22 10:59 36.9 C 73 18 119/77 95 05/06/22 09:00 70 05/06/22 09:00 05/06/22 07:05 36.7 C 87 18 153/89 H 97 05/06/22 05:57 158/92 H O2 Del Method 05/06/22 15:27 Room Air 05/06/22 15:11 05/06/22 10:59 Room Air 05/06/22 09:00 05/06/22 09:00 Room Air 05/06/22 07:05 Room Air 05/06/22 05:57
[2022-05-06] MEDS: SPIRONOLACTONE 25 MG TAB PO SCH (16:40)
[2022-05-06] MEDS: cloNIDine HCL 0.1 MG TAB PO SCH (20:19)
--- NOTE | 2022-05-06 21:04 | Consultation Report ---
NEPHROLOGY CONSULTATION NOTE DATE OF SERVICE: 05/05/2022 REASON FOR CONSULTATION: Hypertensive urgency. HISTORY OF PRESENT ILLNESS: The patient is a 51-year-old female who was sent over to the hospital from nephrology clinic where she presented with extremely high blood pressure of 230/140. The patient had recent hospital admission 04/29/2022 to 04/30/2022 for exactly same region. There have been multiple medication added as well as increased within the last few weeks. Her blood pressure in the Emergency Department on presentation was 232/143, but within 8 hours, her blood pressure dropped too. In fact, a low reading of 89/54 and at this time is perfectly normal at 119/ 77. She got 1 dose of IV hydralazine and oral hydralazine has been added. She is getting amlodipine, chlorthalidone, losartan and carvedilol same as an outpatient dose. Doxazosin has not been given. The patient stated she felt somewhat lightheaded and weak yesterday evening after her blood pressure dropped. At this time, she feels normal. She is anxious and eager to know why her blood pressure is so high intermittently. She absolutely claims she takes her blood pressure medication as prescribed. ALLERGIES: List includes LISINOPRIL AND VANCOMYCIN. MEDICATIONS: Home medication list was reviewed in detail and is as per the reconciliation list. She takes amlodipine 10 mg, doxazosin 4 mg at bedtime, carvedilol 37.5 twice daily, chlorthalidone 25 daily, losartan 100 daily for hypertension. Also takes thyroxine, Crestor, vitamin D, aspirin. Denies taking any NSAIDs. PAST MEDICAL AND SURGICAL HISTORY: Includes anxiety, chronic kidney disease stage III, history of pneumonia, hypertension, hypothyroidism, kidney stone history, history of migraine, cervical spine surgery, history of dilatation and curettage, cholecystectomy, tubal ligation, status post bronchoscopy with biopsy. FAMILY HISTORY: Positive for diabetes and hypertension. SOCIAL HISTORY: Never smoked. , lives with his spouse. REVIEW OF SYSTEMS: At this point, she has no acute symptoms. Admission was also directed because of high blood pressure and she really was not having any symptoms. Twelve systems reviewed and negative. PHYSICAL EXAMINATION: GENERAL: A middle-aged white female who is somewhat obese. She is awake, alert, oriented x3, able to give a detailed account of her medical problem. VITAL SIGNS: Most recent blood pressure is 119/77, pulse rate 73, temperature 36.9, 95% on room air. HEENT: Mucous membrane is moist. NECK: Supple. No jugular venous distention. CHEST: Bilaterally clear to auscultation. CARDIOVASCULAR: S1 and S2, regular. ABDOMEN: Soft, nontender, obese. EXTREMITIES: Show trace edema. LABORATORY TEST: Sodium 140, potassium 4.2, BUN 27, creatinine 1.45, albumin 4.0. ASSESSMENT AND PLAN: A 51-year-old female with longstanding hypertension, admitted with hypertensive urgency after she presented to Nephrology Clinic with a blood pressure of 240 systolic. I have been consulted for hypertension management. Hypertension. The patient claims she absolutely takes all of her medication as prescribed. However, we have to have a strong suspicion about noncompliance, given that her blood pressure essentially dropped to low reading within 8 hours of being in the hospital with essentially no major medication change. At this point, it is completely normal. We can pursue her blood pressure management and workup as an outpatient. RECOMMENDATION FOR DISCHARGE: 1. Follow up nephrology clinic next week. 2. A 24-hour ambulatory blood pressure measurement to be done through nephrology clinic. 3. Stop doxazosin. 4. Add spironolactone 50 mg daily. 5. Add clonidine 0.1 mg three times daily and also given instructions to take extra 0.1 mg of clonidine whenever she has systolic blood pressure more than 160/110. The patient does have a way to check her blood pressure at home and she checks frequently. 6 May have to split some of BP meds--give amlodipine evening. 7. I believe we have to check the blood level of her hypertension drug. Clonidine level can be checked quite easily as well as chlorthalidone level. Given that this is a second admission literally within 1 week of exactly same problem, I think noncompliance has to be in the differential diagnosis. 8. Would like to do renovascular scan as well as secondary hypertension workup as an outpatient. Thank you very much for the consult. Case was discussed with her primary workers compensation claims assistant as well as hospitalist. Thank you very much for the consult. Job ID: [id number] OSMIN
[2022-05-07] MEDS: LEVOTHYROXINE SODIUM 125 MCG TABLET PO SCH (05:57)
[2022-05-07 07:03] LABS: BUN Creatinine Ratio 19.7 (10-20); Calcium 8.6 mg/dl (8.5-10.1); Creatinine Clr Calc Pharmacy 41.7 ml/min; Est GFR (African American) 34.7 ml/min; Magnesium 2.1 mg/dl (1.7-2.4); Phosphorus 3.4 mg/dl (2.5-4.9); Potassium 4.3 mmol/L (3.5-5.1)
[2022-05-07] MEDS: carvediloL 12.5 MG TAB PO SCH (08:50)
[2022-05-07] MEDS: SPIRONOLACTONE 25 MG TAB PO SCH (08:50)
[2022-05-07] MEDS: CHOLECALCIFEROL 1,000 UNITS 25 MCG TAB PO SCH (08:51)
[2022-05-07] MEDS: FLUoxetine HCL 20 MG CAP PO SCH (08:51)
[2022-05-07] MEDS: LOSARTAN POTASSIUM 50 MG TAB PO SCH (08:51)
[2022-05-07] MEDS: ASPIRIN 81 MG ECTAB PO SCH (08:52)
[2022-05-07] MEDS: CHLORTHALIDONE 25 MG TAB PO SCH (08:52)
[2022-05-07] MEDS: allopurinoL 100 MG TAB PO SCH (08:52)
[2022-05-07] MEDS: MONTELUKAST SODIUM 10 MG TABLET PO SCH (08:53)
[2022-05-07] MEDS: ENOXAPARIN INJ 40 MG/0.4 ML SYR SQ SCH (08:53)
[2022-05-07] MEDS: amLODIPine BESYLATE 5 MG TAB PO SCH (08:53)
[2022-05-07] MEDS: ROSUVASTATIN CALCIUM 20 MG TAB PO SCH (08:53)
[2022-05-07] MEDS: cloNIDine HCL 0.1 MG TAB PO SCH (08:54)
[2022-05-07] MEDS: PANTOprazole 40 MG TAB PO SCH (08:54)
--- NOTE | 2022-05-07 08:54 | Ultrasound Report ---
US duplex renal artery CLINICAL HISTORY: Hypertension. Assess for renal artery stenosis. COMPARISON STUDY: Renal ultrasound 11/10/2007. FINDINGS: The peak systolic velocity within the right renal artery is 194 cm/s with a renal aortic ra [place] of 2.4. Therefore, this consistent with borderline stenosis. The peak systolic velocity within th e left renal artery is 110 cm/s. Resistive indices of the bilateral renal arcuate artery is within no rmal limits measuring less than 0.7. The bilateral renal veins are patent. Mild/moderate bilateral co rtical renal thinning. No hydronephrosis. IMPRESSION: 1. Borderline stenosis within the proximal right renal artery. 2. No evidence for left renal artery stenosis. ACT 112: Negative or not required by law. Electronically signed by: Abdulaziz Hickey M.D. 05/07/2022 8:53 AM
[2022-05-07] MEDS ORDERED: cloNIDine HCL 0.1 MG TAB PO PRN (10:34)
[2022-05-07] MEDS ORDERED: cloNIDine HCL 0.1 MG TAB PO SCH (14:00)
== END 2022-05-07 13:27 | disposition home or self-care (01) ==
LOC: ED 13:09 → 4W 13:09 → SUATTDRO 15:32 → 4W 18:40

== ENCOUNTER 2023-04-15 21:15 | Inpatient (IN) ==
[2023-04-15 22:15] LABS: Basophils # (auto) 0.02 K/uL (0.00-0.20); Basophils % (auto) 0.2 %; Eosinophils # (auto) 0.31 K/uL (0.00-0.50); Eosinophils % (auto) 3.2 %; Hematocrit (blood only) 35.6 % (37.0-47.0); Hemoglobin 11.2 g/dl (12.0-16.0); Immature Granulocytes # (auto) 0.02 K/uL (0.01-0.20); Immature Granulocytes % (auto) 0.2 %; Lymphocytes # (auto) 1.47 K/uL (1.20-3.40); Mean Corpuscular Hemoglobin 28.9 pg (25.0-34.0); Mean Corpuscular Hgb Conc 31.5 g/dL (32.0-36.0); Mean Corpuscular Volume 91.8 fL (80.0-100.0); Monocytes # (auto) 0.79 K/uL (0.11-0.59); Monocytes % (auto) 8.1 %; Neutrophils # (auto) 7.17 K/uL (1.40-6.50); Neutrophils % (auto) 73.3 %; Platelet Count 224 K/uL (130-400); RDW Standard Deviation 50.7 fL (36.4-46.3); Red Blood Count 3.88 M/uL (4.20-5.40); White Blood Count 9.78 K/ul (4.8-10.8)
[2023-04-15 22:42] LABS: Partial Thromboplastin Time 29.6 Seconds (21.0-31.0); Prothrombin Time 11.2 Seconds (9.0-12.0)
[2023-04-15 22:46] LABS: Albumin Globulin Ratio 0.9 (0.9-2); Albumin Level 3.9 gm/dl (3.4-5.0); Bilirubin,Total 0.3 mg/dl (0.2-1.0); Calcium 9.5 mg/dl (8.6-10.3); Creatinine Clr Calc Pharmacy 19.7 ml/min; Est GFR (African American) 13.1 ml/min; Est GFR (Non-African American) 11.3 ml/min; Globulin 4.5 gm/dl (2.5-4.0); Potassium 6.9 mmol/L (3.5-5.1); Total Protein 8.4 gm/dl (6.0-8.3); Troponin I High Sensitivity 6.6 pg/ml (0-14)
[2023-04-15] MEDS ORDERED: DEXTROSE 50% 50 ML SYRINGE IV STA (22:53)
[2023-04-15] MEDS ORDERED: STAT IV/IM STA (22:53)
[2023-04-15] MEDS ORDERED: CALCIUM GLUCONATE 10% 1,000 MG in SODIUM CHLOR 0.9% MINI-B 50 ML IV ONE (22:53)
[2023-04-15] MEDS ORDERED: INSULIN HUMAN REGULAR PER UNIT 10 UNITS in SYRINGE 9.9 ML IV STA (22:53)
[2023-04-15] MEDS ORDERED: SODIUM CHLORIDE 0.9% 1,000 ML IV ONE (22:53)
--- NOTE | 2023-04-16 00:59 | Emergency Department Note ---
History of Present Illness General Chief complaint: Referred by Doctor Stated complaint: HIGH POTASSIUM LVLS Time Seen by Provider: 04/15/23 22:34 History of Present Illness This 52-year-old female was sent in by the PCP for abnormal potassium level. Patient went to the family doctor yesterday for feeling weak with diarrhea for the past several days. She states the diarrhea has resolved. Patient denies chest pain, dyspnea, abdominal pain, cough, congestion, palpitations, lightheadedness, numbness, tingling, localized weakness. She states she is feeling much better since the diarrhea has tapered off. Home Medications Medication Instructions Recorded Confirmed Type acetaminophen 500 mg tablet 1,000 mg PO Q4 PRN Pain 09/01/18 05/05/22 History (Tylenol Extra Strength) allopurinol 100 mg tablet 100 mg PO QAM 09/01/18 05/05/22 History aspirin 81 mg tablet,delayed 81 mg PO QAM 09/01/18 05/05/22 History release cholecalciferol (vitamin D3) 50 2,000 unit PO QAM 09/01/18 05/05/22 History mcg (2,000 unit) tablet (Vitamin D3) albuterol sulfate 90 mcg/actuation 2 puffs inhalation Q6 PRN Wheezing 07/24/19 05/05/22 History aerosol inhaler rosuvastatin 20 mg tablet (Crestor) 20 mg PO QAM 07/24/19 05/05/22 History levothyroxine 125 mcg tablet 125 mcg PO DAILY 12/18/19 05/05/22 History fluoxetine 20 mg capsule 20 mg PO QAM 04/29/22 05/05/22 History meclizine 25 mg tablet 25 mg PO TID PRN Dizziness 04/29/22 05/05/22 History mometasone-formoterol HFA 200 2 puff inhalation AMHS 04/29/22 05/05/22 History mcg-5 mcg/actuation aerosol inhaler (Dulera) montelukast 10 mg tablet 10 mg PO QAM 04/29/22 05/05/22 History omeprazole 20 mg capsule,delayed 20 mg PO QAM 04/29/22 05/05/22 History release carvedilol 25 mg tablet 37.5 mg PO AMHS #60 tabs 04/30/22 05/05/22 Rx chlorthalidone 25 mg tablet 25 mg PO QAM #30 tabs 04/30/22 05/05/22 Rx losartan 50 mg tablet 100 mg PO QAM #60 tabs 04/30/22 05/05/22 Rx spironolactone 50 mg tablet 50 mg PO DAILY #30 tabs 05/06/22 Rx (Aldactone) amlodipine 10 mg tablet 10 mg PO HS #30 tabs 05/07/22 05/05/22 Rx clonidine HCl 0.1 mg tablet 0.1 mg PO DIRECTED #60 tabs 05/07/22 Rx Allergies Allergy/AdvReac Type Severity Reaction Status Date / Time lisinopril AdvReac Intermediate Cough Verified 05/05/22 15:03 vancomycin AdvReac Intermediate Flushing Verified 05/05/22 15:03 Past Med/Surg History Medical History (Updated 04/16/23 @ 00:59 by Nat Enciso PA-C) Anxiety CKD (chronic kidney disease), stage III History of pneumonia APR 2019...RESOLVED HTN (hypertension) Hypothyroidism NO MEDS Kidney stone CURRENT/NO PROBLEMS WITH Migraines 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 Yadav 08-03-19 Family History Father Diabetes Heart disease Hypertension Mother Cancer Social History Smoking Status: Never smoker Second Hand Exposure: Yes (MULTIPLE FAMILY MEMBERS, ); Do You Dip or Chew Tobacco: No; Hx Alcohol Use: Yes Alcohol type: wine Hx Substance Use: No Preferred Language: [place] Communication Ability: Effective Segmental Paver Installer Required: No Beliefs That Will Affect Care: None marital status: Current Living Situation: Spouse current occupational status: employed Feels Safe at Home: Yes Assistive Devices: None Review of Systems A total of 10 systems reviewed and were otherwise negative Physical Exam Vital Signs Vital Signs - 24 hr 04/15/23 21:26 04/15/23 23:01 04/15/23 23:15 Temperature 36.3 C L Temperature Source Temporal Artery Scan Pulse Rate 81 70 Pulse Rate [Apical] 78 Pulse Rate from SpO2 Sensor Pulse Rhythm [Apical] Regular Pulse Strength [Apical] Normal Respiratory Rate 16 16 Respiratory Effort / Characteristics Non-Labored Respiratory Depth Normal Normal Respiratory Pattern Regular Blood Pressure 141/77 H Blood Pressure Mean 98 Pulse Oximetry 98 96 Oxygen Delivery Method Room Air Room Air Sepsis Recent Fever Within 48 Hours No Sepsis New/Unexplained Change in Mental Status No Sepsis Action Taken by Nursing No Action Required 04/15/23 23:01 04/15/23 23:10 04/15/23 23:30 Temperature Temperature Source Pulse Rate 74 77 81 Pulse Rate [Apical] Pulse Rate from SpO2 Sensor 76 82 Pulse Rhythm [Apical] Pulse Strength [Apical] Respiratory Rate 15 20 21 Respiratory Effort / Characteristics Respiratory Depth Respiratory Pattern Blood Pressure 118/72 Blood Pressure Mean 87 Pulse Oximetry 96 100 Oxygen Delivery Method Room Air Sepsis Recent Fever Within 48 Hours Sepsis New/Unexplained Change in Mental Status Sepsis Action Taken by Nursing 04/15/23 23:37 04/16/23 00:00 04/16/23 00:30 Temperature Temperature Source Pulse Rate 83 85 82 Pulse Rate [Apical] Pulse Rate from SpO2 Sensor 84 83 83 Pulse Rhythm [Apical] Pulse Strength [Apical] Respiratory Rate 16 18 18 Respiratory Effort / Characteristics Respiratory Depth Respiratory Pattern Blood Pressure 122/64 106/65 121/67 Blood Pressure Mean 83 78 85 Pulse Oximetry 96 97 95 Oxygen Delivery Method Room Air Sepsis Recent Fever Within 48 Hours Sepsis New/Unexplained Change in Mental Status Sepsis Action Taken by Nursing 04/16/23 01:00 04/16/23 01:00 Temperature Temperature Source Pulse Rate 87 Pulse Rate [Apical] Pulse Rate from SpO2 Sensor 88 Pulse Rhythm [Apical] Pulse Strength [Apical] Respiratory Rate 23 Respiratory Effort / Characteristics Non-Labored Respiratory Depth Normal Respiratory Pattern Regular Blood Pressure 118/71 Blood Pressure Mean 86 Pulse Oximetry 91 Oxygen Delivery Method Room Air Room Air Sepsis Recent Fever Within 48 Hours Sepsis New/Unexplained Change in Mental Status Sepsis Action Taken by Nursing VITALS: Vitals are noted on the nurse's note and reviewed by myself. Vital signs stable. GENERAL: Pleasant female with partner present, in no acute distress, nondiaphoretic, well-developed well-nourished. SKIN: The skin was without rashes, erythema, edema, or bruising. There is no tenting of the skin. Capillary reflex less than 2 seconds. HEAD: Normocephalic atraumatic. EARS: External auditory canals clear, EYES: Pupils equal round and reactive to light and accommodation. Conjunctivae without injection, sclerae without icterus. Extraocular movements intact. NOSE: Patent, turbinates without inflammation or discharge. MOUTH: Mucous membranes moist. Pharynx without erythema or exudate. Uvula midline. Airway patent. Tongue does not deviate. NECK: Supple without nuchal rigidity. No lymphadenopathy. No thyromegaly. Cervical spine is nontender. No JVD. HEART: Regular rate and rhythm LUNGS: Clear to auscultation bilaterally without wheezes, rales or rhonchi. No retractions or accessory muscle use. ABDOMEN: Positive bowel sounds x 4. Normal tympanic percussion. Soft, nontender, without masses or organomegaly. Tapia sign negative. No guarding or rebound tenderness. No CVA tenderness MUSCULOSKELETAL: No muscle atrophy, erythema, or edema noted. NEURO: Patient was alert and oriented to person place and time. Normal sensation to light and sharp touch. No focal neurological deficits. Course Administered Medications Discontinued Medications Dextrose (Dextrose 50% 50 Ml Syringe) 50 ml IV NOW STA Stop: 04/15/23 22:54 Last Admin: 04/15/23 23:17 Dose: 50 ml Documented By: MOUNA Dextrose (Dextrose 50% 50 Ml Syringe) 50 ml IV NOW STA Stop: 04/16/23 01:50 Last Admin: 04/16/23 02:16 Dose: 50 ml Documented By: MOUNA Sodium Chloride (Nss) 1,000 mls @ 999 mls/hr IV .Q1H1M ONE Stop: 04/15/23 23:53 Last Infusion: 04/16/23 00:52 Dose: 0 mls/hr Documented By: Admin: 04/15/23 23:11 Dose: 999 mls/hr Documented By: MOUNA Calcium Gluconate 1,000 mg/ (Sodium Chloride) 60 mls @ 240 mls/hr IV NOW ONE Stop: 04/15/23 23:07 Last Infusion: 04/16/23 00:51 Dose: 0 mls/hr Documented By: Admin: 04/15/23 23:19 Dose: 240 mls/hr Documented By: MOUNA Insulin Human Regular 10 units (/ Syringe) 9.9 mls @ 3 mls/sec IV ONE STA Stop: 04/15/23 22:54 Last Admin: 04/15/23 23:18 Dose: 3 mls/sec Documented By: MUONA Co-signed By: VANDANA Calcium Gluconate 1,000 mg/ (Sodium Chloride) 60 mls @ 240 mls/hr IV NOW ONE Stop: 04/16/23 02:03 Last Infusion: 04/16/23 03:06 Dose: 0 mls/hr Documented By: Admin: 04/16/23 02:17 Dose: 240 mls/hr Documented By: MOUNA Insulin Human Regular 10 units (/ Syringe) 9.9 mls @ 3 mls/sec IV ONE STA Stop: 04/16/23 01:50 Last Admin: 04/16/23 02:25 Dose: 3 mls/sec Documented By: MOUNA Co-signed By: RENEE Lactated Ringer's (Lr) 1,000 mls @ 999 mls/hr IV .Q1H1M ONE Stop: 04/16/23 02:49 Last Infusion: 04/16/23 03:07 Dose: 0 mls/hr Documented By: Admin: 04/16/23 01:50 Dose: 999 mls/hr Documented By: MOUNA Miscellaneous (Stat Iv) 1 each N/A NOW STA Stop: 04/15/23 22:54 Last Admin: 04/16/23 01:07 Dose: 1 each Documented By: MOUNA Critical Care Time Critical Care Time: Yes Total Critical Care Time: 35 I have personally spent 35 minutes of critical care time in the direct management of this patient. This includes bedside care, interpretation of diagnostic studies, and testing, discussion with consultants, patient, and family members, and other required patient management activities. This 35 minutes is in excess of all separately billable procedures. Medical Decision Making Medical Records Attestation: I reviewed the patient's medical records. Home Medications Current Medication List: was personally reviewed by me Laboratory Data Attestation: I reviewed the patient's lab results. 04/15/23 22:00 04/15/23 22:00 Lab Results 04/15/23 04/15/23 04/15/23 Range/Units 22:00 22:00 22:00 WBC 9.78 (4.8-10.8) K/ul RBC 3.88 L (4.20-5.40) M/uL Hgb 11.2 L (12.0-16.0) g/dl POC Hgb (12.0-16.0) g/dl Hct 35.6 L (37.0-47.0) % POC Hct (37-47) % MCV 91.8 (80.0-100.0) fL MCH 28.9 (25.0-34.0) pg MCHC 31.5 L (32.0-36.0) g/dL RDW Std Deviation 50.7 H (36.4-46.3) fL RDW Coeff of Chasity 15.0 H (11.5-14.5) % Plt Count 224 (130-400) K/uL MPV 11.0 (9.4-12.4) fL Immature Gran % (Auto) 0.2 % Neut % (Auto) 73.3 % Lymph % (Auto) 15.0 % [place] % (Auto) 8.1 % Eos % (Auto) 3.2 % Baso % (Auto) 0.2 % Neut # (Auto) 7.17 H (1.40-6.50) K/uL Lymph # (Auto) 1.47 (1.20-3.40) K/uL [place] # (Auto) 0.79 H (0.11-0.59) K/uL Eos # (Auto) 0.31 (0.00-0.50) K/uL Baso # (Auto) 0.02 (0.00-0.20) K/uL Immature Gran # (Auto) 0.02 (0.01-0.20) K/uL PT 11.2 (9.0-12.0) Seconds INR 1.0 (0.9-1.1) APTT 29.6 (21.0-31.0) Seconds PTT Ratio 1.0 POC Sodium (135-144) mmol/L Sodium 134 L (136-145) mmol/L POC Potassium (3.3-5.0) mmol/L Potassium 6.9 H* (3.5-5.1) mmol/L POC Chloride (101-112) mmol/L Chloride 111 H (98-107) mmol/L Carbon Dioxide 18 L (21-32) mmol/L POC Total CO2 (24-31) mmol/L Anion Gap 5 (3-11) POC Anion Gap (16-25) mmol/L POC BUN (7-18) mg/dl BUN 84 H (6-23) mg/dl Creatinine 4.19 H (0.6-1.2) mg/dl POC Creatinine (0.6-1.3) mg/dl Est Cr Clr Drug Dosing 19.7 ml/min Est GFR ( Amer) 13.1 ml/min Est GFR (Non-Af Amer) 11.3 ml/min BUN/Creatinine Ratio 20.0 (10-20) Glucose 117 H (70-99(Fasting)) mg/dl POC Glucose (70-99) mg/dl POC Glucose (other) (70-99) mg/dl Calcium 9.5 (8.6-10.3) mg/dl POC Ioniz Calcium Tobias (1.12-1.32) mmol/l Total Bilirubin 0.3 (0.2-1.0) mg/dl AST 14 (13-39) U/L ALT 8 (7-52) U/L Alkaline Phosphatase 92 (34-104) U/L Troponin I High Sens 6.6 (0-14) pg/ml Total Protein 8.4 H (6.0-8.3) gm/dl Albumin 3.9 (3.4-5.0) gm/dl Globulin 4.5 H (2.5-4.0) gm/dl Albumin/Globulin Ratio 0.9 (0.9-2) 04/15/23 04/16/23 04/16/23 Range/Units 23:52 00:56 01:22 WBC (4.8-10.8) K/ul RBC (4.20-5.40) M/uL Hgb (12.0-16.0) g/dl POC Hgb (12.0-16.0) g/dl Hct (37.0-47.0) % POC Hct (37-47) % MCV (80.0-100.0) fL MCH (25.0-34.0) pg MCHC (32.0-36.0) g/dL RDW Std Deviation (36.4-46.3) fL RDW Coeff of Chasity (11.5-14.5) % Plt Count (130-400) K/uL MPV (9.4-12.4) fL Immature Gran % (Auto) % Neut % (Auto) % Lymph % (Auto) % [place] % (Auto) % Eos % (Auto) % Baso % (Auto) % Neut # (Auto) (1.40-6.50) K/uL Lymph # (Auto) (1.20-3.40) K/uL [place] # (Auto) (0.11-0.59) K/uL Eos # (Auto) (0.00-0.50) K/uL Baso # (Auto) (0.00-0.20) K/uL Immature Gran # (Auto) (0.01-0.20) K/uL PT (9.0-12.0) Seconds INR (0.9-1.1) APTT (21.0-31.0) Seconds PTT Ratio POC Sodium (135-144) mmol/L Sodium (136-145) mmol/L POC Potassium (3.3-5.0) mmol/L Potassium (3.5-5.1) mmol/L POC Chloride (101-112) mmol/L Chloride (98-107) mmol/L Carbon Dioxide (21-32) mmol/L POC Total CO2 (24-31) mmol/L Anion Gap (3-11) POC Anion Gap (16-25) mmol/L POC BUN (7-18) mg/dl BUN (6-23) mg/dl Creatinine (0.6-1.2) mg/dl POC Creatinine (0.6-1.3) mg/dl Est Cr Clr Drug Dosing ml/min Est GFR ( Amer) ml/min Est GFR (Non-Af Amer) ml/min BUN/Creatinine Ratio (10-20) Glucose (70-99(Fasting)) mg/dl POC Glucose 42 L* 82 (70-99) mg/dl POC Glucose (other) (70-99) mg/dl Calcium (8.6-10.3) mg/dl POC Ioniz Calcium Tobias (1.12-1.32) mmol/l Total Bilirubin (0.2-1.0) mg/dl AST (13-39) U/L ALT (7-52) U/L Alkaline Phosphatase (34-104) U/L Troponin I High Sens 5.5 (0-14) pg/ml Total Protein (6.0-8.3) gm/dl Albumin (3.4-5.0) gm/dl Globulin (2.5-4.0) gm/dl Albumin/Globulin Ratio (0.9-2) 04/16/23 04/16/23 04/16/23 Range/Units 01:26 01:42 03:05 WBC (4.8-10.8) K/ul RBC (4.20-5.40) M/uL Hgb (12.0-16.0) g/dl POC Hgb 9.5 L (12.0-16.0) g/dl Hct (37.0-47.0) % POC Hct 28 L (37-47) % MCV (80.0-100.0) fL MCH (25.0-34.0) pg MCHC (32.0-36.0) g/dL RDW Std Deviation (36.4-46.3) fL RDW Coeff of Chasity (11.5-14.5) % Plt Count (130-400) K/uL MPV (9.4-12.4) fL Immature Gran % (Auto) % Neut % (Auto) % Lymph % (Auto) % [place] % (Auto) % Eos % (Auto) % Baso % (Auto) % Neut # (Auto) (1.40-6.50) K/uL Lymph # (Auto) (1.20-3.40) K/uL [place] # (Auto) (0.11-0.59) K/uL Eos # (Auto) (0.00-0.50) K/uL Baso # (Auto) (0.00-0.20) K/uL Immature Gran # (Auto) (0.01-0.20) K/uL PT (9.0-12.0) Seconds INR (0.9-1.1) APTT (21.0-31.0) Seconds PTT Ratio POC Sodium 138 (135-144) mmol/L Sodium 136 (136-145) mmol/L POC Potassium 6.9 H* (3.3-5.0) mmol/L Potassium 6.6 H* (3.5-5.1) mmol/L POC Chloride 115 H (101-112) mmol/L Chloride 115 H (98-107) mmol/L Carbon Dioxide 17 L (21-32) mmol/L POC Total CO2 17 L (24-31) mmol/L Anion Gap 4 (3-11) POC Anion Gap 14.0 L (16-25) mmol/L POC BUN 94 H (7-18) mg/dl BUN 80 H (6-23) mg/dl Creatinine 3.88 H D (0.6-1.2) mg/dl POC Creatinine 4.1 H (0.6-1.3) mg/dl Est Cr Clr Drug Dosing 21.3 ml/min Est GFR ( Amer) 14.4 ml/min Est GFR (Non-Af Amer) 12.4 ml/min BUN/Creatinine Ratio 20.6 H (10-20) Glucose 83 (70-99(Fasting)) mg/dl POC Glucose 158 H (70-99) mg/dl POC Glucose (other) 91 (70-99) mg/dl Calcium 9.1 (8.6-10.3) mg/dl POC Ioniz Calcium Tobias 1.29 (1.12-1.32) mmol/l Total Bilirubin (0.2-1.0) mg/dl AST (13-39) U/L ALT (7-52) U/L Alkaline Phosphatase (34-104) U/L Troponin I High Sens (0-14) pg/ml Total Protein (6.0-8.3) gm/dl Albumin (3.4-5.0) gm/dl Globulin (2.5-4.0) gm/dl Albumin/Globulin Ratio (0.9-2) MDM Narrative Prior records/ancillary studies reviewed and summarized above. Nursing notes reviewed. Additional history obtained from family. The patient's history was concerning for abnormal outpatient lab testing. Differential diagnosis: Etiologies such as metabolic, infection, hypo/hyperglycemia, electrolyte abnormalities, cardiac sources, intracerebral event, toxicologic, neurologic, as well as others were entertained. Physical examination: As above. ER treatment provided: IV Lock An order was placed for continuous cardiac monitoring. The monitor shows a rate of 60-100 with a sinus rhythm per my interpretation. IV fluids, calcium, dextrose with insulin were ordered for hyperkalemia [place] was ordered along with repeat calcium dextrose and insulin as patient was still hyperkalemic on laboratory testing On reassessment the patient felt better. Diagnostics interpretation by me: ECG: Ordered for hyperkalemia EKG: Normal sinus, normal intervals, no acute ST-T wave changes, no hyperacute T waves or peaked T waves, no sign wave. Rate of 75. Impression normal sinus rhythm independent interpreted by myself I think arrhythmia is unlikely. EKG shows normal sinus rhythm with no interval abnormalities such as QT prolongation or WPW. There are no findings to suggest Brugada syndrome. Cardiac monitoring in the emergency department reveals no tachycardic or bradycardic dysrhythmia. Hypertrophic cardiomyopathy was considered but there are no clear historical elements pointing toward this. EKG is not suggestive. The QRS voltage is not extremely large and there are no suggestive Q waves. The labs Independently Interpreted by myself revealed hyperkalemia acute kidney injury/failure Mild anemia Negative troponin Consultation: A consultation was placed with the hospitalist. The case was discussed and diagnostics were reviewed. The patient was evaluated in the ER for further treatment. Exam and history seem consistent with hyperkalemia with renal failure. Patient was medicated as above. Repeat BMP was ordered. EKG was nonischemic with no signs of hyperkalemia on EKG. Patient was asymptomatic. She is agreement treatment plan of admission. Medicine was consulted and the case was discussed. She will be admitted to the medical service. By the evaluation outlined above emergent etiologies such as infection, , cardiac sources, intracerebral event, toxologic, neurologic, abnormalities blood glucose, as well as others were deemed relatively unlikely. The pt informed about the findings as listed above. All questions were answered and pleased with the treatment. The chart was completed utilizing The [employer] Speech voice recognition software. Grammatical errors, random word insertions, pronoun errors, and incomplete sentences are an occassional consequence of this system due to software limitations, ambient noise, and hardware issues. Any formal questions or concerns about the content, text, or information contained within the body of this dictation should be directly addressed to the physician purchasing administrative assistant for clarification. Impression & Plan Acute hyperkalemia, Acute renal failure, Acute dehydration Discharge Plan Visit Data Chief Complaint: Referred by Doctor Stated Complaint: HIGH POTASSIUM LVLS ED Provider: Ariel Kwon ED Midlevel Provider: Nat Enciso Discharge Problem: Acute hyperkalemia, Acute renal failure, Acute dehydration Patient Disposition: Admitted As Inpatient Condition: Fair Forms Stand Alone Forms: [facility] Prescriptions Prescriptions: No Action allopurinol 100 mg Tablet 100 mg PO QAM aspirin 81 mg Tablet,Delayed Release (Dr/Ec) 81 mg PO QAM acetaminophen [Tylenol Extra Strength] 500 mg Tablet 1,000 mg PO Q4 PRN (Reason: Pain) cholecalciferol (vitamin D3) [Vitamin D3] 2,000 unit Tablet 2,000 unit PO QAM rosuvastatin [Crestor] 20 mg Tablet 20 mg PO QAM albuterol sulfate 90 mcg/actuation HFA aerosol inhaler 2 puffs INH Q6 PRN (Reason: Wheezing) levothyroxine 125 mcg Tablet 125 mcg PO DAILY montelukast 10 mg tablet 10 mg PO QAM Dulera 200-5 mcg/actuation HFA aerosol inhaler 2 puff INHALATION AMHS omeprazole 20 mg capsule,delayed release(DR/EC) 20 mg PO QAM fluoxetine 20 mg capsule 20 mg PO QAM meclizine 25 mg tablet 25 mg PO TID PRN (Reason: Dizziness) chlorthalidone 25 mg Tablet 25 mg PO QAM Qty: 30 0RF losartan 50 mg tablet 100 mg PO QAM Qty: 60 0RF carvedilol 25 mg tablet 37.5 mg PO AMHS Qty: 60 0RF spironolactone [Aldactone] 50 mg tablet 50 mg PO DAILY Qty: 30 0RF clonidine HCl 0.1 mg tablet 0.1 mg PO DIRECTED Qty: 60 0RF Rx Instructions: 1 tab scheduled three times a day. Additionally can use as needed 1 tab for SBP >160 mmHg upto 2 more times a day. amlodipine 10 mg Tablet 10 mg PO HS Qty: 30 0RF Referrals Referrals: Mykel Bailey MD [Primary Care Provider] -
[2023-04-16] MEDS ORDERED: STAT IV/IM STA ×2 (01:49→05:58)
[2023-04-16] MEDS ORDERED: CALCIUM GLUCONATE 10% 1,000 MG in SODIUM CHLOR 0.9% MINI-B 50 ML IV ONE ×2 (01:49→06:15)
[2023-04-16] MEDS ORDERED: LACTATED RINGER'S 1,000 ML IV ONE (01:49)
[2023-04-16] MEDS ORDERED: DEXTROSE 50% 50 ML SYRINGE IV STA ×2 (01:49→05:58)
[2023-04-16] MEDS ORDERED: INSULIN HUMAN REGULAR PER UNIT 10 UNITS in SYRINGE 9.9 ML IV STA (01:49)
[2023-04-16 01:56] LABS: iSTAT Creatinine 4.1 mg/dl (0.6-1.3); iSTAT Hemoglobin 9.5 g/dl (12.0-16.0); iSTAT Ionized Calcium 1.29 mmol/l (1.12-1.32); iSTAT Potassium 6.9 mmol/L (3.3-5.0)
[2023-04-16 02:46] LABS: BUN Creatinine Ratio 20.6 (10-20); Calcium 9.1 mg/dl (8.6-10.3); Creatinine Clr Calc Pharmacy 21.3 ml/min; Est GFR (African American) 14.4 ml/min; Est GFR (Non-African American) 12.4 ml/min; Potassium 6.6 mmol/L (3.5-5.1)
[2023-04-16] MEDS ORDERED: PATIROMER CALCIUM SORBITEX 8.4 GM PACK PO STA ×2 (03:08→05:58)
[2023-04-16 05:28] LABS: Basophils # (auto) 0.02 K/uL (0.00-0.20); Basophils % (auto) 0.2 %; Eosinophils # (auto) 0.25 K/uL (0.00-0.50); Eosinophils % (auto) 2.6 %; Hematocrit (blood only) 31.4 % (37.0-47.0); Hemoglobin 9.8 g/dl (12.0-16.0); Immature Granulocytes # (auto) 0.03 K/uL (0.01-0.20); Immature Granulocytes % (auto) 0.3 %; Lymphocytes # (auto) 1.03 K/uL (1.20-3.40); Lymphocytes % (auto) 10.7 %; Mean Corpuscular Hemoglobin 28.9 pg (25.0-34.0); Mean Corpuscular Hgb Conc 31.2 g/dL (32.0-36.0); Mean Corpuscular Volume 92.6 fL (80.0-100.0); Mean Platelet Volume 11.1 fL (9.4-12.4); Monocytes # (auto) 0.92 K/uL (0.11-0.59); Monocytes % (auto) 9.5 %; Neutrophils % (auto) 76.7 %; Platelet Count 186 K/uL (130-400); RDW Standard Deviation 50.8 fL (36.4-46.3); Red Blood Count 3.39 M/uL (4.20-5.40); White Blood Count 9.65 K/ul (4.8-10.8)
--- NOTE | 2023-04-16 05:37 | History & Physical Report ---
Date of Service April 16, 2023 Assessment & Plan (1) Acute hyperkalemia: Plan: 52-year-old female with past med significant for hypothyroidism, chronic rhinitis, mild persistent asthma, CKD stage III, hypertension, obesity, history of right kidney stone, history of migraine, depression and anxiety, went to PCP because of ongoing diarrhea for last 2 weeks and found to hyperkalemia and sent to the ER. Acute hyperkalemia On presentation 6.9 Received insulin dextrose and calcium gluconate Repeat potassium 6.6 Received another dose of insulin dextrose and calcium gluconate and Veltassa Repeat labs pending We will hold Aldactone and losartan Low potassium diet Nephrology consult Close monitoring the telemetry LUIS ENRIQUE chronic kidney stage III Baseline creatinine 1.6-1.7 Presented with creatinine of 4.1 Having diarrhea for last 2 weeks Holding losartan, chlorthalidone and Aldactone Getting gentle fluids Follow repeat labs Nephro consult Diarrhea States was going on for last 2 days but getting better now Stool studies Gentle fluids Full liquid diet We will monitor History of hypertension Multiple medications We will continue amlodipine, Coreg, clonidine Holding losartan and chlorthalidone Aldactone We will monitor the blood pressure Hypothyroidism On Synthyroid Hyperlipidemia On statin History of asthma Continue home inhalers Depression/ anxiety On fluoxetine DVT prophylaxis SCDs for now Disposition telemetry floor Full code Addendum; Repeat potassium came at 7.4 and cr 3.6. Ordered another round of insulin with dextrose, mary.gluconate, Veltassa, sodium bicarb, nebs. notified nephrology. History of Present Illness Chief Complaint: Hyperkalemia and LUIS ENRIQUE Primary Care Provider: Mykel Bailey MD 52-year-old female with past med significant for hypothyroidism, chronic rhinitis, mild persistent asthma, CKD stage III, hypertension, obesity, history of right kidney stone, history of migraine, depression and anxiety, went to PCP because of ongoing diarrhea for last 2 weeks and found to have hyperkalemia and sent to the ER. Patient states that diarrhea is getting better. Denies any blood in the stools. Micturating okay. Ambulating okay. No abdominal pain. Currently no nausea. No chest pain or shortness of breath. No headaches. No back pain. No runny nose or sore throat or cough. Afebrile. Past medical history. As mentioned above Past surgical history. . Colonoscopy. D&C. Injection of lumbar spine. Ligation of the oviduct. Cervical fusion surgery. Cholecystectomy. Social history. . No smoking. Alcohol socially. No drug use. Family history. Brother had diabetes. Father had diabetes. Father had heart disorder hypertension and dialysis. Allergies Allergy/AdvReac Type Severity Reaction Status Date / Time lisinopril AdvReac Intermediate Cough Verified 05/05/22 15:03 vancomycin AdvReac Intermediate Flushing Verified 05/05/22 15:03 Home Medications Medication Instructions Recorded Confirmed Type albuterol sulfate 90 mcg/actuation 2 puff inhalation QID PRN 04/16/23 04/16/23 History aerosol inhaler Shortness Of Breath Or Wheezing allopurinol 100 mg tablet 100 mg PO DAILY 04/16/23 04/16/23 History amlodipine 10 mg tablet 10 mg PO HS 04/16/23 04/16/23 History carvedilol 25 mg tablet (Coreg) 37.5 mg PO BID 04/16/23 04/16/23 History chlorthalidone 25 mg tablet 25 mg PO DAILY 04/16/23 04/16/23 History clonidine HCl 0.1 mg tablet 0.1 mg PO TID 04/16/23 04/16/23 History cyclobenzaprine 5 mg tablet 5 mg PO TID PRN Muscle Spasm 04/16/23 04/16/23 History fluoxetine 40 mg capsule 40 mg PO DAILY 04/16/23 04/16/23 History gabapentin 100 mg tablet 100 mg PO TID 04/16/23 04/16/23 History levothyroxine 125 mcg PO DAILY 04/16/23 04/16/23 History losartan 100 mg tablet 100 mg PO DAILY 04/16/23 04/16/23 History mometasone-formoterol HFA 200 2 puff inhalation BID 04/16/23 04/16/23 History mcg-5 mcg/actuation aerosol inhaler (Dulera) montelukast 10 mg tablet 10 mg PO DAILY 04/16/23 04/16/23 History omeprazole 20 mg capsule,delayed 20 mg PO DAILY 04/16/23 04/16/23 History release rosuvastatin 20 mg tablet (Crestor) 20 mg PO DAILY 04/16/23 04/16/23 History spironolactone 100 mg tablet 100 mg PO DAILY 04/16/23 04/16/23 History Past Med/Surg History Medical History (Updated 04/16/23 @ 08:02 by Sharlene Barfield MD, PhD) Anxiety CKD (chronic kidney disease), stage III History of pneumonia APR 2019...RESOLVED HTN (hypertension) Hypothyroidism NO MEDS Kidney stone CURRENT/NO PROBLEMS WITH Migraines 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 Yadav 08-03-19 Family History Father Diabetes Heart disease Hypertension Mother Cancer Social History Smoking Status: Never smoker Second Hand Exposure: No; Do You Dip or Chew Tobacco: No; Tobacco Cessation Education Requested by Patient: No Hx Alcohol Use: Yes Alcohol type: wine Hx Substance Use: No Preferred Language: Indonesian Communication Ability: Effective Procedure Rn Required: No Beliefs That Will Affect Care: None marital status: Current Living Situation: Spouse current occupational status: employed Other Information That Helps Us Care for You: No Feels Safe at Home: Yes Safety Concerns: Feels Safe At This Time Assistive Devices: Glasses Review of Systems Review of Systems: All systems reviewed & are unremarkable except as noted in HPI & below Physical Exam Physical Exam: General- Not in distress Head- atraumatic Eyes- PERRL. ENT- oropharynx clear Neck- supple, no JVD. Lungs- clear to auscultation No wheezing or crackles. Heart- regular rhythm; no murmur, no gallop. Abdomen- normal bowel sounds, soft, nontender, no distension Extremities- no pretibial edema, noerythema. Neuro- alert, oriented x 3; PERRL, no facial palsy; no dysarthria; Non focal. Skin- warm & dry Results & Data Results & Data Vital Signs (Past 12 Hours) Vital Signs Temp Pulse Pulse Resp BP Pulse Ox O2 Del Method 04/16/23 04:30 67 15 103/72 100 Nasal Cannula 04/16/23 04:00 65 14 148/80 H 99 Nasal Cannula 04/16/23 03:30 83 17 100 04/16/23 03:30 144/85 H 04/16/23 03:00 73 15 100 04/16/23 03:00 134/70 04/16/23 02:30 86 22 91 04/16/23 02:00 66 22 138/76 96 Nasal Cannula 04/16/23 01:30 69 14 123/66 95 Nasal Cannula 04/16/23 01:30 113/79 04/15/23 22:54 97 Room Air 04/16/23 03:21 72 04/16/23 01:00 Room Air 04/16/23 01:00 87 23 118/71 91 Room Air 04/16/23 00:30 82 18 121/67 95 Room Air 04/16/23 00:00 85 18 106/65 97 04/15/23 23:37 83 16 122/64 96 04/15/23 23:30 81 21 118/72 100 Room Air 04/15/23 23:10 77 20 96 04/15/23 23:01 74 15 04/15/23 23:15 78 16 96 Room Air 04/15/23 23:01 70 04/15/23 21:26 36.3 C L 81 16 141/77 H 98 Room Air O2 Flow Rate 04/16/23 04:30 2 04/16/23 04:00 2 04/16/23 03:30 04/16/23 03:30 04/16/23 03:00 04/16/23 03:00 04/16/23 02:30 04/16/23 02:00 2 04/16/23 01:30 2 04/16/23 01:30 04/15/23 22:54 04/16/23 03:21 04/16/23 01:00 04/16/23 01:00 04/16/23 00:30 04/16/23 00:00 04/15/23 23:37 04/15/23 23:30 04/15/23 23:10 04/15/23 23:01 04/15/23 23:15 04/15/23 23:01 04/15/23 21:26 Diagnostic Findings Laboratory Results WBC 9.65 K/ul (4.8-10.8) 10/14/23 05:15 RBC 3.39 M/uL (4.20-5.40) L 04/16/23 05:15 Hgb 9.8 g/dl (12.0-16.0) L 04/16/23 05:15 POC Hgb 9.5 g/dl (12.0-16.0) L 04/16/23 01:42 Hct 31.4 % (37.0-47.0) L 04/16/23 05:15 POC Hct 28 % (37-47) L 04/16/23 01:42 MCV 92.6 fL (80.0-100.0) 04/16/23 05:15 MCH 28.9 pg (25.0-34.0) 04/16/23 05:15 MCHC 31.2 g/dL (32.0-36.0) L 04/16/23 05:15 RDW Std Deviation 50.8 fL (36.4-46.3) H 04/16/23 05:15 RDW Coeff of Chasity 15.0 % (11.5-14.5) H 04/16/23 05:15 Plt Count 186 K/uL (130-400) 04/16/23 05:15 MPV 11.1 fL (9.4-12.4) 04/16/23 05:15 Immature Gran % (Auto) 0.3 % 04/16/23 05:15 Neut % (Auto) 76.7 % 04/16/23 05:15 Lymph % (Auto) 10.7 % 04/16/23 05:15 Worth % (Auto) 9.5 % 04/16/23 05:15 Eos % (Auto) 2.6 % 04/16/23 05:15 Baso % (Auto) 0.2 % 04/16/23 05:15 Neut # (Auto) 7.40 K/uL (1.40-6.50) H 04/16/23 05:15 Lymph # (Auto) 1.03 K/uL (1.20-3.40) L 04/16/23 05:15 Worth # (Auto) 0.92 K/uL (0.11-0.59) H 04/16/23 05:15 Eos # (Auto) 0.25 K/uL (0.00-0.50) 04/16/23 05:15 Baso # (Auto) 0.02 K/uL (0.00-0.20) 04/16/23 05:15 Immature Gran # (Auto) 0.03 K/uL (0.01-0.20) 04/16/23 05:15 PT 11.2 Seconds (9.0-12.0) 04/15/23 22:00 INR 1.0 (0.9-1.1) 04/15/23 22:00 APTT 29.6 Seconds (21.0-31.0) 04/15/23 22:00 PTT Ratio 1.0 04/15/23 22:00 POC Sodium 138 mmol/L (135-144) 04/16/23 01:42 Sodium 136 mmol/L (136-145) 04/16/23 01:26 POC Potassium 6.9 mmol/L (3.3-5.0) H* 04/16/23 01:42 Potassium 6.6 mmol/L (3.5-5.1) H* 04/16/23 01:26 POC Chloride 115 mmol/L (101-112) H 04/16/23 01:42 Chloride 115 mmol/L (98-107) H 04/16/23 01:26 Carbon Dioxide 17 mmol/L (21-32) L 04/16/23 01:26 POC Total CO2 17 mmol/L (24-31) L 04/16/23 01:42 Anion Gap 4 (3-11) 04/16/23 01:26 POC Anion Gap 14.0 mmol/L (16-25) L 04/16/23 01:42 POC BUN 94 mg/dl (7-18) H 04/16/23 01:42 BUN 80 mg/dl (6-23) H 04/16/23 01:26 Creatinine 3.88 mg/dl (0.6-1.2) H D 04/16/23 01:26 POC Creatinine 4.1 mg/dl (0.6-1.3) H 04/16/23 01:42 Est Cr Clr Drug Dosing 21.3 ml/min 04/16/23 01:26 Est GFR ( Amer) 14.4 ml/min 04/16/23 01:26 Est GFR (Non-Af Amer) 12.4 ml/min 04/16/23 01:26 BUN/Creatinine Ratio 20.6 (10-20) H 04/16/23 01:26 Glucose 83 mg/dl (70-99(Fasting)) 04/16/23 01:26 POC Glucose 158 mg/dl (70-99) H 04/16/23 03:05 POC Glucose (other) 91 mg/dl (70-99) 04/16/23 01:42 Calcium 9.1 mg/dl (8.6-10.3) 04/16/23 01:26 POC Ioniz Calcium Tobias 1.29 mmol/l (1.12-1.32) 04/16/23 01:42 Total Bilirubin 0.3 mg/dl (0.2-1.0) 04/15/23 22:00 AST 14 U/L (13-39) 04/15/23 22:00 ALT 8 U/L (7-52) 04/15/23 22:00 Alkaline Phosphatase 92 U/L (34-104) 04/15/23 22:00 Troponin I High Sens 5.5 pg/ml (0-14) 04/15/23 23:52 Total Protein 8.4 gm/dl (6.0-8.3) H 04/15/23 22:00 Albumin 3.9 gm/dl (3.4-5.0) 04/15/23 22:00 Globulin 4.5 gm/dl (2.5-4.0) H 04/15/23 22:00 Albumin/Globulin Ratio 0.9 (0.9-2) 04/15/23 22:00 ECG Additional Comments: ECG. Normal sinus rhythm with rate of 75. No acute ST changes seen. Code Status & VTE Plan VTE Prophylaxis Plan VTE Prophylaxis will be ordered: Yes
[2023-04-16] MEDS ORDERED: SODIUM BICARB 8.4% INJ 50 MEQ/50 ML SYR IV STA (05:58)
[2023-04-16] MEDS ORDERED: NovoLIN-R INSULIN PER UNIT CHARGE IV STA (05:58)
[2023-04-16 05:59] LABS: Calcium 9.5 mg/dl (8.6-10.3); Creatinine Clr Calc Pharmacy 22.8 ml/min; Est GFR (African American) 15.6 ml/min; Est GFR (Non-African American) 13.5 ml/min; Magnesium 1.7 mg/dl (1.7-2.4); Potassium 7.4 mmol/L (3.5-5.1)
[2023-04-16] MEDS ORDERED: ALBUT/IPRATROP 3MG/0.5MG NEB 3 ML VIAL NEB STA (06:08)
[2023-04-16 06:14] LABS: Magnesium 1.7 mg/dl (1.7-2.4)
[2023-04-16] MEDS ORDERED: SODIUM CHLORIDE 0.9% 1,000 ML IV SCH (06:15)
[2023-04-16] MEDS ORDERED: INSULIN HUMAN REGULAR PER UNIT 10 UNITS in SYRINGE 9.9 ML IV ONE (06:15)
[2023-04-16] MEDS ORDERED: ACETAMINOPHEN 325 MG TAB PO PRN (06:40)
[2023-04-16] MEDS ORDERED: NITROGLYCERIN SL 0.4 MG/TAB TAB SL PRN (06:40)
[2023-04-16] MEDS ORDERED: ALBUTEROL HFA 8 GM INHALER INH PRN (06:40)
--- NOTE | 2023-04-16 07:37 | Nephrology Consultation ---
Date of Consultation April 16, 2023 Assessment & Plan (1) Hyperkalemia: has had IV insulin multiple times, IV fluid and 2 doses veltassa. only veltassa of these will lower total body K. unclear why such a high reading prior to admission >> possibly K sparing meds in setting of worsening renal function e nough despite chlorthalidone. LR may explain increase in K this am. No ECG changes on the one tracing from 0830 this AM which I can review. Patient denies NSAID use. She was taking all of her medications faithfully. >stat change NS to bicarb gtt at 150 mL hourly and start lasix 30 mg q2h STAT >> unfortunately d/t EHR vagaries pt had only one dose of this this am and received another at about 2 PM; plan to give one more dose this evening after dialysis -continue cardiac monitoring; order placed to lower IVF rate to 50 mL hourly during treatment >recheck labs 1130 > drawn 1230 and notable for K still 6.9. Given the time of day and weekend status which limit access to dialysis care will move ahead w/ emergent HD. risks, benefits indications alternatives discussed with the patient and her daughter and consent obtained and on the chart for hemodialysis. Sql Data Architect will place the line and is aware. Plan 2-hour treatment today and likely that will be sufficient Consider Evans placement given aggressive IVF and lasix -hopefully will not need f/u treatments -added CK and phos to labs from earlier today -bmp, lactate ordered for 2 hrs post HD Care coordinated w/ Dr Johnson and Dr Villagomez I spent a total of 85 minutes coordinating, documenting, and providing care for this patient excluding time spent in the performance of separately billed services. This included personally reviewing all current laboratories and imaging studies, medication reconciliation, outpatient chart review, and discussion with other physicians, with nursing, and as applicable with the patient and family. (2) Acute renal failure: baseline creatinine 1.6-1.9 w/ 2 gm proteinuria. presented w/ creatinine 4.2. Improved with aggressive hydration to creatinine 3.1. She is tolerating hydration well so far. Nonoliguric stage II prerenal acute kidney injury on pre-existing CKD 3B bordering on stage IV (3) Resistant hypertension: controlled on current meds -continue amlodipine, coreg, clonidine current doses -hold parameters on amlodipine History of Present Illness Reason for Consultation: hyperkalemia, LUIS ENRIQUE Requesting Physician: Dr Crockett Attending Physician: Mark Johnson MD History of Present Illness 52 y/o F whom I'm asked to see for hyperkalemia and LUIS ENRIQUE was sent to ER yesterday after OP labs showed potassium of 7 in the setting of 2 wks of diarrhea which had recently tapered shortly prior to presentation. 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 She has had several admissions to [facility] for HTN urgency > May 2022 when there was a concern for nonadherence since her BP normalized when OP meds were administerd in hospital. Do note renal duplex w/ borderline proximal R renal artery stenosis. Also admitted [facility] 04/29-04/30/22 for HTN crisis w/ TSH 7. These are only the most recent evaluations for this issue. As an OP she takes chlorthalidone, coreg, losartan 100 mg, spironolactone 50 mg and amlodipine for HTN as well as prn clonidine, ? 0.1 mg tid. Creat was 4 on admission w/ K 6.9 POC at 2200 yesterday, then 6.6 last evening and up to 7.4 at 0500 today. at 2300 she had 10 units IV insulin, calcium gluconate, 1L NS. at 0200 she had 10 units IV insulin, calcium gluconate and a L of LR as well as 8.4 gm veltassa. At 0600 she had another 8.4 gm veltassa, albuterol, 10 units of insulin, and an amp of sodium bicarb w/ more calcium. currently getting NS at 80 mL / hr. She is on RA and has made 550 mL urine. SBP 130s-160s. NSR on soil specialist since arrival. Allergies Allergy/AdvReac Type Severity Reaction Status Date / Time lisinopril AdvReac Intermediate Cough Verified 05/05/22 15:03 vancomycin AdvReac Intermediate Flushing Verified 05/05/22 15:03 Home Medications Medication Instructions Recorded Confirmed Type albuterol sulfate 90 mcg/actuation 2 puff inhalation QID PRN 04/16/23 04/16/23 History aerosol inhaler Shortness Of Breath Or Wheezing allopurinol 100 mg tablet 100 mg PO DAILY 04/16/23 04/16/23 History amlodipine 10 mg tablet 10 mg PO HS 04/16/23 04/16/23 History carvedilol 25 mg tablet (Coreg) 37.5 mg PO BID 04/16/23 04/16/23 History chlorthalidone 25 mg tablet 25 mg PO DAILY 04/16/23 04/16/23 History clonidine HCl 0.1 mg tablet 0.1 mg PO TID 04/16/23 04/16/23 History cyclobenzaprine 5 mg tablet 5 mg PO TID PRN Muscle Spasm 04/16/23 04/16/23 History fluoxetine 40 mg capsule 40 mg PO DAILY 04/16/23 04/16/23 History gabapentin 100 mg tablet 100 mg PO TID 04/16/23 04/16/23 History levothyroxine 125 mcg PO DAILY 04/16/23 04/16/23 History losartan 100 mg tablet 100 mg PO DAILY 04/16/23 04/16/23 History mometasone-formoterol HFA 200 2 puff inhalation BID 04/16/23 04/16/23 History mcg-5 mcg/actuation aerosol inhaler (Dulera) montelukast 10 mg tablet 10 mg PO DAILY 04/16/23 04/16/23 History omeprazole 20 mg capsule,delayed 20 mg PO DAILY 04/16/23 04/16/23 History release rosuvastatin 20 mg tablet (Crestor) 20 mg PO DAILY 04/16/23 04/16/23 History spironolactone 100 mg tablet 100 mg PO DAILY 04/16/23 04/16/23 History Patient History Medical History (Updated 04/16/23 @ 08:02 by Sharlene Barfield MD, PhD) Anxiety CKD (chronic kidney disease), stage III History of pneumonia APR 2019...RESOLVED HTN (hypertension) Hypothyroidism NO MEDS Kidney stone CURRENT/NO PROBLEMS WITH Migraines 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 Yadav 08-03-19 Family History Father Diabetes Heart disease Hypertension Mother Cancer Social History Smoking Status: Never smoker Second Hand Exposure: No; Do You Dip or Chew Tobacco: No; Tobacco Cessation Education Requested by Patient: No Hx Alcohol Use: Yes Alcohol type: wine Hx Substance Use: No Preferred Language: Omani Communication Ability: Effective Paralegal Specialist Required: No Beliefs That Will Affect Care: None marital status: Current Living Situation: Spouse current occupational status: employed Other Information That Helps Us Care for You: No Feels Safe at Home: Yes Safety Concerns: Feels Safe At This Time Assistive Devices: Glasses Review of Systems Review of Systems: All systems reviewed & are unremarkable except as noted in HPI & below Physical Exam Constitutional: well developed, well nourished and + morbidly obese; no acute distress Eyes: EOM intact bilaterally ENMT: Ears: no external ear abnormality Nose: no external nose abnormality Mouth: + dry oral mucous membranes Neck: no nuchal rigidity Respiratory: normal respiratory effort Auscultation: + diminished lung sounds Cardiovascular: RRR, no murmur, no edema Gastrointestinal (Abdomen): Inspection/Auscultation: normal bowel sounds Percussion/Palpation: abdomen soft; abdomen nontender Musculoskeletal: Extremities: strength 5/5 throughout Skin: no rashes, warm and dry Neurologic: linton, fluent speech, + fine intention BLUE tremor Psychiatric: Orientation: alert and oriented x 3 Results & Data Vital Signs (Past 12 Hours) Vital Signs Temp Pulse Pulse Resp BP BP Pulse Ox 04/16/23 07:08 86 04/16/23 06:54 81 15 164/83 H 99 04/16/23 06:53 80 11 L 99 04/16/23 06:40 86 14 162/82 H 99 04/16/23 06:00 70 16 118/71 100 04/16/23 05:30 66 14 130/75 100 04/16/23 05:00 66 15 150/79 H 100 04/16/23 06:41 99 04/16/23 04:30 67 15 103/72 100 04/16/23 04:00 65 14 148/80 H 99 04/16/23 03:30 83 17 100 04/16/23 03:30 144/85 H 04/16/23 03:00 73 15 100 04/16/23 03:00 134/70 04/16/23 02:30 86 22 91 04/16/23 02:00 66 22 138/76 96 04/16/23 01:30 69 14 123/66 95 04/16/23 01:30 113/79 04/15/23 22:54 97 04/16/23 03:21 72 04/16/23 01:00 04/16/23 01:00 87 23 118/71 91 04/16/23 00:30 82 18 121/67 95 04/16/23 00:00 85 18 106/65 97 04/15/23 23:37 83 16 122/64 96 04/15/23 23:30 81 21 118/72 100 04/15/23 23:10 77 20 96 04/15/23 23:01 74 15 04/15/23 23:15 78 16 96 04/15/23 23:01 70 04/15/23 21:26 36.3 C L 81 16 141/77 H 98 O2 Del Method O2 Flow Rate 04/16/23 07:08 04/16/23 06:54 Room Air 04/16/23 06:53 04/16/23 06:40 Room Air 04/16/23 06:00 Nasal Cannula 2 04/16/23 05:30 Nasal Cannula 2 04/16/23 05:00 Nasal Cannula 2 04/16/23 06:41 Room Air 04/16/23 04:30 Nasal Cannula 2 04/16/23 04:00 Nasal Cannula 2 04/16/23 03:30 04/16/23 03:30 04/16/23 03:00 04/16/23 03:00 04/16/23 02:30 04/16/23 02:00 Nasal Cannula 2 04/16/23 01:30 Nasal Cannula 2 04/16/23 01:30 04/15/23 22:54 Room Air 04/16/23 03:21 04/16/23 01:00 Room Air 04/16/23 01:00 Room Air 04/16/23 00:30 Room Air 04/16/23 00:00 04/15/23 23:37 04/15/23 23:30 Room Air 04/15/23 23:10 04/15/23 23:01 04/15/23 23:15 Room Air 04/15/23 23:01 04/15/23 21:26 Room Air Laboratory Results 04/16/23 05:15 04/16/23 05:15 Diagnostic Findings ECG NSR without widened segments
[2023-04-16] MEDS ORDERED: FUROSEMIDE INJ 20 MG/2 ML VIAL IV STA ×2 (07:44→13:44)
[2023-04-16] MEDS ORDERED: SODIUM BICARBONATE 8.4% 200 MEQ in DEXTROSE 5% 1,000 ML IV STA (07:44)
[2023-04-16] MEDS: FLUTICASONE/VILANTEROL 200/25MCG 14 PUFFS/INHALER INH SCH (07:50)
[2023-04-16] MEDS: MONTELUKAST SODIUM 10 MG TABLET PO SCH (07:51)
[2023-04-16] MEDS: FLUoxetine HCL 20 MG CAP PO SCH (07:51)
[2023-04-16] MEDS: cloNIDine HCL 0.1 MG TAB PO SCH ×3 (07:51→22:05)
[2023-04-16] MEDS: GABAPENTIN 100 MG CAP PO SCH ×3 (07:51→22:04)
[2023-04-16] MEDS: PANTOprazole 40 MG TAB PO SCH (07:52)
[2023-04-16] MEDS: ROSUVASTATIN CALCIUM 20 MG TAB PO SCH (07:52)
[2023-04-16] MEDS: LEVOTHYROXINE SODIUM 125 MCG TABLET PO SCH (07:52)
[2023-04-16] MEDS ORDERED: SODIUM BICARBONATE 8.4% 150 MEQ in DEXTROSE 5% 1,000 ML IV STA (08:04)
[2023-04-16] MEDS ORDERED: carvediloL 12.5 MG TAB PO SCH (09:00)
[2023-04-16] MEDS: allopurinoL 100 MG TAB PO SCH (09:14)
[2023-04-16 10:12] LABS: Appearance Urine Clear (Clear); Bacteria Urine Automated Negative (Negative); Bilirubin Urine Negative (Negative); Blood Urine Negative (Negative); Color Urine Yellow; Glucose Urine UA Negative (Negative); Ketones Urine Negative (Negative); Leukocyte Esterase Urine 2+ (Negative); Nitrite Urine Negative (Negative); Protein Urine Negative (Negative); RBC Urine Automated 0-4 /hpf (0-4); Specific Gravity Urine 1.011 (1.000-1.030); Urobilinogen Urine Negative (Negative); pH Urine 5.5 (4.5-7.5)
[2023-04-16 13:28] LABS: BUN Creatinine Ratio 21.2 (10-20); Calcium 9.9 mg/dl (8.6-10.3); Creatinine Clr Calc Pharmacy 26.5 ml/min; Est GFR (African American) 18.8 ml/min; Est GFR (Non-African American) 16.2 ml/min; Potassium 6.9 mmol/L (3.5-5.1)
[2023-04-16] MEDS ORDERED: SODIUM CHLORIDE 0.9% 1,000 ML IV PRN (14:39)
--- NOTE | 2023-04-16 15:05 | Hospitalist Progress Note ---
Date of Service April 16, 2023 Assessment & Plan (1) Acute kidney injury superimposed on CKD: (2) Acute hyperkalemia: Plan: 52-year-old female with past medical history of resistant hypertension was referred to the ED after she was found to have serum hyperkalemia on outpatient lab work Admitting potassium of 6.9 with creatinine of 4.19; her previous creatinine was around 1.9 approximately 7 months back Reported diarrhea recently. She is also on losartan, spironolactone which could have contributed to hyperkalemia. Patient continues to have high serum potassium level despite getting insulin, bicarb, potassium and diuretics. Decision was made to start dialysis; automobile washer steam to place dialysis catheter We will insert Evans for strict input and output. Repeat BMP, lactate 2-hour postdialysis Diarrhea States was going on for last 2 days but getting better now Stool studies Full liquid diet for now Advance as tolerated Resistant hypertension Multiple medications We will continue amlodipine, Coreg, clonidine Holding losartan and chlorthalidone Aldactone We will monitor the blood pressure Hypothyroidism On Synthyroid Hyperlipidemia On statin History of asthma Continue home inhalers Depression/ anxiety On fluoxetine DVT prophylaxis SCDs for now Disposition telemetry floor Full code Please note the above document was generated using voice recognition software. It may contain grammatical, syntax or spelling errors. Any formal questions or concerns about the content, text or information contained within the body of this dictation should be directly addressed to the provider for clarification Admission and Anticipated Discharge Date Admission Date: April 16, 2023 Subjective Patient seen and examined at bedside. She reports tremors in bilateral hands. No complaint of chest pain, shortness of breath or abdominal pain Review of Systems Review of Systems: All systems reviewed & are unremarkable except as noted in Subjective Physical Exam Physical Exam: Constitutional: Alert orient x3. Occasional tremors in bilateral upper extremity. Respiratory: normal respiratory effort, lungs clear to auscultation, no wheeze, rales, rhonchi. Normal insp/exp effort, no accessory muscle use Cardiovascular: RRR, no murmur, no edema Vessels: no JVD or carotid bruit Chest: normal inspection of chest Abdomen: normal bowel sounds, soft, nontender, no hepatosplenomegaly Musculoskeletal: no cyanosis or clubbing, extremities motor strength 5/5 Skin: no rashes, warm and dry normal turgor Neurologic: PERRL, EOMI, accommodation nl, no face palsy, no dysarthria CN's II- XI intact bilaterally and moves all extremities Psychiatric: A+Ox3, euthymic affect Results & Data Results & Data Vital Signs (Past 12 Hours) Vital Signs Temp Pulse Pulse Resp BP BP Pulse Ox 04/16/23 14:15 134/78 04/16/23 14:15 82 20 04/16/23 14:00 84 20 04/16/23 13:30 80 19 04/16/23 13:00 86 18 04/16/23 12:30 77 25 H 04/16/23 12:00 65 16 04/16/23 11:30 63 15 04/16/23 11:00 76 22 04/16/23 10:30 68 19 04/16/23 10:10 112/71 04/16/23 10:10 64 18 04/16/23 10:00 64 14 04/16/23 08:39 36.8 C 77 19 166/100 H 99 04/16/23 07:08 86 04/16/23 06:54 81 15 164/83 H 99 04/16/23 06:53 80 11 L 99 04/16/23 06:40 86 14 162/82 H 99 04/16/23 06:00 70 16 118/71 100 04/16/23 05:30 66 14 130/75 100 04/16/23 05:00 66 15 150/79 H 100 04/16/23 06:41 99 04/16/23 04:30 67 15 103/72 100 04/16/23 04:00 65 14 148/80 H 99 04/16/23 03:30 83 17 100 04/16/23 03:30 144/85 H 04/16/23 03:00 73 15 100 04/16/23 03:00 134/70 04/16/23 03:21 72 O2 Del Method O2 Flow Rate 04/16/23 14:15 04/16/23 14:15 04/16/23 14:00 04/16/23 13:30 04/16/23 13:00 04/16/23 12:30 04/16/23 12:00 04/16/23 11:30 04/16/23 11:00 04/16/23 10:30 04/16/23 10:10 04/16/23 10:10 04/16/23 10:00 04/16/23 08:39 Room Air 04/16/23 07:08 04/16/23 06:54 Room Air 04/16/23 06:53 04/16/23 06:40 Room Air 04/16/23 06:00 Nasal Cannula 2 04/16/23 05:30 Nasal Cannula 2 04/16/23 05:00 Nasal Cannula 2 04/16/23 06:41 Room Air 04/16/23 04:30 Nasal Cannula 2 04/16/23 04:00 Nasal Cannula 2 04/16/23 03:30 04/16/23 03:30 04/16/23 03:00 04/16/23 03:00 04/16/23 03:21 Laboratory Results Laboratory Results WBC 9.65 K/ul (4.8-10.8) 04/16/23 05:15 RBC 3.39 M/uL (4.20-5.40) L 04/16/23 05:15 Hgb 9.8 g/dl (12.0-16.0) L 04/16/23 05:15 POC Hgb 9.5 g/dl (12.0-16.0) L 04/16/23 01:42 Hct 31.4 % (37.0-47.0) L 04/16/23 05:15 POC Hct 28 % (37-47) L 04/16/23 01:42 MCV 92.6 fL (80.0-100.0) 04/16/23 05:15 MCH 28.9 pg (25.0-34.0) 04/16/23 05:15 MCHC 31.2 g/dL (32.0-36.0) L 04/16/23 05:15 RDW Std Deviation 50.8 fL (36.4-46.3) H 04/16/23 05:15 RDW Coeff of Chasity 15.0 % (11.5-14.5) H 04/16/23 05:15 Plt Count 186 K/uL (130-400) 04/16/23 05:15 MPV 11.1 fL (9.4-12.4) 04/16/23 05:15 Immature Gran % (Auto) 0.3 % 04/16/23 05:15 Neut % (Auto) 76.7 % 04/16/23 05:15 Lymph % (Auto) 10.7 % 04/16/23 05:15 [place] % (Auto) 9.5 % 04/16/23 05:15 Eos % (Auto) 2.6 % 04/16/23 05:15 Baso % (Auto) 0.2 % 04/16/23 05:15 Neut # (Auto) 7.40 K/uL (1.40-6.50) H 04/16/23 05:15 Lymph # (Auto) 1.03 K/uL (1.20-3.40) L 04/16/23 05:15 [place] # (Auto) 0.92 K/uL (0.11-0.59) H 04/16/23 05:15 Eos # (Auto) 0.25 K/uL (0.00-0.50) 04/16/23 05:15 Baso # (Auto) 0.02 K/uL (0.00-0.20) 04/16/23 05:15 Immature Gran # (Auto) 0.03 K/uL (0.01-0.20) 04/16/23 05:15 PT 11.2 Seconds (9.0-12.0) 04/15/23 22:00 INR 1.0 (0.9-1.1) 04/15/23 22:00 APTT 29.6 Seconds (21.0-31.0) 04/15/23 22:00 PTT Ratio 1.0 04/15/23 22:00 POC Sodium 138 mmol/L (135-144) 04/16/23 01:42 Sodium 135 mmol/L (136-145) L 04/16/23 12:29 POC Potassium 6.9 mmol/L (3.3-5.0) H* 04/16/23 01:42 Potassium 6.9 mmol/L (3.5-5.1) H* 04/16/23 12:29 POC Chloride 115 mmol/L (101-112) H 04/16/23 01:42 Chloride 108 mmol/L (98-107) H 04/16/23 12:29 Carbon Dioxide 23 mmol/L (21-32) 04/16/23 12:29 POC Total CO2 17 mmol/L (24-31) L 04/16/23 01:42 Anion Gap 4 (3-11) 04/16/23 12:29 POC Anion Gap 14.0 mmol/L (16-25) L 04/16/23 01:42 POC BUN 94 mg/dl (7-18) H 04/16/23 01:42 BUN 66 mg/dl (6-23) H 04/16/23 12:29 Creatinine 3.11 mg/dl (0.6-1.2) H D 04/16/23 12:29 POC Creatinine 4.1 mg/dl (0.6-1.3) H 04/16/23 01:42 Est Cr Clr Drug Dosing 26.5 ml/min 04/16/23 12:29 Est GFR ( Amer) 18.8 ml/min 04/16/23 12:29 Est GFR (Non-Af Amer) 16.2 ml/min 04/16/23 12:29 BUN/Creatinine Ratio 21.2 (10-20) H 04/16/23 12:29 Glucose 104 mg/dl (70-99(Fasting)) H 04/16/23 12:29 POC Glucose 114 mg/dl (70-99) H 04/16/23 07:19 POC Glucose (other) 91 mg/dl (70-99) 04/16/23 01:42 Calcium 9.9 mg/dl (8.6-10.3) 04/16/23 12:29 POC Ioniz Calcium Tobias 1.29 mmol/l (1.12-1.32) 04/16/23 01:42 Magnesium 1.7 mg/dl (1.7-2.4) 04/16/23 05:15 Total Bilirubin 0.3 mg/dl (0.2-1.0) 04/15/23 22:00 AST 14 U/L (13-39) 04/15/23 22:00 ALT 8 U/L (7-52) 04/15/23 22:00 Alkaline Phosphatase 92 U/L (34-104) 04/15/23 22:00 Troponin I High Sens 5.5 pg/ml (0-14) 04/15/23 23:52 Total Protein 8.4 gm/dl (6.0-8.3) H 04/15/23 22:00 Albumin 3.9 gm/dl (3.4-5.0) 04/15/23 22:00 Globulin 4.5 gm/dl (2.5-4.0) H 04/15/23 22:00 Albumin/Globulin Ratio 0.9 (0.9-2) 04/15/23 22:00 Urine Color Yellow 04/16/23 09:30 Urine Appearance Clear (Clear) 04/16/23 09:30 Urine pH 5.5 (4.5-7.5) 04/16/23 09:30 Ur Specific [place] 1.011 (1.000-1.030) 04/16/23 09:30 Urine Protein Negative (Negative) 04/16/23 09:30 Urine Glucose (UA) Negative (Negative) 04/16/23 09:30 Urine Ketones Negative (Negative) 04/16/23 09:30 Urine Blood Negative (Negative) 04/16/23 09:30 Urine Nitrite Negative (Negative) 04/16/23 09:30 Urine Bilirubin Negative (Negative) 04/16/23 09:30 Urine Urobilinogen Negative (Negative) 04/16/23 09:30 Ur Leukocyte Esterase 2+ (Negative) H 04/16/23 09:30 Urine WBC (Auto) 10-30 /hpf (0-5) H 04/16/23 09:30 Urine RBC (Auto) 0-4 /hpf (0-4) 04/16/23 09:30 U Hyaline Cast (Auto) 1-5 /lpf (0-5) 04/16/23 09:30 U Epithel Cells (Auto) 10-20 /lpf (0-5) H 04/16/23 09:30 Urine Bacteria (Auto) Negative (Negative) 04/16/23 09:30
[2023-04-16 15:10] LABS: Phosphorus 4.8 mg/dl (2.5-4.9)
--- NOTE | 2023-04-16 15:19 | Procedure Note ---
Procedure Note Date of Service April 16, 2023 Note Procedure date: Noted above Procedure: Temporary hemodialysis catheter Pre-procedure indication: Need for hemodialysis Post-procedure Diagnosis: same as above Prior to Procedure: Informed Consent: The risks, benefits, indications, potential complications, and alternatives were explained to the patient and informed consent obtained. Attending Staff: Eleuterio Villagomez DO Resident/APC: Not applicable Skin Prep: Chlorhexidine Anesthesia: 4 mL 1% lidocaine without epinephrine The identity of the patient was confirmed and a bedside time out was performed. Description of Procedure: After sterile prep and sterile drape utilizing bernice toure sterile technique the superficial skin of the right internal jugular area was anesthetized. The target vessel was identified and entered with an 18-gauge needle. Dark venous blood return was noted. A guidewire was inserted through the needle and into the vessel. The needle was withdrawn and a skin ariane was made. A tissue dilator was advanced via Seldinger technique and removed. A double lumen catheter was inserted via Seldinger technique and the guidewire removed. All ports noe and flushed easily. A Biopatch was placed, and the catheter was secured via nylon suture. A sterile dressing was then applied. Complications: None Estimated blood loss: Trace Patient tolerated the procedure well. Procedure Date: Noted Above Procedure: Procedural Ultrasound Indication: Central venous access Attending: Eleuterio Villagomez DO Resident/Physician Fan Blade Aligner: Not applicable Artery visualized: Yes Vein visualized: Yes Compressible Vein: Yes Vein patent: Yes Guidewire or Short Catheter seen in vein prior to dilation: Yes Line confirmed in Vein with ultrasound: Yes Lung Sliding on side of attempt (if applicable): NA If no lung sliding or not obtained has CXR been ordered: Yes Impression: Successful central venous access placement Images obtained are saved for permanent record Coding CPT Codes Tubes, Drains, and Vasc Access - Tubes, Drains, and Vasc Access: [id number] Insertion Of Non-tunneled Catheter Age 3 Yrs> ([id number]) Tubes, Drains, and Vasc Access - Tubes, Drains, and Vasc Access: [id number] Ultrasound Guidance For Vascular ([id number]) [facility] [place] Codes (Charges) Tubes, Drains, and Vasc Access Procedure 1: Tubes, Drains, and Vasc Access: [id number] Insertion Of Non-tunneled Catheter Age 3 Yrs> Procedure 2: Tubes, Drains, and Vasc Access: [id number] Ultrasound Guidance For Vascular
--- NOTE | 2023-04-16 15:37 | XRay Report ---
XR chest 1V portable CLINICAL HISTORY: lines TECHNIQUE: Single frontal radiograph of the chest was obtained. Comparison: Comparison is made to chest radiograph 04/29/2022 FINDINGS: Right subclavian catheter terminates in the lower SVC. ACDF is seen. The cardiomediastinal silhouette is stable. The lungs are clear. No evidence of pleural effusion or pneumothorax. IMPRESSION: Right subclavian catheter tip is in the lower SVC. ACT 112: Negative or not required by law. Electronically signed by: Cornell Brown M.D. 04/16/2023 3:35 PM
[2023-04-16] MEDS: SODIUM BICARBONATE 8.4% 150 MEQ in DEXTROSE 5% 1,000 ML IV SCH (18:21)
[2023-04-16] MEDS ORDERED: FUROSEMIDE INJ 20 MG/2 ML VIAL IV ONE (20:30)
[2023-04-16] MEDS ORDERED: amLODIPine BESYLATE 5 MG TAB PO SCH (21:00)
[2023-04-16 22:10] LABS: BUN Creatinine Ratio 16.9 (10-20); Calcium 8.5 mg/dl (8.6-10.3); Creatinine Clr Calc Pharmacy 43.6 ml/min; Est GFR (African American) 34.3 ml/min; Est GFR (Non-African American) 29.6 ml/min; Potassium 4.3 mmol/L (3.5-5.1)
[2023-04-17] MEDS: SODIUM BICARBONATE 8.4% 150 MEQ in DEXTROSE 5% 1,000 ML IV SCH (02:58)
[2023-04-17] MEDS: LEVOTHYROXINE SODIUM 125 MCG TABLET PO SCH (05:33)
[2023-04-17 06:03] LABS: Basophils # (auto) 0.02 K/uL (0.00-0.20); Basophils % (auto) 0.3 %; Eosinophils # (auto) 0.23 K/uL (0.00-0.50); Hematocrit (blood only) 30.3 % (37.0-47.0); Hemoglobin 9.9 g/dl (12.0-16.0); Immature Granulocytes # (auto) 0.03 K/uL (0.01-0.20); Immature Granulocytes % (auto) 0.4 %; Lymphocytes # (auto) 1.12 K/uL (1.20-3.40); Lymphocytes % (auto) 14.6 %; Mean Corpuscular Hgb Conc 32.7 g/dL (32.0-36.0); Mean Corpuscular Volume 88.9 fL (80.0-100.0); Mean Platelet Volume 10.9 fL (9.4-12.4); Monocytes # (auto) 0.79 K/uL (0.11-0.59); Monocytes % (auto) 10.3 %; Neutrophils # (auto) 5.49 K/uL (1.40-6.50); Neutrophils % (auto) 71.4 %; Platelet Count 181 K/uL (130-400); RDW Coefficient of Variation 14.7 % (11.5-14.5); RDW Standard Deviation 47.2 fL (36.4-46.3); Red Blood Count 3.41 M/uL (4.20-5.40); White Blood Count 7.68 K/ul (4.8-10.8)
[2023-04-17 06:06] LABS: Calcium 8.2 mg/dl (8.6-10.3); Creatinine Clr Calc Pharmacy 39.4 ml/min; Est GFR (African American) 29.8 ml/min; Est GFR (Non-African American) 25.7 ml/min; Magnesium 1.2 mg/dl (1.7-2.4); Potassium 4.8 mmol/L (3.5-5.1)
--- NOTE | 2023-04-17 07:28 | Electrocardiogram Report ---
Test Reason : Blood Pressure : / mmHG Vent. Rate : 075 BPM Atrial Rate : 075 BPM P-R Int : 170 ms QRS Dur : 096 ms QT Int : 340 ms P-R-T Axes : 072 039 048 degrees QTc Int : 379 ms Normal sinus rhythm Normal ECG When compared with ECG of 05-MAY-2022 22:15, QT has shortened Confirmed by Luis Angel Carrizales ([id number]) on 04/17/2023 7:27:48 AM Referred By: Mykel Bailey Confirmed By:Luis Angel Carrizales
[2023-04-17] MEDS: FLUoxetine HCL 20 MG CAP PO SCH (09:27)
[2023-04-17] MEDS: allopurinoL 100 MG TAB PO SCH (09:27)
[2023-04-17] MEDS: cloNIDine HCL 0.1 MG TAB PO SCH ×3 (09:27→21:38)
[2023-04-17] MEDS: MONTELUKAST SODIUM 10 MG TABLET PO SCH (09:28)
[2023-04-17] MEDS: PANTOprazole 40 MG TAB PO SCH (09:28)
[2023-04-17] MEDS: GABAPENTIN 100 MG CAP PO SCH ×3 (09:28→20:34)
[2023-04-17] MEDS: ROSUVASTATIN CALCIUM 20 MG TAB PO SCH (09:28)
[2023-04-17] MEDS: MAGNESIUM SULFATE / D5W 1 GM/100 ML BAG IV SCH ×2 (09:30→11:32)
[2023-04-17] MEDS: FLUTICASONE/VILANTEROL 200/25MCG 14 PUFFS/INHALER INH SCH (09:34)
--- NOTE | 2023-04-17 12:04 | Hospitalist Progress Note ---
Date of Service April 17, 2023 Assessment & Plan (1) Acute kidney injury superimposed on CKD: (2) Acute hyperkalemia: Plan: 52-year-old female with past medical history of resistant hypertension was referred to the ED after she was found to have serum hyperkalemia on outpatient lab work Admitting potassium of 6.9 with creatinine of 4.19; her previous creatinine was around 1.9 approximately 7 months back Reported diarrhea recently. She is also on losartan, spironolactone which could have contributed to hyperkalemia. Patient continued to have high serum potassium level despite getting insulin, bicarb, potassium and diuretics. Status post emergent hemodialysis on 04/16/2023 for severe hyperkalemia Creatinine down trended to 2.12. Potassium of 4.8. Bicarb of 35 Urine output overnight reassuring Continue to monitor daily BMP to monitor sodium level. Discussed with nephrology; stop bicarb drip. Will DC Evans catheter and hemodialysis catheter tomorrow if patient continues to demonstrate improvement in potassium and creatinine level. Hold off on lisinopril and spironolactone Diarrhea States was going on for last 2 days but getting better now Awaiting stool studies Resistant hypertension Multiple medications Currently all for antihypertensives are on hold as her blood pressure has been normotensive. Clonidine continued due to risks of rebound hypertension. Continue to monitor blood pressure; will add gradually depending on blood pressure readings. Hypothyroidism On Synthyroid Hyperlipidemia On statin History of asthma Continue home inhalers Depression/ anxiety On fluoxetine DVT prophylaxis heparin Disposition telemetry floor Full code Time spent evaluating patient, direct bedside care, chart review, placing orders, interpretation of diagnostic studies, discussion with consultants, patient, and family members, as well as other required patient management activities is 60 minutes Please note the above document was generated using voice recognition software. It may contain grammatical, syntax or spelling errors. Any formal questions or concerns about the content, text or information contained within the body of this dictation should be directly addressed to the provider for clarification Admission and Anticipated Discharge Date Admission Date: April 16, 2023 Subjective Patient seen and examined at bedside. She is comfortably sitting up on the bed; not in distress. Continues to report tremors on her hands; slightly improved. Review of Systems Review of Systems: All systems reviewed & are unremarkable except as noted in Subjective Physical Exam Physical Exam: Constitutional: Alert orient x3. Occasional tremors in bilateral upper extremity. Neck; dialysis catheter in place. Respiratory: normal respiratory effort, lungs clear to auscultation, no wheeze, rales, rhonchi. Normal insp/exp effort, no accessory muscle use Cardiovascular: RRR, no murmur, no edema Vessels: no JVD or carotid bruit Chest: normal inspection of chest Abdomen: normal bowel sounds, soft, nontender, no hepatosplenomegaly Musculoskeletal: no cyanosis or clubbing, extremities motor strength 5/5 Skin: no rashes, warm and dry normal turgor Neurologic: PERRL, EOMI, accommodation nl, no face palsy, no dysarthria CN's II- XI intact bilaterally and moves all extremities Psychiatric: A+Ox3, euthymic affect Results & Data Results & Data Vital Signs (Past 12 Hours) Vital Signs Temp Pulse Pulse Resp BP Pulse Ox O2 Del Method 04/17/23 11:42 36.7 C 82 18 105/61 92 Room Air 04/17/23 08:36 36.7 C 85 20 114/73 90 Room Air 04/17/23 08:20 78 04/17/23 03:34 36.8 C 85 17 121/77 92 Room Air Laboratory Results Laboratory Results WBC 7.68 K/ul (4.8-10.8) 04/17/23 05:27 RBC 3.41 M/uL (4.20-5.40) L 04/17/23 05:27 Hgb 9.9 g/dl (12.0-16.0) L 04/17/23 05:27 POC Hgb 9.5 g/dl (12.0-16.0) L 04/16/23 01:42 Hct 30.3 % (37.0-47.0) L 04/17/23 05:27 POC Hct 28 % (37-47) L 04/16/23 01:42 MCV 88.9 fL (80.0-100.0) 04/17/23 05:27 MCH 29.0 pg (25.0-34.0) 04/17/23 05:27 MCHC 32.7 g/dL (32.0-36.0) 04/17/23 05:27 RDW Std Deviation 47.2 fL (36.4-46.3) H 04/17/23 05:27 RDW Coeff of Chasity 14.7 % (11.5-14.5) H 04/17/23 05:27 Plt Count 181 K/uL (130-400) 04/17/23 05:27 MPV 10.9 fL (9.4-12.4) 04/17/23 05:27 Immature Gran % (Auto) 0.4 % 04/17/23 05:27 Neut % (Auto) 71.4 % 04/17/23 05:27 Lymph % (Auto) 14.6 % 04/17/23 05:27 [place] % (Auto) 10.3 % 04/17/23 05:27 Eos % (Auto) 3.0 % 04/17/23 05:27 Baso % (Auto) 0.3 % 04/17/23 05:27 Neut # (Auto) 5.49 K/uL (1.40-6.50) 04/17/23 05:27 Lymph # (Auto) 1.12 K/uL (1.20-3.40) L 04/17/23 05:27 [place] # (Auto) 0.79 K/uL (0.11-0.59) H 04/17/23 05:27 Eos # (Auto) 0.23 K/uL (0.00-0.50) 04/17/23 05:27 Baso # (Auto) 0.02 K/uL (0.00-0.20) 04/17/23 05:27 Immature Gran # (Auto) 0.03 K/uL (0.01-0.20) 04/17/23 05:27 PT 11.2 Seconds (9.0-12.0) 04/15/23 22:00 INR 1.0 (0.9-1.1) 04/15/23 22:00 APTT 29.6 Seconds (21.0-31.0) 04/15/23 22:00 PTT Ratio 1.0 04/15/23 22:00 POC Sodium 138 mmol/L (135-144) 04/16/23 01:42 Sodium 137 mmol/L (136-145) 04/17/23 05:27 POC Potassium 6.9 mmol/L (3.3-5.0) H* 04/16/23 01:42 Potassium 4.8 mmol/L (3.5-5.1) 04/17/23 05:27 POC Chloride 115 mmol/L (101-112) H 04/16/23 01:42 Chloride 99 mmol/L (98-107) 04/17/23 05:27 Carbon Dioxide 35 mmol/L (21-32) H 04/17/23 05:27 POC Total CO2 17 mmol/L (24-31) L 04/16/23 01:42 Anion Gap 3 (3-11) 04/17/23 05:27 POC Anion Gap 14.0 mmol/L (16-25) L 04/16/23 01:42 POC BUN 94 mg/dl (7-18) H 04/16/23 01:42 BUN 34 mg/dl (6-23) H 04/17/23 05:27 Creatinine 2.12 mg/dl (0.6-1.2) H 04/17/23 05:27 POC Creatinine 4.1 mg/dl (0.6-1.3) H 04/16/23 01:42 Est Cr Clr Drug Dosing 39.4 ml/min 04/17/23 05:27 Est GFR ( Amer) 29.8 ml/min 04/17/23 05:27 Est GFR (Non-Af Amer) 25.7 ml/min 04/17/23 05:27 BUN/Creatinine Ratio 16.0 (10-20) 04/17/23 05:27 Glucose 127 mg/dl (70-99(Fasting)) H 04/17/23 05:27 POC Glucose 114 mg/dl (70-99) H 04/16/23 07:19 POC Glucose (other) 91 mg/dl (70-99) 04/16/23 01:42 Lactate 1.0 mmol/L (0.4-2.0) 04/16/23 21:41 Calcium 8.2 mg/dl (8.6-10.3) L 04/17/23 05:27 POC Ioniz Calcium Tobias 1.29 mmol/l (1.12-1.32) 04/16/23 01:42 Phosphorus 4.8 mg/dl (2.5-4.9) 04/15/23 22:00 Magnesium 1.2 mg/dl (1.7-2.4) L 04/17/23 05:27 Total Bilirubin 0.3 mg/dl (0.2-1.0) 04/15/23 22:00 AST 14 U/L (13-39) 04/15/23 22:00 ALT 8 U/L (7-52) 04/15/23 22:00 Alkaline Phosphatase 92 U/L (34-104) 04/15/23 22:00 Total Creatine Kinase 65 U/L (26-192) 04/16/23 05:15 Troponin I High Sens 5.5 pg/ml (0-14) 04/15/23 23:52 Total Protein 8.4 gm/dl (6.0-8.3) H 04/15/23 22:00 Albumin 3.9 gm/dl (3.4-5.0) 04/15/23 22:00 Globulin 4.5 gm/dl (2.5-4.0) H 04/15/23 22:00 Albumin/Globulin Ratio 0.9 (0.9-2) 04/15/23 22:00 Urine Color Yellow 04/16/23 09:30 Urine Appearance Clear (Clear) 04/16/23 09:30 Urine pH 5.5 (4.5-7.5) 04/16/23 09:30 Ur Specific [place] 1.011 (1.000-1.030) 04/16/23 09:30 Urine Protein Negative (Negative) 04/16/23 09:30 Urine Glucose (UA) Negative (Negative) 04/16/23 09:30 Urine Ketones Negative (Negative) 04/16/23 09:30 Urine Blood Negative (Negative) 04/16/23 09:30 Urine Nitrite Negative (Negative) 04/16/23 09:30 Urine Bilirubin Negative (Negative) 04/16/23 09:30 Urine Urobilinogen Negative (Negative) 04/16/23 09:30 Ur Leukocyte Esterase 2+ (Negative) H 04/16/23 09:30 Urine WBC (Auto) 10-30 /hpf (0-5) H 04/16/23 09:30 Urine RBC (Auto) 0-4 /hpf (0-4) 04/16/23 09:30 U Hyaline Cast (Auto) 1-5 /lpf (0-5) 04/16/23 09:30 U Epithel Cells (Auto) 10-20 /lpf (0-5) H 04/16/23 09:30 Urine Bacteria (Auto) Negative (Negative) 04/16/23 09:30 Impressions Chest X-Ray 04/16/23 15:12 XR chest 1V portable CLINICAL HISTORY: lines TECHNIQUE: Single frontal radiograph of the chest was obtained. Comparison: Comparison is made to chest radiograph 04/29/2022 FINDINGS: Right subclavian catheter terminates in the lower SVC. ACDF is seen. The cardiomediastinal silhouette is stable. The lungs are clear. No evidence of pleural effusion or pneumothorax. IMPRESSION: Right subclavian catheter tip is in the lower SVC. ACT 112: Negative or not required by law. Electronically signed by: Cornell Brown M.D. 04/16/2023 3:35 PM
[2023-04-17] MEDS: HEPARIN SOD 5,000 UNIT/0.5 ML VIAL SQ SCH ×2 (13:36→21:38)
--- NOTE | 2023-04-17 14:00 | Nephrology Progress Note ---
Date of Service April 17, 2023 Assessment & Plan (1) Hyperkalemia: Plan: Presented with potassium 6.9 with peak value 7.4. Failed medical management. Status post emergent dialysis times 03 April 2014. No indication for repeat dialysis today but would keep catheter to reevaluate in a.m.; my impression is she is unlikely to need further dialysis but will keep catheter for now Care coordinated w/ Dr Johnson (2) Acute renal failure: Plan: baseline creatinine 1.6-1.9 w/ 2 gm proteinuria. presented w/ creatinine 4.2. Improved with aggressive hydration to creatinine 3.1. She is tolerating hydration well so far. 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 Remains free of diarrhea per her report. Some urine output no nausea vomiting shortness of breath. Tolerated at least some of her midday meal but appetite still touchi and go Review of Systems Review of Systems: All systems reviewed & are unremarkable except as noted in Subjective Physical Exam Constitutional: well developed, well nourished and + morbidly obese; no acute distress Eyes: EOM intact bilaterally ENMT: Ears: no external ear abnormality Nose: no external nose abnormality Mouth: + dry oral mucous membranes Neck: no nuchal rigidity Respiratory: normal respiratory effort Auscultation: + diminished lung sounds and + wheezes (Occasional) Cardiovascular: RRR, no murmur, no edema Gastrointestinal (Abdomen): Inspection/Auscultation: normal bowel sounds Percussion/Palpation: abdomen soft; abdomen nontender Musculoskeletal: Extremities: strength 5/5 throughout Skin: no rashes, warm and dry Psychiatric: Orientation: alert and oriented x 3 Results & Data Vital Signs (Past 12 Hours) Vital Signs Temp Pulse Pulse Resp BP Pulse Ox O2 Del Method 04/17/23 11:42 36.7 C 82 18 105/61 92 Room Air 04/17/23 08:36 36.7 C 85 20 114/73 90 Room Air 04/17/23 08:20 78 04/17/23 03:34 36.8 C 85 17 121/77 92 Room Air Laboratory Results 04/17/23 05:27 04/17/23 05:27
[2023-04-18] MEDS: LEVOTHYROXINE SODIUM 125 MCG TABLET PO SCH (05:38)
[2023-04-18] MEDS: HEPARIN SOD 5,000 UNIT/0.5 ML VIAL SQ SCH ×3 (05:38→21:13)
[2023-04-18 06:47] LABS: Basophils # (auto) 0.02 K/uL (0.00-0.20); Basophils % (auto) 0.3 %; Eosinophils # (auto) 0.24 K/uL (0.00-0.50); Eosinophils % (auto) 3.5 %; Hematocrit (blood only) 28.6 % (37.0-47.0); Hemoglobin 9.2 g/dl (12.0-16.0); Immature Granulocytes # (auto) 0.02 K/uL (0.01-0.20); Immature Granulocytes % (auto) 0.3 %; Lymphocytes # (auto) 1.41 K/uL (1.20-3.40); Lymphocytes % (auto) 20.7 %; Mean Corpuscular Hemoglobin 28.9 pg (25.0-34.0); Mean Corpuscular Hgb Conc 32.2 g/dL (32.0-36.0); Mean Corpuscular Volume 89.9 fL (80.0-100.0); Mean Platelet Volume 11.1 fL (9.4-12.4); Monocytes % (auto) 13.2 %; Neutrophils # (auto) 4.23 K/uL (1.40-6.50); Platelet Count 170 K/uL (130-400); RDW Coefficient of Variation 14.6 % (11.5-14.5); RDW Standard Deviation 47.8 fL (36.4-46.3); Red Blood Count 3.18 M/uL (4.20-5.40); White Blood Count 6.82 K/ul (4.8-10.8)
[2023-04-18 07:01] LABS: Albumin Globulin Ratio 0.9 (0.9-2); Albumin Level 3.1 gm/dl (3.4-5.0); BUN Creatinine Ratio 13.3 (10-20); Bilirubin,Total 0.5 mg/dl (0.2-1.0); Calcium 8.3 mg/dl (8.6-10.3); Creatinine Clr Calc Pharmacy 33.4 ml/min; Est GFR (African American) 24.7 ml/min; Est GFR (Non-African American) 21.3 ml/min; Globulin 3.6 gm/dl (2.5-4.0); Potassium 4.7 mmol/L (3.5-5.1); Total Protein 6.7 gm/dl (6.0-8.3)
[2023-04-18] MEDS: GABAPENTIN 100 MG CAP PO SCH ×3 (08:25→20:57)
[2023-04-18] MEDS: CYCLOBENZAPRINE HCL 5 MG TAB PO PRN (08:26)
[2023-04-18] MEDS: MONTELUKAST SODIUM 10 MG TABLET PO SCH (08:26)
[2023-04-18] MEDS: FLUoxetine HCL 20 MG CAP PO SCH (08:26)
[2023-04-18] MEDS: PANTOprazole 40 MG TAB PO SCH (08:26)
[2023-04-18] MEDS: ROSUVASTATIN CALCIUM 20 MG TAB PO SCH (08:27)
[2023-04-18] MEDS: allopurinoL 100 MG TAB PO SCH (08:27)
[2023-04-18] MEDS: FLUTICASONE/VILANTEROL 200/25MCG 14 PUFFS/INHALER INH SCH (08:28)
[2023-04-18] MEDS: cloNIDine HCL 0.1 MG TAB PO SCH ×4 (08:29→21:00)
--- NOTE | 2023-04-18 10:24 | Nephrology Progress Note ---
Date of Service April 18, 2023 Assessment & Plan Admission and Anticipated Discharge Date Admission Date: April 16, 2023 Subjective Assessment & Plan (1) Hyperkalemia: Plan: Presented with potassium 6.9 with peak value 7.4. Failed medical management. Status post emergent dialysis times 1. No indication for repeat dialysis today but would keep catheter to reevaluate in a.m. Creat went up slightly overnight but K is normal. Add patiromer to avoid hyperkalemia again. No need of Iv fluids. (2) Acute renal failure: Plan: baseline creatinine 1.6-1.9 w/ 2 gm proteinuria. presented w/ creatinine 4.2. Improved with aggressive hydration to creatinine 3.1. Creat went down to 1.8 after dialysis but slight rise overnight. Still hopeful she wont need dialysis again. Cannot remove CVC as long as Creat still rising. No ARB, Diuretics for now (3) Resistant hypertension: Plan: controlled on current meds -continue amlodipine, coreg, clonidine current doses -hold parameters on amlodipine Subjective Not much appetite. Remains free of diarrhea per her report. Some urine output . no nausea vomiting shortness of breath. Review of Systems Review of Systems: All systems reviewed & are unremarkable except as noted in Subjective Physical Exam Constitutional: well developed, well nourished and + morbidly obese; no acute distress Eyes: EOM intact bilaterally ENMT: Ears: no external ear abnormality Nose: no external nose abnormality Mouth: + dry oral mucous membranes Neck: no nuchal rigidity Respiratory: normal respiratory effort Auscultation: + diminished lung sounds and + wheezes (Occasional) Cardiovascular: RRR, no murmur, no edema Gastrointestinal (Abdomen): Inspection/Auscultation: normal bowel sounds Perc ussion/Palpation: abdomen soft; abdomen nontender Musculoskeletal: Extremities:Trace edema Skin: no rashes, warm and dry Psychiatric: Orientation: alert and oriented x 3 Results & Data Vital Signs (Past 12 Hours) Vital Signs Temp Pulse Pulse Pulse Resp BP BP 04/18/23 10:03 66 04/18/23 08:00 04/18/23 07:55 37.0 C 81 18 136/80 04/18/23 03:22 36.8 C 81 18 129/76 04/17/23 23:35 36.8 C 80 18 128/74 Pulse Ox O2 Del Method 04/18/23 10:03 10/16/23 08:00 Room Air 04/18/23 07:55 91 Room Air 04/18/23 03:22 93 Room Air 04/17/23 23:35 92 Room Air
[2023-04-18] MEDS: PATIROMER CALCIUM SORBITEX 8.4 GM PACK PO SCH (11:24)
--- NOTE | 2023-04-18 13:26 | Hospitalist Progress Note ---
Date of Service April 18, 2023 Assessment & Plan (1) Acute kidney injury superimposed on CKD: (2) Acute hyperkalemia: Plan: 52-year-old female with past medical history of resistant hypertension was referred to the ED after she was found to have serum hyperkalemia on outpatient lab work Admitting potassium of 6.9 with creatinine of 4.19; her previous creatinine was around 1.9 approximately 7 months back Reported diarrhea recently. She is also on losartan, spironolactone which could have contributed to hyperkalemia. Patient continued to have high serum potassium level despite getting insulin, bicarb, potassium and diuretics. Status post emergent hemodialysis on 04/16/2023 for severe hyperkalemia Labs reviewed; creatinine of 2.48. Stable. Urine output overnight reassuring Continue to monitor daily BMP to monitor potassium level. Started on potassium binder Hold off on lisinopril and spironolactone Diarrhea States was going on for last 2 days but getting better now Awaiting stool studies Resistant hypertension Multiple medications Currently all for antihypertensives are on hold as her blood pressure has been normotensive. Clonidine continued due to risks of rebound hypertension. Continue to monitor blood pressure; will add gradually depending on blood pressure readings. Hypothyroidism On Synthyroid Hyperlipidemia On statin History of asthma Continue home inhalers Depression/ anxiety On fluoxetine DVT prophylaxis heparin Disposition telemetry floor Full code Time spent evaluating patient, direct bedside care, chart review, placing orders, interpretation of diagnostic studies, discussion with consultants, patient, and family members, as well as other required patient management activities is 60 minutes Please note the above document was generated using voice recognition software. It may contain grammatical, syntax or spelling errors. Any formal questions or concerns about the content, text or information contained within the body of this dictation should be directly addressed to the provider for clarification Admission and Anticipated Discharge Date Admission Date: April 16, 2023 Subjective Patient seen and examined at bedside. She is lying in the bed comfortably; not in distress. Urine output of 1300 cc in last 24 hours. Review of Systems Review of Systems: All systems reviewed & are unremarkable except as noted in Subjective Physical Exam Physical Exam: Constitutional: Alert orient x3. Occasional tremors in bilateral upper extremity. Neck; dialysis catheter in place. Respiratory: normal respiratory effort, lungs clear to auscultation, no wheeze, rales, rhonchi. Normal insp/exp effort, no accessory muscle use Cardiovascular: RRR, no murmur, no edema Vessels: no JVD or carotid bruit Chest: normal inspection of chest Abdomen: normal bowel sounds, soft, nontender, no hepatosplenomegaly Musculoskeletal: no cyanosis or clubbing, extremities motor strength 5/5 Skin: no rashes, warm and dry normal turgor Neurologic: PERRL, EOMI, accommodation nl, no face palsy, no dysarthria CN's II- XI intact bilaterally and moves all extremities Psychiatric: A+Ox3, euthymic affect Results & Data Results & Data Vital Signs (Past 12 Hours) Vital Signs Temp Pulse Pulse Pulse Resp BP BP 04/18/23 11:14 36.7 C 76 17 124/75 04/18/23 10:03 66 04/18/23 08:00 04/18/23 07:55 37.0 C 81 18 136/80 04/18/23 03:22 36.8 C 81 18 129/76 Pulse Ox O2 Del Method 04/18/23 11:14 94 Room Air 04/18/23 10:03 04/18/23 08:00 Room Air 04/18/23 07:55 91 Room Air 04/18/23 03:22 93 Room Air Laboratory Results Laboratory Results WBC 6.82 K/ul (4.8-10.8) 04/18/23 05:51 RBC 3.18 M/uL (4.20-5.40) L 04/18/23 05:51 Hgb 9.2 g/dl (12.0-16.0) L 04/18/23 05:51 POC Hgb 9.5 g/dl (12.0-16.0) L 04/16/23 01:42 Hct 28.6 % (37.0-47.0) L 04/18/23 05:51 POC Hct 28 % (37-47) L 04/16/23 01:42 MCV 89.9 fL (80.0-100.0) 04/18/23 05:51 MCH 28.9 pg (25.0-34.0) 04/18/23 05:51 MCHC 32.2 g/dL (32.0-36.0) 04/18/23 05:51 RDW Std Deviation 47.8 fL (36.4-46.3) H 04/18/23 05:51 RDW Coeff of Chasity 14.6 % (11.5-14.5) H 04/18/23 05:51 Plt Count 170 K/uL (130-400) 04/18/23 05:51 MPV 11.1 fL (9.4-12.4) 04/18/23 05:51 Immature Gran % (Auto) 0.3 % 04/18/23 05:51 Neut % (Auto) 62.0 % 04/18/23 05:51 Lymph % (Auto) 20.7 % 04/18/23 05:51 [place] % (Auto) 13.2 % 04/18/23 05:51 Eos % (Auto) 3.5 % 04/18/23 05:51 Baso % (Auto) 0.3 % 04/18/23 05:51 Neut # (Auto) 4.23 K/uL (1.40-6.50) 04/18/23 05:51 Lymph # (Auto) 1.41 K/uL (1.20-3.40) 04/18/23 05:51 [place] # (Auto) 0.90 K/uL (0.11-0.59) H 04/18/23 05:51 Eos # (Auto) 0.24 K/uL (0.00-0.50) 04/18/23 05:51 Baso # (Auto) 0.02 K/uL (0.00-0.20) 04/18/23 05:51 Immature Gran # (Auto) 0.02 K/uL (0.01-0.20) 04/18/23 05:51 PT 11.2 Seconds (9.0-12.0) 04/15/23 22:00 INR 1.0 (0.9-1.1) 04/15/23 22:00 APTT 29.6 Seconds (21.0-31.0) 04/15/23 22:00 PTT Ratio 1.0 04/15/23 22:00 POC Sodium 138 mmol/L (135-144) 04/16/23 01:42 Sodium 136 mmol/L (136-145) 04/18/23 05:51 POC Potassium 6.9 mmol/L (3.3-5.0) H* 04/16/23 01:42 Potassium 4.7 mmol/L (3.5-5.1) 04/18/23 05:51 POC Chloride 115 mmol/L (101-112) H 04/16/23 01:42 Chloride 98 mmol/L (98-107) 04/18/23 05:51 Carbon Dioxide 34 mmol/L (21-32) H 04/18/23 05:51 POC Total CO2 17 mmol/L (24-31) L 04/16/23 01:42 Anion Gap 4 (3-11) 04/18/23 05:51 POC Anion Gap 14.0 mmol/L (16-25) L 04/16/23 01:42 POC BUN 94 mg/dl (7-18) H 04/16/23 01:42 BUN 33 mg/dl (6-23) H 04/18/23 05:51 Creatinine 2.48 mg/dl (0.6-1.2) H D 04/18/23 05:51 POC Creatinine 4.1 mg/dl (0.6-1.3) H 04/16/23 01:42 Est Cr Clr Drug Dosing 33.4 ml/min 04/18/23 05:51 Est GFR ( Amer) 24.7 ml/min 04/18/23 05:51 Est GFR (Non-Af Amer) 21.3 ml/min 04/18/23 05:51 BUN/Creatinine Ratio 13.3 (10-20) 04/18/23 05:51 Glucose 101 mg/dl (70-99(Fasting)) H 04/18/23 05:51 POC Glucose 114 mg/dl (70-99) H 04/16/23 07:19 POC Glucose (other) 91 mg/dl (70-99) 04/16/23 01:42 Lactate 1.0 mmol/L (0.4-2.0) 04/16/23 21:41 Calcium 8.3 mg/dl (8.6-10.3) L 04/18/23 05:51 POC Ioniz Calcium Tobias 1.29 mmol/l (1.12-1.32) 04/16/23 01:42 Phosphorus 4.8 mg/dl (2.5-4.9) 04/15/23 22:00 Magnesium 1.2 mg/dl (1.7-2.4) L 04/17/23 05:27 Total Bilirubin 0.5 mg/dl (0.2-1.0) 04/18/23 05:51 AST 12 U/L (13-39) L 04/18/23 05:51 ALT 6 U/L (7-52) L 04/18/23 05:51 Alkaline Phosphatase 73 U/L (34-104) 04/18/23 05:51 Total Creatine Kinase 65 U/L (26-192) 04/16/23 05:15 Troponin I High Sens 5.5 pg/ml (0-14) 04/15/23 23:52 Total Protein 6.7 gm/dl (6.0-8.3) 04/18/23 05:51 Albumin 3.1 gm/dl (3.4-5.0) L 04/18/23 05:51 Globulin 3.6 gm/dl (2.5-4.0) 04/18/23 05:51 Albumin/Globulin Ratio 0.9 (0.9-2) 04/18/23 05:51 Urine Color Yellow 04/16/23 09:30 Urine Appearance Clear (Clear) 04/16/23 09:30 Urine pH 5.5 (4.5-7.5) 04/16/23 09:30 Ur Specific [place] 1.011 (1.000-1.030) 04/16/23 09:30 Urine Protein Negative (Negative) 04/16/23 09:30 Urine Glucose (UA) Negative (Negative) 04/16/23 09:30 Urine Ketones Negative (Negative) 04/16/23 09:30 Urine Blood Negative (Negative) 04/16/23 09:30 Urine Nitrite Negative (Negative) 04/16/23 09:30 Urine Bilirubin Negative (Negative) 04/16/23 09:30 Urine Urobilinogen Negative (Negative) 04/16/23 09:30 Ur Leukocyte Esterase 2+ (Negative) H 04/16/23 09:30 Urine WBC (Auto) 10-30 /hpf (0-5) H 04/16/23 09:30 Urine RBC (Auto) 0-4 /hpf (0-4) 04/16/23 09:30 U Hyaline Cast (Auto) 1-5 /lpf (0-5) 04/16/23 09:30 U Epithel Cells (Auto) 10-20 /lpf (0-5) H 04/16/23 09:30 Urine Bacteria (Auto) Negative (Negative) 04/16/23 09:30 Impressions Chest X-Ray 04/16/23 15:12 XR chest 1V portable CLINICAL HISTORY: lines TECHNIQUE: Single frontal radiograph of the chest was obtained. Comparison: Comparison is made to chest radiograph 04/29/2022 FINDINGS: Right subclavian catheter terminates in the lower SVC. ACDF is seen. The cardiomediastinal silhouette is stable. The lungs are clear. No evidence of pleural effusion or pneumothorax. IMPRESSION: Right subclavian catheter tip is in the lower SVC. ACT 112: Negative or not required by law. Electronically signed by: Cornell Brown M.D. 04/16/2023 3:35 PM
[2023-04-19] MEDS: LEVOTHYROXINE SODIUM 125 MCG TABLET PO SCH (05:44)
[2023-04-19] MEDS: HEPARIN SOD 5,000 UNIT/0.5 ML VIAL SQ SCH ×3 (05:44→22:06)
--- NOTE | 2023-04-19 06:11 | Electrocardiogram Report ---
Test Reason : Blood Pressure : / mmHG Vent. Rate : 075 BPM Atrial Rate : 075 BPM P-R Int : 182 ms QRS Dur : 106 ms QT Int : 346 ms P-R-T Axes : 043 029 054 degrees QTc Int : 386 ms Normal sinus rhythm Normal ECG When compared with ECG of 15-APR-2023 21:57, No significant change was found Confirmed by Luis Angel Carrizales ([id number]) on 04/19/2023 6:10:56 AM Referred By: Mykel Bailey Confirmed By:Luis Angel Carrizales
[2023-04-19 06:23] LABS: Basophils # (auto) 0.02 K/uL (0.00-0.20); Basophils % (auto) 0.3 %; Eosinophils # (auto) 0.33 K/uL (0.00-0.50); Eosinophils % (auto) 5.4 %; Hematocrit (blood only) 29.4 % (37.0-47.0); Hemoglobin 9.2 g/dl (12.0-16.0); Immature Granulocytes # (auto) 0.02 K/uL (0.01-0.20); Immature Granulocytes % (auto) 0.3 %; Lymphocytes # (auto) 1.56 K/uL (1.20-3.40); Lymphocytes % (auto) 25.3 %; Mean Corpuscular Hemoglobin 28.8 pg (25.0-34.0); Mean Corpuscular Hgb Conc 31.3 g/dL (32.0-36.0); Mean Corpuscular Volume 92.2 fL (80.0-100.0); Mean Platelet Volume 11.4 fL (9.4-12.4); Monocytes # (auto) 0.72 K/uL (0.11-0.59); Monocytes % (auto) 11.7 %; Neutrophils # (auto) 3.51 K/uL (1.40-6.50); Platelet Count 164 K/uL (130-400); RDW Coefficient of Variation 14.5 % (11.5-14.5); RDW Standard Deviation 48.7 fL (36.4-46.3); Red Blood Count 3.19 M/uL (4.20-5.40); White Blood Count 6.16 K/ul (4.8-10.8)
[2023-04-19 06:43] LABS: Albumin Globulin Ratio 0.7 (0.9-2); BUN Creatinine Ratio 13.9 (10-20); Bilirubin,Total 0.4 mg/dl (0.2-1.0); Calcium 8.9 mg/dl (8.6-10.3); Est GFR (Non-African American) 23.3 ml/min; Globulin 4.1 gm/dl (2.5-4.0); Potassium 4.6 mmol/L (3.5-5.1); Total Protein 7.1 gm/dl (6.0-8.3)
--- NOTE | 2023-04-19 07:18 | Electrocardiogram Report ---
Test Reason : Blood Pressure : / mmHG Vent. Rate : 083 BPM Atrial Rate : 083 BPM P-R Int : 174 ms QRS Dur : 096 ms QT Int : 360 ms P-R-T Axes : 046 044 044 degrees QTc Int : 423 ms Normal sinus rhythm Normal ECG When compared with ECG of 16-APR-2023 08:31, (unconfirmed) No significant change was found Confirmed by Luis Angel Carrizales ([id number]) on 04/19/2023 7:17:56 AM Referred By: yMkel Bailey Confirmed By:Luis Angel Carrizales
[2023-04-19] MEDS: GABAPENTIN 100 MG CAP PO SCH ×3 (07:41→20:26)
[2023-04-19] MEDS: ROSUVASTATIN CALCIUM 20 MG TAB PO SCH (07:42)
[2023-04-19] MEDS: MONTELUKAST SODIUM 10 MG TABLET PO SCH (07:42)
[2023-04-19] MEDS: PANTOprazole 40 MG TAB PO SCH (07:42)
[2023-04-19] MEDS: allopurinoL 100 MG TAB PO SCH (07:42)
[2023-04-19] MEDS: FLUoxetine HCL 20 MG CAP PO SCH (07:42)
[2023-04-19] MEDS: CYCLOBENZAPRINE HCL 5 MG TAB PO PRN (07:42)
[2023-04-19] MEDS: FLUTICASONE/VILANTEROL 200/25MCG 14 PUFFS/INHALER INH SCH (07:43)
[2023-04-19] MEDS: cloNIDine HCL 0.1 MG TAB PO SCH ×3 (07:46→20:25)
--- NOTE | 2023-04-19 11:03 | Nephrology Progress Note ---
Date of Service April 19, 2023 Assessment & Plan Admission and Anticipated Discharge Date Admission Date: April 16, 2023 Subjective Assessment & Plan (1)(2) Acute renal failure: Hyperkalemia: Plan: Presented with potassium 6.9 with peak value 7.4. baseline creatinine 1.6-1.9 w/ 2 gm proteinuria. presented w/ creatinine 4.2.Failed medical management. Status post emergent dialysis times 1. No indication for repeat dialysis today as creat went down tiny bit. Would keep catheter one more day to reevaluate in a.m but most likely wont need dialysis. K is normal. Continue patiromer to avoid hyperkalemia again No need of Iv fluids. No ARB, Diuretics for now (3) Resistant hypertension: Plan: controlled on current meds -continue amlodipine, coreg, clonidine current doses Subjective No diarrhea. Vital are good. Good urine output . No nausea vomiting shortness of breath. Review of Systems Review of Systems: All systems reviewed & are unremarkable except as noted in Subjective Physical Exam Constitutional: well developed, well nourished and + morbidly obese; no acute distress Eyes: EOM intact bilaterally ENMT: Ears: no external ear abnormality Nose: no external nose abnormality Mouth: + dry oral mucous membranes Neck: no nuchal rigidity Respiratory: normal respiratory effort Auscultation: + diminished lung sounds and + wheezes (Occasional) Cardiovascular: RRR, no murmur, no edema Gastrointestinal (Abdomen): Inspection/Auscultation: normal bowel sounds Percussion/Palpation: abdomen soft; abdomen nontender Musculoskeletal: Extremities:Trace edema Skin: no rashes, warm and dry Psychiatric: Orientation: alert and oriented x 3 Results & Data Vital Signs (Past 12 Hours) Vital Signs Temp Pulse Pulse Resp BP Pulse Ox O2 Del Method 04/19/23 08:00 60 04/19/23 08:00 Room Air 04/19/23 07:40 36.7 C 69 18 145/80 H 94 Room Air 04/19/23 00:00 73 04/19/23 02:41 36.4 C L 70 16 155/85 H 93 Room Air 04/18/23 23:24 36.5 C 68 16 167/90 H 95 Room Air
[2023-04-19] MEDS: PATIROMER CALCIUM SORBITEX 8.4 GM PACK PO SCH (11:08)
[2023-04-19] MEDS: AZITHROMYCIN 250 MG TAB PO SCH (11:08)
[2023-04-19 11:27] LABS: HBSAG NON-REACTIVE (NON-REACTIVE); Hepatitis B Surface Ab, Quant <5 mIU/mL (> OR = 10)
--- NOTE | 2023-04-19 15:17 | Hospitalist Progress Note ---
Date of Service April 19, 2023 Assessment & Plan (1) Acute kidney injury superimposed on CKD: (2) Acute hyperkalemia: Plan: 52-year-old female with past medical history of resistant hypertension was referred to the ED after she was found to have serum hyperkalemia on outpatient lab work Admitting potassium of 6.9 with creatinine of 4.19; her previous creatinine was around 1.9 approximately 7 months back Reported diarrhea recently. She is also on losartan, spironolactone which could have contributed to hyperkalemia. Patient continued to have high serum potassium level despite getting insulin, bicarb, potassium and diuretics. Status post emergent hemodialysis on 04/16/2023 for severe hyperkalemia Labs reviewed; creatinine of 2.3 today; likely her new baseline.. Urine output overnight reassuring Continue to monitor daily BMP to monitor potassium level. Started on potassium binder daily Hold off on lisinopril and spironolactone Trial of void. Remove Evans. Tremors Patient reports right hand tremors for the last 2 weeks. She also reports jerky involuntary movements Thought secondary to electrolyte imbalance in the beginning. However, she continues to have 2 symptoms. Will appreciate neurology's input. Diarrhea States was going on for last 2 days but getting better now Diarrhea resolved. Acute bronchitis Reports cough occasionally; dry Started on azithromycin 500 mg; plan to treat for 3 days. Resistant hypertension Multiple medications Currently all for antihypertensives are on hold as her blood pressure has been normotensive. Clonidine continued due to risks of rebound hypertension. Continue to monitor blood pressure; will add gradually depending on blood pressure readings. Hypothyroidism On Synthyroid Hyperlipidemia On statin History of asthma Continue home inhalers Depression/ anxiety On fluoxetine DVT prophylaxis heparin Disposition telemetry floor Full code Time spent evaluating patient, direct bedside care, chart review, placing orders, interpretation of diagnostic studies, discussion with consultants, patient, and family members, as well as other required patient management activities is 60 minutes Please note the above document was generated using voice recognition software. It may contain grammatical, syntax or spelling errors. Any formal questions or concerns about the content, text or information contained within the body of this dictation should be directly addressed to the provider for clarification Admission and Anticipated Discharge Date Admission Date: April 16, 2023 Subjective Patient seen and examined at bedside. She is sitting up on the chair comfortably; not in distress. She continues to report tremors on her right hand as well as whole body jerking movement. Difficulty. Hemodynamically stable. Review of Systems Review of Systems: All systems reviewed & are unremarkable except as noted in Subjective Physical Exam Physical Exam: Constitutional: Alert orient x3. Occasional tremors on right hand and arm Neck; dialysis catheter in place. Respiratory: normal respiratory effort, lungs clear to auscultation, no wheeze, rales, rhonchi. Normal insp/exp effort, no accessory muscle use Cardiovascular: RRR, no murmur, no edema Vessels: no JVD or carotid bruit Chest: normal inspection of chest Abdomen: normal bowel sounds, soft, nontender, no hepatosplenomegaly Musculoskeletal: no cyanosis or clubbing, extremities motor strength 5/5 Skin: no rashes, warm and dry normal turgor Neurologic: PERRL, EOMI, accommodation nl, no face palsy, no dysarthria CN's II- XI intact bilaterally and moves all extremities Psychiatric: A+Ox3, euthymic affect Results & Data Results & Data Vital Signs (Past 12 Hours) Vital Signs Temp Pulse Pulse Resp BP BP Pulse Ox 04/19/23 15:04 36.6 C 60 18 145/83 H 99 04/19/23 11:12 36.7 C 63 18 128/87 97 04/19/23 08:00 60 04/19/23 08:00 04/19/23 07:40 36.7 C 69 18 145/80 H 94 O2 Del Method 04/19/23 15:04 Room Air 04/19/23 11:12 Room Air 04/19/23 08:00 04/19/23 08:00 Room Air 04/19/23 07:40 Room Air Laboratory Results Laboratory Results WBC 6.16 K/ul (4.8-10.8) 04/19/23 05:29 RBC 3.19 M/uL (4.20-5.40) L 04/19/23 05:29 Hgb 9.2 g/dl (12.0-16.0) L 04/19/23 05:29 POC Hgb 9.5 g/dl (12.0-16.0) L 04/16/23 01:42 Hct 29.4 % (37.0-47.0) L 04/19/23 05:29 POC Hct 28 % (37-47) L 04/16/23 01:42 MCV 92.2 fL (80.0-100.0) 04/19/23 05:29 MCH 28.8 pg (25.0-34.0) 04/19/23 05:29 MCHC 31.3 g/dL (32.0-36.0) L 04/19/23 05:29 RDW Std Deviation 48.7 fL (36.4-46.3) H 04/19/23 05:29 RDW Coeff of Chasity 14.5 % (11.5-14.5) 04/19/23 05:29 Plt Count 164 K/uL (130-400) 04/19/23 05:29 MPV 11.4 fL (9.4-12.4) 04/19/23 05:29 Immature Gran % (Auto) 0.3 % 04/19/23 05:29 Neut % (Auto) 57.0 % 04/19/23 05:29 Lymph % (Auto) 25.3 % 04/19/23 05:29 [place] % (Auto) 11.7 % 04/19/23 05:29 Eos % (Auto) 5.4 % 04/19/23 05:29 Baso % (Auto) 0.3 % 04/19/23 05:29 Neut # (Auto) 3.51 K/uL (1.40-6.50) 04/19/23 05:29 Lymph # (Auto) 1.56 K/uL (1.20-3.40) 04/19/23 05:29 [place] # (Auto) 0.72 K/uL (0.11-0.59) H 04/19/23 05:29 Eos # (Auto) 0.33 K/uL (0.00-0.50) 04/19/23 05:29 Baso # (Auto) 0.02 K/uL (0.00-0.20) 04/19/23 05:29 Immature Gran # (Auto) 0.02 K/uL (0.01-0.20) 04/19/23 05:29 PT 11.2 Seconds (9.0-12.0) 04/15/23 22:00 INR 1.0 (0.9-1.1) 04/15/23 22:00 APTT 29.6 Seconds (21.0-31.0) 04/15/23 22:00 PTT Ratio 1.0 04/15/23 22:00 POC Sodium 138 mmol/L (135-144) 04/16/23 01:42 Sodium 136 mmol/L (136-145) 04/19/23 05:29 POC Potassium 6.9 mmol/L (3.3-5.0) H* 04/16/23 01:42 Potassium 4.6 mmol/L (3.5-5.1) 04/19/23 05:29 POC Chloride 115 mmol/L (101-112) H 04/16/23 01:42 Chloride 100 mmol/L (98-107) 04/19/23 05:29 Carbon Dioxide 32 mmol/L (21-32) 04/19/23 05:29 POC Total CO2 17 mmol/L (24-31) L 04/16/23 01:42 Anion Gap 4 (3-11) 04/19/23 05:29 POC Anion Gap 14.0 mmol/L (16-25) L 04/16/23 01:42 POC BUN 94 mg/dl (7-18) H 04/16/23 01:42 BUN 32 mg/dl (6-23) H 04/19/23 05:29 Creatinine 2.30 mg/dl (0.6-1.2) H 04/19/23 05:29 POC Creatinine 4.1 mg/dl (0.6-1.3) H 04/16/23 01:42 Est Cr Clr Drug Dosing 36.0 ml/min 04/19/23 05:29 Est GFR ( Amer) 27.0 ml/min 04/19/23 05:29 Est GFR (Non-Af Amer) 23.3 ml/min 04/19/23 05:29 BUN/Creatinine Ratio 13.9 (10-20) 04/19/23 05:29 Glucose 98 mg/dl (70-99(Fasting)) 04/19/23 05:29 POC Glucose 114 mg/dl (70-99) H 04/16/23 07:19 POC Glucose (other) 91 mg/dl (70-99) 04/16/23 01:42 Lactate 1.0 mmol/L (0.4-2.0) 04/16/23 21:41 Calcium 8.9 mg/dl (8.6-10.3) 04/19/23 05:29 POC Ioniz Calcium Tobias 1.29 mmol/l (1.12-1.32) 04/16/23 01:42 Phosphorus 4.8 mg/dl (2.5-4.9) 04/15/23 22:00 Magnesium 1.2 mg/dl (1.7-2.4) L 04/17/23 05:27 Total Bilirubin 0.4 mg/dl (0.2-1.0) 04/19/23 05:29 AST 12 U/L (13-39) L 04/19/23 05:29 ALT 6 U/L (7-52) L 04/19/23 05:29 Alkaline Phosphatase 71 U/L (34-104) 04/19/23 05:29 Total Creatine Kinase 65 U/L (26-192) 04/16/23 05:15 Troponin I High Sens 5.5 pg/ml (0-14) 04/15/23 23:52 Total Protein 7.1 gm/dl (6.0-8.3) 04/19/23 05:29 Albumin 3.0 gm/dl (3.4-5.0) L 04/19/23 05:29 Globulin 4.1 gm/dl (2.5-4.0) H 04/19/23 05:29 Albumin/Globulin Ratio 0.7 (0.9-2) L 04/19/23 05:29 Urine Color Yellow 04/16/23 09:30 Urine Appearance Clear (Clear) 04/16/23 09:30 Urine pH 5.5 (4.5-7.5) 04/16/23 09:30 Ur Specific [place] 1.011 (1.000-1.030) 04/16/23 09:30 Urine Protein Negative (Negative) 04/16/23 09:30 Urine Glucose (UA) Negative (Negative) 04/16/23 09:30 Urine Ketones Negative (Negative) 04/16/23 09:30 Urine Blood Negative (Negative) 04/16/23 09:30 Urine Nitrite Negative (Negative) 04/16/23 09:30 Urine Bilirubin Negative (Negative) 04/16/23 09:30 Urine Urobilinogen Negative (Negative) 04/16/23 09:30 Ur Leukocyte Esterase 2+ (Negative) H 04/16/23 09:30 Urine WBC (Auto) 10-30 /hpf (0-5) H 04/16/23 09:30 Urine RBC (Auto) 0-4 /hpf (0-4) 04/16/23 09:30 U Hyaline Cast (Auto) 1-5 /lpf (0-5) 04/16/23 09:30 U Epithel Cells (Auto) 10-20 /lpf (0-5) H 04/16/23 09:30 Urine Bacteria (Auto) Negative (Negative) 04/16/23 09:30 Hep Bs Antigen NON-REACTIVE (NON-REACTIVE) 04/16/23 15:10 Hep Bs Ag Confirmation TNP 04/16/23 15:10 Hep Bs Antibody, Quant <5 mIU/mL (> OR = 10) L 04/16/23 15:10 Impressions Chest X-Ray 04/16/23 15:12 XR chest 1V portable CLINICAL HISTORY: lines TECHNIQUE: Single frontal radiograph of the chest was obtained. Comparison: Comparison is made to chest radiograph 04/29/2022 FINDINGS: Right subclavian catheter terminates in the lower SVC. ACDF is seen. The cardiomediastinal silhouette is stable. The lungs are clear. No evidence of pleural effusion or pneumothorax. IMPRESSION: Right subclavian catheter tip is in the lower SVC. ACT 112: Negative or not required by law. Electronically signed by: Cornell Brown M.D. 04/16/2023 3:35 PM
[2023-04-20] MEDS: LEVOTHYROXINE SODIUM 125 MCG TABLET PO SCH (06:12)
[2023-04-20] MEDS: HEPARIN SOD 5,000 UNIT/0.5 ML VIAL SQ SCH ×2 (06:12→13:37)
[2023-04-20 06:40] LABS: Basophils # (auto) 0.02 K/uL (0.00-0.20); Basophils % (auto) 0.3 %; Eosinophils # (auto) 0.35 K/uL (0.00-0.50); Eosinophils % (auto) 5.4 %; Hematocrit (blood only) 30.1 % (37.0-47.0); Hemoglobin 9.6 g/dl (12.0-16.0); Immature Granulocytes # (auto) 0.09 K/uL (0.01-0.20); Immature Granulocytes % (auto) 1.4 %; Lymphocytes # (auto) 1.57 K/uL (1.20-3.40); Lymphocytes % (auto) 24.4 %; Mean Corpuscular Hemoglobin 29.2 pg (25.0-34.0); Mean Corpuscular Hgb Conc 31.9 g/dL (32.0-36.0); Mean Corpuscular Volume 91.5 fL (80.0-100.0); Mean Platelet Volume 11.2 fL (9.4-12.4); Monocytes # (auto) 0.77 K/uL (0.11-0.59); Neutrophils # (auto) 3.64 K/uL (1.40-6.50); Neutrophils % (auto) 56.5 %; Platelet Count 174 K/uL (130-400); RDW Coefficient of Variation 14.3 % (11.5-14.5); RDW Standard Deviation 47.6 fL (36.4-46.3); Red Blood Count 3.29 M/uL (4.20-5.40); White Blood Count 6.44 K/ul (4.8-10.8)
[2023-04-20 06:52] LABS: BUN Creatinine Ratio 14.5 (10-20); Creatinine Clr Calc Pharmacy 40.2 ml/min; Est GFR (African American) 30.7 ml/min; Est GFR (Non-African American) 26.5 ml/min; Potassium 4.7 mmol/L (3.5-5.1)
[2023-04-20] MEDS: PANTOprazole 40 MG TAB PO SCH (08:37)
[2023-04-20] MEDS: MONTELUKAST SODIUM 10 MG TABLET PO SCH (08:37)
[2023-04-20] MEDS: ROSUVASTATIN CALCIUM 20 MG TAB PO SCH (08:37)
[2023-04-20] MEDS: GABAPENTIN 100 MG CAP PO SCH ×2 (08:37→13:36)
[2023-04-20] MEDS: allopurinoL 100 MG TAB PO SCH (08:38)
[2023-04-20] MEDS: AZITHROMYCIN 250 MG TAB PO SCH (08:38)
[2023-04-20] MEDS: FLUoxetine HCL 20 MG CAP PO SCH (08:38)
[2023-04-20] MEDS: FLUTICASONE/VILANTEROL 200/25MCG 14 PUFFS/INHALER INH SCH (08:39)
[2023-04-20] MEDS: cloNIDine HCL 0.1 MG TAB PO SCH ×2 (08:42→13:38)
--- NOTE | 2023-04-20 09:01 | Neurology Consultation ---
Date of Consultation April 20, 2023 Assessment & Plan (1) Tremor: Plan 52 y/o female with history of HTN, asthma, hypothyroidism, CKD, and anxiety depression that was admitted with hyperkalemia and acute kidney injury, now improved. She reports a three week history of tremors and muscle twitching, which has not yet improved. On examination, there was a mild intermittent tremor of right hand with somewhat variable characteristics. No additional involuntary movements observed. We have discussed how electrolyte disturbance can affect muscles and how involuntary movements can sometimes occur in the setting of renal dysfunction. While gabapentin can sometimes be associated with myoclonus, clinical history is less suggestive of myoclonus and no myoclonus was seen on examination. As there are limitations to the examination over the camera, the pt will likely benefit from a full neurological examination as an outpatient. 1. TSH, copper, ceruloplasmin 2. CTH 3. Oupatient neurology follow-up 4. Sleep Medicine referral Telehealth Consultation Telehealth Information Telehealth Information: I performed this visit using a real-time telehealth connection between my location and the patients location ([facility]). After connecting through interactive tele-video, patient was identified by name and date of and/or wristband check.Patient (or authorized healthcare tour sales representative) was informed that this was a telemedicine visit and it was being conducted confidentially over secure lines. My office door was closed and no one else was present in the room with me.Patient (or authorized healthcare tour sales representative) provided consent to proceed with the visit, expressed an understanding of privacy and security of the telemedicine visit, and gave permis coleman to have a hospital tour sales representative in the room in order to assist with the visit and to conduct portions of the visit, as needed. I informed the patient (or authorized healthcare tour sales representative) that I reviewed their record and presented the opportunity for them to ask any questions regarding the visit today. The patient agreed to participate. History of Present Illness Reason for Consultation: left hand tremors Requesting Physician: Dr. Mark Johnson Attending Physician: Mark Johnson MD History of Present Illness 52 y/o female with history of HTN, asthma, hypothyroidism, CKD, and anxiety depression that was admitted with hyperkalemia and acute kidney injury, which have now improved. She presented to her pcp due to two weeks of diarrhea and was subsequently sent to the ED because of significant hyperkalemia. She states that three weeks ago she started having tremors in her right hand. She feels that when she writes her writing looks like chicken scratch and has gotten smaller. She noticed the tremor most at first when she was sitting around the house but she started noticing she would need to hold things with two hands. A week later, she began noticing that she will be sitting and will feel like someone kicks her thigh and her leg moves involuntarily. She states that this feels like muscle twitches. She describes these as usually not big movements but small movements. She also states that her has felt that she kicks him during sleep. When she sits for too long, her legs can feel "shakey" when she wakes up. She stopped drinking coffee two to three months ago. She drinks a cup of hot tea daily. She does not feel that her tremors have improved much since she has been in the hospital. Allergies Allergy/AdvReac Type Severity Reaction Status Date / Time lisinopril AdvReac Intermediate Cough Verified 05/05/22 15:03 vancomycin AdvReac Intermediate Flushing Verified 05/05/22 15:03 Home Medications Medication Instructions Recorded Confirmed Type albuterol sulfate 90 mcg/actuation 2 puff inhalation QID PRN 04/16/23 04/16/23 History aerosol inhaler Shortness Of Breath Or Wheezing allopurinol 100 mg tablet 100 mg PO DAILY 04/16/23 04/16/23 History amlodipine 10 mg tablet 10 mg PO HS 04/16/23 04/16/23 History carvedilol 25 mg tablet (Coreg) 37.5 mg PO BID 04/16/23 04/16/23 History chlorthalidone 25 mg tablet 25 mg PO DAILY 04/16/23 04/16/23 History clonidine HCl 0.1 mg tablet 0.1 mg PO TID 04/16/23 04/16/23 History cyclobenzaprine 5 mg tablet 5 mg PO TID PRN Muscle Spasm 04/16/23 04/16/23 History fluoxetine 40 mg capsule 40 mg PO DAILY 04/16/23 04/16/23 History gabapentin 100 mg tablet 100 mg PO TID 04/16/23 04/16/23 History levothyroxine 125 mcg PO DAILY 04/16/23 04/16/23 History losartan 100 mg tablet 100 mg PO DAILY 04/16/23 04/16/23 History mometasone-formoterol HFA 200 2 puff inhalation BID 04/16/23 04/16/23 History mcg-5 mcg/actuation aerosol inhaler (Dulera) montelukast 10 mg tablet 10 mg PO DAILY 04/16/23 04/16/23 History omeprazole 20 mg capsule,delayed 20 mg PO DAILY 04/16/23 04/16/23 History release rosuvastatin 20 mg tablet (Crestor) 20 mg PO DAILY 04/16/23 04/16/23 History spironolactone 100 mg tablet 100 mg PO DAILY 04/16/23 04/16/23 History Patient History Medical History (Updated 04/20/23 @ 10:29 by Cynthia Bruno MD) Anxiety CKD (chronic kidney disease), stage III History of pneumonia APR 2019...RESOLVED HTN (hypertension) Hypothyroidism NO MEDS Kidney stone CURRENT/NO PROBLEMS WITH Migraines 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 Yadav 08-03-19 Family History Father Diabetes Heart disease Hypertension Mother Cancer Social History Smoking Status: Never smoker Second Hand Exposure: No; Do You Dip or Chew Tobacco: No; Hx Alcohol Use: Yes Alcohol type: wine Hx Substance Use: No Preferred Language: Colombian Communication Ability: Effective Dealer Card Room Required: No Beliefs That Will Affect Care: None marital status: Current Living Situation: Spouse current occupational status: employed Feels Safe at Home: Yes Assistive Devices: None Review of Systems Negative except as listed in HPI Physical Exam AAO X 3 No aphasia or dysarthria VFF grossly full EOMI, no nystagmus Facial sensations intact No facial asymmetry Tongue protrudes midline Motor: Moves all four extremities antigravity with no drift, at beginning of exam intermittent high frequency tremor of variable amplitude involving right hand at rest, brief postural component which abated vs distractable. No myoclonus. Sensation: Intact to light touch throughout Cerebellar: FTN intact. No bradykinesia on UMANG Gait: Slightly wide based, steady, no shuffling Results & Data Vital Signs (Past 12 Hours) Vital Signs Temp Pulse Pulse Resp BP BP Pulse Ox 04/20/23 07:12 36.6 C 63 18 142/92 H 94 04/20/23 03:44 36.3 C L 64 18 148/91 H 96 04/19/23 23:08 36.4 C L 60 18 144/89 H 94 04/19/23 21:58 62 O2 Del Method 04/20/23 07:12 Room Air 04/20/23 03:44 Room Air 04/19/23 23:08 Room Air 04/19/23 21:58 Laboratory Results HGB 9.6, HCT 30.1, Plt 174, NA 136, Creatinine 2.07, Glucose 95, Potassium 4.7,
--- NOTE | 2023-04-20 10:25 | Nephrology Progress Note ---
Date of Service April 20, 2023 Assessment & Plan Admission and Anticipated Discharge Date Admission Date: April 16, 2023 Subjective Assessment & Plan (1)(2) Acute renal failure: Hyperkalemia: Plan: Presented with potassium 6.9 with peak value 7.4. baseline creatinine 1.6-1.9 w/ 2 gm proteinuria. presented w/ creatinine 4.2.Failed medical management. Status post emergent dialysis times 1. Can remove temp HD catheter now. Creat down even more and getting closer to her baseline of high 1's K is normal.Stop patiromer. No ARB, Diuretics for now Also would never use Both SHANIKA/ARB and Aldactone together in her case--too much risk for High K. Can use Chlorthalidone and Shanika/ARB combination though eventually when renal function stabilize. (3) Resistant hypertension: Plan: controlled on current meds -continue amlodipine, coreg, clonidine current doses Subjective No diarrhea. Vital are good. Good urine output . No nausea vomiting shortness of breath. Review of Systems Review of Systems: All systems reviewed & are unremarkable except as noted in Subjective Physical Exam Constitutional: well developed, well nourished and + morbidly obese; no acute distress Eyes: EOM intact bilaterally ENMT: Ears: no external ear abnormality Nose: no external nose abnormality Mouth: + dry oral mucous membranes Neck: no nuchal rigidity Respiratory: normal respiratory effort Auscultation: + diminished lung sounds and + wheezes (Occasional) Cardiovascular: RRR, no murmur, no edema Gastrointestinal (Abdomen): Inspection/Auscultation: normal bowel sounds Percussion/Palpation: abdomen soft; abdomen nontender Musculoskeletal: Extremities:Trace edema Skin: no rashes, warm and dry Psychiatric: Orientation: alert and oriented x 3 Results & Data Vital Signs (Past 12 Hours) Vital Signs Temp Pulse Resp BP BP Pulse Ox O2 Del Method 04/20/23 07:12 36.6 C 63 18 142/92 H 94 Room Air 04/20/23 03:44 36.3 C L 64 18 148/91 H 96 Room Air 04/19/23 23:08 36.4 C L 60 18 144/89 H 94 Room Air
[2023-04-20 11:55] LABS: Thyroid Stimulating Hormone 0.082 uIu/ml (0.300-4.500)
--- NOTE | 2023-04-20 12:24 | CT Scan Report ---
CT head/brain wo con CLINICAL HISTORY: Tremors in right hand Technique: Contiguous axial CT images of the head were acquired from the base of the skull to the guillaume nano without intravenous contrast administration. Images were viewed in brain, subdural and bone [facility]. Automated dose lowering techniques and/or adjustment according to patient size were utilized for this exam. Comparison: None available at the time of this dictation. Findings: The ventricles, basal cisterns, and cerebral sulci are normal. There is no acute intracranial hemorrh age or evidence of acute territorial infarction. Neither mass effect, shift of the midline structures , nor abnormal extra-axial fluid collections are shown. Imaged portions of the paranasal sinuses and mastoid air cells are clear. The orbits appear normal. There are no acute fractures of the calvaria or scalp swelling. Impression: No acute intracranial hemorrhage, no evidence of acute territorial infarction or other acute intracra nial disease process. ACT 112: Negative or not required by law. Electronically signed by: Cornell Brown M.D. 04/20/2023 12:23 PM
[2023-04-20 12:29] LABS: T4 Free Thyroxine 1.36 ng/dl (0.61-1.60)
--- NOTE | 2023-04-20 13:05 | Discharge Summary ---
Date of Service April 20, 2023 Admission HPI Per Admitting Provider 52-year-old female with past med significant for hypothyroidism, chronic rhinitis, mild persistent asthma, CKD stage III, hypertension, obesity, history of right kidney stone, history of migraine, depression and anxiety, went to PCP because of ongoing diarrhea for last 2 weeks and found to have hyperkalemia and sent to the ER. Patient states that diarrhea is getting better. Denies any blood in the stools. Micturating okay. Ambulating okay. No abdominal pain. Currently no nausea. No chest pain or shortness of breath. No headaches. No back pain. No runny nose or sore throat or cough. Afebrile. Past medical history. As mentioned above Past surgical history. . Colonoscopy. D&C. Injection of lumbar spine. Ligation of the oviduct. Cervical fusion surgery. Cholecystectomy. Social history. . No smoking. Alcohol socially. No drug use. Family history. Brother had diabetes. Father had diabetes. Father had heart disorder hypertension and dialysis. Admission Exam Per Admitting Provider General- Not in distress Head- atraumatic Eyes- PERRL. ENT- oropharynx clear Neck- supple, no JVD. Lungs- clear to auscultation No wheezing or crackles. Heart- regular rhythm; no murmur, no gallop. Abdomen- normal bowel sounds, soft, nontender, no distension Extremities- no pretibial edema, noerythema. Neuro- alert, oriented x 3; PERRL, no facial palsy; no dysarthria; Non focal. Skin- warm & dry Principal Diagnosis (1) Acute kidney injury superimposed on CKD: (2) Acute hyperkalemia Discharge Exam Constitutional: Alert orient x3. Occasional tremors on right hand and arm Neck; dialysis catheter in place. Respiratory: normal respiratory effort, lungs clear to auscultation, no wheeze, rales, rhonchi. Normal insp/exp effort, no accessory muscle use Cardiovascular: RRR, no murmur, no edema Vessels: no JVD or carotid bruit Chest: normal inspection of chest Abdomen: normal bowel sounds, soft, nontender, no hepatosplenomegaly Musculoskeletal: no cyanosis or clubbing, extremities motor strength 5/5 Skin: no rashes, warm and dry normal turgor Neurologic: PERRL, EOMI, accommodation nl, no face palsy, no dysarthria CN's II- XI intact bilaterally and moves all extremities Psychiatric: A+Ox3, euthymic affect Discharge Data Allergies Allergy/AdvReac Type Severity Reaction Status Date / Time lisinopril AdvReac Intermediate Cough Verified 05/05/22 15:03 vancomycin AdvReac Intermediate Flushing Verified 05/05/22 15:03 Consultations 04/15/23 23:21 ED Decision to Admit Stat 04/16/23 08:00 Consult Nephrology Routine 04/19/23 10:07 Consult Neurology Routine Ordered Studies 04/16/23 14:30 US point of care ultrasound Routine 04/20/23 10:34 CT head/brain wo con Urgent Hospital Course (1) Acute kidney injury superimposed on CKD: (2) Acute hyperkalemia: 52-year-old female with past medical history of resistant hypertension was referred to the ED after she was found to have serum hyperkalemia on outpatient lab work Admitting potassium of 6.9 with creatinine of 4.19; her previous creatinine was around 1.9 approximately 7 months back Reported diarrhea recently. She is also on losartan, spironolactone which could have contributed to hyperkalemia. Patient continued to have high serum potassium level despite getting insulin, bicarb, potassium and diuretics. Status post emergent hemodialysis on 04/16/2023 for severe hyperkalemia Continue to stabilize around 2; near her baseline At discharge; following instructions were given to the patient regarding the antihypertensives: Stop taking losartan and spironolactone Please measure your blood pressure twice a day (morning and evening). Please be in a seated position with both feet on the ground and your arm rested; rest for 5 minutes before measuring the blood pressure. Please follow the following instructions regarding your blood pressure medications: 1) if your blood pressure is greater than 140/80 for 2 consecutive days; start taking amlodipine 10 mg once a day. 2) if your blood pressure continues to be greater than 140/80 for 2 consecutive days despite being on amlodipine and clonidine; start taking chlorthalidone 25 mg once a day. Tremors Patient reports right hand tremors for the last 2 weeks. She also reports jerky involuntary movements Thought secondary to electrolyte imbalance in the beginning. However, she continues to have 2 symptoms. Neurology was consulted; CT head without contrast was done; no acute finding TSH was found to be on the lower end with normal T4; recommended to repeat test as outpatient Serum copper level and ceruloplasmin pending Patient to follow-up with PCP and obtain neurology referral. Please note the above document was generated using voice recognition software. It may contain grammatical, syntax or spelling errors. Any formal questions or concerns about the content, text or information contained within the body of this dictation should be directly addressed to the provider for clarification Total Time Total Time Spent Total Time Spent (In Minutes): 45 Total Time Includes: Examination of the Patient, Discharge Planning, Medication Reconciliation, Communication With Other Providers and Other Discharge Plan Discharge Items Patient Disposition: Home - Self-Care Reason For Visit: HYPERKALEMIA Discharge Diagnosis: Acute kidney injury Renal failure Condition on Discharge: Fair Activity: Resume your previous activity Non-emergency contact: Primary Care Provider Call non-emergency contact if: you have any medication questions and your symptoms worsen Follow-up/Referrals: Eulalia Grider PA-C [Physician Corporate Traffic Manager] - (Date & Time 06/22/2023 11:20 AM Provider Eulalia Grider PA-C Department Neurology [facility] ) Mykel Bailey MD [Primary Care Provider] - (Date & Time 04/26/2023 3:20 PM Provider Mykel Bailey MD Department [facility] ) Cielo Desai DO [Physician] - (Date & Time 04/26/2023 8:00 AM Provider Cielo Desai DO Department Sleep Disorders [facility] ) Diet: Regular Addtl Attending Provider Instructions: You were admitted to the hospital due to high potassium level and acute kidney injury. You required emergent hemodialysis on April 16, 2023. The likely cause for it is medications (losartan and spironolactone). Stop taking losartan and spironolactone Please measure your blood pressure twice a day (morning and evening). Please be in a seated position with both feet on the ground and your arm rested; rest for 5 minutes before measuring the blood pressure. Please follow the following instructions regarding your blood pressure medications: 1) if your blood pressure is greater than 140/80 for 2 consecutive days; start taking amlodipine 10 mg once a day. 2) if your blood pressure continues to be greater than 140/80 for 2 consecutive days despite being on amlodipine and clonidine; start taking chlorthalidone 25 mg once a day. Please call your primary care doctor if you have any questions. Continue to hold Coreg for now till you see your primary care doctor. You might need to be started on lower dose. Neurology evaluated you during the hospitalization for the tremors. They recommend referral to outpatient neurology. Serum copper level and ceruloplasmin were sent during the hospitalization; follow-up with PCP about the results. Your TSH was found to be slightly lower with normal free T4. Recommend checking as outpatient. Pending Studies at Discharge: No Stand-Alone Forms: My [facility], Smoking Cessation Medications and DC Order Prescriptions: Continued fluoxetine 40 mg Capsule 40 mg PO DAILY clonidine HCl 0.1 mg Tablet 0.1 mg PO TID chlorthalidone 25 mg Tablet 25 mg PO DAILY allopurinol 100 mg Tablet 100 mg PO DAILY amlodipine 10 mg Tablet 10 mg PO HS omeprazole [Prilosec] 20 mg Capsule,Delayed Release(Dr/Ec) 20 mg PO DAILY montelukast 10 mg Tablet 10 mg PO DAILY cyclobenzaprine 5 mg Tablet 5 mg PO TID PRN (Reason: Muscle Spasm) rosuvastatin [Crestor] 20 mg Tablet 20 mg PO DAILY gabapentin 100 mg Tablet 100 mg PO TID levothyroxine 125 mcg PO DAILY albuterol sulfate 90 mcg/actuation Hfa Aerosol Inhaler 2 puff INHALATION QID PRN (Reason: Shortness Of Breath Or Wheezing) Dulera 200-5 mcg/actuation Hfa Aerosol Inhaler 2 puff INHALATION BID Held carvedilol [Coreg] 25 mg Tablet 37.5 mg PO BID Hold Instructions: Resume on 04/26/23. Hold till you follow-up with your primary care doctor. Discuss with your primary care doctor about resuming it. Rx Instructions: must administer with a meal/food Discontinued spironolactone 100 mg Tablet 100 mg PO DAILY losartan 100 mg Tablet 100 mg PO DAILY Admission Data Admit Date/Time: 04/16/23 05:12 Attending Provider: Mark Johnson Admit Provider: Evelio Crockett Primary Care Provider: Mykel Bailey Other Providers: Evelio Crockett ; Sharlene Barfield ; Darnell Hagen
[2023-04-22 07:22] LABS: Ceruloplasmin 36 mg/dL (18-53); Copper, Serum 147 mcg/dL (70-175)
== END 2023-04-20 18:09 | disposition home or self-care (01) | DRG 683 ==
LOC: ED 21:15 → EDINP 04-16 05:12 → 2S 04-16 06:40

== ENCOUNTER 2025-04-16 12:40 | Inpatient (IN) ==
--- NOTE | 2025-04-16 12:50 | Emergency Department Note ---
Impression & Plan Syncope, Hypokalemia, CKD (chronic kidney disease), stage III, D-dimer, elevated ED Provider Note NAME: ALEXANDREA NIXON AGE: 54 SEX: F : 1970 ARRIVES VIA: Ambulance INFORMANT: Patient ED PROVIDER(S): Jay eLos DO CHIEF COMPLAINT: syncope HPI: Patient is a 54-year-old female with a past medical history of a tremor, CKD, hypertension, LUIS ENRIQUE, tracheal mass who presents to the ER for several syncopal episodes. Per report she has been having diarrhea for the past several days. She notes anytime she eats anything she has diarrhea. Has no belly pain. No headache or change in vision. She notes that she was intermittently getting a sharp stabbing chest pain with some shortness of breath and then following this she passed out several times. She notes she was feeling lightheaded and dizzy. Has no pain at this time. No dysuria, urgency or frequency. ADDITIONAL HISTORY OBTAINED: Per HPI Chronic Medical/Social Conditions Affecting Care: Per HPI PAST MEDICAL HISTORY:See Below PAST SURGICAL HISTORY:See Below FAMILY HISTORY:See Below SOCIAL HISTORY:See Below HOME MEDICATIONS:See Below ALLERGIES:See Below VITALS:See Below PHYSICAL EXAMINATION: GENERAL: Sitting up in bed, alert, well appearing, well nourished, no distress, non-toxic EYE EXAM: normal conjunctiva. PERRL and EOM's intact. OROPHARYNX: no exudate, no erythema, lips, buccal mucosa, and tongue normal and mucous membranes are moist NECK: supple, no nuchal rigidity, no adenopathy, non-tender LUNGS: Clear to auscultation. Normal chest wall mechanics HEART: no murmurs, S1 normal and S2 normal ABDOMEN: abdomen soft, non-tender, normo-active bowel sounds, no masses, no rebound or guarding. BACK: Back is symmetrical on inspection and there is no deformity, no midline tenderness, no CVA tenderness. SKIN: no rashes and no bruising UPPER EXTREMITIES: upper extremities are grossly normal. LOWER EXTREMITIES: No pitting edema. NEURO EXAM: Normal sensorium, cranial nerves II-XII intact, normal speech, no weakness of arms, no weakness of legs. No drift. Finger to nose intact. Gross sensation intact. MEDICAL DECISION MAKING: Patient is a 54-year-old female who presents to the ER for the above-stated complaint. IV was established and blood work was obtained. Labs showed no significant leukocytosis or anemia. D-dimer was slightly elevated at 980. BMP with a mild hypokalemia of 3.8 and a creatinine of 2.7 which is fairly consistent with previous. LFTs bilirubin and lipase was unremarkable. Troponin was negative. Viral panel was positive for EPEC on the stool. With a positive D-dimer and the creatinine was unable to perform CT angio consequently ordered Dopplers of the lower extremities. These were negative although limited. Chest x-ray was clean. This was discussed with the hospitalist for further evaluation management treatment with the recurrent episodes of syncope. Consults/Care Managements Discussions: Per [facility] Triage Nursing notes reviewed. Limited review of prior medical records performed Vital Signs: reviewed and remarkable for no significant abnormalities Differential diagnosis: Differential diagnosis includes etiologies such as vasovagal event, infection, hypoglycemia, electrolyte abnormalities, cardiac sources, intracerebral event, toxicologic, neurologic, as well as others were entertained. ER treatment provided: See below Diagnostics interpreted by me include EKG and cardiac monitoring as listed below: -Cardiac Monitoring: An order was placed for continuous cardiac monitoring. The monitor shows a rate of 95 with sinus rhythm. -ECG: Sinus rhythm rate of 97 Normal axis No PVCs QTc 429 -Laboratory studies:Interpreted by me as stated above in MDM and shown below. Imaging studies: Xrays: As interpreted by me: Portable AP upright 1 view of the chest shows no focal Lutrate CTs show: none Procedures:none Critical Care: None Past Med/Surg History Problem List D-dimer, elevated (Acute) Hypokalemia (Acute) Syncope (Acute) Enteritis, enteropathogenic E. coli Dehydration Near syncope Tremor Acute kidney injury superimposed on CKD Hyperkalemia Acute hyperkalemia (Acute) Acute renal failure (Acute) Acute dehydration (Acute) Headache (Acute) Failure of outpatient treatment (Acute) Hyperlipidemia Hypothyroidism Resistant hypertension CKD (chronic kidney disease) Hypertensive crisis Sinus tachycardia Hypertensive heart and chronic kidney disease HTN (hypertension) (Acute) Headache (Acute) CKD (chronic kidney disease), stage III (Chronic) Severe hypertension (Acute) Leg pain, right (Acute) Tachycardia (Acute) MRSA (methicillin resistant Staphylococcus aureus) carrier Encounter for pre-operative examination Hypertensive urgency (Acute) Headache (Acute) Vomiting (Acute) Mood disorder (Chronic) Diarrhea (Acute) Sinusitis (Acute) Abnormal CT scan of lung Cough Hemoptysis Haemophilus influenzae infection Cervical radiculopathy (Acute) Arm pain (Acute) Tracheal mass S/P cholecystectomy (Chronic) Medical History (Updated 04/16/25 @ 18:31 by Jay Leos DO) Kidney stone CURRENT/NO PROBLEMS WITH History of pneumonia APR 2019...RESOLVED Anxiety HTN (hypertension) Migraines HX OF Hypothyroidism NO MEDS Surgical History S/P bronchoscopy with biopsy (08/03/19) Rigid Bronchoscopy, Flexible Bronchoscopy with Cryoprobe Biopsy of Tracheal Wall Dr. Yadav 08-03-19 History of cholecystectomy H/O cervical spine surgery "x 2" - FULL ROM H/O dilation and curettage History of tubal ligation Family History Father Diabetes Heart disease Hypertension Mother Cancer Social History Smoking Status: Never smoker Second Hand Exposure: No; Do You Dip or Chew Tobacco: No; Hx Alcohol Use: Yes Alcohol type: wine Hx Substance Use: No Preferred Language: [place] Communication Ability: Effective Mending Carrier Required: No Beliefs That Will Affect Care: None marital status: Current Living Situation: Spouse current occupational status: employed Other Information That Helps Us Care for You: No Feels Safe at Home: Yes Assistive Devices: Glasses and Hospital Bed Allergies Allergies Allergy/AdvReac Type Severity Reaction Status Date / Time lisinopril AdvReac Intermediate Cough Verified 04/16/25 15:46 vancomycin AdvReac Intermediate RED MAN Verified 04/16/25 15:46 SYNDROME W/ IV VANCOMYCIN 10/19. Home Meds Home Medications Medication Instructions Recorded Confirmed albuterol sulfate 90 mcg/actuation 2 puff inhalation Q6H PRN Wheezing 04/16/23 04/16/25 aerosol inhaler allopurinol 100 mg tablet 100 mg PO DAILY 04/16/23 04/16/25 chlorthalidone 25 mg tablet 25 mg PO DAILY 04/16/23 04/16/25 clonidine HCl 0.1 mg tablet 0.2 mg PO TID 04/16/23 04/16/25 cyclobenzaprine 5 mg tablet 5 mg PO TID PRN Muscle Spasm 04/16/23 04/16/25 mometasone-formoterol HFA 200 2 puff inhalation BID 04/16/23 04/16/25 mcg-5 mcg/actuation aerosol inhaler (Dulera) montelukast 10 mg tablet 10 mg PO DAILY 04/16/23 04/16/25 omeprazole 20 mg capsule,delayed 20 mg PO DAILY 04/16/23 04/16/25 release rosuvastatin 20 mg tablet (Crestor) 20 mg PO DAILY 04/16/23 04/16/25 acetaminophen 500 mg tablet 1,000 mg PO Q4H PRN Pain 10/03/23 04/16/25 (Tylenol Extra Strength) aspirin 81 mg chewable tablet 81 mg PO DAILY 10/03/23 04/16/25 cholecalciferol (vitamin D3) 50 50 mcg PO DAILY 10/03/23 04/16/25 mcg (2,000 unit) capsule (Vitamin D3) fluoxetine 20 mg capsule 40 mg PO QAM 10/03/23 04/16/25 gabapentin 300 mg capsule 300 mg PO TID 10/03/23 04/16/25 hydralazine 10 mg tablet 20 mg PO TID 10/03/23 04/16/25 meclizine 25 mg tablet 25 mg PO TID PRN Dizziness 10/03/23 04/16/25 torsemide 20 mg tablet 20 mg PO QAM 10/03/23 04/16/25 bupropion HCl 150 mg tablet,12 hr 150 mg PO DAILY 04/16/25 04/16/25 sustained-release (Wellbutrin SR) levothyroxine 125 mcg tablet 125 mcg PO DAILY 04/16/25 04/16/25 losartan 100 mg tablet 100 mg PO DAILY 04/16/25 04/16/25 Results & Data (ED) Vital Signs Vital Signs - 24 hr 04/16/25 12:50 04/16/25 12:50 04/16/25 12:50 Temperature 36.7 C Temperature Source Oral Pulse Rate 96 H Pulse Rate [Right Finger] Pulse Rate from SpO2 Sensor Pulse Rhythm Regular Pulse Strength Normal Respiratory Rate 14 Respiratory Effort / Characteristics Non-Labored Spontaneous Respiratory Depth Normal Respiratory Pattern Regular Blood Pressure 161/88 H Blood Pressure [Right Arm] Blood Pressure Mean 112 Blood Pressure Mean [Right Arm] Blood Pressure Position Semi-fowlers Pulse Oximetry 96 96 96 Oxygen Delivery Method Room Air Room Air Room Air Sepsis Recent Fever Within 48 Hours No Sepsis New/Unexplained Change in Mental Status No Sepsis Action Taken by Nursing No Action Required 04/16/25 13:01 04/16/25 13:09 04/16/25 14:00 Temperature Temperature Source Pulse Rate 97 H 86 88 Pulse Rate [Right Finger] Pulse Rate from SpO2 Sensor 88 Pulse Rhythm Pulse Strength Respiratory Rate 15 19 Respiratory Effort / Characteristics Respiratory Depth Respiratory Pattern Blood Pressure 131/94 Blood Pressure [Right Arm] Blood Pressure Mean 106 Blood Pressure Mean [Right Arm] Blood Pressure Position Pulse Oximetry 93 97 Oxygen Delivery Method Room Air Sepsis Recent Fever Within 48 Hours Sepsis New/Unexplained Change in Mental Status Sepsis Action Taken by Nursing 04/16/25 14:00 04/16/25 15:06 Temperature Temperature Source Pulse Rate Pulse Rate [Right Finger] 88 Pulse Rate from SpO2 Sensor Pulse Rhythm Pulse Strength Respiratory Rate 19 Respiratory Effort / Characteristics Respiratory Depth Respiratory Pattern Blood Pressure 133/87 Blood Pressure [Right Arm] 186/96 H Blood Pressure Mean 110 Blood Pressure Mean [Right Arm] 126 Blood Pressure Position Pulse Oximetry 97 Oxygen Delivery Method Room Air Sepsis Recent Fever Within 48 Hours Sepsis New/Unexplained Change in Mental Status Sepsis Action Taken by Nursing Laboratory Data 04/16/25 12:51 04/16/25 12:51 Lab Results 04/16/25 04/16/25 04/16/25 Range/Units 12:51 12:55 14:12 WBC 7.67 (4.8-10.8) K/ul RBC 4.40 (4.20-5.40) M/uL Hgb 12.9 (12.0-16.0) g/dl Hct 38.9 (37.0-47.0) % MCV 88.4 (80.0-100.0) fL MCH 29.3 (25.0-34.0) pg MCHC 33.2 (32.0-36.0) g/dL RDW Std Deviation 47.3 H (36.4-46.3) fL RDW Coeff of Chasity 14.6 H (11.5-14.5) % Plt Count 253 (130-400) K/uL MPV 10.7 (9.4-12.4) fL Immature Gran % (Auto) 0.3 % Neut % (Auto) 68.2 % Lymph % (Auto) 16.6 % Roane % (Auto) 12.6 % Eos % (Auto) 1.8 % Baso % (Auto) 0.5 % Neut # (Auto) 5.23 (1.40-6.50) K/uL Lymph # (Auto) 1.27 (1.20-3.40) K/uL Roane # (Auto) 0.97 H (0.11-0.59) K/uL Eos # (Auto) 0.14 (0.00-0.50) K/uL Baso # (Auto) 0.04 (0.00-0.20) K/uL Immature Gran # (Auto) 0.02 (0.01-0.20) K/uL D-Dimer 980 H* (0-500) ug/L FEU Sodium 138 (136-145) mmol/L Potassium 3.4 L (3.5-5.1) mmol/L Chloride 100 (98-107) mmol/L Carbon Dioxide 28 (21-32) mmol/L Anion Gap 10 (3-11) BUN 49 H (6-23) mg/dl Creatinine 2.76 H (0.6-1.2) mg/dl Est Cr Clr Drug Dosing 30.6 ml/min eGFR 19.55 BUN/Creatinine Ratio 17.8 (10-20) Glucose 105 H (70-99(Fasting)) mg/dl Calcium 9.6 (8.6-10.3) mg/dl Magnesium 1.9 (1.7-2.4) mg/dl Total Bilirubin 0.5 (0.2-1.0) mg/dl AST 23 (13-39) U/L ALT 11 (7-52) U/L Alkaline Phosphatase 86 (34-104) U/L Troponin I High Sens 11.8 (0-14) pg/ml Total Protein 8.5 H (6.0-8.3) gm/dl Albumin 4.2 (3.4-5.0) gm/dl Globulin 4.3 H (2.5-4.0) gm/dl Albumin/Globulin Ratio 1.0 (0.9-2) Lipase 60 (11-82) U/L Stl C. cayetanensis PCR Not Detected (NotDetected) Stool Rotavirus A PCR Not Detected (NotDetected) Stl Adenov F 40/41 PCR Not Detected (NotDetected) Stool Astrovirus (PCR) Not Detected (NotDetected) Stool Campylobacter PCR Not Detected (NotDetected) Stl C. diff Tox B Gene Negative Cdiff Gene (Neg) Stl C. diff [id number] NEGATIVE Stool Cryptosporidium PCR Not Detected (NotDetected) Stl E.coli Shiga Tox PCR Not Detected (NotDetected) Stl Enterotoxigenic E PCR Not Detected (NotDetected) Stool EPEC (PCR) DETECTED A* (NotDetected) Stool EAEC (PCR) Not Detected (NotDetected) Stl E. histolytica PCR Not Detected (NotDetected) Stool Giardia Lamblia PCR Not Detected (NotDetected) Stool Salmonella PCR Not Detected (NotDetected) Stool Sapovirus (PCR) Not Detected (NotDetected) Stl P. shigelloides PCR Not Detected (NotDetected) Stl Shigella/EIEC PCR Not Detected (NotDetected) St Y.enterocolitica PCR Not Detected (NotDetected) Stool Vibrio (PCR) Not Detected (NotDetected) Stl Vibrio cholerae PCR Not Detected (NotDetected) Stl Norovirus GI/GII PCR Not Detected (NotDetected) HIV 1&2 Ab/P24 Ag 4thGn Negative (Negative) Administered Medications Discontinued Medications Clonidine HCl (Clonidine Hcl 0.1 Mg Tab) 0.2 mg PO NOW ONE Stop: 04/16/25 15:42 Last Admin: 04/16/25 16:18 Dose: 0.2 mg Documented By: FRANKIE Hydralazine HCl (Hydralazine 10 Mg Tab) 20 mg PO ONE ONE Stop: 04/16/25 15:43 Last Admin: 04/16/25 16:18 Dose: 20 mg Documented By: FRANKIE Sodium Chloride (Nss) 1,000 mls @ 999 mls/hr IV .Q1H1M ONE Stop: 04/16/25 13:47 Last Infusion: 04/16/25 14:28 Dose: Infused Documented By: Admin: 04/16/25 13:00 Dose: 999 mls/hr Documented By: Lactated Ringer's (Lr) 500 mls @ 999 mls/hr IV .Q31M ONE Stop: 04/16/25 17:45 Last Infusion: 04/16/25 18:22 Dose: Infused Documented By: Admin: 04/16/25 17:34 Dose: 999 mls/hr Documented By: tico Potassium Chloride (Potassium Chloride Crtab 20 Meq Tabcr) 40 meq PO NOW STA Stop: 04/16/25 17:04 Last Admin: 04/16/25 17:32 Dose: 40 meq Documented By: tico Imaging Data Radiologist's Impression: Chest X-Ray 04/16/25 12:48 XR chest 1V portable CLINICAL HISTORY: Chest pain, nonspecific COMPARISON STUDY: 10/03/2023 FINDINGS: Heart size and pulmonary vasculature are normal. No consolidation or pleural effusion. No pneumothorax. IMPRESSION: No acute findings. ACT 112: Negative or not required by law. Electronically signed by: Chandler Lora M.D. 04/16/2025 1:27 PM Venous Doppler Study 04/16/25 14:34 BILATERAL LOWER EXTREMITY VENOUS DOPPLER CLINICAL HISTORY: Elevated d-dimer. COMPARISON STUDY: Right lower extremity venous Doppler ultrasound December 17, 2019. TECHNIQUE: Sonography of the deep venous system of the bilateral lower extremities was performed. Compression and augmentation were evaluated. FINDINGS: This exam is mildly compromised by suboptimal penetration. The bilateral common femoral, superficial femoral and popliteal veins were compressible. Augmentation was normal. Flow was shown within the deep calf vessels. IMPRESSION: Exam mildly compromised by suboptimal penetration but no evidence of deep venous thrombus within the bilateral lower extremities. ACT 112: Negative or not required by law. Electronically signed by: Sam Rosario M.D. 04/16/2025 3:19 PM Discharge Plan Visit Data Chief Complaint: Syncope ED Provider: Jay Leos Discharge Problem: Syncope, Hypokalemia, CKD (chronic kidney disease), stage III, D-dimer, elevated Patient Disposition: Admitted As Inpatient Condition: Fair Discharge Instructions Interventions: ED Discharge Assessment Last Done: 04/16/25 16:26 Discharge Problem: Syncope Qualifiers: Syncope type: unspecified Qualified Code(s): R55 - Syncope and collapse CKD (chronic kidney disease), stage III Qualifiers: Chronic kidney disease stage 3 subtype: unspecified whether 3a or 3b Qualified Code(s): N18.30 - Chronic kidney disease, stage 3 unspecified
[2025-04-16] MEDS: SODIUM CHLORIDE 0.9% 1,000 ML IV ONE (13:00)
[2025-04-16 13:27] LABS: Hematocrit (blood only) 38.9 % (37.0-47.0); Hemoglobin 12.9 g/dl (12.0-16.0); Immature Granulocytes # (auto) 0.02 K/uL (0.01-0.20); Immature Granulocytes % (auto) 0.3 %; Mean Corpuscular Hemoglobin 29.3 pg (25.0-34.0); Mean Corpuscular Volume 88.4 fL (80.0-100.0); Platelet Count 253 K/uL (130-400); RDW Standard Deviation 47.3 fL (36.4-46.3); Red Blood Count 4.40 M/uL (4.20-5.40); White Blood Count 7.67 K/ul (4.8-10.8)
--- NOTE | 2025-04-16 13:29 | XRay Report ---
XR chest 1V portable CLINICAL HISTORY: Chest pain, nonspecific COMPARISON STUDY: 10/03/2023 FINDINGS: Heart size and pulmonary vasculature are normal. No consolidation or pleural effusion. No p neumothorax. IMPRESSION: No acute findings. ACT 112: Negative or not required by law. Electronically signed by: Chandler Lora M.D. 04/16/2025 1:27 PM
[2025-04-16 13:30] LABS: Albumin Level 4.2 gm/dl (3.4-5.0); Anion Gap 10.0 (3-11); Bilirubin,Total 0.5 mg/dl (0.2-1.0); Calcium 9.6 mg/dl (8.6-10.3); Carbon Dioxide 28.0 mmol/L (21-32); Chloride 100.0 mmol/L (98-107); Magnesium 1.9 mg/dl (1.7-2.4); Potassium 3.4 mmol/L (3.5-5.1); Sodium 138.0 mmol/L (136-145)
[2025-04-16 13:36] LABS: Alanine Aminotransferase 11.0 U/L (7-52); Albumin Globulin Ratio 1.0 (0.9-2); Alkaline Phosphatase 86.0 U/L (34-104); Blood Urea Nitrogen 49.0 mg/dl (6-23); Creatinine Clr Calc Pharmacy 30.6 ml/min; Globulin 4.3 gm/dl (2.5-4.0); Glucose 105.0 mg/dl (70-99(Fasting)); Lipase 60.0 U/L (11-82); Total Protein 8.5 gm/dl (6.0-8.3)
--- NOTE | 2025-04-16 14:34 | History & Physical Report ---
Date of Service April 16, 2025 Assessment & Plan (1) Near syncope: (2) Dehydration: (3) Acute kidney injury superimposed on CKD: (4) Enteritis, enteropathogenic E. coli: (5) Resistant hypertension: (6) Hypothyroidism: (7) Mood disorder: Plan This is a 54yo F with a PMH of asthma, resistant hypertension, morbid obesity, CKD 3, mood disorder and other medical problems listed below who presents from home after multiple syncopal episodes. Near syncope in setting of dehydration In setting of PO losses, prodrome Improved with fluids in ED Due to feeling of chest pain preceding event, updating echo (last showed preserved EF in 2019, unchanged from previous) Orthostatic vitals Telemetry overnight Holding chlorthalidone and torsemide Elevated d-dimer D-dimer of 980 on admission but unable to obtain CT PE due to renal function Bilateral venous dopplers without evidence of DVT Suspect D-dimer elevation is 2/2 CKD as well as dehydration No SOB, hypoxia or CP to support PE as primary diagnosis Montior Diarrhea Stool studies positive for EPEC C diff negative K 3.4, repleted, Mg 1.9 Supportive care, bland diet, Imodium PRN Advance diet as tolerated Resistant hypertension Follows with Dr. Hernandez of nephro, managed on multiple medications Continue clonidine, hydralazine, losartan Holding chlorthalidone and torsemide for now given LUIS ENRIQUE LUIS ENRIQUE on CKD Per outpatient records, baseline Cr ~2 over the past year, Cr 2.76 today in setting of dehydration Received NSS 1L bolus in ED, continue gentle maintenance fluids as BP allows Repeat BMP in AM Hypothyroidism Continue levothyroxine Hyperlipidemia Continue statin History of asthma Continue Dulera, albuterol PRN Depression/ anxiety Continue fluoxetine, Wellbutrin DVT Ppx: Code status: FULL PCP: Lynn Dispo: Admitted to [facility] Patient seen in collaboration with Dr. Rivera. Please see addendum. I spent a total of 75 minutes coordinating, documenting, and providing care for this patient excluding time spent in the performance of separately billed services or time spent by another provider/QHP. History of Present Illness Chief Complaint: Chest pain, multiple syncopal episodes Primary Care Provider: Mykel Bailey MD This is a 54-year-old female with PMH of asthma, resistant hypertension, morbid obesity, CKD 3, mood disorder and other medical problems listed below who presents from home after near syncope earlier today. Patient went camping over the weekend and has had diarrhea for the past 3 days. Endorsing 5 episodes of watery stool each day. No associated nausea or vomiting but does have some abdominal cramping that resolves after episode of diarrhea. Has had decreased p.o. intake due to this and is continue to take her medications as scheduled, including her diuretic. 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 Then had some shortness of breath and chest pain preceding a presyncopal episode where her coworkers were trying to get her attention and she was not always answering them quickly. Does not think she fully lost consciousness during this time. EMS was called and patient was brought to ED for further evaluation. Denies any episodes like this in the past. Currently feeling better at rest. Due for her afternoon clonidine and hydralazine. No fever, chills, headache, visual changes, chest pain, shortness of breath, nausea, vomiting, abdominal pain, dysuria or constipation. Last echo on file from 2019 with EF 55%. Allergies Allergy/AdvReac Type Severity Reaction Status Date / Time lisinopril AdvReac Intermediate Cough Verified 04/16/25 15:46 vancomycin AdvReac Intermediate RED MAN Verified 04/16/25 15:46 SYNDROME W/ IV VANCOMYCIN 10/19. Home Medications Medication Instructions Recorded Confirmed Type albuterol sulfate 90 mcg/actuation 2 puff inhalation Q6H PRN Wheezing 04/16/23 04/16/25 History aerosol inhaler allopurinol 100 mg tablet 100 mg PO DAILY 04/16/23 04/16/25 History chlorthalidone 25 mg tablet 25 mg PO DAILY 04/16/23 04/16/25 History clonidine HCl 0.1 mg tablet 0.2 mg PO TID 04/16/23 04/16/25 History cyclobenzaprine 5 mg tablet 5 mg PO TID PRN Muscle Spasm 04/16/23 04/16/25 History mometasone-formoterol HFA 200 2 puff inhalation BID 04/16/23 04/16/25 History mcg-5 mcg/actuation aerosol inhaler (Dulera) montelukast 10 mg tablet 10 mg PO DAILY 04/16/23 04/16/25 History omeprazole 20 mg capsule,delayed 20 mg PO DAILY 04/16/23 04/16/25 History release rosuvastatin 20 mg tablet (Crestor) 20 mg PO DAILY 04/16/23 04/16/25 History acetaminophen 500 mg tablet 1,000 mg PO Q4H PRN Pain 10/03/23 04/16/25 History (Tylenol Extra Strength) aspirin 81 mg chewable tablet 81 mg PO DAILY 10/03/23 04/16/25 History cholecalciferol (vitamin D3) 50 50 mcg PO DAILY 10/03/23 04/16/25 History mcg (2,000 unit) capsule (Vitamin D3) fluoxetine 20 mg capsule 40 mg PO QAM 10/03/23 04/16/25 History gabapentin 300 mg capsule 300 mg PO TID 10/03/23 04/16/25 History hydralazine 10 mg tablet 20 mg PO TID 10/03/23 04/16/25 History meclizine 25 mg tablet 25 mg PO TID PRN Dizziness 10/03/23 04/16/25 History torsemide 20 mg tablet 20 mg PO QAM 10/03/23 04/16/25 History bupropion HCl 150 mg tablet,12 hr 150 mg PO DAILY 04/16/25 04/16/25 History sustained-release (Wellbutrin SR) levothyroxine 125 mcg tablet 125 mcg PO DAILY 04/16/25 04/16/25 History losartan 100 mg tablet 100 mg PO DAILY 04/16/25 04/16/25 History Past Med/Surg History Problem List Enteritis, enteropathogenic E. coli Dehydration Near syncope Tremor Acute kidney injury superimposed on CKD Hyperkalemia Acute hyperkalemia (Acute) Acute renal failure (Acute) Acute dehydration (Acute) Headache (Acute) Failure of outpatient treatment (Acute) Hyperlipidemia Hypothyroidism Resistant hypertension CKD (chronic kidney disease) Hypertensive crisis Sinus tachycardia Hypertensive heart and chronic kidney disease HTN (hypertension) (Acute) Headache (Acute) CKD (chronic kidney disease), stage III (Chronic) Severe hypertension (Acute) Leg pain, right (Acute) Tachycardia (Acute) MRSA (methicillin resistant Staphylococcus aureus) carrier Encounter for pre-operative examination Hypertensive urgency (Acute) Headache (Acute) Vomiting (Acute) Mood disorder (Chronic) Diarrhea (Acute) Sinusitis (Acute) Abnormal CT scan of lung Cough Hemoptysis Haemophilus influenzae infection Cervical radiculopathy (Acute) Arm pain (Acute) Tracheal mass S/P cholecystectomy (Chronic) Medical History (Updated 04/16/25 @ 17:00 by Ana Londono PA-C) Kidney stone CURRENT/NO PROBLEMS WITH History of pneumonia APR 2019...RESOLVED Anxiety HTN (hypertension) Migraines HX OF Hypothyroidism NO MEDS Surgical History S/P bronchoscopy with biopsy (08/03/19) Rigid Bronchoscopy, Flexible Bronchoscopy with Cryoprobe Biopsy of Tracheal Wall Dr. Yadav 08-03-19 History of cholecystectomy H/O cervical spine surgery "x 2" - FULL ROM H/O dilation and curettage History of tubal ligation Family History Father Diabetes Heart disease Hypertension Mother Cancer Social History Smoking Status: Never smoker Second Hand Exposure: No; Do You Dip or Chew Tobacco: No; Hx Alcohol Use: Yes Alcohol type: wine Hx Substance Use: No Preferred Language: Ukrainian Communication Ability: Effective Tub Rider Required: No Beliefs That Will Affect Care: None marital status: Current Living Situation: Spouse current occupational status: employed Feels Safe at Home: Yes Assistive Devices: None Review of Systems Review of Systems: At least ten systems reviewed and negative except as noted in the HPI. Physical Exam Physical Exam: General Appearance: WD/WN, vitals as above, NAD, sitting up in bed, pleasant, conversing easily, obese Head: normocephalic, atraumatic Eyes: normal inspection, PERRL, conjunctivae normal, anicteric sclerae ENT: dry mucous membranes of oropharynx Neck: normal visual inspection Respiratory: normal respiratory effort, lungs clear to auscultation, no wheeze, rales, rhonchi. No accessory muscle use Cardiovascular: regular rate, rhythm, normal peripheral pulses, trace BLE edema Abdomen/GI: normal bowel sounds, soft, nontender, no hepatosplenomegaly Extremities/Musculoskeletal: no cyanosis or clubbing, extremities motor strength 5/5 Neurologic: PERRL, EOMI, accommodation nl, no face palsy, no dysarthria, CN's II-XI intact bilaterally and moves all extremities Psychiatric: A+Ox3, euthymic affect Skin: no rashes, normal color, warm/dry Results & Data Results & Data Vital Signs (Past 12 Hours) Vital Signs Temp Pulse Resp BP Pulse Ox O2 Del Method 04/16/25 14:00 133/87 04/16/25 14:00 88 19 97 04/16/25 13:09 86 15 131/94 93 Room Air 04/16/25 13:01 97 H 04/16/25 12:50 96 Room Air 04/16/25 12:50 96 Room Air 04/16/25 12:50 36.7 C 96 H 14 161/88 H 96 Room Air Laboratory Results Short CBC 04/16/25 Range/Units 12:51 WBC 7.67 (4.8-10.8) K/ul Hgb 12.9 (12.0-16.0) g/dl Hct 38.9 (37.0-47.0) % Plt Count 253 (130-400) K/uL BMP 04/16/25 12:51 Sodium 138 Potassium 3.4 L Chloride 100 Carbon Dioxide 28 BUN 49 H Creatinine 2.76 H Glucose 105 H Calcium 9.6 Liver Function 04/16/25 Range/Units 12:51 Total Bilirubin 0.5 (0.2-1.0) mg/dl AST 23 (13-39) U/L ALT 11 (7-52) U/L Alkaline Phosphatase 86 (34-104) U/L Albumin 4.2 (3.4-5.0) gm/dl Diagnostic Findings Chest X-Ray 04/16/25 12:48 XR chest 1V portable CLINICAL HISTORY: Chest pain, nonspecific COMPARISON STUDY: 10/03/2023 FINDINGS: Heart size and pulmonary vasculature are normal. No consolidation or pleural effusion. No pneumothorax. IMPRESSION: No acute findings. ACT 112: Negative or not required by law. Electronically signed by: Chandler Lora M.D. 04/16/2025 1:27 PM Venous Doppler Study 04/16/25 14:34 BILATERAL LOWER EXTREMITY VENOUS DOPPLER CLINICAL HISTORY: Elevated d-dimer. COMPARISON STUDY: Right lower extremity venous Doppler ultrasound December 17, 2019. TECHNIQUE: Sonography of the deep venous system of the bilateral lower extremities was performed. Compression and augmentation were evaluated. FINDINGS: This exam is mildly compromised by suboptimal penetration. The bilateral common femoral, superficial femoral and popliteal veins were compressible. Augmentation was normal. Flow was shown within the deep calf vessels. IMPRESSION: Exam mildly compromised by suboptimal penetration but no evidence of deep venous thrombus within the bilateral lower extremities. ACT 112: Negative or not required by law. Electronically signed by: Sam Rosario M.D. 04/16/2025 3:19 PM Supervising Physician Co-Signing Physician Notes Patient seen and examined at bedside. Sister present as well. Patient with diarrhea (5x a day) for past few days. Never lost consciousness, just "in and out". On exam, well appearing, slightly dry mucus membranes. No leukocytosis, creatinine around baseline, gamma gap noted of 4.3. EPC noted in stool. Patient presenting with acute diarrhea in setting of EPEC infection per stool biofire. Does not meet sepsis criteria, no leukocytosis, hemodynamically stable, therefore no indication for definitive abx therapies. Supportive care with appropriate fluid resuscitation. LR 500 cc bolus and LR maintenance fluids ordered. Will hopefully have rapid improvement and possible discharge tomorrow pending decreased diarrhea burden. -given gamma gap, check HIV and Hep C, may need consideration of monoclonal gammopathy workup outpatient I have seen and discussed the case with the collaborating advanced practitioner. I agree with the above H&P. I have reviewed and confirmed the patients medical history, the findings on physical examination, and the patients diagnosis and treatment plan with Ana Londono PA-C and agree with the information documented. I spent a total of 30 minutes coordinating, documenting, and providing care for this patient excluding time spent in the performance of separately billed services. All of the aforementioned completed outside of collaborating with the assigned advanced practitioner for a full treatment plan. I have reviewed the advanced practitioner's documentation, and I agree with, and take responsibility for the plan of care
--- NOTE | 2025-04-16 15:20 | Ultrasound Report ---
BILATERAL LOWER EXTREMITY VENOUS DOPPLER CLINICAL HISTORY: Elevated d-dimer. COMPARISON STUDY: Right lower extremity venous Doppler ultrasound December 17, 2019. TECHNIQUE: Sonography of the deep venous system of the bilateral lower extremities was performed. Co mpression and augmentation were evaluated. FINDINGS: This exam is mildly compromised by suboptimal penetration. The bilateral common femoral, s uperficial femoral and popliteal veins were compressible. Augmentation was normal. Flow was shown wit hin the deep calf vessels. IMPRESSION: Exam mildly compromised by suboptimal penetration but no evidence of deep venous thrombus within the bilateral lower extremities. ACT 112: Negative or not required by law. Electronically signed by: Sam Rosario M.D. 04/16/2025 3:19 PM
[2025-04-16 15:29] LABS: Cdiff Toxin B Gene (2yr or >) Negative Cdiff Gene (Neg)
[2025-04-16 16:00] LABS: Adenovirus F 40/41 PCR Not Detected (NotDetected); Campylobacter PCR Not Detected (NotDetected); Enteroaggregative E.coli(EAEC) Not Detected (NotDetected); Shiga-like Toxin E.coli (STEC) Not Detected (NotDetected); Vibrio species PCR Not Detected (NotDetected)
[2025-04-16] MEDS: hydrALAZINE 10 MG TAB PO ONE (16:18)
[2025-04-16] MEDS ORDERED: MECLIZINE HCL 25 MG TAB PO PRN (17:00)
[2025-04-16] MEDS ORDERED: ONDANSETRON INJ 2 MG/ML 2 ML VIAL IV PRN (17:00)
[2025-04-16] MEDS ORDERED: ALBUTEROL HFA 8 GM INHALER INH PRN (17:00)
[2025-04-16] MEDS ORDERED: ACETAMINOPHEN 325 MG TAB PO PRN (17:00)
[2025-04-16] MEDS ORDERED: CYCLOBENZAPRINE HCL 5 MG TAB PO PRN (17:00)
[2025-04-16] MEDS ORDERED: LOPERAMIDE HCL 2 MG CAP PO PRN (17:02)
[2025-04-16] MEDS: POTASSIUM CHLORIDE CRTAB 20 MEQ TABCR PO STA (17:32)
[2025-04-16] MEDS: LACTATED RINGER'S 500 ML IV ONE (17:34)
[2025-04-16] MEDS: LACTATED RINGER'S 1,000 ML IV SCH (18:26)
[2025-04-16] MEDS: FLUTICASONE/VILANTEROL 200/25MCG 14 PUFFS/INHALER INH SCH (20:28)
[2025-04-16] MEDS: hydrALAZINE 10 MG TAB PO SCH (20:30)
[2025-04-16] MEDS: HEPARIN SOD 5,000 UNIT/0.5 ML VIAL SQ SCH (21:04)
[2025-04-17] MEDS: LEVOTHYROXINE SODIUM 125 MCG TABLET PO SCH (06:04)
[2025-04-17 07:09] LABS: Hematocrit (blood only) 31.2 % (37.0-47.0); Hemoglobin 10.4 g/dl (12.0-16.0); Mean Corpuscular Hemoglobin 29.6 pg (25.0-34.0); Mean Corpuscular Volume 88.9 fL (80.0-100.0); Platelet Count 202 K/uL (130-400); RDW Standard Deviation 48.1 fL (36.4-46.3); Red Blood Count 3.51 M/uL (4.20-5.40); White Blood Count 5.53 K/ul (4.8-10.8)
[2025-04-17 07:31] LABS: Anion Gap 8.0 (3-11); Blood Urea Nitrogen 53.0 mg/dl (6-23); Calcium 8.6 mg/dl (8.6-10.3); Carbon Dioxide 26.0 mmol/L (21-32); Chloride 104.0 mmol/L (98-107); Creatinine Clr Calc Pharmacy 29.1 ml/min; Glucose 91.0 mg/dl (70-99(Fasting)); Potassium 3.7 mmol/L (3.5-5.1); Sodium 138.0 mmol/L (136-145)
[2025-04-17] MEDS: LACTATED RINGER'S 1,000 ML IV SCH (08:03)
[2025-04-17] MEDS: ROSUVASTATIN CALCIUM 20 MG TAB PO SCH (08:07)
[2025-04-17] MEDS: CHOLECALCIFEROL 25 MCG (1000 UNITS) TAB PO SCH (08:08)
[2025-04-17] MEDS: ASPIRIN 81 MG ECTAB PO SCH (08:09)
[2025-04-17] MEDS ORDERED: LOSARTAN POTASSIUM 50 MG TAB PO SCH (09:00)
--- NOTE | 2025-04-17 11:01 | Hospitalist Progress Note ---
Date of Service April 17, 2025 Assessment & Plan (1) Near syncope: (2) Dehydration: (3) Acute kidney injury superimposed on CKD: (4) Enteritis, enteropathogenic E. coli: (5) Resistant hypertension: (6) Hypothyroidism: (7) Mood disorder: Plan 54yo F with a PMH of asthma, resistant hypertension, morbid obesity, CKD 3, mood disorder and other medical problems listed below who presents from home after multiple near syncopal episodes. Of note, she went camping last weekend [employer] and had diarrhea for 3 days w/ upto 5 watery stool each day and she continued chlorthalidone, torsemide through this. She denied complete LOC. Near syncope in setting of dehydration EPEC diarrhea Near syncope in setting of poor po intake, diarrhea, continued diuretic use. Improved with fluids in ED Due to feeling of chest pain preceding event, echo obtained. ECHO w/ EF of 60-65%, LV wall motion is normal. Orthostatic vitals neg. Holding chlorthalidone and torsemide ADAT, c/w gentle ivf for luis enrique/ckd. Elevated d-dimer, likely iso luis enrique over ckd D-dimer of 980 on admission but unable to obtain CT PE due to renal function Bilateral venous dopplers without evidence of DVT Suspect D-dimer elevation is 2/2 CKD as well as dehydration No SOB, hypoxia or CP to support PE as primary diagnosis Diarrhea Stool studies positive for EPEC C diff negative Monitor and replete electrolytes. ADAT. Resistant hypertension Follows with Dr. Hernandez of nephro, managed on multiple medications Continue clonidine, hydralazine Holding losartan, chlorthalidone and torsemide for now given LUIS ENRIQUE LUIS ENRIQUE on CKD Per outpatient records, baseline Cr ~2 over the past year, Cr 2.76 at presentation in setting of dehydration Received NSS 1L bolus in ED, continue gentle maintenance fluids as BP allows Repeat BMP in AM , Cr up today at 2.9, consider nephro if uptrending. Hypothyroidism: Continue levothyroxine Hyperlipidemia: Continue statin History of asthma: Continue Dulera, albuterol PRN Depression/ anxiety: Continue fluoxetine, Wellbutrin DVT Ppx: Code status: FULL PCP: Lynn Dispo: Admitted to [facility] , likely dc andrea if cr downtrends/stabilizes and diarrhea continues to improve. Admission and Anticipated Discharge Date Admission Date: April 16, 2025 Subjective Patient was seen and examined at bedside. Patient was sitting up in bed, on room air, NAD, resting comfortably. Patient reports improvement in postprandial belly pain, advance diet as tolerated, communicated to RN. Frequency and consistency of the stool improving per patient, patient still feels weak. Patient denies fever/headache/sore throat/chest pain/cough/belly pain. Patient denies blood or black in stool. Physical Exam Physical Exam: General Appearance: WD/WN, pleasant, conversing easily, obese Head: normocephalic, atraumatic Eyes: normal inspection, PERRL, conjunctivae normal, anicteric sclerae ENT: moist mucous membranes of oropharynx Neck: normal visual inspection Respiratory: normal respiratory effort, lungs clear to auscultation, no wheeze, rales, rhonchi. No accessory muscle use Cardiovascular: regular rate, rhythm, normal peripheral pulses, -ve BLE edema Abdomen/GI: normal bowel sounds, soft, nontender, no hepatosplenomegaly Extremities/Musculoskeletal: no cyanosis or clubbing, extremities motor strength 5/5 Neurologic: PERRL, EOMI, accommodation nl, no face palsy, no dysarthria, CN's II-XI intact bilaterally and moves all extremities Psychiatric: A+Ox3, euthymic affect Skin: no rashes, normal color, warm/dry Results & Data Results & Data Vital Signs (Past 12 Hours) Vital Signs Temp Pulse Pulse Resp BP Pulse Ox O2 Del Method 04/17/25 08:32 Room Air 04/17/25 07:34 36.6 C 67 18 120/73 99 Room Air 04/17/25 05:58 77 04/17/25 03:23 36.3 C L 71 16 97/60 L 95 Room Air 04/16/25 22:56 36.6 C 81 16 102/66 95 Room Air
[2025-04-17] MEDS: MONTELUKAST SODIUM 10 MG TABLET PO SCH (20:29)
[2025-04-18 02:07] VITALS: RESP 16
[2025-04-18 06:52] LABS: Hematocrit (blood only) 32.1 % (37.0-47.0); Hemoglobin 10.3 g/dl (12.0-16.0); Mean Corpuscular Hemoglobin 28.1 pg (25.0-34.0); Mean Corpuscular Volume 87.7 fL (80.0-100.0); Platelet Count 196 K/uL (130-400); RDW Standard Deviation 47.9 fL (36.4-46.3); Red Blood Count 3.66 M/uL (4.20-5.40); White Blood Count 4.98 K/ul (4.8-10.8)
[2025-04-18 07:09] VITALS: PULSE 74
[2025-04-18 08:05] LABS: Anion Gap 9.0 (3-11); Calcium 8.8 mg/dl (8.6-10.3); Carbon Dioxide 26.0 mmol/L (21-32); Chloride 105.0 mmol/L (98-107); Potassium 3.7 mmol/L (3.5-5.1); Sodium 140.0 mmol/L (136-145)
[2025-04-18 08:11] LABS: Blood Urea Nitrogen 50.0 mg/dl (6-23); Creatinine Clr Calc Pharmacy 35.2 ml/min; Glucose 101.0 mg/dl (70-99(Fasting))
[2025-04-18 08:26] VITALS: BP 134/80; TEMP 97.5; O2SAT 96
[2025-04-18] MEDS: LOSARTAN POTASSIUM 50 MG TAB PO SCH (09:02)
--- NOTE | 2025-04-18 10:37 | Discharge Summary ---
Date of Service April 18, 2025 Admission HPI Per Admitting Provider This is a 54-year-old female with PMH of asthma, resistant hypertension, morbid obesity, CKD 3, mood disorder and other medical problems listed below who presents from home after near syncope earlier today. Patient went camping over the weekend and has had diarrhea for the past 3 days. Endorsing 5 episodes of watery stool each day. No associated nausea or vomiting but does have some abdominal cramping that resolves after episode of diarrhea. Has had decreased p.o. intake due to this and is continue to take her medications as scheduled, including her diuretic. 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 Then had some shortness of breath and chest pain preceding a presyncopal episode where her coworkers were trying to get her attention and she was not always answering them quickly. Does not think she fully lost consciousness during this time. EMS was called and patient was brought to ED for further evaluation. Denies any episodes like this in the past. Currently feeling better at rest. Due for her afternoon clonidine and hydralazine. No fever, chills, headache, visual changes, chest pain, shortness of breath, nausea, vomiting, abdominal pain, dysuria or constipation. Last echo on file from 2019 with EF 55%. Admission Exam Per Admitting Provider General Appearance: WD/WN, vitals as above, NAD, sitting up in bed, pleasant, conversing easily, obese Head: normocephalic, atraumatic Eyes: normal inspection, PERRL, conjunctivae normal, anicteric sclerae ENT: dry mucous membranes of oropharynx Neck: normal visual inspection Respiratory: normal respiratory effort, lungs clear to auscultation, no wheeze, rales, rhonchi. No accessory muscle use Cardiovascular: regular rate, rhythm, normal peripheral pulses, trace BLE edema Abdomen/GI: normal bowel sounds, soft, nontender, no hepatosplenomegaly Extremities/Musculoskeletal: no cyanosis or clubbing, extremities motor strength 5/5 Neurologic: PERRL, EOMI, accommodation nl, no face palsy, no dysarthria, CN's II-XI intact bilaterally and moves all extremities Psychiatric: A+Ox3, euthymic affect Skin: no rashes, normal color, warm/dry Principal Diagnosis Near syncope in setting of dehydration EPEC diarrhea ho Resistant hypertension Discharge Exam General Appearance: WD/WN, pleasant, conversing easily, obese Head: normocephalic, atraumatic Eyes: normal inspection, PERRL, conjunctivae normal, anicteric sclerae ENT: moist mucous membranes of oropharynx Neck: normal visual inspection Respiratory: normal respiratory effort, lungs clear to auscultation, no wheeze, rales, rhonchi. No accessory muscle use Cardiovascular: regular rate, rhythm, normal peripheral pulses, -ve BLE edema Abdomen/GI: normal bowel sounds, soft, nontender, no hepatosplenomegaly Extremities/Musculoskeletal: no cyanosis or clubbing, extremities motor strength 5/5 Neurologic: PERRL, EOMI, accommodation nl, no face palsy, no dysarthria, CN's II-XI intact bilaterally and moves all extremities Psychiatric: A+Ox3, euthymic affect Skin: no rashes, normal color, warm/dry Discharge Data Allergies Allergy/AdvReac Type Severity Reaction Status Date / Time lisinopril AdvReac Intermediate Cough Verified 04/16/25 15:46 vancomycin AdvReac Intermediate RED MAN Verified 04/16/25 15:46 SYNDROME W/ IV VANCOMYCIN 10/19. Consultations 04/16/25 14:29 ED Decision to Admit Stat Ordered Studies 04/16/25 14:34 US venous doppler LE Stat Hospital Course (1) Near syncope: (2) Dehydration: (3) Acute kidney injury superimposed on CKD: (4) Enteritis, enteropathogenic E. coli: (5) Resistant hypertension: (6) Hypothyroidism: (7) Mood disorder: Plan 54yo F with a PMH of asthma, resistant hypertension, morbid obesity, CKD 3, mood disorder and other medical problems listed below who presents from home after multiple near syncopal episodes. Of note, she went camping last weekend [employer] and had diarrhea for 3 days w/ upto 5 watery stool each day and she continued chlorthalidone, torsemide through this. She denied complete LOC. Near syncope in setting of dehydration EPEC diarrhea Near syncope in setting of poor po intake, diarrhea, continued diuretic use. Improved with fluids in ED Due to feeling of chest pain preceding event, echo obtained. ECHO w/ EF of 60-65%, LV wall motion is normal. Orthostatic vitals neg. trop was neg. Holding chlorthalidone and torsemide, resume upon discharge Pt tolerating diet well. No further diarrhea per pt. Elevated d-dimer, likely iso luis enrique over ckd D-dimer of 980 on admission but unable to obtain CT PE due to renal function Bilateral venous dopplers without evidence of DVT Suspect D-dimer elevation is 2/2 CKD as well as dehydration No SOB, hypoxia or CP to support PE as primary diagnosis Diarrhea Stool studies positive for EPEC C diff negative Monitor and replete electrolytes. tolerating HH diet well. Resistant hypertension Follows with Dr. Hernandez of nephro, managed on multiple medications Continue clonidine, hydralazine Resume losartan, gradually resume torsemide and chlorthalidone upon dc. LUIS ENRIQUE on CKD Per outpatient records, baseline Cr ~2-2.5 over the past year, Cr 2.76 at presentation in setting of dehydration s/p ivf, cr improved to 2.42. f/u nephro upon dc in 2-4 weeks. Hypothyroidism: Continue levothyroxine Hyperlipidemia: Continue statin History of asthma: Continue Dulera, albuterol PRN Depression/ anxiety: Continue fluoxetine, Wellbutrin DVT Ppx: Code status: FULL PCP: Lynn Patient is being discharged home with following instructions at the point of discharge: Follow-up with your primary care physician within a week time and likely you will need labs CBC/CMP/magnesium/phosphorus. Follow-up with nephrology in about 2 to 4 weeks time upon discharge. Continue to monitor your blood pressure twice a day and maintain a log to take to your primary care physician during your next visit. Take your medications as prescribed. Please make sure that you are able to get your medications today by calling your pharmacy before you leave the hospital so that your treatment continuity is not broken. Home Health Attestation I certify that this patient is under my care and that I, or a physicians assistant plant control operator working with me, had a face to-face encounter that meets the home health [id number] encounter requirements with this patient. The encounter with the patient was in whole, or in part, for the following medical condition, which is the primary reason for home health care (list medical condition): I certify that, based on my findings, the following services are medically necessary home health services: My clinical findings support the need for the above services because: Further, I certify that my clinical findings support that this patient is homebound (i.e. absences from home require considerable and taxing effort and are for medical reasons or muslim services or infrequently or of short duration when for other reasons) because: Certification for Home Health Services: Based on the above findings, I certify that this patient is confined to the home and needs intermittent [facility] care, physical therapy and/or speech therapy or continues to need occupational therapy. The patient is under my care, and I have initiated the establishment of the plan of care. This patient will be followed by a physician who will periodically review the plan of care. Total Time Total Time Spent Total Time Spent (In Minutes): 45 Discharge Plan Discharge Items Patient Disposition: Home - Self-Care Reason For Visit: SYNCOPAL EPISODE, LUIS ENRIQUE ON CKD Discharge Diagnosis: Near syncope in setting of dehydration EPEC diarrhea ho Resistant hypertension Condition on Discharge: Fair Activity: Resume your previous activity Non-emergency contact: Primary Care Provider Call non-emergency contact if: you have any medication questions Follow-up/Referrals: Mykel Bailey MD [Primary Care Provider] - (Date & Time 04/24/2025 11:00 AM Provider: Mykel Bailey MD [facility] ) Diet: Heart Healthy and Low Sodium (2gm) Addtl Attending Provider Instructions: Follow-up with your primary care physician within a week time and likely you will need labs CBC/CMP/magnesium/phosphorus. Follow-up with nephrology in about 2 to 4 weeks time upon discharge. Continue to monitor your blood pressure twice a day and maintain a log to take to your primary care physician during your next visit. Take your medications as prescribed. Please make sure that you are able to get your medications today by calling your pharmacy before you leave the hospital so that your treatment continuity is not broken. Pending Studies at Discharge: No Stand-Alone Forms: My [employer], Smoking Cessation Medications and DC Order Prescriptions: Continued clonidine HCl 0.1 mg Tablet 0.2 mg PO TID Rx Instructions: MAY TAKE UP TO 2 ADDITIONAL DOSES FOR A SBP>160 allopurinol 100 mg Tablet 100 mg PO DAILY omeprazole 20 mg Capsule,Delayed Release(Dr/Ec) 20 mg PO DAILY montelukast 10 mg Tablet 10 mg PO DAILY cyclobenzaprine 5 mg Tablet 5 mg PO TID PRN (Reason: Muscle Spasm) rosuvastatin [Crestor] 20 mg Tablet 20 mg PO DAILY albuterol sulfate 90 mcg/actuation Hfa Aerosol Inhaler 2 puff INHALATION Q6H PRN (Reason: Wheezing) Dulera 200-5 mcg/actuation Hfa Aerosol Inhaler 2 puff INHALATION BID bupropion HCl [Wellbutrin SR] 150 mg Tablet Sustained-Release 12 Hr 150 mg PO DAILY levothyroxine 125 mcg Tablet 125 mcg PO DAILY losartan 100 mg Tablet 100 mg PO DAILY hydralazine 10 mg Tablet 20 mg PO TID acetaminophen [Tylenol Extra Strength] 500 mg Tablet 1,000 mg PO Q4H PRN (Reason: Pain) meclizine 25 mg Tablet 25 mg PO TID PRN (Reason: Dizziness) gabapentin 300 mg Capsule 300 mg PO TID aspirin 81 mg Tablet,Chewable 81 mg PO DAILY fluoxetine 20 mg Capsule 40 mg PO QAM cholecalciferol (vitamin D3) [Vitamin D3] 50 mcg (2,000 unit) Capsule 50 mcg PO DAILY Held chlorthalidone 25 mg Tablet 25 mg PO DAILY Hold Instructions: Resume on 04/20/25. torsemide 20 mg Tablet 20 mg PO QAM Hold Instructions: Resume on 04/19/25. Discharge Orders: Discharge Order (Routine); Ordered 04/18/25 Ordered By: Nilson Man Admission Data Admit Date/Time: 04/16/25 15:07 Attending Provider: Nilson Man Admit Provider: Blu Rivera Primary Care Provider: Mykel Bailey Other Providers: Blu Rivera
--- NOTE | 2025-04-22 06:39 | Electrocardiogram Report ---
Test Reason : Blood Pressure : */* mmHG Vent. Rate : 97 BPM Atrial Rate : 97 BPM P-R Int : 166 ms QRS Dur : 102 ms QT Int : 338 ms P-R-T Axes : 44 25 21 degrees QTcB Int : 429 ms Normal sinus rhythm Normal ECG When compared with ECG of 03-Oct-2023 17:32, No significant change was found Confirmed by Luis Angel Carrizales ([id number]) on 04/22/2025 6:38:42 AM Referred By: REFERRED SELF Confirmed By: Luis Angel Carrizales
== END 2025-04-18 12:40 | disposition home or self-care (01) | DRG 372 ==
LOC: ED 12:40 → SUATTDRO 15:07 → 2N 15:07